=== PATIENT | male | born 1990 | race Caucasian/White ===

== ENCOUNTER 2023-08-30 07:25 | Emergency (ER) | payer OTHER, SELFPAY ==
[2023-08-30] VITALS (8 sets, daily range): BP systolic 112–122; BP diastolic 79–85; PULSE 54–68; RESP 13–18; TEMP 36.5; O2SAT 96–100; BMI 26.6
--- NOTE | 2023-08-30 07:55 | ECG_ITS ---
[facility] Test Date: 2023-08-30 Pat Name: YAO BLACN Department: Room: - Gender: Male [employer]er: : 1990 Requested By: Order Number: [id number] Reading MD: GELA MELENDREZ Measurements Intervals [place] Rate: 55 P: 57 MS: 182 QRS: 90 QRSD: 104 T: 75 QT: 414 QTc: 404 Interpretive Statements 1100 Sinus rhythm 1102 Sinus arrhythmia 2440 Incomplete right bundle branch block 9130 borderline ECG No previous ECG available for comparison Electronically Signed On 08-30-2023 22:27:28 EST by GELA MELENDREZ
--- NOTE | 2023-08-30 08:03 | XR_ITS ---
The [address] [address] Patient Name: YAO BLANC MRN: [id number] date: 1990 Sex: M Assigned Patient Location: ER Current Patient Location: ER Accession/Order Number: [id number] Exam Date: 08/30/2023 07:58 Report Date: 08/30/2023 08:19 At the request of: JOSELIN LIN Procedure: XR chest 1V EXAM: Chest x-ray HISTORY: . chest pain . COMPARISON: None. TECHNIQUE: Single view of the chest FINDINGS: Heart and vascularity are unremarkable. Lungs are free of focal infiltrates. EKG leads overlie the chest. XR/XR chest 1V IMPRESSION: No acute heart or lung disease identified. Electronically authenticated by: ROSALINDA TINOCO Date: 08/30/2023 08:19
--- NOTE | 2023-08-30 08:05 | ED_ITS ---
HPI - Chest Pain General Chief Complaint: Chest Pain Stated Complaint: CHEST PAIN Time Seen by Provider: 08/30/23 07:33 Source: patient Mode of arrival: walk-in Limitations: no limitations History of Present Illness HPI narrative: Woke up last night with substernal chest pain that was non-radiating and rated 10/10. Since then the pain has decreased and he rates it 4/10. . Related Data Previous Rx's Medication Instructions Recorded nabumetone 750 mg tablet 750 mg PO BID PRN pain #14 tabs 08/30/23 Allergies Allergy/AdvReac Type Severity Reaction Status Date / Time No Known Drug Allergies Allergy Verified 08/30/23 07:31 Exam Constitutional Vital Signs, click to edit/add: Last Vital Signs Temp 97.7 F 08/30/23 07:31 Pulse 56 L 08/30/23 08:30 Resp 13 08/30/23 08:30 BP 118/85 08/30/23 08:30 Pulse Ox 100 08/30/23 08:30 Course Vital Signs Vital signs: Vital Signs Blood Pressure 122/83 08/30/23 07:30 Pulse Oximetry 100 08/30/23 07:30 Temperature 97.7 F 08/30/23 07:31 Pulse Rate 56 L 08/30/23 08:30 Respiratory Rate 13 08/30/23 08:30 Blood Pressure 118/85 08/30/23 08:30 Pulse Oximetry 100 08/30/23 08:30 MDM - Chest Pain MDM Narrative Medical decision making narrative: Patient was placed on monitor technician and EKG obtained. Blood drawn and sent for evaluation. Chest x-ray obtained. Normal CBC. Negative troponin. Normal BMP. CXR negative. Patient's pain resolved after receiving IV Toradol. Patient informed of negative workup, given reassurance and discharged home with prescription for Relafen to take if pain returns. He can see his PCP for follow up.ED return if he worsens. Lab Data Attestation: I reviewed the patient's lab results. Labs: Lab Results 08/30/23 Range/Units 07:41 WBC 7.9 (4.0-11.0) 10^3/uL RBC 4.86 (4.70-6.10) 10^6/uL Hgb 15.2 (14.0-18.0) g/dL Hct 44.9 (42.0-54.0) % MCV 92.4 (80.0-94.0) fL MCH 31.3 (25.9-34.0) pg MCHC 33.9 (29.9-35.2) g/dL RDW 11.9 (11.0-15.0) % Plt Count 239 (150-450) 10^3/uL MPV 10.6 (9.5-13.5) fL Neut % (Auto) 63.7 (43.0-75.0) % Lymph % (Auto) 24.2 (20.5-60.0) % Isabella % (Auto) 8.9 (1.7-12.0) % Eos % (Auto) 2.1 (0.9-7.0) % Baso % (Auto) 0.8 (0.2-2.0) % Neut # (Auto) 5.1 (1.4-6.5) 10^3/uL Lymph # (Auto) 1.9 (1.2-3.8) 10^3/uL Isabella # (Auto) 0.7 (0.3-0.8) 10^3/uL Eos # (Auto) 0.2 (0.0-0.7) 10^3/uL Baso # (Auto) 0.1 (0.0-0.1) 10^3/uL Abs Immat Gran (auto) 0.02 (0.00-0.03) 10^3/uL Imm/Tot Granulo (auto) 0.3 (0.0-0.5) % Sodium 141 (136-145) mmol/L Potassium 4.2 (3.5-5.1) mmol/L Chloride 107 (98-107) mmol/L Carbon Dioxide 25.0 (21.0-32.0) mmol/L Anion Gap 13.2 BUN 17.0 (7.0-18.0) mg/dL Creatinine 1.15 (0.70-1.30) mg/dL Est GFR ( Amer) >60 (>=60) Est GFR (Non-Af Amer) >60 (>=60) BUN/Creatinine Ratio 14.8 Glucose 97 (74-106) mg/dL Calcium 8.8 (8.5-10.1) mg/dL Troponin I High Sens 4.3 (4.0-76.1) pg/mL NT-Pro-B Natriuret Pep 29.0 (<=450.0) pg/mL Imaging Data Chest x-ray: Radiologist's impression: ITS Impressions Chest X-Ray 08/30/23 08:03 IMPRESSION: No acute heart or lung disease identified. Electronically authenticated by: ROSALINDA TINOCO Date: 08/30/2023 08:19 ECG Data Attestation: I personally reviewed and interpreted this ECG as follows: Interpretation: EKG interpretation: Emergency Department physician interpretation. Normal sinus rhythm at 55bpm. Incomplete right bundle branch block. No ST segment elevation or depression. Heart Score History: Moderately Suspicious ECG: Normal Age: <45 years Risk Factors: No Risk Factors Troponin: <Normal Limit Total Heart Score Recommendations & Risks:: 1 Discharge Plan Discharge Chief Complaint: Chest Pain Clinical Impression: Chest pain Patient Disposition: Home, Self-Care Time of Disposition Decision: 08:48 Prescriptions / Home Meds: New nabumetone 750 mg tablet 750 mg PO BID PRN (Reason: pain) Qty: 14 0RF Instructions: Chest Pain (ED) Stand Alone Forms: Portal Instructions Referrals: Physician,Non-Staff, MD [Primary Care Provider] - 1 week
[2023-08-30 08:23] LABS: Basophils Absolute Auto 0.1 10^3/uL (0.0-0.1); Basophils Percent Auto 0.8 % (0.2-2.0); Eosinophils Absolute Auto 0.2 10^3/uL (0.0-0.7); Eosinophils Percent Auto 2.1 % (0.9-7.0); Hematocrit 44.9 % (42.0-54.0); Hemoglobin 15.2 g/dL (14.0-18.0); Immature Granulocytes Abs Auto 0.02 10^3/uL (0.00-0.03); Immature Granulocytes Pct Auto 0.3 % (0.0-0.5); Lymphocytes Absolute Auto 1.9 10^3/uL (1.2-3.8); Lymphocytes Percent Auto 24.2 % (20.5-60.0); Mean Corpuscular HGB Conc 33.9 g/dL (29.9-35.2); Mean Corpuscular Hemoglobin 31.3 pg (25.9-34.0); Mean Corpuscular Volume 92.4 fL (80.0-94.0); Mean Platelet Volume 10.6 fL (9.5-13.5); Monocytes Absolute Auto 0.7 10^3/uL (0.3-0.8); Monocytes Percent Auto 8.9 % (1.7-12.0); Neutrophils Absolute Auto 5.1 10^3/uL (1.4-6.5); Neutrophils Percent Auto 63.7 % (43.0-75.0); Platelet Count 239 10^3/uL (150-450); Red Blood Count 4.86 10^6/uL (4.70-6.10); Red Cell Distribution Width 11.9 % (11.0-15.0); White Blood Count 7.9 10^3/uL (4.0-11.0)
[2023-08-30] MEDS: KETOROLAC TROMETHAMINE 30 MG/ML VIAL IVP (08:32)
[2023-08-30 08:40] LABS: Anion Gap 13.2; BUN Creatinine Ratio 14.8; Calcium 8.8 mg/dL (8.5-10.1); Chloride 107 mmol/L (98-107); Estimated GFR (African America >60 (>=60); Estimated GFR (Non-African Ame >60 (>=60); Glucose 97 mg/dL (74-106); Potassium 4.2 mmol/L (3.5-5.1); Sodium 141 mmol/L (136-145); Troponin I High Sensitivity 4.3 pg/mL (4.0-76.1)
[2023-08-30 08:51] LABS: D Dimer <0.19 mg/L FEU (<=0.59)
== END 2023-08-30 09:01 | disposition home or self-care (01) ==
PROVIDERS: Emergency Provider Emergency Medicine
DX: R07.9 Chest pain, unspecified (principal)
CPT/HCPCS: 36415; 71045; 80048; 83880; 84484; 85025; 85378; 93005; 96374; 99285; J1885

== ENCOUNTER 2023-09-28 21:24 | Emergency (ER) | payer SELFPAY ==
[2023-09-28 21:28] VITALS: BP 128/67; PULSE 78; RESP 16; TEMP 37.1; O2SAT 98; BMI 26.6
--- OUTSIDE RECORDS SUMMARY | 2023-09-28 21:29 | XMS_ITS | CCD ---
Author Name Unknown Address [address] [place] [address] Organization [facility] Care Team Providers Care Supervisor Intermediates Name Role Phone Julee Vidal DO Primary Care Provider [phone] RAJESH FARRIS Attending Unavailable SELF, SELF Referring Unavailable MARCY, JULEE Primary Care Unavailable CHARLES ALICEA Attending Unavailable SELF, SELF Referring Unavailable FUNCK, JULEE Primary Care Unavailable SAAD STONE Attending Unavailable SELF, SELF Referring Unavailable LILLY, CHARLES Primary Care Unavailable ROSEANNE THRASHER Attending Unavailable SELF, SELF Referring Unavailable LILLY, CHARLES Primary Care Unavailable JULEE VIDAL Attending Unavailable SELF, SELF Referring Unavailable LILLY, CHARLES Primary Care Unavailable MARSHA PITTS Attending Unavailable SELF, SELF Referring Unavailable LILLY, CHARLES Primary Care Unavailable MARSHA PITTS Attending Unavailable MARSHA PITTS Referring Unavailable DANIELCKJULEE Primary Care Unavailable DANIELCKJULEE Primary Care Unavailable CONSULT, SURGERY - GENERAL (EMERGENT) Consulting Unavailable SANTOSH, SUPO A Attending Unavailable SANTOSH, SUPO A Admitting Unavailable DANIELCK, JULEE Primary Care Unavailable CORONA HERRERA Attending Unavailable MD David Martines Attending Unavailable MD David Martines Attending Unavailable MD David Martines Attending Unavailable Allergies Allergy Classification Reported Allergen(s) Allergy Type Date of Onset Reaction(s) Facility (6 sources) Honey bee venom Propensity to adverse reactions to drug 2 [facility] (1 source) Bee pollen; Translations: [bee pollen] Propensity to adverse reactions (disorder) [facility] Repository Medications Current Medications Medication Drug Class(es) Dates Sig (Normalized) Sig (Original) cefdinir 300 mg oral capsule (5 sources) Cephalosporin Antibacterial Start: 01-21-2023 End: 01-26-2023 take 1 capsule by mouth every twelve hours Cefdinir (OMNICEF) 300 MG capsule Take 1 capsule by mouth every 12 hours for 5 days. 10 capsule 0 01/21/2023 01/26/2023 Active metroNIDAZOLE 500 mg oral tablet (5 sources) Nitroimidazole Antimicrobial Start: 01-21-2023 End: 01-26-2023 take 1 tablet by mouth three times daily metroNIDAZOLE 500 MG tablet Take 1 tablet by mouth 3 times daily for 5 days. 15 tablet 0 01/21/2023 01/26/2023 Active Completed/Discontinued Medications Medication Drug Class(es) Dates Sig (Normalized) Sig (Original) acetaminophen 325 mg oral tablet (2 sources) Start: 3 End: take 1 tablet by mouth every six hours as needed 650 mg, Oral, EVERY 6 HOURS NEEDED, Starting on 01/19/23 at 1812, Until 01/21/23 at 1507, Mild Pain If Motrin is also ordered, alternate for mild pain. 24 hr amphetamine aspartate 7.5 mg / amphetamine sulfate 7.5 mg / dextroamphetamine saccharate 7.5 mg / dextroamphetamine sulfate 7.5 mg extended release oral capsule (20 sources) Central Nervous System Stimulant Start: 3 End: 3 take 1 capsule by mouth once daily in the morning amphetamine-dextr oamphetamine XR 30 MG Cap SR 24HR Indications: Attention deficit hyperactivity disorder (ADHD), unspecified ADHD type Take 1 capsule by mouth daily every morning. 30 capsule 0 03/14/2023 04/16/2023 Discontinued (Reorder) benzocaine 140 mg/ml / butamben 20 mg/ml / tetracaine 20 mg/ml mucosal spray (2 sources) Gertrudis Local Anesthetic, Standardized Chemical Allergen Start: 3 End: 3 tetracaine-benzoc mila (CETACAINE) topical spray 1 spray dicyclomine hydrochloride 20 mg oral tablet (2 sources) Anticholinergic Start: 3 End: 3 take 1 tablet by mouth every six hours as needed Dicyclomine 20 MG tablet Take 1 tablet by mouth every 6 hours as needed (Abdominal pain). 20 tablet 0 04/05/2023 04/16/2023 Discontinued (Therapy completed) 2 ml famotidine 10 mg/ml injection (2 sources) Histamine-2 Receptor Antagonist Start: 3 End: 3 famotidine (PF) (PEPCID) injection 20 mg 150 ml glucose 50 mg/ml injection (2 sources) Start: 3 End: 3 Dextrose 5% IV solution Iopamidol (2 sources) Radiographic Contrast Agent Start: 3 End: 3 Iopamidol (370 mg/mL) (ISOVUE) 76 % 75 mL 1 ml ketorolac tromethamine 15 mg/ml cartridge (2 sources) Nonsteroidal Anti-inflammatory Drug, Cyclooxygenase Inhibitor Start: 3 End: 3 take 15 mg intravenously every six hours as needed 15 mg, Intravenous, EVERY 6 HOURS NEEDED, Starting on Sun01/19/23 at 1812, Until 01/21/23 at 1507, Moderate Pain 1 ml morphine sulfate 2 mg/ml cartridge (4 sources) Opioid Agonist Start: 3 End: 3 take 2 mg intravenously every four hours as needed Morphine (PF) injection 2 mg Start: 01-19-2023 End: 01-19-2023 Morphine (PF) injection 4 mg 1 ml naloxone hydrochloride 0.4 mg/ml injection (2 sources) Opioid Antagonist Start: 01-19-2023 End: 01-21-2023 0.4 mg, Intravenous, EVERY 15 MINUTES NEEDED, 2 doses, Starting on Sun01/19/23 at 1811, Until Sun01/21/23 at 1507, Respiratory Depression, Opioid Reversal nirmatrelvir-ritonavi r (PAXLOVID) 300 MG & 100MG PO co-packaged tablets (1 source) Start: 04-05-2023 End: 04-10-2023 take 3 tablets by mouth twice daily nirmatrelvir-riton avir (PAXLOVID) 300 MG & 100MG PO co-packaged tablets Indications: COVID-19 virus infection Take three tablets (2 x nirmatrelvir 150 mg plus 1 x ritonavir 100 mg) twice daily for 5 days. 30 tablet 0 04/05/2023 04/10/2023 ondansetron 4 mg disintegrating oral tablet (4 sources) Serotonin-3 Receptor Antagonist Start: 04-05-2023 End: 04-16-2023 take 1 tablet by mouth every eight hours as needed Ondansetron 4 MG Tab Dispersible tablet Take 1 tablet by mouth every 8 hours as needed. 10 tablet 0 04/05/2023 04/16/2023 Discontinued (Therapy completed) Start: 01-19-2023 End: 01-19-2023 Ondansetron 4mg/2ml (ZOFRAN) injection 4 mg Ondansetron 4mg/2ml (ZOFRAN) injection 4 mg (2 sources) Start: 01-19-2023 End: 01-21-2023 take 4 mg intravenously every six hours as needed Ondansetron 4mg/2ml (ZOFRAN) injection 4 mg Start: 01-19-2023 take 4 mg intravenou sly every six hours as needed Ondansetron 4mg/2ml (ZOFRAN) injection 4 mg 1000 ml sodium chloride 9 mg/ml injection (6 sources) Start: 01-19-2023 End: 01-20-2023 Intravenous, at 100 mL/hr, CONTINUOUS, Starting on Sun01/19/23 at 1815, Until 01/20/23 at 1726 Start: 01-19-2023 End: 01-21-2023 take 5 mL intravenously once 5 mL, Intravenous, ADMINI STER DIRECTED, Starting on Sun01/19/23 at 1811, Until 01/21/23 at 1507, Flush, per IV Care Guidelines Start: 01-19-2023 End: 01-19-2023 Sodium chloride 0.9% IV solu tion 1,000 mL Problems Active Problems Problem Classification Problem Date Documented Date Episodic/Chronic Adjustment disorders (6 sources) Adjustment disorder; Translations: [Adjustment disorder, unspecified] Onset: 01-19-2023 01-19-2023 Chronic Asthma (6 sources) Asthma; Translations: [Unspecified asthma, uncomplicated] Onset: 01-19-2023 01-19-2023 Chronic Attention-deficit, conduct, and disruptive behavior disorders (7 sources) Attention deficit hyperactivity disorder; Translations: [Attention-deficit hyperactivity disorder, unspecified type] Onset: 02-09-2023 02-09-2023 Chronic Attention-deficit, conduct, and disruptive behavior disorders (2 sources) Attention-deficit hyperactivity disorder, unspecified type; Translations: [Attention-deficit hyperactivity disorder, unspecified type] Onset: 09-14-2022 Chronic Unclassified (2 sources) Other; Translations: [Other] Onset: 04-05-2023 Unclassified (2 sources) Medication Refill; Translations: [Medication Refill] Onset: 09-14-2022 Viral infection (3 sources) Disease caused by 2019-nCoV; Translations: [COVID-19] Onset: 04-05-2023 04-05-2023 Episodic Past or Other Problems Problem Classification Problem Date Documented Da te Episodic/Chronic Abdominal pain (7 sources) Left sided abdominal pain; Translations: [Unspecified abdominal pain] Onset: 01-19-2023 01-19-2023 Episodic Intestinal obstruction without hernia (12 sources) Small bowel obstruction; Translations: [Unspecified intestinal obstruction, unspecified as to partial versus complete obstruction] Onset: 01-19-2023 01-19-2023 Episodic Other circulatory disease (6 sources) Elevated blood pressure; Translations: [Elevated blood-pressure reading, without diagnosis of hypertension] Onset: 09-14-2022 Resolved: 04-16-2023 09-14-2022 Episodic Results Test Name Value Interpretation Reference Range Facility Ambulatory Visit Summaryon 1 09-19-2022 Ambulatory Visit Summary OSMAN BLANC :1990 Visit Date:07/19/2023 Ambulatory Visit Instructions Your Diagnosis Attention deficit hyperactivity disorder Tetrahydrocannabinol (THC) use disorder, moderate, dependence BMI 27.0-27.9,adult Smoker Your Care Team Attending Physician - David Martines MD Primary Care Physician - David Martines MD This Is Your Medications List amphetamine-dextroamp hetamine (amphetamine-dextroam phetamine 30 mg ER Cap) Contact prescribing physician if questions or concerns albuterol (Albuterol (Eqv-ProAir HFA) 90 mcg/inh inhalation aerosol) Discharge Vitals Temperature (Oral) 36.7 ?C Heart Rate (Peripheral) 76 Respiratory Rate 14 Blood Pressure 132/80 Height 173 cm Height 68 in Weight 81.6 kg Weight 179.52 lb BMI 27.26 What to do next Scheduled Follow-Up Appointments Sunday 3:00 PM EST With: Conrad INGRAM, David Palafox Where: [facility] Medicine [place] [facility] Family Medicine Office/Clini c Noteon 07-19-2023 Family Medicine Office/Clinic Note HPI Staff Osman is a 32 year old male presenting for one month follow up ADHD Has been on adderrall for ADHD just started 06/21/23 _ Sleeping well: yes Eating habits: Eating well, maintaining weight Side effects: no Focused at home: yes_ Concerns/complaints: None OARRS reviewed with no concerns Last med refill: 06/21/23 Urine drug screen complete: yes but + THC and needs repeated today Medication agreement utd: yes Date: 06/21/2023 _ UDS done and documented questions/concerns: needs the adderall refilled, his insurance only covers 30 at a time History of Present Illness - Here for recheck - Still positive - States he only stopped smoking two weeks ago. Review of Systems PHQ Score Initial Depression Screen Score: 0 SCORE Physical Exam Vitals & Measurements T: 36.7 ?C(Oral) HR: 76(Peripheral) RR: 14 BP: 132/80 SpO2: 99% HT: 68 in HT: 173 cm WT: 81.6 kg WT: 179.52 lb BMI: 27.26 General: alert, no acute distress ENMT: oral mucosa moist, Cardiovascular: normal peripheral perfusion Respiratory: respirations non labored Extremities: no deformity, no trauma Neurological: oriented x 4, LOC appropriate for age, CN II-XII intact, motor strength equal & normal bilaterally, speech normal Assessment/Plan 1. Attention deficit hyperactivity disorder (F90.9: Attention-deficit hyperactivity disorder, unspecified type) - Will refill one more time. If still positive, we will cut him off. - Pt knows and is in agreement Ordered: Drug Screen POC 28857 2. Tetrahydrocannabinol (THC) use disorder, moderate, dependence (F12.20: Cannabis dependence, uncomplicated) - As above - Encouraged cessation. Orders: amphetamine-dextroamp hetamine, 30 mg = 1 cap(s), Oral, qAM, # 30 cap(s), Refills(s) 0, Pharmacy: [facility]/pharmacy #[id number], 173, cm, 07/19/23 10:31:00 EST, Height/Length Dosing, 81.6, kg, 07/19/23 10:31:00 EST, Weight Dosing Follow-up No qualifying data available Patient Education Attention Deficit Hyperactivity Disorder, Adult Problem List/Past Medical History Ongoing Asthma Attention deficit hyperactivity disorder Encounter for surveillance of abnormal nevi Smoker Tetrahydrocannabinol (THC) use disorder, moderate, dependence Historical No qualifying data Medications Albuterol (Eqv-ProAir HFA) 90 mcg/inh inhalation aerosol, Self Directed amphetamine-dextroamp hetamine 30 mg ER Cap, 30 mg= 1 cap(s), Oral, qAM Allergies bee pollen Social History Tobacco 10 or more cigarettes (1/2 pack or more)/day in last 30 days Tobacco Use:. Never Smokeless Tobacco Use:. Cigarettes, 07/19/2023 Smoker, current status unknown Tobacco Use:. Cigarettes, 15 year(s)., 06/21/2023 Family History Diabetes mellitus type 2: Grandparent. Heart failure: Grandparent. Hyperlipidemia: Grandparent. Hypertension: Grandparent. Malignant lymphoma: Negative: Grandparent. Metastatic cancer: Grandparent. Stroke: Grandparent. Immunizations Vaccine Date Status SARS-CoV-2 (COVID-19) Ad26 vaccine 10/25/2021 Recorded influenza virus vaccine, inactivated 06/14/2021 Recorded diphtheria/pertussis, acel/tetanus adult 01/11/2019 Recorded hepatitis B pediatric vaccine 05/08/2005 Recorded measles/mumps/rubella virus vaccine 02/17/2002 Recorded measles/mumps/rubella virus vaccine 04/23/2001 Recorded hepatitis B pediatric vaccine 04/23/2001 Recorded DTaP, unspecified formulation 03/21/1993 Recorded DTaP, unspecified formulation 04/08/1991 Recorded measles/mumps/rubella virus vaccine 02/19/1990 Recorded DTaP, unspecified formulation 02/19/1990 Recorded DTaP, unspecified formulation 11/28/1989 Recorded DTaP, unspecified formulation 04/17/1989 Recorded Lab Results Ambulatory Point of Care Results Cocaine Result: Negative (07/19/23 10:35:00) Amphetamines Result: Positive (07/19/23 10:35:00) Barbiturates Result: Negative (07/19/23 10:35:00) Cannabinoids Result: Positive (07/19/23 10:35:00) MDMA Result: Negative (07/19/23 10:35:00) Methadone Result: Negative (07/19/23 10:35:00) Methamphetamines Result: Negative (07/19/23 10:35:00) Opiates Result: Negative (07/19/23 10:35:00) Oxycodone Result: Negative (07/19/23 10:35:00) Phencyclidine (PCP) Result: Negative (07/19/23 10:35:00) Tricyclic Antidepressants Result: Negative (07/19/23 10:35:00) Benzodiazepines Quant: Negative (07/19/23 10:35:00) Normal [facility] Comment on above: Result Comment: Elec tronically Signed By: Conrad INGRAM, David Palafox\.br\Date and Time Signed: 07/19/23 10:49 EST Patient Educationon 07-19-20 Patient Education Mental and Behavior[facility] Attention Deficit Hyperactivity Disorder, Adult Attention deficit hyperactivity disorder (ADHD) is a mental health disorder that starts during childhood. For many people with ADHD, the disorder continues into the adult years. Treatment can help you manage your symptoms. There are three main types of ADHD: ? Inattentive. With this type, adults have difficulty paying attention. This may affect cognitive abilities. ? Hyperactive-impulsive . With this type, adults have a lot of energy and have difficulty controlling their behavior. ? Combination type. Some people may have symptoms of both types. What are the causes? The exact cause of ADHD is not known. Most experts believe a person's genes and environment possibly contribute to ADHD. What increases the risk? The following factors may make you more likely to develop this condition: ? Having a first-degree relative such as a parent, brother, or sister, with the condition. ? Being born before 37 weeks of (prematurely) or at a low weight. ? Being born to a mother who smoked tobacco or drank alcohol during . ? Having experienced a brain injury. ? Being exposed to lead or other toxins in the womb or early in life. What are the signs or symptoms? Symptoms of this condition depend on the type of ADHD. Symptoms of the inattentive type include: ? Difficulty paying attention or following instructions. ? Often making simple mistakes. ? Being disorganized. ? Avoiding tasks that require time and attention. ? Losing and forgetting things. Symptoms of the hyperactive-impulsive type include: ? Restlessness. ? Talking out of turn, interrupting others, or talking too much. ? Difficulty with: ? Sitting still. ? Feeling motivated. ? Relaxing. ? Waiting in line or waiting for a turn. People with the combination type have symptoms of both of the other types. In adults, this condition may lead to certain problems, such as: ? Keeping jobs. ? Performing tasks at work. ? Having stable relationships. ? Being on time or keeping to a schedule. How is this diagnosed? This condition is diagnosed based on your current symptoms and your history of symptoms. The diagnosis can be made by a health care provider such as a primary care provider or a mental health healthcare recruiter. Your health care provider may use a symptom checklist or a behavior rating scale to evaluate your symptoms. Your health care provider may also want to talk with people who have observed your behaviors throughout your life. How is this treated? This condition can be treated with medicines and behavior therapy. Medicines may be the best option to reduce impulsive behaviors and improve attention. Your health care provider may recommend: ? Stimulant medicines. These are the most common medicines used for adult ADHD. They affect certain chemicals in the brain (neurotransmitters) and improve your ability to control your symptoms. ? A non-stimulant medicine. These medicines can also improve focus, attention, and impulsive behavior. It may take weeks to months to see the effects of this medicine. Counseling and behavioral management are also important for treating ADHD. Counseling is often used along with medicine. Your health care provider may suggest: ? Cognitive behavioral therapy (CBT). This type of therapy teaches you to replace negative thoughts and actions with positive thoughts and actions. When used as part of ADHD treatment, this therapy may also include: ? Coping strategies for organization, time management, impulse control, and stress reduction. ? Mindfulness and meditation training. ? Behavioral management. You may work with a head coach who is specially trained to help people with ADHD manage and organize activities and function more effectively. Follow these instructions at home: Medicines ? Take [id number] and prescription medicines only as told by your health care provider. ? Talk with your health care provider about the possible side effects of your medicines and how to manage them. Alcohol use ? Do not drink alcohol if: ? Your health care provider tells you not to drink. ? You are , may be , or are planning to become . ? If you drink alcohol: ? Limit how much you use to: ? 0?1 drink a day for women. ? 0?2 drinks a day for men. ? Know how much alcohol is in your drink. In the [place] one drink equals one 12 oz bottle of beer (355 mL), one 5 oz glass of wine (148 mL), or one 1? oz glass of hard liquor (44 mL). Lifestyle ? Do not use illegal drugs. ? Get enough sleep. ? Eat a healthy diet. ? Exercise regularly. Exercise can help to reduce stress and anxiety. General instructions ? Learn as much as you can about adult ADHD, and work closely with your health care providers to find the treatments that work best for you. ? Follow th (more content not included)... Normal [facility] Physician Referralon 023 Physician Referral [id number] [phone] [id number] [id number] Normal [facility] Ambulatory Visit Summaryon 08-21-2022 Ambulatory Visit Summary OSMAN BLANC :1990 Visit Date:06/21/2023 Ambulatory Visit Instructions Your Diagnosis Attention deficit hyperactivity disorder Asthma Smoker BMI 27.0-27.9,adult Encounter for surveillance of abnormal nevi Your Care Team Attending Physician - David Martines MD Primary Care Physician - David Martines MD This Is Your Medications List amphetamine-dextroamp hetamine (amphetamine-dextroam phetamine 30 mg ER Cap) Contact prescribing physician if questions or concerns albuterol (Albuterol (Eqv-ProAir HFA) 90 mcg/inh inhalation aerosol) Discharge Vitals Heart Rate (Peripheral) 89 Respiratory Rate 16 Blood Pressure 142/86 Height 68 in Height 173 cm Weight 179.74 lb Weight 81.7 kg BMI 27.3 What to do next Scheduled Follow-Up Appointments 2022 4:00 PM EST With: David Martines MD Where: [facility] Invalid Interpretation Code Asthma [facility] Ambulatory Visit Summary OSMAN BLANC :1990 Visit Date:06/21/2023 Ambulatory Visit Instructions Your Diagnosis Attention deficit hyperactivity disorder Asthma Smoker BMI 27.0-27.9,adult Encounter for surveillance of abnormal nevi Your Care Team Attending Physician - David Martines MD Primary Care Physician - David Martines MD This Is Your Medications List Contact prescribing physician if questions or concerns albuterol (Albuterol (Eqv-ProAir HFA) 90 mcg/inh inhalation aerosol) amphetamine-dextroamp hetamine (amphetamine-dextroam phetamine 30 mg ER Cap) Discharge Vitals Heart Rate (Peripheral) 89 Respiratory Rate 16 Blood Pressure 142/86 Height 68 in Height 173 cm Weight 179.74 lb Weight 81.7 kg BMI 27.3 What to do next Scheduled Follow-Up Appointments 2022 4:00 PM EST With: David Martines MD Where: [facility] Invalid Interpretation Code Asthma [facility] Ambulatory Visit Summary OSMAN BLANC :1990 Visit Date:06/21/2023 Ambulatory Visit Instructions Your Diagnosis Smoker BMI 27.0-27.9,adult Your Care Team Attending Physician - David Martines MD Primary Care Physician - David Martines MD This Is Your Medications List Contact prescribing physician if questions or concerns albuterol (Albuterol (Eqv-ProAir HFA) 90 mcg/inh inhalation aerosol) amphetamine-dextroamp hetamine (amphetamine-dextroam phetamine 30 mg ER Cap) Discharge Vitals Heart Rate (Peripheral) 89 Respiratory Rate 16 Blood Pressure 142/86 Height 68 in Height 173 cm Weight 179.74 lb Weight 81.7 kg BMI 27.3 Medications What When Instructions Unchanged albuterol (Albuterol (Eqv-ProAir HFA) 90 mcg/ inh inhalation aerosol) Contact prescribing physician if questions or concerns Unchanged amphetamine-dextroamp hetamine (amphetamine-dextroam phetamine 30 mg ER Cap) Oral, 0 Refill(s) Contact prescribing physician if questions or concerns Allergies bee pollen Problems Ongoing - Any problem that you are currently receiving treatment for. Asthma Attention deficit hyperactivity disorder Smoker Patient Survey You may receive a survey via text or e-mail asking about your office visit. Please share your experience with us by completing your survey. We appreciate your feedback and thank you for choosing us for your care. Normal [facility] Medicine Office/Clini c Noteon 06-21-2023 Family Medicine Office/Clinic Note HPI Staff Osman is a 32 year old male presenting to establish care Has ADHD Establish Care: History:ADHD Last provider: [facility] Any recent labs: Been a while Health Maintenance UTD: Colonoscopy: No PSA: No flu: Due Acute: Current issues/complaints: needs refills on meds, has 2 spots, one under chin, one on back of head. Said they both cause pain, burning at times. History of Present Illness - Here to establish care today. - No issues - Hx of ADHD - Hx of meth abuse - Has not used meth in 4 years - No issues with asthma. Review of Systems PHQ Score Initial Depression Screen Score: 0 SCORE Physical Exam Vitals & Measurements HR: 89(Peripheral) RR: 16 BP: 142/86 SpO2: 99% HT: 68 in HT: 173 cm WT: 81.7 kg WT: 179.74 lb BMI: 27.3 General: alert, no acute distress ENMT: oral mucosa moist, Cardiovascular: regular rate and rhythm, normal peripheral perfusion Respiratory: Lungs CTA, respirations non labored Extremities: no deformity, no trauma Neurological: oriented x 4, LOC appropriate for age, CN II-XII intact, motor strength equal & normal bilaterally, speech normal Abdomen: Soft, Nontender, Non-distended, + BS Abnormal nevi noted on the back of the patients scalp Assessment/Plan 1. Attention deficit hyperactivity disorder (F90.9: Attention-deficit hyperactivity disorder, unspecified type) - Will continue with Adderall - CSC agreement signed - Discussed not using THC - Pt is agreeable to this - Will Recheck THC at next month Ordered: Drug Screen POC 16188 [facility] External Ambulatory Referral 2. Asthma (J45.909: Unspecified asthma, uncomplicated) - NO issues at this time. - On Albuterol PRN Ordered: [facility] External Ambulatory Referral 3. Smoker (F17.200: Nicotine dependence, unspecified, uncomplicated) - Please stop smoking Ordered: Drug Screen POC 19048 [facility] External Ambulatory Referral 4. BMI 27.0-27.9,adult (Z68.27: Body mass index [BMI] 27.0-27.9, adult) - BMI education given Ordered: Drug Screen POC [address] [facility] External Ambulatory Referral 5. Encounter for surveillance of abnormal nevi (Z13.89: Encounter for screening for other disorder) - Will send to derm. Ordered: [facility] External Ambulatory Referral Orders: amphetamine-dextroamp hetamine, 30 mg = 1 cap(s), Oral, qAM, # 90 cap(s), Refills(s) 0, Pharmacy: [facility]/pharmacy #[id number], 173, cm, 06/21/23 14:42:00 EST, Height/Length Dosing, 81.7, kg, 06/21/23 14:42:00 EST, Weight Dosing Follow-up No qualifying data available Problem List/Past Medical History Ongoing Asthma Attention deficit hyperactivity disorder Encounter for surveillance of abnormal nevi Smoker Historical No qualifying data Medications Albuterol (Eqv-ProAir HFA) 90 mcg/inh inhalation aerosol amphetamine-dextroamp hetamine 30 mg ER Cap, 30 mg= 1 cap(s), Oral, qAM Allergies bee pollen Social History Tobacco Smoker, current status unknown Tobacco Use:. Cigarettes, 13 year(s)., 06/21/2023 Family History Diabetes mellitus type 2: Grandparent. Heart failure: Grandparent. Hyperlipidemia: Grandparent. Hypertension: Grandparent. Malignant lymphoma: Negative: Grandparent. Metastatic cancer: Grandparent. Stroke: Grandparent. Immunizations Vaccine Date Status SARS-CoV-2 (COVID-19) Ad26 vaccine 10/25/2021 Recorded influenza virus vaccine, inactivated 06/14/2021 Recorded diphtheria/pertussis, acel/tetanus adult 01/11/2019 Recorded hepatitis B pediatric vaccine 05/08/2005 Recorded measles/mumps/rubella virus vaccine 02/17/2002 Recorded measles/mumps/rubella virus vaccine 04/23/2001 Recorded hepatitis B pediatric vaccine 04/23/2001 Recorded DTaP, unspecified formulation 03/21/1993 Recorded DTaP, unspecified formulation 04/08/1991 Recorded measles/mumps/rubella virus vaccine 02/19/1990 Recorded DTaP, unspecified formulation 02/19/1990 Recorded DTaP, unspecified formulation 11/28/1989 Recorded DTaP, unspecified formulation 04/17/1989 Recorded Lab Results Ambulatory Point of Care Results Cocaine Result: Negative (06/21/23 14:53:00) Amphetamines Result: Positive (06/21/23 14:53:00) Barbiturates Result: Negative (06/21/23 14:53:00) Cannabinoids Result: Positive (06/21/23 14:53:00) MDMA Result: Negative (06/21/23 14:53:00) Methadone Result: Negative (06/21/23 14:53:00) Methamphetamines Result: Negative (06/21/23 14:53:00) Opiates Result: Negative (06/21/23 14:53:00) Oxycodone Result: Negative (06/21/23 14:53:00) Phencyclidine (PCP) Result: Negative (06/21/23 14:53:00) Tricyclic Antidepressants Result: Negative (06/21/23 14:53:00) Benzodiazepines Quant: Negative (06/21/23 14:53:00) [facility] Comment on above: Result Comment: Elec tronically Signed By: Conrad INGRAM, David Jungbr\Date and Time Signed: 06/21/23 15:07 EST [employer]son 06-21-2023 Forms [id number]. 00TIFF [facility] Forms [id number] .00TIFF [facility] Medication Consenton 023 Medication Consent [id number] .00TIFF [facility] PAIN MGT DRUG PANEL W/ INTER Ari 04-20-2023 6-Monoacetylmorphine (6-SARA) Ql (U) Not detected [facility] 7-Aminoclonazepam Ql (U) Not detected [facility] Alpha hydroxyalprazolam Ql (U) Not detected [facility] Sjbxa-UV-Pvrfxkwrd (cutoff 20 ng/mL) Not detected [facility] ALPRAZolam Ql (U) Not detected [facility] Amphetamines Ql (U) Present [facility] Annotation comment [Interpretation] Narrative See Interp [facility] Annotation comment [Interpretation] Narrative See Note [facility] Comment on above: ____ DRUGS EXPECTED: ADDERALL (AMPHETAMINE) ____ CONSISTENT with medications provided: ADDERALL (AMPHETAMINE): based on amphetamine ____ INCONSISTENT with medications provided: THC: based on immunoassay detection ____ INTERPRETIVE INFORMATION: Targeted drug profile Interp Interpretation depends on accuracy and completeness of patient medication information submitted by client. Barbiturates Ql (U) Not detected [facility] Benzoylecgonine Ql (U) Not detected [facility] Buprenorphine Ql (U) Not detected [facility] Carboxy tetrahydrocannabinol Ql (U) Present [facility] Comment on above: INTERPRETIVE INFORMA TION: Marijuana Metabolite The cutoff for Marijuana Metabolite (immunoassay) was changed from 20 ng/mL to 50 ng/mL, effective December 18, 2022. Carisoprodol Ql (U) Not detected [facility] Comment on above: The carisoprodol immunoassay has cross-reactivity to carisoprodol and meprobamate. clonazePAM Ql (U) Not detected [facility] Codeine Ql (U) Not detected [facility] Creatinine (U) [Mass/Vol] 348.2 mg/dL 20 .0 - 400.0 mg/dL [facility] diazePAM Ql (U) Not detected [facility] Ethyl glucuronide Ql (U) Not detected [facility] fentaNYL Ql (U) Not detected [facility] Gabapentin (cutoff 3,000 ng/mL) Not detected [facility] HYDROcodone Ql (U) Not detected [facility] HYDROmorphone Ql (U) Not detected [facility] LORazepam Ql (U) Not detected [facility] Methadone Ql (U) Not detected [facility] Methamphetamine Ql (U) Not detected [facility] Methylenedioxyamphetamine Ql (U) Not detected [facility] Methylenedioxyethylamphet amine Ql (U) Not detected [facility] Methylenedioxymethampheta mine Ql (U) Not detected [facility] Methylphenidate Ql (U) Not detected [facility] Midazolam Screen Ql (U) Not detected [facility] Morphine Ql (U) Not detected [facility] Naloxone (cutoff 100 ng/mL) Not detected [facility] Norbuprenorphine Confirm Ql (U) Not detected [facility] Nordiazepam Ql (U) Not detected [facility] Norfentanyl Ql (U) Not detected [facility] Norhydrocodone Confirm Ql (U) Not detected [facility] Normeperidine Confirm Ql (U) Not detected [facility] Noroxycodone Confirm Ql (U) Not detected [facility] Noroxymorphone (cutoff 100 ng/mL) Not detected [facility] Oxazepam Ql (U) Not detected [facility] oxyCODONE Ql (U) Not detected [facility] oxyMORphone Ql (U) Not detected [facility] Pathology study See Note [facility] Comment on above: Authorized individua ls can access the Moven Enhanced Report using the following link: [email or web address] Performed By: [facility] [address] [place] [address] Supply Chain Buyer: Vlad South MD, PhD CLIA Number: [id number] Phencyclidine Ql (U) Not detected [facility] Phentermine Ql (U) Not detected [facility] Pregabalin (cutoff 3,000 ng/mL) Not detected [facility] Service comment (Unsp spec) [Interp] See Below [facility] Comment on above: Methodology: Qualita tive Enzyme Immunoassay and Qualitative Liquid Chromatography-Tandem Mass Spectrometry, Quantitative Spectrophotometry The absence of expected drug(s) and/or drug metabolite(s) may indicate non-compliance, inappropriate timing of specimen collection relative to drug administration, poor drug absorption, diluted/adulterated urine, or limitations of testing. The concentration must be greater than or equal to the cutoff to be reported as present. If specific drug concentrations are required, contact the laboratory within two weeks of specimen collection to request quantification by a second analytical technique. Interpretive questions should be directed to the laboratory. Results based on immunoassay detection that do not match clinical expectations should be interpreted with caution. Confirmatory testing by mass spectrometry for immunoassay-based results is available, if ordered within two weeks of specimen collection. Additional charges apply. For medical purposes only; not valid for forensic use. This test was developed and its performance characteristics determined by [facility]. It has not been cleared or approved by the US Food and Drug Administration. This test was performed in a CLIA certified laboratory and is intended for clinical purposes. Tapentadol Screen Ql (U) Not detected [facility] Msamstsgbn-t-Htpr (cutoff 200 ng/mL) Not detected [facility] Temazepam Ql (U) Not detected [facility] traMADol Ql (U) Not detected [facility] Zolpidem Metabolite (cutoff 100 ng/mL) Not detected [facility] Zolpidem Ql (U) Not detected [facility] PAIN MGT DRUG PANEL W/ INTER Ari 04-16-2023 6-acetylmorphine (cutoff 20 ng/mL) Not detected [facility] 7-Aminoclonazepam (cutoff 40 ng/mL) Not detected [facility] Tccxh-TR-Rgkazhowbw (cutoff 20 ng/mL) Not detected [facility] Jdtsy-YN-Tkcmmmywd (cutoff 20 ng/mL) Not detected [facility] Alprazolam (cutoff 40 ng/mL) Not detected [facility] Amphetamine (cutoff 50 ng/mL) Present [facility] Barbiturates (cutoff 200 ng/mL) Not detected [facility] Benzoylecgonine Ql (U) Not detected [facility] Buprenorphine (cutoff 5 ng/mL) Not detected [facility] Carisoprodol (cut-off 100 ng/mL) Not detected [facility] Comment on above: Result Comment: The carisoprodol immunoassay has cross-reactivity to carisoprodol and meprobamate. Clonazepam (cutoff 20 ng/mL) Not detected [facility] Codeine (cutoff 40 ng/mL) Not detected [facility] Creatinine, Urine 348.2 mg/dL Normal 20.0-400.0 [facility] Diazepam (cutoff 50 ng/mL) Not detected [facility] DRUGS EXPECTED See Interp [facility] EER Tgt drug prof, MS/EMIT, UR See Note [facility] Comment on above: Result Comment: Auth orized individuals can access the Moven Enhanced Report using the following link: [email or web address] Performed By: [facility] [address] [place] [address] Supply Chain Buyer: Vlad South MD, PhD CLIA Number: [id number] Ethyl Glucuronide (cutoff 500 ng/mL) Not detected [facility] Fentanyl (cutoff 2 ng/mL) Not detected [facility] Gabapentin (cutoff 3,000 ng/mL) Not detected [facility] Hydrocodone (cutoff 40 ng/mL) Not detected [facility] Hydromorphone (cutoff 20 ng/mL) Not detected [facility] Lorazepam (cutoff 60 ng/mL) Not detected [facility] Marijuana Metabolite (cutoff 20 ng/mL) Present [facility] Comment on above: Result Comment: INTE RPRETIVE INFORMATION: Marijuana Metabolite The cutoff for Marijuana Metabolite (immunoassay) was changed from 20 ng/mL to 50 ng/mL, effective December 18, 2022. MDA (cutoff 200 ng/mL) Not detected [facility] MDEA- Jewels (cutoff 200 ng/mL) Not detected [facility] MDMA- Ecstasy (cutoff 200 ng/mL) Not detected [facility] Meperidine metabolite (cutoff 50 ng/mL) Not detected [facility] Methadone Ql (U) Not detected [facility] Methamphetamine (cutoff 200 ng/mL) Not detected [facility] Methylphenidate (cutoff 100 ng/mL) Not detected [facility] Midazolam (cutoff 20 ng/mL) Not detected [facility] Morphine (cutoff 20 ng/mL) Not detected [facility] Naloxone (cutoff 100 ng/mL) Not detected [facility] Norbuprenorphine (cutoff 20 ng/mL) Not detected [facility] Nordiazepam (cutoff 50 ng/mL) Not detected [facility] Norfentanyl (cutoff 2 ng/mL) Not detected [facility] Norhydrocodone (cutoff 100 ng/mL) Not detected [facility] Noroxycodone (cutoff 100 ng/mL) Not detected [facility] Noroxymorphone (cutoff 100 ng/mL) Not detected [facility] Oxazepam (cutoff 50 ng/mL) Not detected [facility] Oxycodone (cutoff 40 ng/mL) Not detected [facility] Oxymorphone (cutoff 40 ng/mL) Not detected [facility] PCP (cutoff 25 ng/mL) Not detected [facility] Phentermine (cutoff 100 ng/mL) Not detected [facility] Pregabalin (cutoff 3,000 ng/mL) Not detected [facility] Tapentadol (cutoff 100 ng/mL) Not detected [facility] Wwbwqgqmwo-p-Veso (cutoff 200 ng/mL) Not detected [facility] Targeted Drug Profile Interp See Note [facility] Comment on above: Result Comment: ____ DRUGS EXPECTED: ADDERALL (AMPHETAMINE) ____ CONSISTENT with medications provided: ADDERALL (AMPHETAMINE): based on amphetamine ____ INCONSISTENT with medications provided: THC: based on immunoassay detection ____ INTERPRETIVE INFORMATION: Targeted drug profile Interp Interpretation depends on accuracy and completeness of patient medication information submitted by client. Targeted drug profile panel See Below [facility] Comment on above: Result Comment: Meth odology: Qualitative Enzyme Immunoassay and Qualitative Liquid Chromatography-Tandem Mass Spectrometry, Quantitative Spectrophotometry The absence of expected drug(s) and/or drug metabolite(s) may indicate non-compliance, inappropriate timing of specimen collection relative to drug administration, poor drug absorption, diluted/adulterated urine, or limitations of testing. The concentration must be greater than or equal to the cutoff to be reported as present. If specific drug concentrations are required, contact the laboratory within two weeks of specimen collection to request quantification by a second analytical technique. Interpretive questions should be directed to the laboratory. Results based on immunoassay detection that do not match clinical expectations should be interpreted with caution. Confirmatory testing by mass spectrometry for immunoassay-based results is available, if ordered within two weeks of specimen collection. Additional charges apply. For medical purposes only; not valid for forensic use. This test was developed and its performance characteristics determined by [facility]. It has not been cleared or approved by the US Food and Drug Administration. This test was performed in a CLIA certified laboratory and is intended for clinical purposes. 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1990 Requested By: CORONA Guallpa Order Number: [id number] Reading MD: Jhony Roberts Measurements Intervals [place] Rate: 90 P: 61 IA: 175 QRS: 61 QRSD: 116 T: 58 QT: 350 QTc: 429 Interpretive Statements Sinus rhythm Incomplete right bundle branch block Electronically Signed On 04-10-2023 11:56:33 EDT by Jhony Roberts [facility] CBC AND ELECTRONIC DIFFon Basophils (Bld) [#/Vol] 0.1 10*3/uL Normal 0.0-0.2 [facility] Basophils/100 WBC (Bld) 0.7 % Normal [facility] Eosinophils (Bld) [#/Vol] 0.1 10*3/uL Normal 0.0-0.6 [facility] Eosinophils/100 WBC (Bld) 0.9 % Normal [facility] Hematocrit (Bld) [Volume fraction] 43.5 % Normal 37.5-50.1 [facility] Hemoglobin (Bld) [Mass/Vol] 14.7 g/dL Normal 12.9-16.9 [facility] Immature Grans % 0.5 % Normal [facility] Lymphocytes (Bld) [#/Vol] 0.4 10*3/uL Low 0.6-4.6 [facility] Lymphocytes/100 WBC (Bld) 4.2 % Normal [facility] MCV (RBC) [Entitic vol] 88.4 fL Normal 83.0-100.0 [facility] Mean Cell Hgb 29.9 pg Normal 28.0-33.0 [facility] Mean Cell Hgb Conc 33.8 g/dL Normal 31.6-35.5 [facility] Monocytes (Bld) [#/Vol] 1.0 10*3/uL Normal 0.0-1.3 [facility] Monocytes/100 WBC (Bld) 11.1 % Normal [facility] [place] Nucleated RBC 0 /100 WBC Normal [facility] Platelet mean volume (Bld) [Entitic vol] 10.6 fL Normal 9.4-12.4 [facility] Platelets (Bld) [#/Vol] 224 10*3/uL Normal 140-400 [facility] RBC (Bld) [#/Vol] 4.92 10*6/uL Normal 4.19-5.50 [facility] [place] RBC Distribution 11.9 % Normal 11.5-14.5 [facility] Segs + Bands Auto 82.6 % Normal [facility] Segs + Bands,Absolute Auto 7.6 K/uL Normal 1.6-8.9 [facility] WBC (Bld) [#/Vol] 9.1 10*3/uL Normal 4.3-11.1 [facility] COMPREHENSIVE METABOLIC PANE Philip 04-05-2023 Albumin [Mass/Vol] 4.7 g/dL Normal 3.5-5.7 [facility] Albumin/Globulin [Mass ratio] 1.7 {ratio} Normal 1.1-2.2 [facility] ALP [Catalytic activity/Vol] 81 U/L Normal 34-104 [facility] ALT [Catalytic activity/Vol] 26 U/L Normal 7-52 [facility] AST [Catalytic activity/Vol] 20 U/L Normal 13-39 [facility] Bilirubin [Mass/Vol] 0.6 mg/dL Normal 0.3-1.0 [facility] Calcium [Mass/Vol] 9.4 mg/dL Normal 8.6-10.3 [facility] Chloride [Moles/Vol] 105 mmol/L Normal 98-107 [facility] CO2 [Moles/Vol] 22 mmol/L Low 23-29 [facility] Creatinine [Mass/Vol] 1.10 mg/dL Normal 0.70-1.30 [facility] GFR/1.73 sq M.predicted among non-blacks MDRD (S/P/Bld) [Vol rate/Area] 90 mL/min/{1.73_m2} Normal >=60 [facility] Comment on above: Result Comment: Repo rted eGFR is based on the CKD-EPI 2020 equation using creatinine, age, and sex. Globulin (S) [Mass/Vol] 2.7 g/dL Normal 2.4-3.5 [facility] Glucose [Mass/Vol] 104 mg/dL Normal 70-105 [facility] Osmolality [Osmolality] 280 mosm/kg Normal 280-300 [facility] Potassium [Moles/Vol] 3.9 mmol/L Normal 3.5-5.1 [facility] Protein [Mass/Vol] 7.4 g/dL Normal 6.4-8.9 [facility] Sodium [Moles/Vol] 135 mmol/L Low 136-145 [facility] Urea nitrogen [Mass/Vol] 13 mg/dL Normal 6-20 [facility] Urea nitrogen/Creatinine [Mass ratio] 12 mg/mg Normal 6-26 [facility] LIPASEon 04-05-2023 Lipase [Catalytic activity/Vol] 3 U/L Low 11-82 [facility] TROPONINon 04-05-2023 Troponin I.cardiac [Mass/Vol] ng/mL Normal <0.04 [facility] XR CHEST PORTABLEon 04-05-20 XR CHEST PORTABLE EXAMINATION: ONE XRAY VIEW OF THE CHEST 04/05/2023 4:21 am COMPARISON: None. HISTORY: ORDERING SYSTEM PROVIDED HISTORY: TECHNOLOGIST PROVIDED HISTORY: Reason for Exam: Epigastric, lower chest pain; FINDINGS: No lines or tubes. Normal cardiomediastinal silhouette. The lungs are clear without focal consolidation or pleural effusion. No suspicious pulmonary nodules. No pulmonary edema. No pneumothorax. No acute osseous abnormality. IMPRESSION: 1. No acute cardiopulmonary disease. D/ / MD Deborah Reddy MD Interpreting Provider: Deborah Camargo MD Normal [facility] GLUCOSE POCon 01-21-2023 Glucose [Mass/Vol] 98 mg/dL Normal 70-99 [facility] Glucose [Mass/Vol] 98 mg/dL Normal 70-99 [facility] Laboratory - Chemistry and C hemistry - challengeon 01-21-2023 Glucose [Mass/Vol] 98 mg/dL 70 - 99 mg/dL [facility] Glucose [Mass/Vol] 98 mg/dL 70 - 99 mg/dL [facility] No Panel Informationon 01-21 Interpretation and review of laboratory results Normal [facility] Interpretation and review of laboratory results Normal [facility] RF Small bowel Views W contr ast Raisa 01-21-2023 IMPRESSION: Persistently mildly distended small bowel loops within the left mid abdomen in findings related to minimal partial small bowel obstruction. D/ / Rocael Mayorga Interpreting Provider: Rocael Mayorga OLOGY EXAMINATION: SMALL BOWEL FOLLOW THROUGH SERIES 01/20/2023 TECHNIQUE: Small bowel follow through series was performed with overhead images and spot images. FLUOROSCOPY DOSE AND TYPE: Radiation Exposure Index: None, COMPARISON: January 19, 2023 HISTORY: ORDERING SYSTEM PROVIDED HISTORY: TECHNOLOGIST PROVIDED HISTORY: Reason for Exam: 0; FINDINGS: Enteric tube extends into the stomach. [employer] Finishing Supervisor image of the abdomen demonstrates a nonspecific, nonobstructed bowel gas pattern. Distended small bowel loops are seen in the left mid abdomen. Contrast passes readily from the stomach to the colon. RADIOLOGY Osman Gonsalez MD - 01/21/2023 EXAMINATION: SMALL BOWEL FOLLOW THROUGH SERIES 01/20/2023 TECHNIQUE: Small bowel follow through series was performed with overhead images and spot images. FLUOROSCOPY DOSE AND TYPE: Radiation Exposure Index: None, COMPARISON: January 19, 2023 HISTORY: ORDERING SYSTEM PROVIDED HISTORY: TECHNOLOGIST PROVIDED HISTORY: Reason for Exam: 0; FINDINGS: Enteric tube extends into the stomach. [employer] Supervisor image of the abdomen demonstrates a nonspecific, nonobstructed bowel gas pattern. Distended small bowel loops are seen in the left mid abdomen. Contrast passes readily from the stomach to the colon. IMPRESSION IMPRESSION: Persistently mildly distended small bowel loops within the left mid abdomen in findings related to minimal partial small bowel obstruction. D/ / Rocael Mayorga Interpreting Provider: Rocael Mayorga [facility] XR FLUORO SMALL BOWEL FOLLOW THROUGHon 01-21-2023 XR FLUORO SMALL BOWEL FOLLOW THROUGH EXAMINATION: SMALL BOWEL FOLLOW THROUGH SERIES 01/20/2023 TECHNIQUE: Small bowel follow through series was performed with overhead images and spot images. FLUOROSCOPY DOSE AND TYPE: Radiation Exposure Index: None, COMPARISON: January 19, 2023 HISTORY: ORDERING SYSTEM PROVIDED HISTORY: TECHNOLOGIST PROVIDED HISTORY: Reason for Exam: 0; FINDINGS: Enteric tube extends into the stomach. [employer] Fin[employer] Supervisor image of the abdomen demonstrates a nonspecific, nonobstructed bowel gas pattern. Distended small bowel loops are seen in the left mid abdomen. Contrast passes readily from the stomach to the colon. IMPRESSION: Persistently mildly distended small bowel loops within the left mid abdomen in findings related to minimal partial small bowel obstruction. D/ / Rocael Mayorga Interpreting Provider: Rocael Mayorga Normal [facility] BASIC METABOLIC PANELon 01-04 Calcium [Mass/Vol] 8.6 mg/dL Normal 8.6-10.3 [facility] Chloride [Moles/Vol] 111 mmol/L High 98-107 [facility] CO2 [Moles/Vol] 24 mmol/L Normal 23-29 [facility] Creatinine [Mass/Vol] 0.91 mg/dL Normal 0.70-1.30 [facility] [place] eGFR, CKD-EPI, Male > Normal >=60 [facility] Comment on above: Result Comment: Repo rted eGFR is based on the CKD-EPI 2020 equation using creatinine, age, and sex. Glucose [Mass/Vol] 88 mg/dL Normal 70-105 [facility] [place] Osmolality [Osmolality] 291 mosm/kg Normal 280-300 [facility] Potassium [Moles/Vol] 4.0 mmol/L Normal 3.5-5.1 [facility] [facility] Sodium [Moles/Vol] 141 mmol/L Normal 136-145 [facility] Urea nitrogen [Mass/Vol] 11 mg/dL Normal 6-20 [facility] Urea nitrogen/Creatinine [Mass ratio] 12 mg/mg Normal 6-26 [facility] CBC,PLATELETSon 01-20-2023 Hematocrit (Bld) [Volume fraction] 43.0 % Normal 37.5-50.1 [facility] Hemoglobin (Bld) [Mass/Vol] 14.7 g/dL Normal 12.9-16.9 [facility] MCV (RBC) [Entitic vol] 90.9 fL Normal 83.0-100.0 [facility] Mean Cell Hgb 31.1 pg Normal 28.0-33.0 [facility] Mean Cell Hgb Conc 34.2 g/dL Normal 31.6-35.5 [facility] [place] Platelet mean volume (Bld) [Entitic vol] 10.5 fL Normal 9.4-12.4 [facility] Platelets (Bld) [#/Vol] 232 10*3/uL Normal 140-400 [facility] RBC (Bld) [#/Vol] 4.73 10*6/uL Normal 4.19-5.50 [facility] [place] RBC Distribution 12.0 % Normal 11.5-14.5 [facility] WBC (Bld) [#/Vol] 8.3 10*3/uL Normal 4.3-11.1 [facility] [place] GLUCOSE POCon 01-20-2023 Glucose [Mass/Vol] 68 mg/dL Low 70-99 [facility] Comment on above: Result Comment: SHANTA [place] otified Glucose [Mass/Vol] 74 mg/dL Normal 70-99 [facility] Glucose [Mass/Vol] 103 mg/dL High 70-99 [facility] [place] Comment on above: Result Comment: SHANTA [place] otified Glucose [Mass/Vol] 91 mg/dL Normal 70-99 [facility] [place] Comment on above: Result Comment: SHANTA [place] otified HEPATIC FUNCTION PANELon Albumin [Mass/Vol] 3.7 g/dL Normal 3.5-5.7 [facility] Albumin/Globulin [Mass ratio] 1.5 {ratio} Normal 1.1-2.2 [facility] ALP [Catalytic activity/Vol] 61 U/L Normal 34-104 [facility] ALT [Catalytic activity/Vol] 10 U/L Normal 7-52 [facility] AST [Catalytic activity/Vol] 11 U/L Low 13-39 [facility] [place] Bilirubin [Mass/Vol] 0.7 mg/dL Normal 0.3-1.0 [facility] Bilirubin, Indirect 0.6 mg/dL Normal 0.0-1.0 [facility] Bilirubin.indirect [Mass/Vol] 0.1 mg/dL Normal <=0.2 [facility] [place] Globulin (S) [Mass/Vol] 2.4 g/dL Normal 2.4-3.5 R [facility] [place] Protein [Mass/Vol] 6.1 g/dL Low 6.4-8.9 [facility] [place] Laboratory - Chemistry and C hemistry - challengeon 01-20-2023 Glucose [Mass/Vol] 68 mg/dL Low 70 - 99 mg/dL [facility] Comment on above: RN Notified Glucose [Mass/Vol] 74 mg/dL 70 - 99 mg/dL [facility] Glucose [Mass/Vol] 103 mg/dL High 70 - 99 mg/dL [facility] Comment on above: RN Notified Calcium [Mass/Vol] 8.6 mg/dL 8.6 - 10. 3 mg/dL [facility] Chloride [Moles/Vol] 111 mmol/L High 98 - 10 7 mmol/L [facility] CO2 [Moles/Vol] 24 mmol/L 23 - 29 mmol/L [facility] Creatinine [Mass/Vol] 0.91 mg/dL 0.70 - 1.30 mg/dL [facility] GFR/1.73 sq M.predicted CKD-EPI (S/P/Bld) [Vol rate/Area] - PINF [facility] Comment on above: Reported eGFR is bas ed on the CKD-EPI 2020 equation using creatinine, age, and sex. Glucose [Mass/Vol] 88 mg/dL 70 - 105 mg/dL [facility] Osmolality Calc [Osmolality] 291 280 - 300 [facility] Potassium [Moles/Vol] 4.0 mmol/L 3.5 - 5.1 mmol/L [facility] Sodium [Moles/Vol] 141 mmol/L 136 - 145 mmol/L [facility] Urea nitrogen [Mass/Vol] 11 mg/dL 6 - 20 mg/d L [facility] Urea nitrogen/Creatinine [Mass ratio] 12 mg/mg 6 - 26 [facility] Albumin [Mass/Vol] 3.7 g/dL 3.5 - 5.7 g/dL [facility] Albumin/Globulin [Mass ratio] 1.5 {ratio} 1.1 - 2.2 [facility] ALP [Catalytic activity/Vol] 61 U/L 34 - 104 U/L [facility] ALT [Catalytic activity/Vol] 10 U/L 7 - 52 U/L [facility] AST [Catalytic activity/Vol] 11 U/L Low 13 - 39 U/L [facility] Bilirubin [Mass/Vol] 0.7 mg/dL 0.3 - 1 .0 mg/dL [facility] Bilirubin.direct [Mass/Vol] 0.1 mg/dL NINF - 0.2 mg/dL [facility] Globulin (S) [Mass/Vol] 2.4 g/dL 2.4 - 3.5 g/dL [facility] Magnesium [Mass/Vol] 1.9 mg/dL 1.6 - 2 .6 mg/dL [facility] Protein [Mass/Vol] 6.1 g/dL Low 6.4 - 8.9 g/dL [facility] Glucose [Mass/Vol] 91 mg/dL 70 - 99 mg/dL [facility] Comment on above: RN Notified Laboratory - Hematology and Cell countson 01-20-2023 Erythrocyte distribution width (RBC) [Ratio] 12.0 % 11.5 - 14.5 % [facility] Hematocrit (Bld) [Volume fraction] 43.0 % 37.5 - 50.1 % [facility] Hemoglobin (Bld) [Mass/Vol] 14.7 g/dL 12.9 - 16.9 g/dL [facility] MCH (RBC) [Entitic mass] 31.1 pg 28. 0 - 33.0 pg [facility] MCHC (RBC) [Mass/Vol] 34.2 g/dL 31.6 - 35.5 g/dL [facility] MCV (RBC) [Entitic vol] 90.9 fL 83.0 - 100.0 fL [facility] Platelet mean volume (Bld) [Entitic vol] 10.5 fL 9.4 - 12.4 fL [facility] Platelets (Bld) [#/Vol] 232 10*3/uL 140 - 400 K/uL [facility] RBC (Bld) [#/Vol] 4.73 10*6/uL [facility] WBC (Bld) [#/Vol] 8.3 10*3/uL 4.3 - 11.1 K/uL [facility] MAGNESIUMon 01-20-2023 Magnesium [Mass/Vol] 1.9 mg/dL Normal 1.6-2.6 [facility] No Panel Informationon 01-20 Interpretation and review of laboratory results Abnormal [facility] Interpretation and review of laboratory results Normal [facility] Interpretation and review of laboratory results Abnormal [facility] Interpretation and review of laboratory results Abnormal [facility] Bilirubin, Indirect 0.6 mg/dL 0.0 - 1. 0 mg/dL [facility] Interpretation and review of laboratory results Normal [facility] Interpretation and review of laboratory results Abnormal [facility] Interpretation and review of laboratory results Normal [facility] Interpretation and review of laboratory results Normal [facility] RF Small bowel Views W contr ast Raisa 01-20-2023 Radiology Study observation (narrative) [facility] ALTH BASIC METABOLIC PANELon 01-04 Calcium [Mass/Vol] 9.0 mg/dL Normal 8.6-10.3 [facility] Chloride [Moles/Vol] 105 mmol/L Normal 98-107 [facility] CO2 [Moles/Vol] 27 mmol/L Normal 23-29 [facility] Creatinine [Mass/Vol] 1.06 mg/dL Normal 0.70-1.30 [facility] eGFR, CKD-EPI, Male > Normal >=60 [facility] Comment on above: Result Comment: Repo rted eGFR is based on the CKD-EPI 2020 equation using creatinine, age, and sex. Glucose [Mass/Vol] 94 mg/dL Normal 70-105 [facility] Osmolality [Osmolality] 284 mosm/kg Normal 280-300 [facility] Potassium [Moles/Vol] 3.9 mmol/L Normal 3.5-5.1 [facility] Sodium [Moles/Vol] 137 mmol/L Normal 136-145 [facility] Urea nitrogen [Mass/Vol] 12 mg/dL Normal 6-20 [facility] Urea nitrogen/Creatinine [Mass ratio] 11 mg/mg Normal 6- [facility] CBC AND ELECTRONIC DIFFon Basophils (Bld) [#/Vol] 0.0 10*3/uL Normal 0.0-0.2 [facility] Basophils/100 WBC (Bld) 0.6 % Normal [facility] Eosinophils (Bld) [#/Vol] 0.1 10*3/uL Normal 0.0-0.6 [facility] Eosinophils/100 WBC (Bld) 0.8 % Normal [facility] Hematocrit (Bld) [Volume fraction] 45.7 % Normal 37.5-50.1 [facility] Hemoglobin (Bld) [Mass/Vol] 15.6 g/dL Normal 12.9-16.9 [facility] Immature Grans % 0.3 % Normal [facility] Lymphocytes (Bld) [#/Vol] 1.8 10*3/uL Normal 0.6-4.6 [facility] Lymphocytes/100 WBC (Bld) 24.4 % Normal [facility] MCV (RBC) [Entitic vol] 91.4 fL Normal 83.0-100.0 [facility] Mean Cell Hgb 31.2 pg Normal 28.0-33.0 [facility] Mean Cell Hgb Conc 34.1 g/dL Normal 31.6-35.5 [facility] Monocytes (Bld) [#/Vol] 0.6 10*3/uL Normal 0.0-1.3 [facility] Monocytes/100 WBC (Bld) 8.0 % Normal [facility] Nucleated RBC 0 /100 WBC Normal [facility] Platelet mean volume (Bld) [Entitic vol] 10.4 fL Normal 9.4-12.4 [facility] Platelets (Bld) [#/Vol] 234 10*3/uL Normal 140-400 [facility] RBC (Bld) [#/Vol] 5.00 10*6/uL Normal 4.19-5.50 [facility] RBC Distribution 12.0 % Normal 11.5-14.5 [facility] Segs + Bands Auto 65.9 % Normal [facility] Segs + Bands,Absolute Auto 4.8 K/uL Normal 1.6-8.9 [facility] WBC (Bld) [#/Vol] 7.2 10*3/uL Normal 4.3-11.1 [facility] CT ABDOMEN/PELVIS WITH CONTR Estefany 01-19-2023 CT ABDOMEN/PELVIS WITH CONTRAST EXAMINATION: CT OF THE ABDOMEN AND PELVIS WITH CONTRAST 01/19/2023 2:52 pm TECHNIQUE: CT of the abdomen and pelvis was performed with the administration of intravenous contrast. Multiplanar reformatted images are provided for review. Dose modulation, iterative reconstruction, and/or weight based adjustment of the mA/kV was utilized to reduce the radiation dose to as low as reasonably achievable. COMPARISON: None. HISTORY: ORDERING SYSTEM PROVIDED HISTORY: TECHNOLOGIST PROVIDED HISTORY: Reason for Exam: ; DIAGNOSES: -Left-sided and generalized abdominal pain, change in bowels, concern for SBO on outpatient x-rays, no surgical history; ; FINDINGS: Lower Chest: Lower lobe atelectasis. Image cardiac chambers are unremarkable in appearance. No pericardial effusion or pericardial thickening. Organs: No calcified gallstones are seen. Common bile duct is within normal limits. Liver is normal in appearance. Calcified granulomas in the spleen. Adrenal glands and pancreas are normal in appearance. No left or right renal calculus, hydronephrosis, or renal lesion. GI/Bowel: Multiple distended ileal bowel loops with associated air-fluid levels. This extends to a transition point in the central superior pelvis (series 2 image 154) decompression of the ileum. There is decompression of the stomach and jejunum. Mural thickening of multiple of these ileal bowel loops. Pelvis: Free fluid in the pelvis. No free air identified. Bladder is unremarkable in appearance. Small fat containing left inguinal hernia. No inguinal adenopathy or mass. Peritoneum/Retroperit oneum: No retroperitoneal adenopathy or mass. Bones/Soft Tissues: No acute osseous abnormality identified. IMPRESSION: Obstructed ileal bowel loops. This may be related to an internal hernia or closed loop obstruction as there is decompression of the more proximal jejunum and distal ileum. Mural thickening involving multiple of the distended ileal bowel loops related to regional enteritis. Small volume free fluid in the abdomen. Additional findings noted above. D/ / Rocael Mayorga Interpreting Provider: Rocael Mayorga [facility] CT Abdomen and Pelvis W cont tami Guevara 01-19-2023 IMPRESSION: Obstructed ileal bowel loops. This may be related to an internal hernia or closed loop obstruction as there is decompression of the more proximal jejunum and distal ileum. Mural thickening involving multiple of the distended ileal bowel loops related to regional enteritis. Small volume free fluid in the abdomen. Additional findings noted above. D/ / Rocael Mayorga Interpreting Provider: Rocael Mayorga OLOGY EXAMINATION: CT OF THE ABDOMEN AND PELVIS WITH CONTRAST 01/19/2023 2:52 pm TECHNIQUE: CT of the abdomen and pelvis was performed with the administration of intravenous contrast. Multiplanar reformatted images are provided for review. Dose modulation, iterative reconstruction, and/or weight based adjustment of the mA/kV was utilized to reduce the radiation dose to as low as reasonably achievable. COMPARISON: None. HISTORY: ORDERING SYSTEM PROVIDED HISTORY: TECHNOLOGIST PROVIDED HISTORY: Reason for Exam: ; DIAGNOSES: -Left-sided and generalized abdominal pain, change in bowels, concern for SBO on outpatient x-rays, no surgical history; ; FINDINGS: Lower Chest: Lower lobe atelectasis. Image cardiac chambers are unremarkable in appearance. No pericardial effusion or pericardial thickening. Organs: No calcified gallstones are seen. Common bile duct is within normal limits. Liver is normal in appearance. Calcified granulomas in the spleen. Adrenal glands and pancreas are normal in appearance. No left or right renal calculus, hydronephrosis, or renal lesion. GI/Bowel: Multiple distended ileal bowel loops with associated air-fluid levels. This extends to a transition point in the central superior pelvis (series 2 image 154) decompression of the ileum. There is decompression of the stomach and jejunum. Mural thickening of multiple of these ileal bowel loops. Pelvis: Free fluid in the pelvis. No free air identified. Bladder is unremarkable in appearance. Small fat containing left inguinal hernia. No inguinal adenopathy or mass. Peritoneum/Retroperit oneum: No retroperitoneal adenopathy or mass. Bones/Soft Tissues: No acute osseous abnormality identified. RADIOLOGY Osman Gonsalez MD - 01/19/2023 EXAMINATION: CT OF THE ABDOMEN AND PELVIS WITH CONTRAST 01/19/2023 2:52 pm TECHNIQUE: CT of the abdomen and pelvis was performed with the administration of intravenous contrast. Multiplanar reformatted images are provided for review. Dose modulation, iterative reconstruction, and/or weight based adjustment of the mA/kV was utilized to reduce the radiation dose to as low as reasonably achievable. COMPARISON: None. HISTORY: ORDERING SYSTEM PROVIDED HISTORY: TECHNOLOGIST PROVIDED HISTORY: Reason for Exam: ; DIAGNOSES: -Left-sided and generalized abdominal pain, change in bowels, concern for SBO on outpatient x-rays, no surgical history; ; FINDINGS: Lower Chest: Lower lobe atelectasis. Image cardiac chambers are unremarkable in appearance. No pericardial effusion or pericardial thickening. Organs: No calcified gallstones are seen. Common bile duct is within normal limits. Liver is normal in appearance. Calcified granulomas in the spleen. Adrenal glands and pancreas are normal in appearance. No left or right renal calculus, hydronephrosis, or renal lesion. GI/Bowel: Multiple distended ileal bowel loops with associated air-fluid levels. This extends to a transition point in the central superior pelvis (series 2 image 154) decompression of the ileum. There is decompression of the stomach and jejunum. Mural thickening of multiple of these ileal bowel loops. Pelvis: Free fluid in the pelvis. No free air identified. Bladder is unremarkable in appearance. Small fat containing left inguinal hernia. No inguinal adenopathy or mass. Peritoneum/Retroperit oneum: No retroperitoneal adenopathy or mass. Bones/Soft Tissues: No acute osseous abnormality identified. IMPRESSION IMPRESSION: Obstructed ileal bowel loops. This may be related to an internal hernia or closed loop obstruction as there is decompression of the more proximal jejunum and distal ileum. Mural thickening involving multiple of the distended ileal bowel loops related to regional enteritis. Small volume free fluid in the abdomen. Additional findings noted above. D/ / Rocael Mayorga Interpreting Provider: Rocael Mayorga [facility] Radiology Study observation (narrative) [facility] HE ALTH CT Abdomen and Pelvis W cont rast IVOrdered By: Osman Gonsalez on 01-19-2023 [facility] Work Phone: HEPATIC FUNCTION PANELon Albumin [Mass/Vol] 4.3 g/dL Normal 3.5-5.7 [facility] [place] Albumin/Globulin [Mass ratio] 1.8 {ratio} Normal 1.1-2.2 [facility] ALP [Catalytic activity/Vol] 69 U/L Normal 34-104 [facility] [place] ALT [Catalytic activity/Vol] 12 U/L Normal 7-52 [facility] [place] AST [Catalytic activity/Vol] 13 U/L Normal 13-39 [facility] [place] Bilirubin [Mass/Vol] 0.5 mg/dL Normal 0.3-1.0 [facility] [place] Bilirubin, Indirect 0.4 mg/dL Normal 0.0-1.0 [facility] [place] Bilirubin.indirect [Mass/Vol] 0.1 mg/dL Normal <=0.2 [facility] Globulin (S) [Mass/Vol] 2.4 g/dL Normal 2.4-3.5 [facility] [place] Protein [Mass/Vol] 6.7 g/dL Normal 6.4-8.9 [facility] [place] LIPASEon 01-19-2023 Lipase [Catalytic activity/Vol] 5 U/L Low 11-82 [facility] Laboratory - Chemistry and C hemistry - challengeon 01-19-2023 Albumin [Mass/Vol] 4.3 g/dL 3.5 - 5.7 g/dL [facility] Albumin/Globulin [Mass ratio] 1.8 {ratio} 1.1 - 2.2 [facility] ALP [Catalytic activity/Vol] 69 U/L 34 - 104 U/L [facility] ALT [Catalytic activity/Vol] 12 U/L 7 - 52 U/L [facility] AST [Catalytic activity/Vol] 13 U/L 13 - 39 U/L [facility] Bilirubin [Mass/Vol] 0.5 mg/dL 0.3 - 1 .0 mg/dL [facility] Bilirubin.direct [Mass/Vol] 0.1 mg/dL NINF - 0.2 mg/dL [facility] Calcium [Mass/Vol] 9.0 mg/dL 8.6 - 10. 3 mg/dL [facility] Chloride [Moles/Vol] 105 mmol/L 98 - 10 7 mmol/L [facility] CO2 [Moles/Vol] 27 mmol/L 23 - 29 mmol/L [facility] Creatinine [Mass/Vol] 1.06 mg/dL 0.70 - 1.30 mg/dL [facility] GFR/1.73 sq M.predicted CKD-EPI (S/P/Bld) [Vol rate/Area] - PINF [facility] Comment on above: Reported eGFR is bas ed on the CKD-EPI 2020 equation using creatinine, age, and sex. Globulin (S) [Mass/Vol] 2.4 g/dL 2.4 - 3.5 g/dL [facility] Glucose [Mass/Vol] 94 mg/dL 70 - 105 mg/dL [facility] Lipase [Catalytic activity/Vol] 5 U/L Low 11 - 82 U/L [facility] Osmolality Calc [Osmolality] 284 280 - 300 [facility] Potassium [Moles/Vol] 3.9 mmol/L 3.5 - 5.1 mmol/L [facility] Protein [Mass/Vol] 6.7 g/dL 6.4 - 8.9 g/dL [facility] Sodium [Moles/Vol] 137 mmol/L 136 - 145 mmol/L [facility] Urea nitrogen [Mass/Vol] 12 mg/dL 6 - 20 mg/d L [facility] Urea nitrogen/Creatinine [Mass ratio] 11 mg/mg 6 - 26 [facility] Laboratory - Hematology and Cell countson 01-19-2023 Basophils (Bld) [#/Vol] 0.0 10*3/uL 0.0 - 0.2 K/uL [facility] Basophils/100 WBC (Bld) 0.6 % [facility] Eosinophils (Bld) [#/Vol] 0.1 10*3/uL 0. 0 - 0.6 K/uL [facility] Eosinophils/100 WBC (Bld) 0.8 % [facility] Erythrocyte distribution width (RBC) [Ratio] 12.0 % 11.5 - 14.5 % [facility] Hematocrit (Bld) [Volume fraction] 45.7 % 37.5 - 50.1 % [facility] Hemoglobin (Bld) [Mass/Vol] 15.6 g/dL 12.9 - 16.9 g/dL [facility] Immature granulocytes/100 WBC (Bld) 0.3 % [facility] Lymphocytes (Bld) [#/Vol] 1.8 10*3/uL 0. 6 - 4.6 K/uL [facility] Lymphocytes/100 WBC (Bld) 24.4 % [facility] MCH (RBC) [Entitic mass] 31.2 pg 28. 0 - 33.0 pg [facility] MCHC (RBC) [Mass/Vol] 34.1 g/dL 31.6 - 35.5 g/dL [facility] MCV (RBC) [Entitic vol] 91.4 fL 83.0 - 100.0 fL [facility] Monocytes (Bld) [#/Vol] 0.6 10*3/uL 0.0 - 1.3 K/uL [facility] Monocytes/100 WBC (Bld) 8.0 % [facility] Neutrophils (Bld) [#/Vol] 4.8 10*3/uL 1. 6 - 8.9 K/uL [facility] Nucleated RBC/100 WBC (Bld) [Ratio] 0 % /100 WBC [facility] Platelet mean volume (Bld) [Entitic vol] 10.4 fL 9.4 - 12.4 fL [facility] Platelets (Bld) [#/Vol] 234 10*3/uL 140 - 400 K/uL [facility] RBC (Bld) [#/Vol] 5.00 10*6/uL [facility] Segmented neutrophils/100 WBC (Bld) 65.9 % [facility] WBC (Bld) [#/Vol] 7.2 10*3/uL 4.3 - 11.1 K/uL [facility] No Panel Informationon 01-19 Bilirubin, Indirect 0.4 mg/dL 0.0 - 1. 0 mg/dL [facility] Interpretation and review of laboratory results Normal [facility] Interpretation and review of laboratory results Abnormal [facility] POCT URINE DIPSTICK AUTOMATE Don 01-19-2023 Amorphous sediment LM Ql (Urine sed) [facility] Appearance (U) clear [facility] Bacteria LM Ql (Urine sed) [facility] Bilirubin Ql (U) small [facility] ALTH Casts LM.LPF (Urine sed) [#/Area] [facility] Color (U) drk yellow [facility] Crystals LM Nom (Urine sed) [facility] Epithelial cells.squamous LM.HPF (Urine sed) [#/Area] [facility] Flow cytometry specialist review Saad (Unsp spec) [Interp] [facility] Glucose Auto test strip (U) [Mass/Vol] Negative mg/dL [facility] Ketones [Mass/Vol] trace mg/dL [facility] Leukocyte esterase Qn (U) [facility] Leukocyte esterase Test strip Ql (U) Negative [facility] Microscopic observation Gram stain Nom (Bronch spec) [facility] Nitrite Ql (U) Negative [facility] pH (U) 5.5 [pH] 5 - 7 [facility] Protein Ql (U) 30 mg/dL [facility] RBC LM.HPF (Urine sed) [#/Area] [facility] RBC Ql (U) Negative [facility] Specific gravity (U) [Rel density] 1.001 - 1.035 [facility] Transitional cells LM Ql (Urine sed) [facility] Urobilinogen Qn (U) 0.2 [facility] WBC LM.HPF (Urine sed) [#/Area] [facility] XR ABDOMEN 2 VIEWSon 023 XR ABDOMEN 2 VIEWS EXAMINATION: TWO XRAY VIEWS OF THE ABDOMEN 01/19/2023 11:08 am COMPARISON: None. HISTORY: ORDERING SYSTEM PROVIDED HISTORY: TECHNOLOGIST PROVIDED HISTORY: Reason for Exam: bloating, abd pain worse to left quadrants; FINDINGS: Diffuse gaseous distention of the small and large bowel. No free air or pneumatosis. No radiodense renal calculi. No gross bony abnormality. IMPRESSION: Ileus versus partial small bowel obstruction. D/ / Jaskaran Le Interpreting Provider: Jaskaran [facility] [place] XR Abdomen 2 Viewson 023 IMPRESSION: Ileus versus partial small bowel obstruction. D/ / Jaskaran Le Interpreting Provider: Jaskaran Le OLOGY EXAMINATION: TWO XRAY VIEWS OF THE ABDOMEN 01/19/2023 11:08 am COMPARISON: None. HISTORY: ORDERING SYSTEM PROVIDED HISTORY: TECHNOLOGIST PROVIDED HISTORY: Reason for Exam: bloating, abd pain worse to left quadrants; FINDINGS: Diffuse gaseous distention of the small and large bowel. No free air or pneumatosis. No radiodense renal calculi. No gross bony abnormality. RADIOLOGY Jaskaran Le MD - 01/19/2023 EXAMINATION: TWO XRAY VIEWS OF THE ABDOMEN 01/19/2023 11:08 am COMPARISON: None. HISTORY: ORDERING SYSTEM PROVIDED HISTORY: TECHNOLOGIST PROVIDED HISTORY: Reason for Exam: bloating, abd pain worse to left quadrants; FINDINGS: Diffuse gaseous distention of the small and large bowel. No free air or pneumatosis. No radiodense renal calculi. No gross bony abnormality. IMPRESSION IMPRESSION: Ileus versus partial small bowel obstruction. D/ / Jaskaran Le Interpreting Provider: Jaskaran Le [facility] Radiology Study observation (narrative) [facility] XR Abdomen 2 ViewsOrdered By : Jaskaran Le on 01-19-2023 [place] [employer] Work Phone: HIV-1 2 Antibody p24 Agon HIV-1 2 Antibody p24 Ag Non-Reactive Normal Nonreactiv e [facility] Comment on above: Result Comment: This assay detects human immunodeficiency virus (HIV) p24 antigen and antibodies to HIV type 1 (HIV-1 group O) and/or type 2 (HIV-2). Reactive results will have follow up confirmatory testing. Performed By: #### H IV, HPA, TPAL #### [facility] [address] [place] [address] Hepatitis Prof.(Routine A,B, C)on 01-04-2022 Hepatitis A Antibody IgM Non-Reactive Normal Nonreacti ve [facility] Comment on above: Result Comment: Biot in greater than 500 ng/mL may lead to falsely depressed results. Hepatitis A Virus (HAV) IgM antibodies not detected. Does not exclude the possibility of exposure to or infection of HAV. Levels of HAV IgM antibodies may be below measurement range due to early infection. Performed By: #### H IV, HPA, TPAL #### [facility] [address] [place] [address] 89235 Hepatitis B Core IgM Non-Reactive Normal Nonreactive A [facility] Comment on above: Result Comment: Assa y performance characteristics have not been established for immunocompromised or immunosuppressed patients, cord blood, or patients less than 2 years of age. IgM antibodies to Hepatitis B Core Antigen not detected. Does not exclude the possibility of exposure or infection with Hepatitis B Core Virus. Performed By: #### H IV, HPA, TPAL #### [facility] [address] [place] [address] 83995 Hepatitis C Virus Antibody Non-Reactive Normal Nonreactive [facility] Comment on above: Result Comment: Hepa titis C Virus (HCV) IgG antibodies not detected; does not exclude the possibility of exposure of HCV. Performed By: #### H IV, HPA, TPAL #### [facility] [address] [place] [address] 27575 Hepatitis B Surface Antigen Non-Reactive Normal Nonreactive [facility] Comment on above: Result Comment: Spec imen considered negative for HBsAg. Performed By: #### H IV, HPA, TPAL #### [facility] [address] [place] [address] 10422 Treponema Pallidum Abon 06-0 Treponema Pallidum Ab Negative Normal NEGATIVE [facility] Comment on above: Performed By: #### H IV, HPA, TPAL #### [facility] [address] [place] [address] 01607 Drug Screen, Urineon 022 Amphetamine Screen,Urine Positive Abnormal Ozihpo=7761 [facility] Comment on above: Result Comment: Unco nfirmed presumptive positive. Refer to Urine Drug Screen Interpretation result for interpretative guidelines. Performed By: #### U DS #### [facility] [address] [place] [address] 81411 Barbiturate Screen,Urine Negative Normal Djdwkl=138 [facility] Comment on above: Performed By: #### U DS #### [facility] [address] [place] [address] 48723 Benzodiazepines Screen,Urine Negative Normal Cuijbo=180 [facility] Comment on above: Performed By: #### U DS #### [facility] [address] [place] [address] 89502 Buprenorphine Screen,Urine Negative Normal Cutoff=5 [facility] Comment on above: Performed By: #### U DS #### [facility] [address] [place] [address] 87558 Cannabinoid Screen,Urine Negative Normal Cutoff = 50 [facility] Comment on above: Performed By: #### U DS #### [facility] [address] [place] [address] 98760 Cocaine Screen,Urine Negative Normal Cutoff= [address] [facility] Comment on above: Performed By: #### U DS #### [facility] [address] [place] [address] 01862 Opiate Screen,Urine Negative Normal Edainv=035 [facility] Comment on above: Performed By: #### U DS #### [facility] [address] [place] [address] 24280 Phencyclidine Screen,Urine Negative Normal Cutoff=25 [facility] Comment on above: Performed By: #### U DS #### [facility] [address] [place] [address] Ur. Drug Screen Interpretation See Below Normal [facility] Comment on above: Result Comment: This is a screening test only. Unconfirmed positives may be useful for medical purposes, but do not meet forensic standards (legal). Interfering substances may produce false positive or false negative results. Clinical consideration and correlation should be applied to any drug screen test result. Confirmatory testing is not automatically performed, but is available by the laboratory upon request. Performed By: #### U DS #### [facility] [address] [place] [address] ABDLMon 11-24-[address] [address] Ultrasound Report Signed PRELIMINARY DRAFT REPORT UNTIL ELECTRONICALLY SIGNED PATIENT: Osman Blanc MR#: [id number] : 1990 AGE/SEX: 31 / M ADMITTED: 11/24/21 OUTSIDE LOCN: LOCATION: [facility] ATTENDING: Ismael Winston DO ORDER PHYSICIAN: Ismael Winston BIRAD: NA Not Applicable DATE OF SERVICE: 11/24/21 ACCESSION NUMBERS(S): [id number] PROCEDURE(S): US abdomen limited REASON FOR EXAM: MASS OF TORSO cc: Ismael Winston; EXAMINATION: LIMITED ABDOMINAL ULTRASOUND 11/24/2021 8:52 am COMPARISON: None. HISTORY: ORDERING SYSTEM PROVIDED HISTORY: MASS OF TORSO FINDINGS: Targeted ultrasound of the right abdominal wall was performed in the area of patient's palpable concern. There is a 1.2 x 0.8 x 0.5 cm well-circumscribed, oval, echogenic lesion in the area of patient's palpable concern. There is no internal vascularity. US/US abdomen limited IMPRESSION: 1.2 cm probable right abdominal wall lipoma in the area of patient's palpable concern. D/ / Jaqui Dickens MD / Jaqui Dickens MD Interpreting Provider: Jaqui Dickens MD Normal [facility] Emergency Documentationon Emergency Documentation [address] [id number] Emergency Department Note Signed PRELIMINARY DRAFT REPORT UNTIL ELECTRONICALLY SIGNED PATIENT: Osman Blanc MR#: [id number] : 1990 AGE/SEX: 31 / M ADMITTED: 09/04/21 OUTSIDE LOCN: LOCATION: [facility] ATTENDING: cc: Ismael Winston; Disposition Clinical Impression: Suspected COVID-19 virus infection, Cough Disposition: Home, Self-Care Condition: Good Instructions: Acute Cough (ED) Reasons to Return/Additional Instructions: The emergency department evaluation is not a complete evaluation, you're always required to followup with another doctor within the next few days to assess how your symptoms are progressing and to ensure that there is no indication for further testing or returning to the hospital. Even with treatment sometimes your condition worsens and you will need to return to the hospital. If you are having pain and it is getting worse you should return to the hospital. If you have any new symptoms that were not addressed at your original visit you should return to the hospital. If you're having difficulty breathing but it is getting worse you should return to the hospital. If you're vomiting and cannot take the medicines that were prescribed you should return to the hospital. If you're having persistent fevers you should return to the hospital. If you have any question of whether or not your symptoms are serious enough or for any other urgent concerns- always return to the hospital for repeat evaluation. Referrals: [facility] [Outside] Forms: ED Satisfaction Letter, Work/School Release Time of Disposition: 18:40 General Adult HPI - General Chief complaint: ED Upper Respiratory Infection Stated complaint: Sore throat/cough/fever/he adache Time Seen by Provider: 09/04/21 18:05 Source: patient Limitations: no limitations - History of Present Illness HPI Narrative: 31-year-old male who presents secondary to cough congestion sore throat and headache and body aches. Potentially exposure to Covid 19. He denies any chest pain or shortness of breath. Denies any ER weakness or paresthesias. Reports he felt just a little off but denies any dizziness at this time. He is not taking anything for symptoms denies abdominal pain nausea or vomiting. He reports he is otherwise healthy and denies any chronic medication use or chronic medical problems. He reports that these symptoms of the going on for the last couple of days. He has no other complaints Pain Scale: 0 - Related Data Previous Rx's Medication Instructions Recorded Albuterol Sulfate [Albuterol 2 puff IH Q4HR #1 hfa.aer.ad 04/29/17 Inhaler] Azithromycin [Azithromycin 6-Tab 250 mg PO PER PKG DI #6 tab 04/29/17 Pack] Guaifenesin/Dm/Pseudo ephedrine 1 each PO BID #20 tablet 04/29/17 [Capmist Dm Tablet] Mupirocin [Bactroban Oint] 1 appl TP TID #1 tube 01/11/19 methocarbamoL [Robaxin] 500 mg PO Q8HR PRN 5 Days #15 06/26/21 tablet Allergies Allergy/AdvReac Type Severity Reaction Status Date / Time bee venom protein (honey bee) Allergy Hives Verified 06/26/21 06:10 Review of Systems Constitutional: Denies: fever, chills, weakness, weight change Eyes: Denies: eye pain, eye discharge, vision change ENT ED: Reports: congestion. Denies: ear pain, throat pain, dental pain, hearing loss, epistaxis, dysphagia Cardiovascular: Denies: chest pain, palpitations, dyspnea on exertion, edema, syncope Respiratory: Reports: cough. Denies: dyspnea, wheezes, hemoptysis, stridor Gastrointestinal: Denies: abdominal pain, nausea, vomiting, diarrhea, constipation, hematemesis, melena, hematochezia Genitourinary: Denies: urgency, dysuria, frequency, hematuria Musculoskeletal: Denies: back pain, neck pain, arthralgia, myalgia Integumentary: Denies: rash, abrasion, lesions Neurological: Denies: headache, weakness, numbness, paresthesias, confusion, abnormal gait, vertigo Psychiatric: Denies: anxiety, depression, suicidal thoughts, homicidal thoughts, auditory hallucinations, visual hallucinations Endocrine: Denies: fatigue Hematological/Lymphat ic: Denies: easy bleeding, easy bruising Allergic/Immunologic: Denies: facial swelling, urticaria Past Medical History - Past Medical History Medical history: Reports: asthma Surgical history: Reports: no surgical history Psychiatric history: Reports: no psych history - Social History Smoking Status: Current every day smoker Smokeless Tobacco Status: No Alcohol use: Reports: occasionally Drug use: Reports: marijuana Physical Exam Gen.: Well-developed well-nourished no obvious distress Head/neck: Normocephalic/atrauma tic, normal range of motion, neck is supple ENT: No nasal congestion, uvula is midline no oropharyngeal swelling or edema no (more content not included)... Normal [facility] [id number] 07-27-[id number] [address] XRay Report Signed PRELIMINARY DRAFT REPORT UNTIL ELECTRONICALLY SIGNED PATIENT: Osman Blanc MR#: [id number] : 1990 AGE/SEX: 30 / M ADMITTED: 07/27/21 OUTSIDE LOCN: LOCATION: [facility] ATTENDING: Ismael Winston DO ORDER PHYSICIAN: Ismael Winston BIRAD: DATE OF SERVICE: 07/27/21 FOLLOW UP: ACCESSION NUMBERS(S): [id number] PROCEDURE(S): XR hand 3V LT REASON FOR EXAM: Injury of left middle finger cc: Ismael Winston; EXAMINATION: THREE XRAY VIEWS OF THE LEFT HAND 07/27/2021 10:51 am COMPARISON: None. HISTORY: ORDERING SYSTEM PROVIDED HISTORY: Injury of left middle finger FINDINGS: There is moderate soft tissue swelling of the proximal aspect of left middle finger without radiographic evidence of acute fracture or dislocation seen. No radiopaque foreign body seen. XR/XR hand 3V LT IMPRESSION: Moderate soft tissue swelling of the proximal aspect of the left middle finger without radiographic evidence of acute fracture or dislocation seen. D/ / Charles Bryan / Charles Bryan Interpreting Provider: Charles Bryan Normal [facility] Basic Metabolic Panelon 11-2 Calcium [Mass/Vol] 8.5 mg/dL Low 8.6-10.3 [facility] Comment on above: Performed By: #### B MP, TROP ####[facility] [address] [place] [address] Chloride [Moles/Vol] 106 mmol/L Normal 98-107 [facility] Comment on above: Performed By: #### B MP, TROP ####[facility] [address] [place] [address] CO2 [Moles/Vol] 24 mmol/L Normal 23-29 [facility] Comment on above: Performed By: #### B MP, TROP ####[facility] [address] [place] [address]35[address] Creatinine [Mass/Vol] 0.89 mg/dL Normal 0.70-1.[address] [facility] Comment on above: Performed By: #### B MP, TROP ####[facility] [address] [place] [address]151 eGFR For Americans > 60 Normal > 60 [facility] Comment on above: Result Comment: eGFR = Estimated Glomerular Filtration Rate reported as mL/min/1.73 square meters Chronic Kidney Disease: < 60; Kidney failure: < 15 Performed By: #### B MP, TROP ####[facility] [address] [place] [address]9214 eGFR For Non- Americans > 60 Normal > 60 [facility] Comment on above: Performed By: #### Clarisa HOFFMANN, TROP ####[facility] [address] [place] [address] 05937 Glucose [Mass/Vol] 101 mg/dL Normal 70-105 [facility] Comment on above: Performed By: #### B MP, TROP ####[facility] [address] [place] [address] Osmolality,Calculated 283 Normal 280-[address] [facility] Comment on above: Performed By: #### B MP, TROP ####[facility] [address] [place] [address]133 Potassium [Moles/Vol] 4.3 mmol/L Normal 3.5-5.[address] [facility] Comment on above: Performed By: #### B MP, TROP ####[facility] [address] [place] [address] Sodium [Moles/Vol] 136 mmol/L Normal 136-145 [facility] Comment on above: Performed By: #### B MP, TROP ####[facility] [address] [place] [address] Urea nitrogen [Mass/Vol] 14 mg/dL Normal 6-20 [facility] Comment on above: Performed By: #### B MP, TROP ####[facility] [address] [place] [address] 15738 Urea nitrogen/Creatinine [Mass ratio] 16 mg/mg Normal 6- [facility] Comment on above: Performed By: #### B MP, TROP ####[address] [address] [id number] 06-26-[address] [address] XRay Report Signed PRELIMINARY DRAFT REPORT UNTIL ELECTRONICALLY SIGNED PATIENT: Osman Blanc MR#: [id number] : 1990 AGE/SEX: 30 / M ADMITTED: 06/26/21 OUTSIDE LOCN: LOCATION: [facility] ATTENDING: ORDER PHYSICIAN: Tucker Bell BIRAD: DATE OF SERVICE: 06/26/21 FOLLOW UP: ACCESSION NUMBERS(S): [id number] PROCEDURE(S): XR chest 1V portable REASON FOR EXAM: chest pain cc: Tucker Bell; Joel Plasencia; EXAMINATION: ONE XRAY VIEW OF THE CHEST 06/26/2021 6:29 am COMPARISON: 10/11/2013 HISTORY: ORDERING SYSTEM PROVIDED HISTORY: chest pain FINDINGS: The lungs are clear. Pulmonary vascularity is normal. The cardiomediastinal silhouette is normal. XR/XR chest 1V portable IMPRESSION: No acute abnormality. D/ / Markus Cornejo MD / Markus Cornejo MD Interpreting Provider: Markus Cornejo MD Normal [facility] Complete Blood Count with Di ffon 06-26-2021 Basophils (Bld) [#/Vol] 0.1 10*3/uL Normal 0.0-0.2 [facility] Comment on above: Performed By: #### C BC #### [facility] [address] [place] [address] Basophils/100 WBC (Bld) 1.1 % Normal [facility] Comment on above: Performed By: #### C BC #### [facility] [address] [place] [address] 31857 Eosinophils (Bld) [#/Vol] 0.2 10*3/uL Normal 0.0-0.6 [facility] Comment on above: Performed By: #### C BC #### [facility] [address] [place] [address]605 Eosinophils/100 WBC (Bld) 3.6 % Normal [facility] Comment on above: Performed By: #### C BC #### [facility] [address] [place] [address] Erythrocyte distribution width (RBC) [Ratio] 12.1 % Normal 11.5-14.5 [facility] Comment on above: Performed By: #### C BC #### [facility] [address] [place] [address]80 Hematocrit (Bld) [Volume fraction] 44.0 % Normal 37.5-50.1 [facility] Comment on above: Performed By: #### C BC #### [facility] [address] [place] [address]09 Hemoglobin (Bld) [Mass/Vol] 14.8 g/dL Normal 12.9-16.9 [facility] Comment on above: Performed By: #### C BC #### [facility] [address] [place] [address] 07639 Immature granulocytes/100 WBC (Bld) 0.3 % Normal 0-4 [facility] Comment on above: Performed By: #### C BC #### [facility] [address] [place] [address] 62970 Lymphocytes (Bld) [#/Vol] 2.4 10*3/uL Normal 0.6-4.6 [facility] Comment on above: Performed By: #### C BC #### [facility] [address] [place] [address] 94204 Lymphocytes/100 WBC (Bld) 37.0 % Normal [facility] Comment on above: Performed By: #### C BC #### [facility] [address] [place] [address] 43763 MCH (RBC) [Entitic mass] 30.4 pg Normal 28.0-33.3 [facility] Comment on above: Performed By: #### C BC #### [facility] [address] [place] [address] 63540 MCV (RBC) [Entitic vol] 90.3 fL Normal 83.0-100.0 [facility] Comment on above: Performed By: #### C BC #### [facility] [address] [place] [address]006 Mean Corpuscular HGB Conc 33.6 g/dL Normal 31.6-35.5 [facility] Comment on above: Performed By: #### C BC #### [facility] [address] [place] [address]402 Monocytes (Bld) [#/Vol] 0.6 10*3/uL Normal 0.0-1.3 [facility] Comment on above: Performed By: #### C BC #### [facility] [address] [place] [address] 26295 Monocytes/100 WBC (Bld) 8.9 % Normal [facility] Comment on above: Performed By: #### C BC #### [facility] [address] [place] [address] 74965 Neutrophils (Bld) [#/Vol] 3.2 10*3/uL Normal 1.6-8.9 [facility] Comment on above: Performed By: #### C BC #### [facility] [address] [place] [address] 15870 Platelet mean volume (Bld) [Entitic vol] 10.5 fL Normal 9.4-12.4 [facility] Comment on above: Performed By: #### C BC #### [facility] [address] [place] [address] 31016 Platelets (Bld) [#/Vol] 261 10*3/uL Normal 140-400 [facility] Comment on above: Performed By: #### C BC #### [facility] [address] [place] [address] 66500 RBC (Bld) [#/Vol] 4.87 10*6/uL Normal 4.19-5.50 [facility] Comment on above: Performed By: #### C BC #### [facility] [address] [place] [address] 57905 Segmented neutrophils/100 WBC (Bld) 49.1 % Normal [facility] Comment on above: Performed By: #### C BC #### [facility] [address] [place] [address]885 WBC (Bld) [#/Vol] 6.4 10*3/uL Normal 4.3-11.1 [facility] Comment on above: Performed By: #### C BC #### [facility] [address] [place] [address] 26086 Electrocardiograph Reporton 06-26-2021 Electrocardiograph Report [place] [address] Electrocardiograph Report Signed PRELIMINARY DRAFT REPORT UNTIL ELECTRONICALLY SIGNED PATIENT: Osman Blanc MR#: [id number] : 1990 AGE/SEX: 30 / M ADMITTED: 06/26/21 OUTSIDE LOCN: LOCATION: [facility] ATTENDING: ZORA PHYSICIAN: Erick Martinez TECHNOLOGIST: ORDER PHYSICIAN: Tucker Bell PRIMARY PHYSICIAN: Ismael Winston DATE OF SERVICE: 06/26/21 ACCESSION NUMBERS(S): [id number] HT: 172.72 WT: 180 PROCEDURE(S): ECG 12 lead ECG cc: ; [place] [employer] Test Date: 2021-06-26 Pat Name: Osman Blanc Department: EXAM21 Room: Gender: M [employer] 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 Emergency Documentationon Emergency Documentation [place] [address] Emergency Department Note Signed PRELIMINARY DRAFT REPORT UNTIL ELECTRONICALLY SIGNED PATIENT: Osman Blanc MR#: [id number] : 1990 AGE/SEX: 30 / M ADMITTED: 06/26/21 OUTSIDE LOCN: LOCATION: [facility] ATTENDING: cc: Ismael Winston; Disposition Clinical Impression: Musculoskeletal chest pain Disposition: Home, Self-Care Condition: Good Instructions: Chest Pain (ED) Reasons to Return/Additional Instructions: Return for any new or worsening symptoms as discussed. Follow up with your primary care provider as soon as possible for reevaluation. Use Tylenol, Motrin, Robaxin for pain control. Prescriptions: methocarbamoL [Robaxin] 500 mg PO Q8HR PRN 5 Days #15 tablet PRN Reason: Pain Transmission Status: Received by [facility] Referrals: Ismael Winston DO [Primary Care Provider] - Forms: ED Satisfaction Letter Time of Disposition: 07:56 Chest Pain HPI - General Chief Complaint: ED Chest Pain Stated Complaint: chest pain Time Seen by Provider: 06/26/21 07:06 Source: EMS Vital Signs Reviewed: Yes Nursing Notes Reviewed: Yes - History of Present Illness HPI Narrative: Patient is a 30-year-old male presenting to the emergency department with reports of left-sided chest pain. Patient states that this began shortly after eating dinner at home around 8:00 PM last evening. Patient located to the left inferior chest with some radiation to the left side/back. States it does worsen with movement and with taking a deep breath. Denies any associated nausea, vomiting, chills, recent cough or congestion. Does note that he did a lot of heavy lifting yesterday, mentioning that he moved a washer out of his trailer and helped his sister with her hot water tank. The patient was administered aspirin and nitroglycerin prior to arrival. Pain is currently resolved. He described as a sharp, stabbing type pain. Denied any associated difficulty breathing. Denies any history of heart disease in first-degree relatives. Denies illicit drug use. Severity scale (1-10): 5 - Related Data Previous Rx's Medication Instructions Recorded Albuterol Sulfate [Albuterol 2 puff IH Q4HR #1 hfa.aer.ad 04/29/17 Inhaler] Azithromycin [Azithromycin 6-Tab 250 mg PO PER PKG DI #6 tab 04/29/17 Pack] Guaifenesin/Dm/Pseudo ephedrine 1 each PO BID #20 tablet 04/29/17 [Capmist Dm Tablet] Mupirocin [Bactroban Oint] 1 appl TP TID #1 tube 01/11/19 methocarbamoL [Robaxin] 500 mg PO Q8HR PRN 5 Days #15 06/26/21 tablet Allergies Allergy/AdvReac Type Severity Reaction Status Date / Time bee venom protein (honey bee) Allergy Hives Verified 06/26/21 06:10 Review of Systems Review of Systems: 10-point review of systems performed and negative unless otherwise stated in history of present illness Chest Pain PMH - Past Medical History Medical history: Reports: asthma Surgical history: Reports: no surgical history Psychiatric history: Reports: no psych history - Social History Smoking Status: Current every day smoker Alcohol use: Reports: occasionally Drug use: Reports: marijuana Physical Exam General: Alert. No acute distress. Afebrile. Nondiaphoretic. Head: Normocephalic, atraumatic. Neck: No adenopathy. No nuchal rigidity or evidence of meningismus. Eyes: Normal conjunctiva. ENT: Moist mucous membranes. Cardiovascular: Regular rate and rhythm. No murmur. Respiratory: Lungs are clear to auscultation. Respirations are non-labored. No accessory muscle use. No wheezes. No rhonchi. No crackles. Musculoskeletal: Mild tenderness to palpation to the left anterolateral chest wall. No deformities. Gastrointestinal: Soft. Nontender. Non-distended. Bowel sounds noted. Skin: Warm and dry. No rash. Neuological: Alert. Normal speech observed. Gait steady. Psychiatric: Cooperative. Appropriate mood and affect. - General General appearance: alert, in no apparent distress Course Vital Signs Temperature 97.8 F 06/26/21 06:05 Pulse Rate 75 06/26/21 06:05 Respiratory Rate 16 06/26/21 06:05 Blood Pressure 131/103 06/26/21 06:05 O2 Sat by Pulse Oximetry 99 06/26/21 06:05 Temperature 97.8 F 06/26/21 06:05 Pulse Rate 67 06/26/21 07:42 Respiratory Rate 16 06/26/21 08:15 Blood Pressure 130/72 06/26/21 08:15 O2 Sat by Pulse Oximetry 98 06/26/21 07:42 Oxygen Delivery Oxygen Delivery Room Air Chest Pain - MDM Narrative Medical decision making narrative: Upon arrival, vital signs are obtained and is relatively unremarkable. Patient is connected to card iac monitor, labs are drawn, EKG and chest x-ray are obtained. At this time, patient's symptoms zoya ear to be more consistent with musculoskeletal type discomfort. (more content not included)... Normal [facility] Troponin Ion 06-26-2021 Troponin I.cardiac [Mass/Vol] ng/mL Normal < 0.04 [facility] Comment on above: Performed By: #### B MP, TROP ####[facility] [address] [place] [address] C.trach N.gonorrhoea DNA Fajardo Uon 06-15-2021 Chlamydia Trachomatis DNA Ur Not detected Normal Not Detect [facility] Comment on above: Result Comment: Chla mydia trachomatis DNA not detected by real-time PCR. Specimen source- [place] Urine Performed By: #### C TNGPANU #### [facility] [address] [place], [place] [id number] Neisseria Gonorrhoeae DNA, Ur Not detected Normal Not Detect [facility] Comment on above: Result Comment: Neis seria gonorrhoeae DNA not detected by real-time PCR. Specimen source- [place] Urine Performed By: #### C TNGPANU #### [facility] [address] [place] [address] Pain Mgt Ur Drug Scrn w Inte rpon 06-08-2021 Pain Mgt Ur Drg Scr Rslt w Int SEE BELOW Normal [facility] Comment on above: Result Comment: Test name Result Flag Units RefIntvl DRUGS EXPECTED See Interp Targeted drug profile Interp See Note ____ DRUGS EXPECTED: ADDERALL (AMPHETAMINE) ____ CONSISTENT with medications provided: ADDERALL (AMPHETAMINE): based on amphetamine ____ INCONSISTENT with medications provided: THC: based on immunoassay detection ____ INTERPRETIVE INFORMATION: Targeted drug profile Interp Interpretation depends on accuracy and completeness of patient medication information submitted by client. Codeine (cutoff 40 ng/mL) Not Detected Morphine (cutoff 20 ng/mL) Not Detected 6-acetylmorphine (cutoff 20 ng/mL) Not Detected Oxycodone (cutoff 40 ng/mL) Not Detected Noroxycodone (cutoff 100 ng/mL) Not Detected Oxymorphone (cutoff 40 ng/mL) Not Detected Noroxymorphone (cutoff 100 ng/mL) Not Detected Hydrocodone (cutoff 40 ng/mL) Not Detected Norhydrocodone (cutoff 100 ng/mL) Not Detected Hydromorphone (cutoff 20 ng/mL) Not Detected Buprenorphine (cutoff 5 ng/mL) Not Detected Naloxone (cutoff 100 ng/mL) Not Detected Norbuprenorphine (cutoff 20 ng/mL) Not Detected Fentanyl (cutoff 2 ng/mL) Not Detected Norfentanyl (cutoff 2 ng/mL) Not Detected Meperidine metabolite (cutoff 50 ng/mL) Not Detected Tapentadol (cutoff 100 ng/mL) Not Detected Stmcckvtmo-j-Keuk (cutoff 200 ng/mL) Not Detected Methadone (cutoff 150 ng/mL) Not Detected Tramadol (cutoff 100 ng/mL) Not Detected Amphetamine (cutoff 50 ng/mL) Present Methamphetamine (cutoff 200 ng/mL) Not Detected MDMA- Ecstasy (cutoff 200 ng/mL) Not Detected MDA (cutoff 200 ng/mL) Not Detected MDEA- Jewels (cutoff 200 ng/mL) Not Detected Methylphenidate (cutoff 100 ng/mL) Not Detected Phentermine (cutoff 100 ng/mL) Not Detected Benzoylecgonine (cutoff 150 ng/mL) Not Detected Alprazolam (cutoff 40 ng/mL) Not Detected Lcpyx-WG-Rvitasrjhj (cutoff 20 ng/mL) Not Detected Clonazepam (cutoff 20 ng/mL) Not Detected 7-Aminoclonazepam (cutoff 40 ng/mL) Not Detected Diazepam (cutoff 50 ng/mL) Not Detected Gabapentin (cutoff 100 ng/mL) Not Detected Pregabalin (cutoff 100 ng/mL) Not Detected Nordiazepam (cutoff 50 ng/mL) Not Detected Oxazepam (cutoff 50 ng/mL) Not Detected Temazepam (cutoff 50 ng/mL) Not Detected Lorazepam (cutoff 60 ng/mL) Not Detected Midazolam (cutoff 20 ng/mL) Not Detected Bnslz-SE-Pursljeyo (cutoff 20 ng/mL) Not Detected Zolpidem (cutoff 20 ng/mL) Not Detected Zolpidem Metabolite (cutoff 100 ng/mL) Not Detected Barbiturates (cutoff 200 ng/mL) Not Detected Creatinine, Urine 174.7 mg/dL 20.0-400.0 Ethyl Glucuronide (cutoff 500 ng/mL) Not Detected Marijuana Metabolite (cutoff 20 ng/mL) Present PCP (cutoff 25 ng/mL) Not Detected Carisoprodol (cut-off 100 ng/mL) Not Detected The carisoprodol immunoassay has cross-reactivity to carisoprodol and meprobamate. Targeted drug profile panel See Below Methodology: Qualitative Enzyme Immunoassay and Qualitative Liquid Chromatography-Tandem Mass Spectrometry, Quantitative Spectrophotometry The absence of expected drug(s) and/or drug metabolite(s) may indicate non-compliance, inappropriate timing of specimen collection relative to drug administration, poor drug absorption, diluted/adulterated urine, or limitations of testing. The concentration must be greater than or equal to the cutoff to be reported as present. If specific drug concentrations are required, contact the laboratory within two weeks of specimen collection to request quantification by a second analytical technique. Interpretive questions should be directed to the laboratory. Results based on immunoassay detection that do not match clinical expectations should be interpreted with caution. Confirmatory testing by mass spectrometry for immunoassay-based results is available, if ordered within two weeks of specimen collection. Additional charges apply. For medical purposes only; not valid for forensic use. This test was developed and its performance characteristics determined by [facility]. It has not been cleared or approved by the [place] Food and Drug Administration. This test was performed in a CLIA certified laboratory and is intended for clinical purposes. EER Tgt drug prof, MS/EMIT, UR, Interp See Note Access [facility] Enhanced Report using the link below: -Direct access: [email or web address] Performed by [facility], [address] [place] [id number] Supply Chain Buyer: Jocelyn Bruner MD Performed By: #### P MUDSI ####[facility] [address] [place], [place] [id number] Specimen Rejecton 05-16-2021 Specimen Reject Miscellaneous Normal [facility] Comment on above: Result Comment: CALL ED [facility]...SPOKE WITH JULI...NOTIFIED OF REJECTION Specimen: [id number] DRG SCR W I Problem:WRONG DATE OF 88. CORRECT IS 88 Called to on 05/13/21 at 2026. Performed By: #### Q A #### [facility] [address] [place] [address] Vital Signs Date Time Vital Sign Value Performing Clinician Faci lity 04-16-2023 12:54-0400 Body height 172.7 cm Mitesh Agee MD Work Phone: [facility] 04-16-2023 12:54-0400 Body mass index (BMI) [Ratio] 27.31 kg/m2 Mitesh Agee MD Work Phone: [facility] 04-16-2023 12:54-0400 Body temperature 97.81 [degF] Mitesh Agee MD Work Phone: [facility] 04-16-2023 12:54-0400 Body weight 81.47 kg Mitesh Agee MD Work Phone: [facility] 04-16-2023 12:54-0400 Diastolic blood pressure 74 mm[Hg] Mitesh Agee MD Work Phone: [facility] 04-16-2023 12:54-0400 Heart rate 88 /min Mitesh Agee MD Work Phone: [facility] 04-16-2023 12:54-0400 SaO2% (BldA) [Mass fraction] 97 % Mitesh Agee MD Work Phone: [facility] 04-16-2023 12:54-0400 Systolic blood pressure 106 mm[Hg] Mitesh Agee MD Work Phone: [facility] 04-05-2023 15:03-0400 Body temperature 100 [degF] Rajesh Farris MD Work Phone: [facility] 04-05-2023 15:03-0400 Diastolic blood pressure 68 mm[Hg] Rajesh Farris MD Work Phone: [facility] 04-05-2023 15:03-0400 Heart rate 85 /min Rajesh Farris MD Work Phone: [facility] 04-05-2023 15:03-0400 SaO2% (BldA) [Mass fraction] 97 % Rajesh Farris MD Work Phone: [facility] 04-05-2023 15:03-0400 Systolic blood pressure 122 mm[Hg] Rajesh Farris MD Work Phone: [facility] 01-21-2023 11:34-0400 Body temperature 98.2 [degF] Yuni Brennan MD Work Phone: [facility] 01-21-2023 11:34-0400 Diastolic blood pressure 80 mm[Hg] Yuni Brennan MD Work Phone: [facility] 01-21-2023 11:34-0400 Heart rate 80 /min Yuni Brennan MD Work Phone: [facility] 01-21-2023 11:34-0400 Respiratory rate 18 /min Yuni Brennan MD Work Phone: [facility] 01-21-2023 11:34-0400 SaO2% (BldA) [Mass fraction] 99 % Yuni Brennan MD Work Phone: [facility] 01-21-2023 11:34-0400 Systolic blood pressure 118 mm[Hg] Yuni Brennan MD Work Phone: [facility] 01-19-2023 19:36-0400 Body height 172.7 cm Yuni Brennan MD Work Phone: [facility] 01-19-2023 19:36-0400 Body mass index (BMI) [Ratio] 28.43 kg/m2 Yuni Brennan MD Work Phone: [facility] 01-19-2023 19:36-0400 Body weight 84.82 kg Yuni Brennan MD Work Phone: [facility] 01-19-2023 10:08-0400 Body height 172.7 cm Marsha Pitts TERMINAL PRESS OPERATOR-FLAKER TENDER Work Phone: [facility] 01-19-2023 10:08-0400 Body mass index (BMI) [Ratio] 28.52 kg/m2 Marsha Hong TERMINAL PRESS OPERATOR-FLAKER TENDER Work Phone: [facility] 01-19-2023 10:08-0400 Body temperature 98.01 [degF] Marsha Pitts TERMINAL PRESS OPERATOR-FLAKER TENDER Work Phone: [facility] 01-19-2023 10:08-0400 Body weight 85.09 kg Marsha Pitts TERMINAL PRESS OPERATOR-FLAKER TENDER Work Phone: [facility] 01-19-2023 10:08-0400 Diastolic blood pressure 80 mm[Hg] Marsha Pitts TERMINAL PRESS OPERATOR-FLAKER TENDER Work Phone: [facility] 01-19-2023 10:08-0400 Heart rate 73 /min Marsha Pitts TERMINAL PRESS OPERATOR-FLAKER TENDER Work Phone: [facility] 01-19-2023 10:08-0400 Respiratory rate 18 /min Marsha Pitts TERMINAL PRESS OPERATOR-FLAKER TENDER Work Phone: [facility] 01-19-2023 10:08-0400 SaO2% (BldA) [Mass fraction] 98 % Marsha Pitts TERMINAL PRESS OPERATOR-FLAKER TENDER Work Phone: [facility] 01-19-2023 10:08-0400 Systolic blood pressure 118 mm[Hg] Marsha Pitts TERMINAL PRESS OPERATOR-FLAKER TENDER Work Phone: [facility] Encounters Encounter Date Encounter Type Care Provider Facility Start: 08-20-2023 ambulatory MD David Martines Facil ity:[facility] [place] Start: 07-19-2023 End: 07-20-2023 ambulatory MD David Martines Facility:[facility] [place] Start: 06-21-2023 End: 06-22-2023 ambulatory MD David Martines Facility:[facility] [place] Start: 05-28-2023 ambulatory MD David Martines Facility :[facility] [place] Start: 04-16-2023 ambulatory CHARLES ALICEA Facility: [facility] Start: 04-16-2023 End: 04-16-2023 Office outpatient visit 15 minutes Charlessandy Alicea Work Phone: [facility] Comment on above: Attention deficit hy peractivity disorder (ADHD), unspecified ADHD type Start: 04-05-2023 ambulatory RAJESH FARRIS Facility :[facility] Start: 04-05-2023 End: 04-05-2023 Office outpatient visit 15 minutes Rajesh Farris MD Work Phone: [facility] Comment on above: COVID-19 virus infec tion (Primary Dx) Start: 04-05-2023 End: 04-05-2023 Emergency department patient visit JULEE VIDAL Facility:[facility] Start: 01-19-2023 End: 01-21-2023 ambulatory JULEE VIDAL Facility:[facility] Start: 01-19-2023 End: 01-21-2023 Emergency department patient visit Jaskaran Sotelo MD Work Phone: [facility] Comment on above: Small bowel obstruct ion Start: 01-19-2023 ambulatory MARSHA PITTS Facilit y:[facility] Start: 01-19-2023 End: 01-19-2023 Subsequent hospital visit by physician Marsha Pitts TERMINAL PRESS OPERATOR-FLAKER TENDER Work Phone: [facility] Comment on above: Arrived Start: 01-19-2023 End: 01-19-2023 Office outpatient visit 40 minutes Marsha Pitts TERMINAL PRESS OPERATOR-FLAKER TENDER Work Phone: [facility] Arden Sandhu Comment on above: Lower abdominal pain (Primary Dx) Start: 01-11-2023 ambulatory JULEE VIDAL Facility:[facility] Start: 01-11-2023 Encounter for genera l adult medical examination without abnormal findings JULEE SANCHEZ Facility:[facility] Start: 09-14-2022 ambulatory SAAD STONE Facility :[facility] Start: 06-16-2022 ambulatory ROSEANNE THRASHER Facility: [facility] Procedures Date Procedure Procedure Detail Performing Clinician Start: 04-16-2023 Drug test def 8-14 classes Mitesh Agee MD Work Phone: Start: 01-21-2023 Glucose quantitative blood xcpt reagent strip Yuni Brennan MD Work Phone: Start: 01-21-2023 Glucose quantitative blood xcpt reagent strip Yuni Brennan MD Work Phone: Start: 01-20-2023 Glucose quantitative blood xcpt reagent strip Yuni Brennan MD Work Phone: Start: 01-20-2023 Glucose quantitative blood xcpt reagent strip Yuni Brennan MD Work Phone: Start: 01-20-2023 Radiologic exam smal l int single contrast study Phil Swanson DO Work Phone: Start: 01-20-2023 Glucose quantitative blood xcpt reagent strip Yuni Brennan MD Work Phone: Start: 01-20-2023 End: 01-20-2023 Basic metabolic panel calcium total Yuni Brennan MD Work Phone: Start: 01-19-2023 Ct abdomen & pelvis w/contrast material Jaskaran Sotelo MD Work Phone: Start: 01-19-2023 CBC AND ELECTRONIC DIFF Jaskaran Sotelo MD Work Phone: Start: 01-19-2023 Comprehensive metabo lic panel Jaskaran Sotelo MD Work Phone: Start: 01-19-2023 Radiologic exam abdo men 2 views Marsha M Hong TERMINAL PRESS OPERATOR-FLAKER TENDER Work Phone: Start: 01-19-2023 Urnls dip stick/tabl et rgnt auto w/o microscopy Marsha Tracy Hong TERMINAL PRESS OPERATOR-FLAKER TENDER Work Phone: Start: 09-14-2022 Follow-up visit Follow-up SAAD STONE Plan of Treatment Date Care Activity Detail Author Start: 01-11-2029 Tetanus vaccination [facility] Start: 07-16-2023 End: 07-16-2023 Patient encounter procedure 07/16/2023 1:00 PM EST Office Visit [facility] [address] [place] [address] Julee Vidal DO [address] [place] [address] [place] [address] [facility] Start: 04-16-2023 End: 04-16-2023 Patient encounter procedure 04/16/2023 11:00 AM EDT Office Visit [facility] [address] [place] [address] Charles Alicea DO [address] [place] [address] [facility] Start: 04-06-2023 Influenza vaccination INFLUENZA VACC INE (#1) [facility] Start: 12-20-2021 COVID-19 VACCINE (2 - Booster for Jolene series) COVID-19 VACCINE (2 - Booster for Jolene series) [facility] Start: 2003 HIV screening HIV SCREENING DISCUSSI ON [facility] Start: 1994 PNEUMOCOCCAL VACCINE SERIES (1 - PCV) PNEUMOCOCCAL VACCINE SERIES (1 - PCV) [facility] Start: 1988 Hepatitis C screening HEPATITI S C VIRUS SCREENING [facility] Standard ECG ECG ECG STAT Needed until discontinued starting 01/19/2023 [facility] Comment on above: Needed until disc ontinued starting 01/19/2023 Immunizations Immunization Date Immunization Notes Care Provider eKlly gaines 06-16-2022 influenza, injectabl e, quadrivalent, preservative free Marsha Hong TERMINAL PRESS OPERATOR-FLAKER TENDER Work Phone: [facility] 06-16-2022 influenza virus vacc ine, unspecified formulation Rajesh Farris MD Work Phone: [facility] 06-14-2021 influenza, injectabl e, quadrivalent, preservative free Marsha Hong TERMINAL PRESS OPERATOR-FLAKER TENDER Work Phone: [facility] 01-11-2019 tetanus toxoid, redu etienne diphtheria toxoid, and acellular pertussis vaccine, adsorbed Marsha Hong TERMINAL PRESS OPERATOR-FLAKER TENDER Work Phone: [facility] 05-08-2005 hepatitis B vaccine, pediatric or pediatric/adolescent dosage Marsha Hong TERMINAL PRESS OPERATOR-FLAKER TENDER Work Phone: [facility] 05-08-2005 tetanus toxoid, adsorbed Bra ndy Hong TERMINAL PRESS OPERATOR-FLAKER TENDER Work Phone: [facility] 02-17-2002 measles, mumps and r ubella virus vaccine Marsha Ohng TERMINAL PRESS OPERATOR-FLAKER TENDER Work Phone: [facility] 04-23-2001 hepatitis B vaccine, pediatric or pediatric/adolescent dosage Marsha Hong TERMINAL PRESS OPERATOR-FLAKER TENDER Work Phone: [facility] 04-23-2001 measles, mumps and r ubella virus vaccine Marsha Hong TERMINAL PRESS OPERATOR-FLAKER TENDER Work Phone: [facility] 03-21-1993 diphtheria, tetanus toxoids and acellular pertussis vaccine, unspecified formulation Marsha Hong TERMINAL PRESS OPERATOR-FLAKER TENDER Work Phone: [facility] 03-21-1993 poliovirus vaccine, unspecified formulation Marsha Hong TERMINAL PRESS OPERATOR-FLAKER TENDER Work Phone: [facility] 04-08-1991 diphtheria, tetanus toxoids and acellular pertussis vaccine, unspecified formulation Marsha Hong TERMINAL PRESS OPERATOR-FLAKER TENDER Work Phone: [facility] 04-08-1991 poliovirus vaccine, unspecified formulation Marsha Hong TERMINAL PRESS OPERATOR-FLAKER TENDER Work Phone: [facility] 02-19-1990 diphtheria, tetanus toxoids and acellular pertussis vaccine, unspecified formulation Marsha Hong TERMINAL PRESS OPERATOR-FLAKER TENDER Work Phone: [facility] 02-19-1990 measles, mumps and r ubella virus vaccine Marsha Hong TERMINAL PRESS OPERATOR-FLAKER TENDER Work Phone: [facility] 11-28-1989 diphtheria, tetanus toxoids and acellular pertussis vaccine, unspecified formulation Marsha Hong TERMINAL PRESS OPERATOR-FLAKER TENDER Work Phone: [facility] 11-28-1989 poliovirus vaccine, unspecified formulation Marsha Hong TERMINAL PRESS OPERATOR-FLAKER TENDER Work Phone: [facility] 04-17-1989 diphtheria, tetanus toxoids and acellular pertussis vaccine, unspecified formulation Marsha Hong TERMINAL PRESS OPERATOR-FLAKER TENDER Work Phone: [facility] 04-17-1989 poliovirus vaccine, unspecified formulation Marsha Hong TERMINAL PRESS OPERATOR-FLAKER TENDER Work Phone: [facility] Payers Date Payer Category Payer Unknown [facility] [id number] 2022-Present [address] [place] [address] [id number] 2022 Unknown [id number] 2022 Unknown [id number] 2022 Unknown [id number] 1988 Unknown [id number] 1988 Unknown [id number] 1988 Unknown [id number] 1988 Unknown [id number] 1988 Unknown [id number] 1988 Unknown [id number] 1988 Unknown [id number] 1988 Unknown [id number] 1988 Unknown [id number] 1988 Unknown [id number] 1988 Unknown [id number] 1988 Unknown [id number] Social History Date Type Detail Facility Start: 08-06-2001 Tobacco smoking status GAIS Smokes t obacco daily [facility] Start: 08-06-2001 History of tobacco use Cigarette Smo ker [facility] Start: 06-15-2022 End: 04-16-2023 Cigarettes smoked current (pack per day) - Reported 0.5 [facility] Start: 06-15-2022 Tobacco use and exposure Smokeless t obacco non-user [facility] Start: 01-19-2023 End: 04-16-2023 Alcohol intake Ex-drinker (finding) [facility] Start: 01-19-2023 End: 04-16-2023 Tobacco use panel [facility] Start: 1990 Sex Assigned At Not on file [facility] Start: 01-09-2023 End: 04-05-2023 Exposure to SARS-CoV-2 (event) Not sure [facility] Clinical Notes 01-19-2023 to 04-16-2023 Assessment & Plan Note - Mitesh Agee MD - 04/16/2023 1:17 PM EDTAssessment & Plan Note - Mitesh Agee MD - 04/16/2023 1:17 PM EDTThaylee Agee MD - 04/16/2023 1:00 PM EDT Note Date & Type Note Facility 04-16-2023 Evaluation + Plan note Associ ated Problem(s): Attention deficit hyperactivity disorder (ADHD) Chronic, stable, well controlled on current regimen. Oarrs reviewed and appropriate. Medication refilled for 3 mo. CSA completed at this time and urine drug screen obtained. [facility] 04-16-2023 Miscellaneous Notes Associate d Problem(s): Attention deficit hyperactivity disorder (ADHD) Chronic, stable, well controlled on current regimen. Oarrs reviewed and appropriate. Medication refilled for 3 mo. CSA completed at this time and urine drug screen obtained. documented in this encounter [facility] 04-16-2023 History and physi francisco javier note This is a resident progress note generated at [facility]. I, Dr. Agee, am being precepted by the physician annotated below. I have free and unrestricted access to attending and they are present for all aspects of any procedure performed. SUBJECTIVE/OBJECTIVE Chief Complaint Patient presents with Follow-up ADHD Osman is a 32 y.o. M presenting for a ADHD med review. Currently prescribed: adderall 30mg Appetite: is fine Sleep: sleeping well, no troubles falling or staying asleep Focus/concentration: Takes it every day with an occasional weekend day break. Focus is significanlty improved on it. work performance: doing well Wears off: around 7-8pm Comorbid conditions: adjustment disorder Chronic diagnoses addressed (see problem list for more extensive comments): Problem Attention Deficit Hyperactivity Disorder (Adhd) Elevated Blood Pressure Reading (Resolved) BP 106/74 (BP Location: Left arm, BP Position: Sitting) Pulse 88 Temp 97.8 F (36.6 C) Ht 1.727 m (5' 8 ) Wt 81.5 kg (179 lb 9.6 oz) SpO2 97% BMI 27.31 kg/m Smoking Status Every Day Current Medications Current Outpatient Medications Medication Sig Dispense Refill amphetamine-dextroamphetamine XR 30 MG Cap SR 24HR Take 1 capsule by mouth daily every morning. 30 capsule 0 [START ON 05/15/2023] amphetamine-dextroamphetamine XR 30 MG Cap SR 24HR Take 1 capsule by mouth daily every morning. 30 capsule 0 [START ON 06/13/2023] amphetamine-dextroamphetamine XR 30 MG Cap SR 24HR Take 1 capsule by mouth daily every morning. 30 capsule 0 No current facility-administered medications for this visit. OBJECTIVE Physical Exam Vitals reviewed. Constitutional: General: He is not in acute distress. Appearance: Normal appearance. HENT: Head: Normocephalic and atraumatic. Mouth/Throat: Mouth: Mucous membranes are moist. Eyes: Extraocular Movements: Extraocular movements intact. Conjunctiva/sclera: Conjunctivae normal. Cardiovascular: Rate and Rhythm: Normal rate. Pulmonary: Effort: Pulmonary effort is normal. Musculoskeletal: General: Normal range of motion. Cervical back: Normal range of motion and neck supple. Skin: General: Skin is warm and dry. Neurological: General: No focal deficit present. Mental Status: He is alert. Psychiatric: Mood and Affect: Mood normal. Behavior: Behavior normal. Thought Content: Thought content normal. Judgment: Judgment normal. Problem List Items Addressed This Visit Behavioral Health Attention deficit hyperactivity disorder (ADHD) Chronic, stable, well controlled on current regimen. Oarrs reviewed and appropriate. Medication refilled for 3 mo. CSA completed at this time and urine drug screen obtained. Relevant Medications amphetamine-dextroamphetamine XR 30 MG Cap SR 24HR amphetamine-dextroamphetamine XR 30 MG Cap SR 24HR (Start on 05/15/2023) amphetamine-dextroamphetamine XR 30 MG Cap SR 24HR (Start on 06/13/2023) Other Relevant Orders PAIN MGT DRUG PANEL W/ INTERP Follow up: Return in about 3 months (around 07/16/2023) for med review. Mitesh Agee MD Associated attestation - Saad Do MD - 04/20/2023 10:43 AM EDT Patient here follow-up ADD doing extremely well on Focalin 30 mg XR, we refill no heart skipping palpitations blood pressure is normal no anorexia weight stable. I was immediately available to the resident throughout patient's visit here in the [facility], and participated in the construction of the SOAP as recorded and agree with it as written by the resident Dr Agee roxanna [facility] 04-16-2023 History and physi francisco javier note This is a resident progress note generated at [facility]. I, Dr. Agee, am being precepted by the physician annotated below. I have free and unrestricted access to attending and they are present for all aspects of any procedure performed. SUBJECTIVE/OBJECTIVE Chief Complaint Patient presents with Follow-up ADHD Osman is a 32 y.o. M presenting for a ADHD med review. Currently prescribed: adderall 30mg Appetite: is fine Sleep: sleeping well, no troubles falling or staying asleep Focus/concentration: Takes it every day with an occasional weekend day break. Focus is significanlty improved on it. work performance: doing well Wears off: around 7-8pm Comorbid conditions: adjustment disorder Chronic diagnoses addressed (see problem list for more extensive comments): Problem Attention Deficit Hyperactivity Disorder (Adhd) Elevated Blood Pressure Reading (Resolved) BP 106/74 (BP Location: Left arm, BP Position: Sitting) Pulse 88 Temp 97.8 F (36.6 C) Ht 1.727 m (5' 8 ) Wt 81.5 kg (179 lb 9.6 oz) SpO2 97% BMI 27.31 kg/m Smoking Status Every Day Current Medications Current Outpatient Medications Medication Sig Dispense Refill amphetamine-dextroamphetamine XR 30 MG Cap SR 24HR Take 1 capsule by mouth daily every morning. 30 capsule 0 [START ON 05/15/2023] amphetamine-dextroamphetamine XR 30 MG Cap SR 24HR Take 1 capsule by mouth daily every morning. 30 capsule 0 [START ON 06/13/2023] amphetamine-dextroamphetamine XR 30 MG Cap SR 24HR Take 1 capsule by mouth daily every morning. 30 capsule 0 No current facility-administered medications for this visit. OBJECTIVE Physical Exam Vitals reviewed. Constitutional: General: He is not in acute distress. Appearance: Normal appearance. HENT: Head: Normocephalic and atraumatic. Mouth/Throat: Mouth: Mucous membranes are moist. Eyes: Extraocular Movements: Extraocular movements intact. Conjunctiva/sclera: Conjunctivae normal. Cardiovascular: Rate and Rhythm: Normal rate. Pulmonary: Effort: Pulmonary effort is normal. Musculoskeletal: General: Normal range of motion. Cervical back: Normal range of motion and neck supple. Skin: General: Skin is warm and dry. Neurological: General: No focal deficit present. Mental Status: He is alert. Psychiatric: Mood and Affect: Mood normal. Behavior: Behavior normal. Thought Content: Thought content normal. Judgment: Judgment normal. Problem List Items Addressed This Visit Behavioral Health Attention deficit hyperactivity disorder (ADHD) Chronic, stable, well controlled on current regimen. Oarrs reviewed and appropriate. Medication refilled for 3 mo. CSA completed at this time and urine drug screen obtained. Relevant Medications amphetamine-dextroamphetamine XR 30 MG Cap SR 24HR amphetamine-dextroamphetamine XR 30 MG Cap SR 24HR (Start on 05/15/2023) amphetamine-dextroamphetamine XR 30 MG Cap SR 24HR (Start on 06/13/2023) Other Relevant Orders PAIN MGT DRUG PANEL W/ INTERP Follow up: Return in about 3 months (around 07/16/2023) for med review. Mitesh Agee MD Associated attestation - Saad Do MD - 04/20/2023 10:43 AM EDT Patient here follow-up ADD doing extremely well on Focalin 30 mg XR, we refill no heart skipping palpitations blood pressure is normal no anorexia weight stable. I was immediately available to the resident throughout patient's visit here in the [facility], and participated in the construction of the SOAP as recorded and agree with it as written by the resident Dr Anuel mcknight documented in this encounter [facility] 04-05-2023 History and physi francisco javier note This is a resident progress note generated at [facility]. I, Dr. Farris, am being precepted by the physician annotated below. I have free and unrestricted access to the attending and they are present for all aspects of any procedure performed. Chief Complaint: HPI: Osman Blanc is a 32 y.o. male here today for COVID infection. Cold chills, headache starting last night. Tested positive for COVID with home test today. No sick contacts but works at local [employer]. Headache and subjective fever seeming to not go away. No SOB, some intermittent chest pain at rest since this AM, sharp throbbing lasts 2-3 min. Visited ED earlier today and temp was 99 after taking tylenol. Taking 500 mg extra strength acetaminophen every 6 hours. Also needing work excuse note. Past Medical History: Diagnosis Date ADHD Adjustment disorder Asthma Pulled muscle In back-job related PHYSICAL EXAM Blood pressure 122/68, pulse 85, temperature 100 F (37.8 C), SpO2 97 %. Constitutional: mildly ill appearing HEENT: nares w/ clear rhinorrhea, orpharynx erythematous no exudate, TMs mar normal appearing. CV: normal, regular rate and rhythm, no murmurs Lungs: clear to auscultation, no wheezes, rales, rhonchi Abdomen: soft, nontender Skin: dry, no rash, no jaundice ASSESEMENT AND PLAN: Recent Results (from the past 168 hour(s)) CBC AND ELECTRONIC DIFF Collection Time: 04/05/23 4:25 AM Result Value Ref Range WBC Count 9.1 4.3 - 11.1 K/uL RBC Count 4.92 4.19 - 5.50 M/uL Hemoglobin 14.7 12.9 - 16.9 g/dL Hematocrit 43.5 37.5 - 50.1 % Mean Cell Volume 88.4 83.0 - 100.0 fL Mean Cell Hgb 29.9 28.0 - 33.0 pg Mean Cell Hgb Conc 33.8 31.6 - 35.5 g/dL RBC Distribution 11.9 11.5 - 14.5 % Platelet Count 224 140 - 400 K/uL Mean Platelet Volume 10.6 9.4 - 12.4 fL Segs + Bands Auto 82.6 % Immature Grans % 0.5 % Lymphocyte % Auto 4.2 % Monocyte % Auto 11.1 % Eosinophil % Auto 0.9 % Basophil % Auto 0.7 % Segs + Bands,Absolute Auto 7.6 1.6 - 8.9 K/uL Abs Lymph Auto 0.4 (L) 0.6 - 4.6 K/uL Abs Douglas Auto 1.0 0.0 - 1.3 K/uL Abs Eos Auto 0.1 0.0 - 0.6 K/uL Abs Baso Auto 0.1 0.0 - 0.2 K/uL Nucleated RBC 0 /100 WBC COMPREHENSIVE METABOLIC PANEL Collection Time: 04/05/23 4:25 AM Result Value Ref Range Glucose 104 70 - 105 mg/dL Sodium 135 (L) 136 - 145 mmol/L Potassium 3.9 3.5 - 5.1 mmol/L Chloride 105 98 - 107 mmol/L Carbon Dioxide 22 (L) 23 - 29 mmol/L BUN 13 6 - 20 mg/dL Creatinine 1.10 0.70 - 1.30 mg/dL eGFR, CKD-EPI, Male 90 >=60 mL/min/1.73m2 Calcium 9.4 8.6 - 10.3 mg/dL BUN/CREA Ratio 12 6 - 26 Osmolality (Calc) 280 280 - 300 Bilirubin, Total 0.6 0.3 - 1.0 mg/dL Total Protein 7.4 6.4 - 8.9 g/dL Albumin 4.7 3.5 - 5.7 g/dL Globulin 2.7 2.4 - 3.5 g/dL Albumin/Globulin Ratio 1.7 1.1 - 2.2 ALT (SGPT) 26 7 - 52 U/L AST 20 13 - 39 U/L Alkaline Phosphatase 81 34 - 104 U/L LIPASE Collection Time: 04/05/23 4:25 AM Result Value Ref Range Lipase 3 (L) 11 - 82 U/L TROPONIN Collection Time: 04/05/23 4:25 AM Result Value Ref Range Troponin I <0.03 <0.04 ng/mL Problem List Items Addressed This Visit None Visit Diagnoses COVID-19 virus infection - Primary COVID-19 + x2 since sympomatic this AM. High risk for complication due to asthma and BMI. No hx of CKD. - Start Paxlovid F/up prn Staff: Dr. Dale Farris MD Qc Analyst, PGY-2 [facility] [phone] Associated attestation - Vic Hunter DO - 04/16/2023 6:24 AM EDT 04/05/2023 I, Vic Hunter, was immediately available in the clinic throughout the course of this patient's treatment encounter. I discussed the patient's case with the resident, and I agree with the SOAP note including history, exam, decision making, diagnosis, and care plan. See resident documentation for details. [facility] 04-05-2023 History and physi francisco javier note This is a resident progress note generated at [facility]. I, Dr. Farris, am being precepted by the physician annotated below. I have free and unrestricted access to the attending and they are present for all aspects of any procedure performed. Chief Complaint: HPI: Osman Blanc is a 32 y.o. male here today for COVID infection. Cold chills, headache starting last night. Tested positive for COVID with home test today. No sick contacts but works at local [employer]. Headache and subjective fever seeming to not go away. No SOB, some intermittent chest pain at rest since this AM, sharp throbbing lasts 2-3 min. Visited ED earlier today and temp was 99 after taking tylenol. Taking 500 mg extra strength acetaminophen every 6 hours. Also needing work excuse note. Past Medical History: Diagnosis Date ADHD Adjustment disorder Asthma Pulled muscle In back-job related PHYSICAL EXAM Blood pressure 122/68, pulse 85, temperature 100 F (37.8 C), SpO2 97 %. Constitutional: mildly ill appearing HEENT: nares w/ clear rhinorrhea, orpharynx erythematous no exudate, TMs mar normal appearing. CV: normal, regular rate and rhythm, no murmurs Lungs: clear to auscultation, no wheezes, rales, rhonchi Abdomen: soft, nontender Skin: dry, no rash, no jaundice ASSESEMENT AND PLAN: Recent Results (from the past 168 hour(s)) CBC AND ELECTRONIC DIFF Collection Time: 04/05/23 4:25 AM Result Value Ref Range WBC Count 9.1 4.3 - 11.1 K/uL RBC Count 4.92 4.19 - 5.50 M/uL Hemoglobin 14.7 12.9 - 16.9 g/dL Hematocrit 43.5 37.5 - 50.1 % Mean Cell Volume 88.4 83.0 - 100.0 fL Mean Cell Hgb 29.9 28.0 - 33.0 pg Mean Cell Hgb Conc 33.8 31.6 - 35.5 g/dL RBC Distribution 11.9 11.5 - 14.5 % Platelet Count 224 140 - 400 K/uL Mean Platelet Volume 10.6 9.4 - 12.4 fL Segs + Bands Auto 82.6 % Immature Grans % 0.5 % Lymphocyte % Auto 4.2 % Monocyte % Auto 11.1 % Eosinophil % Auto 0.9 % Basophil % Auto 0.7 % Segs + Bands,Absolute Auto 7.6 1.6 - 8.9 K/uL Abs Lymph Auto 0.4 (L) 0.6 - 4.6 K/uL Abs Douglas Auto 1.0 0.0 - 1.3 K/uL Abs Eos Auto 0.1 0.0 - 0.6 K/uL Abs Baso Auto 0.1 0.0 - 0.2 K/uL Nucleated RBC 0 /100 WBC COMPREHENSIVE METABOLIC PANEL Collection Time: 04/05/23 4:25 AM Result Value Ref Range Glucose 104 70 - 105 mg/dL Sodium 135 (L) 136 - 145 mmol/L Potassium 3.9 3.5 - 5.1 mmol/L Chloride 105 98 - 107 mmol/L Carbon Dioxide 22 (L) 23 - 29 mmol/L BUN 13 6 - 20 mg/dL Creatinine 1.10 0.70 - 1.30 mg/dL eGFR, CKD-EPI, Male 90 >=60 mL/min/1.73m2 Calcium 9.4 8.6 - 10.3 mg/dL BUN/CREA Ratio 12 6 - 26 Osmolality (Calc) 280 280 - 300 Bilirubin, Total 0.6 0.3 - 1.0 mg/dL Total Protein 7.4 6.4 - 8.9 g/dL Albumin 4.7 3.5 - 5.7 g/dL Globulin 2.7 2.4 - 3.5 g/dL Albumin/Globulin Ratio 1.7 1.1 - 2.2 ALT (SGPT) 26 7 - 52 U/L AST 20 13 - 39 U/L Alkaline Phosphatase 81 34 - 104 U/L LIPASE Collection Time: 04/05/23 4:25 AM Result Value Ref Range Lipase 3 (L) 11 - 82 U/L TROPONIN Collection Time: 04/05/23 4:25 AM Result Value Ref Range Troponin I <0.03 <0.04 ng/mL Problem List Items Addressed This Visit None Visit Diagnoses COVID-19 virus infection - Primary COVID-19 + x2 since sympomatic this AM. High risk for complication due to asthma and BMI. No hx of CKD. - Start Paxlovid F/up prn Staff: Dr. Dale Farris MD Qc Analyst, PGY-2 [facility] [phone] Associated attestation - Vic Hunter DO - 04/16/2023 6:24 AM EDT 04/05/2023 I, Vic Hunter, was immediately available in the clinic throughout the course of this patient's treatment encounter. I discussed the patient's case with the resident, and I agree with the SOAP note including history, exam, decision making, diagnosis, and care plan. See resident documentation for details. documented in this encounter [facility] 01-21-2023 Hospital course Narrative Images from the original note were not included. Discharge Summary Name: Osman Blanc Age: 32 y.o. Birthday: 1990 Admit Date: 01/19/2023 12:58 PM Discharge Date: 01/21/2023 Admission Information Admitting Physician: Yuni Brennan MD Discharge Information Discharge Physician: Yuni Brennan MD Problem List Active Hospital Problems Diagnosis Small bowel obstruction Resolved Hospital Problems No resolved problems to display. Brief Summary of Hospital Course for Discharge Summary: Osman Blanc is a 32 y.o. male patient with a past medical history of AdHD. He presents with complaints of nausea, vomiting and abdominal pain since Sunday. Patient has never had any surgeries in the past nor does he have any history of bowel disease. He was managed for: Small Bowel Obstruction/ Colitis. Pt comes in with abdominal pain, nausea and vomiting. CT showed obstructed ileal bowel loops. NG tube placed. He underwent small bowel follow through which per surgery showed no obstruction. Tolerating clears and requested to be discharged. Will discharge on a course of antibiotics and advised to return to the ED if symptoms worsen Physical Exam General: NAD, good eye contact, relatively well appearing ENT: mucus membranes moist, hearing is intact, uvula at midline Thoracic: Chest rise symmetric, normal work of breathing, no wheezing or crackles Cardio: Regular rate and rhythm, no murmurs Abdomen: Soft, nontender, nondistended Extremities: Warm, well perfused. DP pulses 2+ b/l. No edema Skin: warm, dry, no rashes or bruises Neuro: Awake, fully oriented. Good memory and concentration. Speech fluent. No focal deficits. Psych: alert and oriented x3, normal affect, normal mood Lab Results Component Value Date WBC 8.3 01/20/2023 HGB 14.7 01/20/2023 HCT 43.0 01/20/2023 PLATELET 232 01/20/2023 MCV 90.9 01/20/2023 Lab Results Component Value Date SODIUM 141 01/20/2023 POTASSIUM 4.0 01/20/2023 CHLORIDE 111 (H) 01/20/2023 CO2 24 01/20/2023 BUN 11 01/20/2023 CREATSERUM 0.91 01/20/2023 GLUCOSE 98 01/21/2023 Lab Results Component Value Date ALT 10 01/20/2023 AST 11 (L) 01/20/2023 ALKPHOS 61 01/20/2023 BILITOTAL 0.7 01/20/2023 BILIDIRECT 0.1 01/20/2023 Brief Summary of Labs for Discharge Summary: Discharge Orders Activity as tolerated Diet - Regular Call MD for: temperature > 100.4 Call MD for: persistent nausea or vomiting Call MD for: severe uncontrolled pain Current Outpatient Meds: Medication List for when you go home START taking these medications Cefdinir 300 MG capsule Take 1 capsule by mouth every 12 hours for 5 days. Commonly known as: OMNICEF metroNIDAZOLE 500 MG TABS Take 1 tablet by mouth 3 times daily for 5 days. Commonly known as: FLAGYL CONTINUE taking these medications * amphetamine-dextroamphetamine XR 30 MG cap XR Take 1 capsule by mouth daily every morning. Commonly known as: ADDERALL XR For diagnoses: Attention deficit hyperactivity disorder (ADHD), unspecified ADHD type * amphetamine-dextroamphetamine XR 30 MG cap XR Take 1 capsule by mouth daily every morning. Commonly known as: ADDERALL XR For diagnoses: Attention deficit hyperactivity disorder (ADHD), unspecified ADHD type Start taking on: February 11, 2023 * amphetamine-dextroamphetamine XR 30 MG cap XR Take 1 capsule by mouth daily every morning. Commonly known as: ADDERALL XR For diagnoses: Attention deficit hyperactivity disorder (ADHD), unspecified ADHD type Start taking on: March 14, 2023 * The same medication is listed twice. Please discuss with your provider. Follow-up: No follow-up provider specified. Upcoming Appointments (up to five)-Some appointments for Medical Center outpatient clinics or diagnostic testing locations are not displayed below Provider Department Dept Phone 04/16/2023 11:00 AM Charles Lilly [place] [phone] documented in this encounter [facility] 01-21-2023 Nurse Note Nursing Discharge Time Out Name: Osman Blanc : 1990 Date: 01/21/2023 Nurse: Cait Matthew RN Patient is being discharged to ordered/correct location of: Home, Self Care Who will assist patient after discharge: Self Care Discharge medication reconciliation has been completed: Yes Patient given new prescriptions and verified accessibility to medications (mohan, meds to beds, etc.): Yes Home oxygen has been arranged for transport/arrival to home that provides continuous availability of oxygen therapy from the time of discharge: N/A BiPap has been arranged to be delivered the day of discharge: N/A Wound care education complete and supplies provided: N/A Patient's DMEs (walker, wheelchair etc.) arranged: N/A Patient's follow up appointments have been coordinated or referred to primary care, specialty care, etc: Yes The patient has been provided specific discharge instructions and education related to [place] conditions and new prescriptions: Yes Discharge Time Out completed with: Name of RN/Side Gluer/Countersinker who verifies discharge items complete:Alysia London RN [facility] 01-21-2023 Plan of care note Problem: Patient Care Overview Goal: Plan of Care Review Outcome: Completed Goal: Individualization & Mutuality Outcome: Completed Goal: Discharge Needs Assessment Outcome: Completed Goal: Interdisciplinary Rounds/Family Conf Outcome: Completed [facility] 01-21-2023 Miscellaneous Notes Formattin g of this note might be different from the original. Nursing Discharge Time Out Name: Osman Blanc : 1990 Date: 01/21/2023 Nurse: Cait Matthew RN Patient is being discharged to ordered/correct location of: Home, Self Care Who will assist patient after discharge: Self Care Discharge medication reconciliation has been completed: Yes Patient given new prescriptions and verified accessibility to medications (mohan, meds to beds, etc.): Yes Home oxygen has been arranged for transport/arrival to home that provides continuous availability of oxygen therapy from the time of discharge: N/A BiPap has been arranged to be delivered the day of discharge: N/A Wound care education complete and supplies provided: N/A Patient's DMEs (walker, wheelchair etc.) arranged: N/A Patient's follow up appointments have been coordinated or referred to primary care, specialty care, etc: Yes The patient has been provided specific discharge instructions and education related to [place] conditions and new prescriptions: Yes Discharge Time Out completed with: Name of RN/Side Gluer/Countersinker who verifies discharge items complete:Alysia London RN Problem: Patient Care Overview Goal: Plan of Care Review Outcome: Completed Goal: Individualization & Mutuality Outcome: Completed Goal: Discharge Needs Assessment Outcome: Completed Goal: Interdisciplinary Rounds/Family Conf Outcome: Completed Pt's NG taken out and clear liquid diet ordered.Pt refusingIV fluids at this time. No changes from morning assessment. Problem: Patient Care Overview Goal: Plan of Care Review Outcome: Ongoing Goal: Individualization & Mutuality Outcome: Ongoing Goal: Discharge Needs Assessment Outcome: Ongoing Goal: Interdisciplinary Rounds/Family Conf Outcome: Ongoing Pt returned from x-ray. documented in this encounter [facility] 01-21-2023 Miscellaneous Notes Formattin g of this note might be different from the original. Nursing Discharge Time Out Name: Osman Blanc : 1990 Date: 01/21/2023 Nurse: Cait Matthew RN Patient is being discharged to ordered/correct location of: Home, Self Care Who will assist patient after discharge: Self Care Discharge medication reconciliation has been completed: Yes Patient given new prescriptions and verified accessibility to medications (mohan, meds to beds, etc.): Yes Home oxygen has been arranged for transport/arrival to home that provides continuous availability of oxygen therapy from the time of discharge: N/A BiPap has been arranged to be delivered the day of discharge: N/A Wound care education complete and supplies provided: N/A Patient's DMEs (walker, wheelchair etc.) arranged: N/A Patient's follow up appointments have been coordinated or referred to primary care, specialty care, etc: Yes The patient has been provided specific discharge instructions and education related to [place] conditions and new prescriptions: Yes Discharge Time Out completed with: Name of RN/Side Gluer/Countersinker who verifies discharge items complete:Alysia London RN Problem: Patient Care Overview Goal: Plan of Care Review Outcome: Completed Goal: Individualization & Mutuality Outcome: Completed Goal: Discharge Needs Assessment Outcome: Completed Goal: Interdisciplinary Rounds/Family Conf Outcome: Completed Pt's NG taken out and clear liquid diet ordered.Pt refusingIV fluids at this time. No changes from morning assessment. Problem: Patient Care Overview Goal: Plan of Care Review Outcome: Ongoing Goal: Individualization & Mutuality Outcome: Ongoing Goal: Discharge Needs Assessment Outcome: Ongoing Goal: Interdisciplinary Rounds/Family Conf Outcome: Ongoing Pt returned from x-ray. documented in this encounter [facility] 01-20-2023 Nurse Note Pt's NG taken out and clear liquid diet ordered.Pt refusingIV fluids at this time. [facility] 01-20-2023 History of Presen t illness Narrative [facility] Medicine Daily Progress Note Patient: Osman Blanc, 1990, [id number] Physician: Yuni Brennan MD Length of Stay: 0 Subjective/Interval History: Admitted in last 24hrs Objective: Temp: [98.5 F (36.9 C)-98.6 F (37 C)] 98.6 F (37 C) Pulse (Heart Rate): [44-68] 68 Resp Rate: [16-19] 18 BP: (105-128)/(69-84) 125/84 O2 Sat (%): [96 %-99 %] 99 % Weight: [84.8 kg (187 lb)] 84.8 kg (187 lb) Oxygen Therapy O2 Sat (%): 99 % O2 Device: room air No intake/output data recorded. General: NAD, good eye contact, relatively well appearing ENT: mucus membranes moist, hearing is intact, uvula at midline Thoracic: Chest rise symmetric, normal work of breathing, no wheezing or crackles Cardio: Regular rate and rhythm, no murmurs Abdomen: Soft, nontender, nondistended Extremities: Warm, well perfused. DP pulses 2+ b/l. No edema Skin: warm, dry, no rashes or bruises Neuro: Awake, fully oriented. Good memory and concentration. Speech fluent. No focal deficits. Psych: alert and oriented x3, normal affect, normal mood Data Review: WBC/Hgb/Hct/Plts: 8.3/14.7/43.0/232 (01/20 122) Bun/Creat/Cl/CO2/Glucose: 11/0.91/111/24/74 (01/20 122-01/20 1339) Na/K+/Phos/Mg/Ca: 141/4.0/--/1.9/8.6 (01/20 122) Additional Labs/Cultures/Micro: New Imaging/Radiological Studies: Assessment/Plan: Osman Blanc is a 32 y.o. male patient with a past medical history of AdHD. He presents with complaints of nausea, vomiting and abdominal pain since Sunday. Patient has never had any surgeries in the past nor does he have any history of bowel disease. Plan Small Bowel Obstruction. Pt comes in with abdominal pain, nausea and vomiting. CT showed obstructed ileal bowel loops. NG tube placed. Pain control. IV fluids. Antiemetics PRN. Surgery consulted and recs appreciated. Small bowel follow through ordered today DVT prophylaxis. SCDs Yuni Brennan MD Summary: ACS progress note [address] [id number] ACUTE CARE SURGERY PROGRESS NOTE DATE & TIME OF ENCOUNTER: 01/20/2023 8:57 AM ASSESSMENT AND PLAN Assessment: 1) SBO Plan: -SBFT today -If SBFT is neg for obstruction then will DC NGT and start clears -Continue supportive care and discomfort management -Continue G.I. and DVT prophylaxis -Replete lytes as indicated -Repeat am labs -Cares per primary team, will continue to follow SUBJECTIVE Patient Reports: Pt reports continued abdominal pain. No N/V. Reports some flatus. REVIEW OF SYSTEMS: Constitutional: Feels fatigued, but improved HEENT: Denies throat pain, reflux, or cough Cardiac: Denies chest pain or palpitations Respiratory: Denies shortness of breath, cough or wheezing; GI: +abdominal pain Skin: Denies rash or changing lesions OBJECTIVE PHYSICAL EXAM VITAL SIGNS: Reviewed. GENERAL: In no apparent distress. HEENT: Oral mucosa is moist and pink CARDIAC: Regular rate and rhythm. S1 and S2, without murmurs, gallops, or rubs. PULMONARY: No wheezes, rales, or rhonchi. ABDOMEN/GASTROINTESTINAL: Soft, non-distended, non-tympanic, hypoactive bowel sounds. +TTP MUSCULOSKELETAL: Generally unremarkable. Normal ROM in all extremities. NEUROLOGIC/PSYCH EXAM: Alert and oriented x 3. Speech normal. Follows commands. Mood normal. SKIN: No jaundice, rashes, or lesions. CURRENT HOSPITAL MEDICATIONS Current Facility-Administered Medications Medication Dose Route Frequency Provider Last Rate Last Admin Acetaminophen (TYLENOL) tablet 650 mg 650 mg Oral Q6H PRN Yuni Brennan MD Ketorolac (TORADOL) injection 15 mg 15 mg Intravenous Q6H PRN Yuni Brennan MD 15 mg at 01/20/23 0117 Morphine (PF) injection 2 mg 2 mg Intravenous Q4H PRN Yuni Brennan MD 2 mg at 01/20/23 0517 Naloxone (NARCAN) injection 0.4 mg 0.4 mg Intravenous Q15 MIN PRN Yuni Brennan MD Ondansetron 4mg/2ml (ZOFRAN) injection 4 mg 4 mg Intravenous Q6H PRN Yuni Brennan MD Or Ondansetron (ZOFRAN-ODT) disintegrating tablet 4 mg 4 mg Oral Q6H PRN Yuni Brennan MD Sodium chloride (PF) 0.9 % injection 5 mL 5 mL Intravenous As directed PRN Yuni Brennan MD Sodium chloride 0.9% IV solution Intravenous Continuous Yuni Brennan MD 100 mL/hr at 01/19/231929 New Bag at 01/19/231929 RESULTS: Reviewed Electronically signed by: Phil Swanson DO 01/20/23 8:57 AM documented in this encounter [facility] 01-20-2023 History of Presen t illness Narrative [facility] Medicine Daily Progress Note Patient: Osman Blanc, 1990, [id number] Physician: Yuni Brennan MD Length of Stay: 0 Subjective/Interval History: Admitted in last 24hrs Objective: Temp: [98.5 F (36.9 C)-98.6 F (37 C)] 98.6 F (37 C) Pulse (Heart Rate): [44-68] 68 Resp Rate: [16-19] 18 BP: (105-128)/(69-84) 125/84 O2 Sat (%): [96 %-99 %] 99 % Weight: [84.8 kg (187 lb)] 84.8 kg (187 lb) Oxygen Therapy O2 Sat (%): 99 % O2 Device: room air No intake/output data recorded. General: NAD, good eye contact, relatively well appearing ENT: mucus membranes moist, hearing is intact, uvula at midline Thoracic: Chest rise symmetric, normal work of breathing, no wheezing or crackles Cardio: Regular rate and rhythm, no murmurs Abdomen: Soft, nontender, nondistended Extremities: Warm, well perfused. DP pulses 2+ b/l. No edema Skin: warm, dry, no rashes or bruises Neuro: Awake, fully oriented. Good memory and concentration. Speech fluent. No focal deficits. Psych: alert and oriented x3, normal affect, normal mood Data Review: WBC/Hgb/Hct/Plts: 8.3/14.7/43.0/232 (01/20 122) Bun/Creat/Cl/CO2/Glucose: 11/0.91/111/24/74 (01/20 122-01/20 133) Na/K+/Phos/Mg/Ca: 141/4.0/--/1.9/8.6 (01/20 122) Additional Labs/Cultures/Micro: New Imaging/Radiological Studies: Assessment/Plan: Osman Blanc is a 32 y.o. male patient with a past medical history of AdHD. He presents with complaints of nausea, vomiting and abdominal pain since Sunday. Patient has never had any surgeries in the past nor does he have any history of bowel disease. Plan Small Bowel Obstruction. Pt comes in with abdominal pain, nausea and vomiting. CT showed obstructed ileal bowel loops. NG tube placed. Pain control. IV fluids. Antiemetics PRN. Surgery consulted and recs appreciated. Small bowel follow through ordered today DVT prophylaxis. SCDs Yuni Brennan MD Summary: ACS progress note [address] [id number] ACUTE CARE SURGERY PROGRESS NOTE DATE & TIME OF ENCOUNTER: 01/20/2023 8:57 AM ASSESSMENT AND PLAN Assessment: 1) SBO Plan: -SBFT today -If SBFT is neg for obstruction then will DC NGT and start clears -Continue supportive care and discomfort management -Continue G.I. and DVT prophylaxis -Replete lytes as indicated -Repeat am labs -Cares per primary team, will continue to follow SUBJECTIVE Patient Reports: Pt reports continued abdominal pain. No N/V. Reports some flatus. REVIEW OF SYSTEMS: Constitutional: Feels fatigued, but improved HEENT: Denies throat pain, reflux, or cough Cardiac: Denies chest pain or palpitations Respiratory: Denies shortness of breath, cough or wheezing; GI: +abdominal pain Skin: Denies rash or changing lesions OBJECTIVE PHYSICAL EXAM VITAL SIGNS: Reviewed. GENERAL: In no apparent distress. HEENT: Oral mucosa is moist and pink CARDIAC: Regular rate and rhythm. S1 and S2, without murmurs, gallops, or rubs. PULMONARY: No wheezes, rales, or rhonchi. ABDOMEN/GASTROINTESTINAL: Soft, non-distended, non-tympanic, hypoactive bowel sounds. +TTP MUSCULOSKELETAL: Generally unremarkable. Normal ROM in all extremities. NEUROLOGIC/PSYCH EXAM: Alert and oriented x 3. Speech normal. Follows commands. Mood normal. SKIN: No jaundice, rashes, or lesions. CURRENT HOSPITAL MEDICATIONS Current Facility-Administered Medications Medication Dose Route Frequency Provider Last Rate Last Admin Acetaminophen (TYLENOL) tablet 650 mg 650 mg Oral Q6H PRN Yuni Brennan MD Ketorolac (TORADOL) injection 15 mg 15 mg Intravenous Q6H PRN Supang Brennan MD 15 mg at 01/20/23 0117 Morphine (PF) injection 2 mg 2 mg Intravenous Q4H PRN Supang Brennan MD 2 mg at 01/20/23 0517 Naloxone (NARCAN) injection 0.4 mg 0.4 mg Intravenous Q15 MIN PRN Yuni Brennan MD Ondansetron 4mg/2ml (ZOFRAN) injection 4 mg 4 mg Intravenous Q6H PRN Yuni Brennan MD Or Ondansetron (ZOFRAN-ODT) disintegrating tablet 4 mg 4 mg Oral Q6H PRN Yuni Brennan MD Sodium chloride (PF) 0.9 % injection 5 mL 5 mL Intravenous As directed PRN Yuni Brennan MD Sodium chloride 0.9% IV solution Intravenous Continuous Supo Heladio Brennan MD 100 mL/hr at 01/19/23 1930 New Bag at 01/19/23 1930 RESULTS: Reviewed Electronically signed by: Phil Swanson DO 01/20/23 8:57 AM documented in this encounter [facility] 01-20-2023 Nurse Note No changes from morning assessment. [facility] 01-20-2023 Plan of care note Problem: Patient Care Overview Goal: Plan of Care Review Outcome: Ongoing Goal: Individualization & Mutuality Outcome: Ongoing Goal: Discharge Needs Assessment Outcome: Ongoing Goal: Interdisciplinary Rounds/Family Conf Outcome: Ongoing [facility] 01-20-2023 Nurse Note Pt returned from x-ray. [facility] 01-19-2023 Consult note Associated Order (s): IP CONSULT TO SURGERY - GENERAL (EMERGENT) Summary: ACS Consult Note [address], [place], [place] [address] ACUTE CARE SURGERY CONSULT NOTE DATE & TIME OF ENCOUNTER: 01/19/2023 7:30 PM ASSESSMENT AND PLAN ICD-10-CM 1. Small bowel obstruction K56.609 2. Left sided abdominal pain R10.9 1. NGT/NPO/IVF 2. Reviewed pertinent past medical, surgical, social history, allergies, and medications; updated in EMR where indicated. 3. Patient expressed understanding and agreement with plan. SUBJECTIVE CONSULTING SERVICE: Acute Care Surgery (ACS) REASON FOR CONSULT: SBO CHIEF COMPLAINT Chief Complaint Patient presents with Abdominal Pain Patient ambulatory to ER for epigastric pain x2 days. States [facility] sent him to ER for potential blockage. Alert, orientedx4 HISTORY OF PRESENT ILLNESS This 32 y/o male pt presents to [facility] ED c/o severe abdominal pain. Pt reports pain is predominantly in midabdomen. Pain doesn't radiate. Pt reports pain has been present for >24 hours. Pt states that the pain worsened to the point of intolerance today. Now, the pain is constant and severe. Pt reports nausea and vomiting. Pt denies hematemesis or coffee ground emesis. Pt reports flatus and BM have decreased significantly. Denies recent hematochezia or melena. Reports decreased appetite. Denies fever. HOME MEDICATIONS Current Facility-Administered Medications Medication Dose Route Frequency Provider Last Rate Last Admin Acetaminophen (TYLENOL) tablet 650 mg 650 mg Oral Q6H PRN Yuni Brennan MD Ketorolac (TORADOL) injection 15 mg 15 mg Intravenous Q6H PRN Yuni Brennan MD Morphine (PF) injection 2 mg 2 mg Intravenous Q4H PRN Yuni Brennan MD Naloxone (NARCAN) injection 0.4 mg 0.4 mg Intravenous Q15 MIN PRN Yuni Brennan MD Ondansetron 4mg/2ml (ZOFRAN) injection 4 mg 4 mg Intravenous Q6H PRN Yuni Brennan MD Or Ondansetron (ZOFRAN-ODT) disintegrating tablet 4 mg 4 mg Oral Q6H PRN Yuni Brennan MD Sodium chloride (PF) 0.9 % injection 5 mL 5 mL Intravenous As directed PRN Yuni Brennan MD Sodium chloride 0.9% IV solution Intravenous Continuous Yuni Brennan MD Medications Prior to Admission Medication Sig Dispense Refill Last Dose [START ON 03/14/2023] amphetamine-dextroamphetamine XR 30 MG Cap SR 24HR Take 1 capsule by mouth daily every morning. 30 capsule 0 [START ON 02/11/2023] amphetamine-dextroamphetamine XR 30 MG Cap SR 24HR Take 1 capsule by mouth daily every morning. 30 capsule 0 amphetamine-dextroamphetamine XR 30 MG Cap SR 24HR Take 1 capsule by mouth daily every morning. 30 capsule 0 ALLERGIES Allergies Allergen Reactions Honey Bee Venom Hives PAST MEDICAL HISTORY: Past Medical History: Diagnosis Date ADHD Adjustment disorder Asthma Pulled muscle In back-job related PAST SURGICAL HISTORY No past surgical history on file. FAMILY HISTORY his family history includes Asthma in his sister; Cancer in his paternal grandfather; Heart Disease - Other in his paternal grandfather; No known problems in his brother; Other - Specify in his mother. SOCIAL HISTORY he reports that he has been smoking cigarettes. He started smoking about 21 years ago. He has a 10.00 pack-year smoking history. He has never used smokeless tobacco. He reports that he does not currently use alcohol. He reports that he does not use drugs. REVIEW OF SYSTEMS: Constitutional: Denies fatigue, weakness or wt loss. Denies lightheadedness, LOC or dizziness. Denies headache or fever. Skin: Denies yellow color changes of skin. Denies rashes. Denies new or concerning lesions. Lymphatic/Heme: Denies any lumps in armpits, groins or neck. Denies easy bruising or bleeding. HEENT: Denies yellowing of eyes, sore throat, sinus pain or pressure, runny nose Cardiac: Denies chest pain or palpitations. Denies SOB. Respiratory: Denies shortness of breath, cough or wheezing GI: Reports abdominal pain. Reports abdominal distension. Reports nausea and vomiting. Denies hematemesis or coffee ground emesis. Reports cessation of flatus and BM. Denies hematochezia or melena. : Denies suprapubic or pelvic pain. Denies urinary burning or urgency. Reports normal voiding. Musculoskeletal: Denies weakness or numbness in extremities. Denies new neck or back pain. Endocrine: Denies frequent urination or excessive thirst OBJECTIVE PHYSICAL EXAM VITAL SIGNS: Reviewed. VSS GENERAL: In no apparent distress. A+O x3. HEENT: Atraumatic, normocephalic, sclera nonicteric, oral mucosal membranes are moist and pink, no obvious adenopathy, no JVD. CHEST: Clear breath sounds bilaterally. No wheezes, rales, or rhonchi. CARDIAC: Regular rate and rhythm. S1 and S2, without murmurs, gallops, or rubs. VASCULAR: No peripheral edema. Peripheral pulses normal and equal in all extremities. ABDOMEN: Abdomen is soft, mildly distended. Generalized TTP. No guarding or rebound. Normal bowel sounds. MUSCULOSKELETAL: Generally unremarkable; normal ROM in all extremities NEUROLOGIC EXAM: Alert and oriented x 3. Speech normal. Follows commands. PSYCHIATRIC: Mood normal. Appropriately answers questions. SKIN: No jaundice, rashes or lesions. RESULTS: CTAP images and reports reviewed and discussed with the patient and/or appropriate ocean import representative. Electronically signed by: Phil Swanson DO 01/19/23 7:30 PM [facility] 01-19-2023 Consult note Associated Order (s): IP CONSULT TO SURGERY - GENERAL (EMERGENT) Summary: ACS Consult Note [address] [id number] ACUTE CARE SURGERY CONSULT NOTE DATE & TIME OF ENCOUNTER: 01/19/2023 7:30 PM ASSESSMENT AND PLAN ICD-10-CM 1. Small bowel obstruction K56.609 2. Left sided abdominal pain R10.9 1. NGT/NPO/IVF 2. Reviewed pertinent past medical, surgical, social history, allergies, and medications; updated in EMR where indicated. 3. Patient expressed understanding and agreement with plan. SUBJECTIVE CONSULTING SERVICE: Acute Care Surgery (ACS) REASON FOR CONSULT: SBO CHIEF COMPLAINT Chief Complaint Patient presents with Abdominal Pain Patient ambulatory to ER for epigastric pain x2 days. [facility] sent him to ER for potential blockage. Alert, orientedx4 HISTORY OF PRESENT ILLNESS This 32 y/o male pt presents to [facility] ED c/o severe abdominal pain. Pt reports pain is predominantly in midabdomen. Pain doesn't radiate. Pt reports pain has been present for >24 hours. Pt states that the pain worsened to the point of intolerance today. Now, the pain is constant and severe. Pt reports nausea and vomiting. Pt denies hematemesis or coffee ground emesis. Pt reports flatus and BM have decreased significantly. Denies recent hematochezia or melena. Reports decreased appetite. Denies fever. HOME MEDICATIONS Current Facility-Administered Medications Medication Dose Route Frequency Provider Last Rate Last Admin Acetaminophen (TYLENOL) tablet 650 mg 650 mg Oral Q6H PRN Yuni Brennan MD Ketorolac (TORADOL) injection 15 mg 15 mg Intravenous Q6H PRN Yuni Brennan MD Morphine (PF) injection 2 mg 2 mg Intravenous Q4H PRN Yuni Brennan MD Naloxone (NARCAN) injection 0.4 mg 0.4 mg Intravenous Q15 MIN PRN Yuni Brennan MD Ondansetron 4mg/2ml (ZOFRAN) injection 4 mg 4 mg Intravenous Q6H PRN Yuni Brennan MD Or Ondansetron (ZOFRAN-ODT) disintegrating tablet 4 mg 4 mg Oral Q6H PRN Yuni Brennan MD Sodium chloride (PF) 0.9 % injection 5 mL 5 mL Intravenous As directed PRN Yuni Brennan MD Sodium chloride 0.9% IV solution Intravenous Continuous Yuni Brennan MD Medications Prior to Admission Medication Sig Dispense Refill Last Dose [START ON 03/14/2023] amphetamine-dextroamphetamine XR 30 MG Cap SR 24HR Take 1 capsule by mouth daily every morning. 30 capsule 0 [START ON 02/11/2023] amphetamine-dextroamphetamine XR 30 MG Cap SR 24HR Take 1 capsule by mouth daily every morning. 30 capsule 0 amphetamine-dextroamphetamine XR 30 MG Cap SR 24HR Take 1 capsule by mouth daily every morning. 30 capsule 0 ALLERGIES Allergies Allergen Reactions Honey Bee Venom Hives PAST MEDICAL HISTORY: Past Medical History: Diagnosis Date ADHD Adjustment disorder Asthma Pulled muscle In back-job related PAST SURGICAL HISTORY No past surgical history on file. FAMILY HISTORY his family history includes Asthma in his sister; Cancer in his paternal grandfather; Heart Disease - Other in his paternal grandfather; No known problems in his brother; Other - Specify in his mother. SOCIAL HISTORY he reports that he has been smoking cigarettes. He started smoking about 21 years ago. He has a 10.00 pack-year smoking history. He has never used smokeless tobacco. He reports that he does not currently use alcohol. He reports that he does not use drugs. REVIEW OF SYSTEMS: Constitutional: Denies fatigue, weakness or wt loss. Denies lightheadedness, LOC or dizziness. Denies headache or fever. Skin: Denies yellow color changes of skin. Denies rashes. Denies new or concerning lesions. Lymphatic/Heme: Denies any lumps in armpits, groins or neck. Denies easy bruising or bleeding. HEENT: Denies yellowing of eyes, sore throat, sinus pain or pressure, runny nose Cardiac: Denies chest pain or palpitations. Denies SOB. Respiratory: Denies shortness of breath, cough or wheezing GI: Reports abdominal pain. Reports abdominal distension. Reports nausea and vomiting. Denies hematemesis or coffee ground emesis. Reports cessation of flatus and BM. Denies hematochezia or melena. : Denies suprapubic or pelvic pain. Denies urinary burning or urgency. Reports normal voiding. Musculoskeletal: Denies weakness or numbness in extremities. Denies new neck or back pain. Endocrine: Denies frequent urination or excessive thirst OBJECTIVE PHYSICAL EXAM VITAL SIGNS: Reviewed. VSS GENERAL: In no apparent distress. A+O x3. HEENT: Atraumatic, normocephalic, sclera nonicteric, oral mucosal membranes are moist and pink, no obvious adenopathy, no JVD. CHEST: Clear breath sounds bilaterally. No wheezes, rales, or rhonchi. CARDIAC: Regular rate and rhythm. S1 and S2, without murmurs, gallops, or rubs. VASCULAR: No peripheral edema. Peripheral pulses normal and equal in all extremities. ABDOMEN: Abdomen is soft, mildly distended. Generalized TTP. No guarding or rebound. Normal bowel sounds. MUSCULOSKELETAL: Generally unremarkable; normal ROM in all extremities NEUROLOGIC EXAM: Alert and oriented x 3. Speech normal. Follows commands. PSYCHIATRIC: Mood normal. Appropriately answers questions. SKIN: No jaundice, rashes or lesions. RESULTS: CTAP images and reports reviewed and discussed with the patient and/or appropriate ocean import representative. Electronically signed by: Phil Swanson DO 01/19/23 7:30 PM documented in this encounter [facility] 01-19-2023 Consult note Associated Order (s): IP CONSULT TO SURGERY - GENERAL (EMERGENT) Summary: ACS Consult Note [address] [id number] ACUTE CARE SURGERY CONSULT NOTE DATE & TIME OF ENCOUNTER: 01/19/2023 7:30 PM ASSESSMENT AND PLAN ICD-10-CM 1. Small bowel obstruction K56.609 2. Left sided abdominal pain R10.9 1. NGT/NPO/IVF 2. Reviewed pertinent past medical, surgical, social history, allergies, and medications; updated in EMR where indicated. 3. Patient expressed understanding and agreement with plan. SUBJECTIVE CONSULTING SERVICE: Acute Care Surgery (ACS) REASON FOR CONSULT: SBO CHIEF COMPLAINT Chief Complaint Patient presents with Abdominal Pain Patient ambulatory to ER for epigastric pain x2 days. States sent him to ER for potential blockage. Alert, orientedx4 HISTORY OF PRESENT ILLNESS This 32 y/o male pt presents to [facility] ED c/o severe abdominal pain. Pt reports pain is predominantly in midabdomen. Pain doesn't radiate. Pt reports pain has been present for >24 hours. Pt states that the pain worsened to the point of intolerance today. Now, the pain is constant and severe. Pt reports nausea and vomiting. Pt denies hematemesis or coffee ground emesis. Pt reports flatus and BM have decreased significantly. Denies recent hematochezia or melena. Reports decreased appetite. Denies fever. HOME MEDICATIONS Current Facility-Administered Medications Medication Dose Route Frequency Provider Last Rate Last Admin Acetaminophen (TYLENOL) tablet 650 mg 650 mg Oral Q6H PRN Yuni Brennan MD Ketorolac (TORADOL) injection 15 mg 15 mg Intravenous Q6H PRN Yuni Brennan MD Morphine (PF) injection 2 mg 2 mg Intravenous Q4H PRN Yuni Brennan MD Naloxone (NARCAN) injection 0.4 mg 0.4 mg Intravenous Q15 MIN PRN Yuni Brennan MD Ondansetron 4mg/2ml (ZOFRAN) injection 4 mg 4 mg Intravenous Q6H PRN Yuni Brennan MD Or Ondansetron (ZOFRAN-ODT) disintegrating tablet 4 mg 4 mg Oral Q6H PRN Yuni Brennan MD Sodium chloride (PF) 0.9 % injection 5 mL 5 mL Intravenous As directed PRN Yuni Brennan MD Sodium chloride 0.9% IV solution Intravenous Continuous Yuni Brennan MD Medications Prior to Admission Medication Sig Dispense Refill Last Dose [START ON 03/14/2023] amphetamine-dextroamphetamine XR 30 MG Cap SR 24HR Take 1 capsule by mouth daily every morning. 30 capsule 0 [START ON 02/11/2023] amphetamine-dextroamphetamine XR 30 MG Cap SR 24HR Take 1 capsule by mouth daily every morning. 30 capsule 0 amphetamine-dextroamphetamine XR 30 MG Cap SR 24HR Take 1 capsule by mouth daily every morning. 30 capsule 0 ALLERGIES Allergies Allergen Reactions Honey Bee Venom Hives PAST MEDICAL HISTORY: Past Medical History: Diagnosis Date ADHD Adjustment disorder Asthma Pulled muscle In back-job related PAST SURGICAL HISTORY No past surgical history on file. FAMILY HISTORY his family history includes Asthma in his sister; Cancer in his paternal grandfather; Heart Disease - Other in his paternal grandfather; No known problems in his brother; Other - Specify in his mother. SOCIAL HISTORY he reports that he has been smoking cigarettes. He started smoking about 21 years ago. He has a 10.00 pack-year smoking history. He has never used smokeless tobacco. He reports that he does not currently use alcohol. He reports that he does not use drugs. REVIEW OF SYSTEMS: Constitutional: Denies fatigue, weakness or wt loss. Denies lightheadedness, LOC or dizziness. Denies headache or fever. Skin: Denies yellow color changes of skin. Denies rashes. Denies new or concerning lesions. Lymphatic/Heme: Denies any lumps in armpits, groins or neck. Denies easy bruising or bleeding. HEENT: Denies yellowing of eyes, sore throat, sinus pain or pressure, runny nose Cardiac: Denies chest pain or palpitations. Denies SOB. Respiratory: Denies shortness of breath, cough or wheezing GI: Reports abdominal pain. Reports abdominal distension. Reports nausea and vomiting. Denies hematemesis or coffee ground emesis. Reports cessation of flatus and BM. Denies hematochezia or melena. : Denies suprapubic or pelvic pain. Denies urinary burning or urgency. Reports normal voiding. Musculoskeletal: Denies weakness or numbness in extremities. Denies new neck or back pain. Endocrine: Denies frequent urination or excessive thirst OBJECTIVE PHYSICAL EXAM VITAL SIGNS: Reviewed. VSS GENERAL: In no apparent distress. A+O x3. HEENT: Atraumatic, normocephalic, sclera nonicteric, oral mucosal membranes are moist and pink, no obvious adenopathy, no JVD. CHEST: Clear breath sounds bilaterally. No wheezes, rales, or rhonchi. CARDIAC: Regular rate and rhythm. S1 and S2, without murmurs, gallops, or rubs. VASCULAR: No peripheral edema. Peripheral pulses normal and equal in all extremities. ABDOMEN: Abdomen is soft, mildly distended. Generalized TTP. No guarding or rebound. Normal bowel sounds. MUSCULOSKELETAL: Generally unremarkable; normal ROM in all extremities NEUROLOGIC EXAM: Alert and oriented x 3. Speech normal. Follows commands. PSYCHIATRIC: Mood normal. Appropriately answers questions. SKIN: No jaundice, rashes or lesions. RESULTS: CTAP images and reports reviewed and discussed with the patient and/or appropriate ocean import representative. Electronically signed by: Phil Swanson DO 01/19/23 7:30 PM documented in this encounter [facility] 01-19-2023 History and physi [facility] Medicine History & Physical Patient: Osman Blanc, 1990, [id number] Physician: Yuni Brennan MD Admit Date: 01/19/2023 Assessment and Plan Osman Blanc is a 32 y.o. male with a past medical history of AdHD. He presents with complaints of nausea, vomiting and abdominal pain since Sunday. Patient has never had any surgeries in the past nor does he have any history of bowel disease. Plan Small Bowel Obstruction. Pt comes in with abdominal pain, nausea and vomiting. CT showed obstructed ileal bowel loops. NG tube placed. Pain control. IV fluids. Antiemetics PRN. Surgery consulted and recs appreciated DVT prophylaxis. SCDs Yuni Brennan MD Chief Complaint Abdominal pain, nausea , vomiting and diarrhea since Sunday History of Present Illness Osman Blanc is a 32 y.o. male with a past medical history of AdHD. He presents with complaints of nausea, vomiting and abdominal pain since Sunday. Patient has never had any surgeries in the past nor does he have any history of bowel disease. Patient reports symptoms began with bad gas and loose stools. He began to have left sided abdominal Pain with worsening nausea and vomiting on Sunday. He was still able to tolerate some food but went to Urgent care today and had an xray done showing a bowel obstruction. In the ED, CT abdomen was done showing obstructed ileal bowel loops which may be related to an internal hernia or closed loop obstruction. Surgery was consulted and NG tube was placed and he is being admitted for further management. Past Medical, Surgical, Family, and Social History Past Medical History: Diagnosis Date ADHD Adjustment disorder Asthma Pulled muscle In back-job related No past surgical history on file. Family History Problem Relation Age of Onset Other - Specify Mother COPD Asthma Sister No known problems Brother Heart Disease - Other Paternal Grandfather Cancer Paternal Grandfather Social History Socioeconomic History Marital status: Single Tobacco Use Smoking status: Every Day Packs/day: 0.50 Years: 20.00 Total pack years: 10.00 Types: Cigarettes Start date: 2001 Smokeless tobacco: Never Vaping Use Vaping Use: Never used Substance and Sexual Activity Alcohol use: Not Currently Drug use: Never Medications Prior to Admission Medications Prescriptions Last Dose Informant Patient Reported? Taking? amphetamine-dextroamphetamine XR 30 MG Cap SR 24HR No No Sig: Take 1 capsule by mouth daily every morning. amphetamine-dextroamphetamine XR 30 MG Cap SR 24HR No No Sig: Take 1 capsule by mouth daily every morning. amphetamine-dextroamphetamine XR 30 MG Cap SR 24HR No No Sig: Take 1 capsule by mouth daily every morning. Facility-Administered Medications: None ALLERGIES: He is allergic to honey bee venom. Review of Systems (positives in bold) Constitutional - fever, chills, sweats, fatigue, weight loss, weight gain Ophtho - blurry vision, decreased vision, eye pain, loss of vision, eye redness HEENT - headache, epistaxis, sinus problems, oral lesions, dysphagia, sore throat Cardio - chest pain, palpitations, SAVAGE, edema, rapid heart beat, claudication Respiratory - cough, SOB, wheezing, pleuritic pain, sputum changes, hemoptysis GI - nausea, vomiting, diarrhea, abd pain, blood in stool - dysuria, discharge, frequency, hesitancy, hematuria, incontinence, abnl menses Heme/lymph - bleeding, blood clots, bruising, sweats, LAD, weight loss Endo - hot flashes, palpitations, hair loss, polyuria/polydipsia Neuro - weakness, confusion, dizziness, vertigo, seizures, numbness, tingling Skin - rash, redness, lesion, itching MSk - joint pain, back pain, swelling Psych - depression, anxiety, hallucinations, SI ROS negative if not highlighted or mentioned in HPI Physical Exam Temp: [98 F (36.7 C)-98.2 F (36.8 C)] 98.2 F (36.8 C) Pulse (Heart Rate): [63-105] 63 Resp Rate: [16-18] 16 BP: (111-120)/(77-86) 111/77 O2 Sat (%): [96 %-100 %] 96 % Weight: [85.1 kg (187 lb 9.6 oz)] 85.1 kg (187 lb 9.6 oz) Body mass index is 28.52 kg/m . No intake/output data recorded. Oxygen Therapy O2 Sat (%): 96 % O2 Device: room air Physical Exam: General: NAD, good eye contact, relatively well appearing Head: Atraumatic, normocephalic. Face symmetric Eyes: EOMI, sclerae anicteric ENT: Mucous membranes moist. Normal oral mucosa and dentition. Trachea midline. No cervical lymphadenopathy Thoracic: No visible chest wall deformities. Chest rise symmetric, normal work of breathing. Normal breath sounds b/l, no wheezing or crackles Cardio: regular rate and rhythm, no murmurs. No JVD Abdomen: Soft, nontender, nondistended. No rebound Extremities: Warm, well perfused. DP pulses 2+ b/l. No clubbing, cyanosis. No edema Skin: warm, dry, no rashes or bruises Neuro: Awake, fully oriented. Good memory, concentration, attention. Speech fluent. CN II-XII grossly intact. Moving all extremities. No focal deficits. Labs and Imaging WBC/Hgb/Hct/Plts: 7.2/15.6/45.7/234 (01/19 1354) Bun/Creat/Cl/CO2/Glucose: 12/1.06/105/27/94 (01/19 1354) Na/K+/Phos/Mg/Ca: 137/3.9/--/--/9.0 (01/19 1354)pH/PCO2/PO2/HCO3: 5.5/--/--/-- (01/19 1017) Lab Results Component Value Date ALT 12 01/19/2023 AST 13 01/19/2023 ALKPHOS 69 01/19/2023 BILITOTAL 0.5 01/19/2023 BILIDIRECT 0.1 01/19/2023 Additional Labs/Cultures/Micro: Imaging/Radiological Studies: CT ABDOMEN/PELVIS WITH CONTRAST Final Result IMPRESSION: Obstructed ileal bowel loops. This may be related to an internal hernia or closed loop obstruction as there is decompression of the more proximal jejunum and distal ileum. Mural thickening involving multiple of the distended ileal bowel loops related to regional enteritis. Small volume free fluid in the abdomen. Additional findings noted above. D/ / Roacel Mayorga Interpreting Provider: Rocael Mayorga [facility] 01-19-2023 History and physi francisco javier note Hospital Medicine History & Physical Patient: Osman Blanc, 1990, [id number] Physician: Yuni Brennan MD Admit Date: 01/19/2023 Assessment and Plan Osman Blanc is a 32 y.o. male with a past medical history of AdHD. He presents with complaints of nausea, vomiting and abdominal pain since Sunday. Patient has never had any surgeries in the past nor does he have any history of bowel disease. Plan Small Bowel Obstruction. Pt comes in with abdominal pain, nausea and vomiting. CT showed obstructed ileal bowel loops. NG tube placed. Pain control. IV fluids. Antiemetics PRN. Surgery consulted and recs appreciated DVT prophylaxis. SCDs Yuni Brennan MD Chief Complaint Abdominal pain, nausea , vomiting and diarrhea since Sunday History of Present Illness Osman Blanc is a 32 y.o. male with a past medical history of AdHD. He presents with complaints of nausea, vomiting and abdominal pain since Sunday. Patient has never had any surgeries in the past nor does he have any history of bowel disease. Patient reports symptoms began with bad gas and loose stools. He began to have left sided abdominal Pain with worsening nausea and vomiting on Sunday. He was still able to tolerate some food but went to Urgent care today and had an xray done showing a bowel obstruction. In the ED, CT abdomen was done showing obstructed ileal bowel loops which may be related to an internal hernia or closed loop obstruction. Surgery was consulted and NG tube was placed and he is being admitted for further management. Past Medical, Surgical, Family, and Social History Past Medical History: Diagnosis Date ADHD Adjustment disorder Asthma Pulled muscle In back-job related No past surgical history on file. Family History Problem Relation Age of Onset Other - Specify Mother COPD Asthma Sister No known problems Brother Heart Disease - Other Paternal Grandfather Cancer Paternal Grandfather Social History Socioeconomic History Marital status: Single Tobacco Use Smoking status: Every Day Packs/day: 0.50 Years: 20.00 Total pack years: 10.00 Types: Cigarettes Start date: 2001 Smokeless tobacco: Never Vaping Use Vaping Use: Never used Substance and Sexual Activity Alcohol use: Not Currently Drug use: Never Medications Prior to Admission Medications Prescriptions Last Dose Informant Patient Reported? Taking? amphetamine-dextroamphetamine XR 30 MG Cap SR 24HR No No Sig: Take 1 capsule by mouth daily every morning. amphetamine-dextroamphetamine XR 30 MG Cap SR 24HR No No Sig: Take 1 capsule by mouth daily every morning. amphetamine-dextroamphetamine XR 30 MG Cap SR 24HR No No Sig: Take 1 capsule by mouth daily every morning. Facility-Administered Medications: None ALLERGIES: He is allergic to honey bee venom. Review of Systems (positives in bold) Constitutional - fever, chills, sweats, fatigue, weight loss, weight gain Ophtho - blurry vision, decreased vision, eye pain, loss of vision, eye redness HEENT - headache, epistaxis, sinus problems, oral lesions, dysphagia, sore throat Cardio - chest pain, palpitations, SAVAGE, edema, rapid heart beat, claudication Respiratory - cough, SOB, wheezing, pleuritic pain, sputum changes, hemoptysis GI - nausea, vomiting, diarrhea, abd pain, blood in stool - dysuria, discharge, frequency, hesitancy, hematuria, incontinence, abnl menses Heme/lymph - bleeding, blood clots, bruising, sweats, LAD, weight loss Endo - hot flashes, palpitations, hair loss, polyuria/polydipsia Neuro - weakness, confusion, dizziness, vertigo, seizures, numbness, tingling Skin - rash, redness, lesion, itching MSk - joint pain, back pain, swelling Psych - depression, anxiety, hallucinations, SI ROS negative if not highlighted or mentioned in HPI Physical Exam Temp: [98 F (36.7 C)-98.2 F (36.8 C)] 98.2 F (36.8 C) Pulse (Heart Rate): [63-105] 63 Resp Rate: [16-18] 16 BP: (111-120)/(77-86) 111/77 O2 Sat (%): [96 %-100 %] 96 % Weight: [85.1 kg (187 lb 9.6 oz)] 85.1 kg (187 lb 9.6 oz) Body mass index is 28.52 kg/m . No intake/output data recorded. Oxygen Therapy O2 Sat (%): 96 % O2 Device: room air Physical Exam: General: NAD, good eye contact, relatively well appearing Head: Atraumatic, normocephalic. Face symmetric Eyes: EOMI, sclerae anicteric ENT: Mucous membranes moist. Normal oral mucosa and dentition. Trachea midline. No cervical lymphadenopathy Thoracic: No visible chest wall deformities. Chest rise symmetric, normal work of breathing. Normal breath sounds b/l, no wheezing or crackles Cardio: regular rate and rhythm, no murmurs. No JVD Abdomen: Soft, nontender, nondistended. No rebound Extremities: Warm, well perfused. DP pulses 2+ b/l. No clubbing, cyanosis. No edema Skin: warm, dry, no rashes or bruises Neuro: Awake, fully oriented. Good memory, concentration, attention. Speech fluent. CN II-XII grossly intact. Moving all extremities. No focal deficits. Labs and Imaging WBC/Hgb/Hct/Plts: 7.2/15.6/45.7/234 (01/19 1354) Bun/Creat/Cl/CO2/Glucose: 12/1.06/105/27/94 (01/19 1354) Na/K+/Phos/Mg/Ca: 137/3.9/--/--/9.0 (01/19 1354)pH/PCO2/PO2/HCO3: 5.5/--/--/-- (01/19 1017) Lab Results Component Value Date ALT 12 01/19/2023 AST 13 01/19/2023 ALKPHOS 69 01/19/2023 BILITOTAL 0.5 01/19/2023 BILIDIRECT 0.1 01/19/2023 Additional Labs/Cultures/Micro: Imaging/Radiological Studies: CT ABDOMEN/PELVIS WITH CONTRAST Final Result IMPRESSION: Obstructed ileal bowel loops. This may be related to an internal hernia or closed loop obstruction as there is decompression of the more proximal jejunum and distal ileum. Mural thickening involving multiple of the distended ileal bowel loops related to regional enteritis. Small volume free fluid in the abdomen. Additional findings noted above. D/ / Rocael Mayorga Interpreting Provider: Rocael Mayorga documented in this encounter [facility] 01-19-2023 History and physi francisco javier note Hospital Medicine History & Physical Patient: Osman Blanc, 1990, [id number] Physician: Yuni Brennan MD Admit Date: 01/19/2023 Assessment and Plan Osman Blanc is a 32 y.o. male with a past medical history of AdHD. He presents with complaints of nausea, vomiting and abdominal pain since Sunday. Patient has never had any surgeries in the past nor does he have any history of bowel disease. Plan Small Bowel Obstruction. Pt comes in with abdominal pain, nausea and vomiting. CT showed obstructed ileal bowel loops. NG tube placed. Pain control. IV fluids. Antiemetics PRN. Surgery consulted and recs appreciated DVT prophylaxis. SCDs Yuni Brennan MD Chief Complaint Abdominal pain, nausea , vomiting and diarrhea since Sunday History of Present Illness Osman Blanc is a 32 y.o. male with a past medical history of AdHD. He presents with complaints of nausea, vomiting and abdominal pain since Sunday. Patient has never had any surgeries in the past nor does he have any history of bowel disease. Patient reports symptoms began with bad gas and loose stools. He began to have left sided abdominal Pain with worsening nausea and vomiting on Sunday. He was still able to tolerate some food but went to Urgent care today and had an xray done showing a bowel obstruction. In the ED, CT abdomen was done showing obstructed ileal bowel loops which may be related to an internal hernia or closed loop obstruction. Surgery was consulted and NG tube was placed and he is being admitted for further management. Past Medical, Surgical, Family, and Social History Past Medical History: Diagnosis Date ADHD Adjustment disorder Asthma Pulled muscle In back-job related No past surgical history on file. Family History Problem Relation Age of Onset Other - Specify Mother COPD Asthma Sister No known problems Brother Heart Disease - Other Paternal Grandfather Cancer Paternal Grandfather Social History Socioeconomic History Marital status: Single Tobacco Use Smoking status: Every Day Packs/day: 0.50 Years: 20.00 Total pack years: 10.00 Types: Cigarettes Start date: 2001 Smokeless tobacco: Never Vaping Use Vaping Use: Never used Substance and Sexual Activity Alcohol use: Not Currently Drug use: Never Medications Prior to Admission Medications Prescriptions Last Dose Informant Patient Reported? Taking? amphetamine-dextroamphetamine XR 30 MG Cap SR 24HR No No Sig: Take 1 capsule by mouth daily every morning. amphetamine-dextroamphetamine XR 30 MG Cap SR 24HR No No Sig: Take 1 capsule by mouth daily every morning. amphetamine-dextroamphetamine XR 30 MG Cap SR 24HR No No Sig: Take 1 capsule by mouth daily every morning. Facility-Administered Medications: None ALLERGIES: He is allergic to honey bee venom. Review of Systems (positives in bold) Constitutional - fever, chills, sweats, fatigue, weight loss, weight gain Ophtho - blurry vision, decreased vision, eye pain, loss of vision, eye redness HEENT - headache, epistaxis, sinus problems, oral lesions, dysphagia, sore throat Cardio - chest pain, palpitations, SAVAGE, edema, rapid heart beat, claudication Respiratory - cough, SOB, wheezing, pleuritic pain, sputum changes, hemoptysis GI - nausea, vomiting, diarrhea, abd pain, blood in stool - dysuria, discharge, frequency, hesitancy, hematuria, incontinence, abnl menses Heme/lymph - bleeding, blood clots, bruising, sweats, LAD, weight loss Endo - hot flashes, palpitations, hair loss, polyuria/polydipsia Neuro - weakness, confusion, dizziness, vertigo, seizures, numbness, tingling Skin - rash, redness, lesion, itching MSk - joint pain, back pain, swelling Psych - depression, anxiety, hallucinations, SI ROS negative if not highlighted or mentioned in HPI Physical Exam Temp: [98 F (36.7 C)-98.2 F (36.8 C)] 98.2 F (36.8 C) Pulse (Heart Rate): [63-105] 63 Resp Rate: [16-18] 16 BP: (111-120)/(77-86) 111/77 O2 Sat (%): [96 %-100 %] 96 % Weight: [85.1 kg (187 lb 9.6 oz)] 85.1 kg (187 lb 9.6 oz) Body mass index is 28.52 kg/m . No intake/output data recorded. Oxygen Therapy O2 Sat (%): 96 % O2 Device: room air Physical Exam: General: NAD, good eye contact, relatively well appearing Head: Atraumatic, normocephalic. Face symmetric Eyes: EOMI, sclerae anicteric ENT: Mucous membranes moist. Normal oral mucosa and dentition. Trachea midline. No cervical lymphadenopathy Thoracic: No visible chest wall deformities. Chest rise symmetric, normal work of breathing. Normal breath sounds b/l, no wheezing or crackles Cardio: regular rate and rhythm, no murmurs. No JVD Abdomen: Soft, nontender, nondistended. No rebound Extremities: Warm, well perfused. DP pulses 2+ b/l. No clubbing, cyanosis. No edema Skin: warm, dry, no rashes or bruises Neuro: Awake, fully oriented. Good memory, concentration, attention. Speech fluent. CN II-XII grossly intact. Moving all extremities. No focal deficits. Labs and Imaging WBC/Hgb/Hct/Plts: 7.2/15.6/45.7/234 (01/19 1354) Bun/Creat/Cl/CO2/Glucose: 12/1.06/105/27/94 (01/19 135) Na/K+/Phos/Mg/Ca: 137/3.9/--/--/9.0 (01/19 135)pH/PCO2/PO2/HCO3: 5.5/--/--/-- (01/19 1017) Lab Results Component Value Date ALT 12 01/19/2023 AST 13 01/19/2023 ALKPHOS 69 01/19/2023 BILITOTAL 0.5 01/19/2023 BILIDIRECT 0.1 01/19/2023 Additional Labs/Cultures/Micro: Imaging/Radiological Studies: CT ABDOMEN/PELVIS WITH CONTRAST Final Result IMPRESSION: Obstructed ileal bowel loops. This may be related to an internal hernia or closed loop obstruction as there is decompression of the more proximal jejunum and distal ileum. Mural thickening involving multiple of the distended ileal bowel loops related to regional enteritis. Small volume free fluid in the abdomen. Additional findings noted above. D/ / Rocael Mayorga Interpreting Provider: Rocael Mayorga documented in this encounter [facility] 01-19-2023 Emergency departm ent Note Report given to 3A. [facility] 01-19-2023 Emergency departm ent Note Report given to 3A. Attempted to call report to 3A Patient presents to the ED from for a possible bowel blockage. The patient reports diarrhea and vomiting for the past 2 days. Patient reports that he has been unable to eat or he vomits. TRIAGE CHIEF COMPLAINT: Chief Complaint Patient presents with Abdominal Pain Patient ambulatory to ER for epigastric pain x2 days. [facility] sent him to ER for potential blockage. Alert, orientedx4 History of Present Illness: Osman Blanc is a 32 y.o. male who presents to emergency department at [facility] with nausea, vomiting, diarrhea, and concerns for small-bowel obstruction. Patient reports that his symptoms began about 3 days ago with pain in the left upper quadrant. This was closely followed by the vomiting and diarrhea. He continues to have frequent, watery stools including just prior to arrival. At symptom onset, he also noticed increasing gas including belches that were very foul smelling and smells like sulfur. There has been no hematemesis. There has been no blood or mucus in the stools. He denies any fevers. He describes the pain as pressure in quality. Pain tends to worsen when he stands up. Pain has been radiating into the lower quadrant on the left. He denies any abdominal surgical history. He denies any urinary symptoms. There is no groin pain. He went to an area urgent care, and x-rays were concerning for small-bowel obstruction, so he was referred here for further evaluation. Patient or family do not report other particular provocative or alleviating factors. Review of Systems: Ten-point review of systems completed with pertinent positives and negatives placed in the HPI. Past Medical History, Past Surgical History, Family History: Reviewed with pertinent information included in the history of present illness. Social History: Social History Socioeconomic History Marital status: Single Tobacco Use Smoking status: Every Day Packs/day: 0.50 Years: 20.00 Total pack years: 10.00 Types: Cigarettes Start date: 2001 Smokeless tobacco: Never Vaping Use Vaping Use: Never used Substance and Sexual Activity Alcohol use: Not Currently Drug use: Never ALLERGIES: Honey bee venom Physical Exam: VITAL SIGNS: BP 116/83 Pulse 90 Temp 98.2 F (36.8 C) (Oral) Resp 16 Ht 1.727 m (5' 8 ) SpO2 100% BMI 28.52 kg/m Smoking Status Every Day Reviewed, as documented. GENERAL: Patient is awake, alert, and oriented appropriately. No acute respiratory distress and speaking in full and complete sentences. HEAD: Normocephalic and atraumatic. EENT: Conjunctiva clear. No redness or matting. External ears unremarkable. Nasal mucosa is pink without purulence. Oral mucosa is moist and pink. NECK: Supple without Kernig or Brudzinski sign. No significant lymphadenopathy. Normal range of motion. RESPIRATORY: Symmetric aeration bilaterally. No wheezes, rales, rhonchi, or stridor. CARDIOVASCULAR: Regular rate and rhythm. No audible murmurs, rubs, or gallops. No central or peripheral cyanosis. GASTROINTESTINAL: Diffuse tenderness, more so in the left quadrants. Facial grimace with no involuntary rebound. No McBurney's or Renee's point tenderness, guarding, rebound, or rigidity. No mass or pulsatile mass. Bowel sounds absent currently in all quadrants. No CVA tenderness. GENITOURINARY: No inguinal tenderness. NEUROLOGICAL: GCS 15. Cranial nerves II-XII are grossly intact as tested without facial droop or dermatomal paresthesias. Forehead wrinkles are symmetric. Conjugate gaze. No gross motor or cerebellar deficits. MUSCULOSKELETAL: No asymmetric edema, Homans sign, or cords. SKIN: Normal turgor. Normal capillary refill. No petechiae, purpura, vesicles, or other lesions. No icterus. PSYCHIATRIC: Normal mood. Normal affect. EMERGENCY DEPARTMENT COURSE: Prior to initial evaluation, medical screening studies are ordered as documented. Patient is brought to bed 24 and orders are placed for CT scan of the abdomen pelvis to assess for potential obstructive changes and potential sources. The bowel sounds are absent, and there is some diffuse tenderness, but there is no involuntary rebound or rigidity. IV fluids, famotidine, ondansetron, and morphine ordered. Patient is agreeable to continuing plan. Patient has been assessed and reassessed by this physician over the course of the emergency department stay. Upon most recent re-evaluation, patient remains clinically stable. He has been NPO, but there has not been any additional nausea vomiting. CT scan is consistent with small-bowel obstruction, possibly high grade or closed loop. Radiologist cannot pinpoint a source but questions perhaps an internal hernia. We have discussed initial management including NG tube placement. Patient is agreeable. We discussed surgical consultation admission to the hospital. Acute Care Surgery is paged for consultation at [phone]. We have discussed all available results. Patient is satisfied with evaluation and agreeable to recommendations. The hospitalist is requested at [phone]. Any addenda will be made as appropriate. MEDICAL DECISION MAKING: ADDITIONAL DATA: None applicable. PROCEDURES: None. CONSULTATIONS: Acute Care Surgery. Hospitalist service. DATA: Radiology: Results and imaging are reviewed through the electronic record. CT ABDOMEN/PELVIS WITH CONTRAST Final Result IMPRESSION: Obstructed ileal bowel loops. This may be related to an internal hernia or closed loop obstruction as there is decompression of the more proximal jejunum and distal ileum. Mural thickening involving multiple of the distended ileal bowel loops related to regional enteritis. Small volume free fluid in the abdomen. Additional findings noted above. D/ / Rocael Mayorga Interpreting Provider: Rocael Myaorga Lab Results: Results for orders placed or performed during the hospital encounter of 01/19/23 HEPATIC FUNCTION PANEL Result Value Ref Range Total Protein 6.7 6.4 - 8.9 g/dL Albumin 4.3 3.5 - 5.7 g/dL Bilirubin, Total 0.5 0.3 - 1.0 mg/dL Bilirubin Direct 0.1 <=0.2 mg/dL Bilirubin, Indirect 0.4 0.0 - 1.0 mg/dL Alkaline Phosphatase 69 34 - 104 U/L ALT (SGPT) 12 7 - 52 U/L AST 13 13 - 39 U/L Globulin 2.4 2.4 - 3.5 g/dL Albumin/Globulin Ratio 1.8 1.1 - 2.2 BASIC METABOLIC PANEL Result Value Ref Range Sodium 137 136 - 145 mmol/L Potassium 3.9 3.5 - 5.1 mmol/L Chloride 105 98 - 107 mmol/L Carbon Dioxide 27 23 - 29 mmol/L BUN 12 6 - 20 mg/dL Creatinine 1.06 0.70 - 1.30 mg/dL Glucose 94 70 - 105 mg/dL Calcium 9.0 8.6 - 10.3 mg/dL BUN/CREA Ratio 11 6 - 26 Osmolality (Calc) 284 280 - 300 eGFR, CKD-EPI, Male >90 >=60 mL/min/1.73m2 CBC AND ELECTRONIC DIFF Result Value Ref Range WBC Count 7.2 4.3 - 11.1 K/uL RBC Count 5.00 4.19 - 5.50 M/uL Hemoglobin 15.6 12.9 - 16.9 g/dL Hematocrit 45.7 37.5 - 50.1 % Mean Cell Volume 91.4 83.0 - 100.0 fL Mean Cell Hgb 31.2 28.0 - 33.0 pg Mean Cell Hgb Conc 34.1 31.6 - 35.5 g/dL RBC Distribution 12.0 11.5 - 14.5 % Platelet Count 234 140 - 400 K/uL Mean Platelet Volume 10.4 9.4 - 12.4 fL Segs + Bands Auto 65.9 % Immature Grans % 0.3 % Lymphocyte % Auto 24.4 % Monocyte % Auto 8.0 % Eosinophil % Auto 0.8 % Basophil % Auto 0.6 % Segs + Bands,Absolute Auto 4.8 1.6 - 8.9 K/uL Abs Lymph Auto 1.8 0.6 - 4.6 K/uL Abs Douglas Auto 0.6 0.0 - 1.3 K/uL Abs Eos Auto 0.1 0.0 - 0.6 K/uL Abs Baso Auto 0.0 0.0 - 0.2 K/uL Nucleated RBC 0 /100 WBC LIPASE Result Value Ref Range Lipase 5 (L) 11 - 82 U/L Based upon the initial history, clinical exam, and testing the patient has findings consistent with small-bowel obstruction. CT imaging is suspicious for either closed loop or high-grade obstruction. There is no clear indication of ischemia, perforation, pneumatosis, acute or gangrenous cholecystitis, or detectable hernia. Radiologist questions possible internal hernia. Laboratory testing is more reassuring. Patient does not appear septic or inappropriately acidotic. DISPOSITION: Hospitalization. This documentation was completed with voice recognition and trouble locater software. Attempts are made to proof read contemporaneously and at disposition, but some trouble locater errors may persist. Jaskaran Sotelo MD 01/19/23 [id number] Addendum: Care is discussed with Acute Care Surgery Dr. Swanson at approximately 5:15 p.m. after she was able to get out of surgery. She would like to proceed with NG tube placement to low intermittent wall suction. She would like the patient kept NPO. As his white blood cell count is normal, she does not recommend antibiotics at this time. She will be able to see the patient in consultation. Jaskaran Sotelo MD 01/19/23 1799 documented in this encounter [facility] 01-19-2023 Emergency departm ent Note Report given to 3A. Attempted to call report to 3A Patient presents to the ED from for a possible bowel blockage. The patient reports diarrhea and vomiting for the past 2 days. Patient reports that he has been unable to eat or he vomits. TRIAGE CHIEF COMPLAINT: Chief Complaint Patient presents with Abdominal Pain Patient ambulatory to ER for epigastric pain x2 days. [facility] sent him to ER for potential blockage. Alert, orientedx4 History of Present Illness: Osman Blanc is a 32 y.o. male who presents to emergency department at [facility] with nausea, vomiting, diarrhea, and concerns for small-bowel obstruction. Patient reports that his symptoms began about 3 days ago with pain in the left upper quadrant. This was closely followed by the vomiting and diarrhea. He continues to have frequent, watery stools including just prior to arrival. At symptom onset, he also noticed increasing gas including belches that were very foul smelling and smells like sulfur. There has been no hematemesis. There has been no blood or mucus in the stools. He denies any fevers. He describes the pain as pressure in quality. Pain tends to worsen when he stands up. Pain has been radiating into the lower quadrant on the left. He denies any abdominal surgical history. He denies any urinary symptoms. There is no groin pain. He went to an area urgent care, and x-rays were concerning for small-bowel obstruction, so he was referred here for further evaluation. Patient or family do not report other particular provocative or alleviating factors. Review of Systems: Ten-point review of systems completed with pertinent positives and negatives placed in the HPI. Past Medical History, Past Surgical History, Family History: Reviewed with pertinent information included in the history of present illness. Social History: Social History Socioeconomic History Marital status: Single Tobacco Use Smoking status: Every Day Packs/day: 0.50 Years: 20.00 Total pack years: 10.00 Types: Cigarettes Start date: 2001 Smokeless tobacco: Never Vaping Use Vaping Use: Never used Substance and Sexual Activity Alcohol use: Not Currently Drug use: Never ALLERGIES: Honey bee venom Physical Exam: VITAL SIGNS: BP 116/83 Pulse 90 Temp 98.2 F (36.8 C) (Oral) Resp 16 Ht 1.727 m (5' 8 ) SpO2 100% BMI 28.52 kg/m Smoking Status Every Day Reviewed, as documented. GENERAL: Patient is awake, alert, and oriented appropriately. No acute respiratory distress and speaking in full and complete sentences. HEAD: Normocephalic and atraumatic. EENT: Conjunctiva clear. No redness or matting. External ears unremarkable. Nasal mucosa is pink without purulence. Oral mucosa is moist and pink. NECK: Supple without Kernig or Brudzinski sign. No significant lymphadenopathy. Normal range of motion. RESPIRATORY: Symmetric aeration bilaterally. No wheezes, rales, rhonchi, or stridor. CARDIOVASCULAR: Regular rate and rhythm. No audible murmurs, rubs, or gallops. No central or peripheral cyanosis. GASTROINTESTINAL: Diffuse tenderness, more so in the left quadrants. Facial grimace with no involuntary rebound. No McBurney's or Renee's point tenderness, guarding, rebound, or rigidity. No mass or pulsatile mass. Bowel sounds absent currently in all quadrants. No CVA tenderness. GENITOURINARY: No inguinal tenderness. NEUROLOGICAL: GCS 15. Cranial nerves II-XII are grossly intact as tested without facial droop or dermatomal paresthesias. Forehead wrinkles are symmetric. Conjugate gaze. No gross motor or cerebellar deficits. MUSCULOSKELETAL: No asymmetric edema, Homans sign, or cords. SKIN: Normal turgor. Normal capillary refill. No petechiae, purpura, vesicles, or other lesions. No icterus. PSYCHIATRIC: Normal mood. Normal affect. EMERGENCY DEPARTMENT COURSE: Prior to initial evaluation, medical screening studies are ordered as documented. Patient is brought to bed 24 and orders are placed for CT scan of the abdomen pelvis to assess for potential obstructive changes and potential sources. The bowel sounds are absent, and there is some diffuse tenderness, but there is no involuntary rebound or rigidity. IV fluids, famotidine, ondansetron, and morphine ordered. Patient is agreeable to continuing plan. Patient has been assessed and reassessed by this physician over the course of the emergency department stay. Upon most recent re-evaluation, patient remains clinically stable. He has been NPO, but there has not been any additional nausea vomiting. CT scan is consistent with small-bowel obstruction, possibly high grade or closed loop. Radiologist cannot pinpoint a source but questions perhaps an internal hernia. We have discussed initial management including NG tube placement. Patient is agreeable. We discussed surgical consultation admission to the hospital. Acute Care Surgery is paged for consultation at [phone]. We have discussed all available results. Patient is satisfied with evaluation and agreeable to recommendations. The hospitalist is requested at [phone]. Any addenda will be made as appropriate. MEDICAL DECISION MAKING: ADDITIONAL DATA: None applicable. PROCEDURES: None. CONSULTATIONS: Acute Care Surgery. Hospitalist service. DATA: Radiology: Results and imaging are reviewed through the electronic record. CT ABDOMEN/PELVIS WITH CONTRAST Final Result IMPRESSION: Obstructed ileal bowel loops. This may be related to an internal hernia or closed loop obstruction as there is decompression of the more proximal jejunum and distal ileum. Mural thickening involving multiple of the distended ileal bowel loops related to regional enteritis. Small volume free fluid in the abdomen. Additional findings noted above. D/ / Rocael Mayorga Interpreting Provider: Rocael Mayorga Lab Results: Results for orders placed or performed during the hospital encounter of 01/19/23 HEPATIC FUNCTION PANEL Result Value Ref Range Total Protein 6.7 6.4 - 8.9 g/dL Albumin 4.3 3.5 - 5.7 g/dL Bilirubin, Total 0.5 0.3 - 1.0 mg/dL Bilirubin Direct 0.1 <=0.2 mg/dL Bilirubin, Indirect 0.4 0.0 - 1.0 mg/dL Alkaline Phosphatase 69 34 - 104 U/L ALT (SGPT) 12 7 - 52 U/L AST 13 13 - 39 U/L Globulin 2.4 2.4 - 3.5 g/dL Albumin/Globulin Ratio 1.8 1.1 - 2.2 BASIC METABOLIC PANEL Result Value Ref Range Sodium 137 136 - 145 mmol/L Potassium 3.9 3.5 - 5.1 mmol/L Chloride 105 98 - 107 mmol/L Carbon Dioxide 27 23 - 29 mmol/L BUN 12 6 - 20 mg/dL Creatinine 1.06 0.70 - 1.30 mg/dL Glucose 94 70 - 105 mg/dL Calcium 9.0 8.6 - 10.3 mg/dL BUN/CREA Ratio 11 6 - 26 Osmolality (Calc) 284 280 - 300 eGFR, CKD-EPI, Male >90 >=60 mL/min/1.73m2 CBC AND ELECTRONIC DIFF Result Value Ref Range WBC Count 7.2 4.3 - 11.1 K/uL RBC Count 5.00 4.19 - 5.50 M/uL Hemoglobin 15.6 12.9 - 16.9 g/dL Hematocrit 45.7 37.5 - 50.1 % Mean Cell Volume 91.4 83.0 - 100.0 fL Mean Cell Hgb 31.2 28.0 - 33.0 pg Mean Cell Hgb Conc 34.1 31.6 - 35.5 g/dL RBC Distribution 12.0 11.5 - 14.5 % Platelet Count 234 140 - 400 K/uL Mean Platelet Volume 10.4 9.4 - 12.4 fL Segs + Bands Auto 65.9 % Immature Grans % 0.3 % Lymphocyte % Auto 24.4 % Monocyte % Auto 8.0 % Eosinophil % Auto 0.8 % Basophil % Auto 0.6 % Segs + Bands,Absolute Auto 4.8 1.6 - 8.9 K/uL Abs Lymph Auto 1.8 0.6 - 4.6 K/uL Abs Douglas Auto 0.6 0.0 - 1.3 K/uL Abs Eos Auto 0.1 0.0 - 0.6 K/uL Abs Baso Auto 0.0 0.0 - 0.2 K/uL Nucleated RBC 0 /100 WBC LIPASE Result Value Ref Range Lipase 5 (L) 11 - 82 U/L Based upon the initial history, clinical exam, and testing the patient has findings consistent with small-bowel obstruction. CT imaging is suspicious for either closed loop or high-grade obstruction. There is no clear indication of ischemia, perforation, pneumatosis, acute or gangrenous cholecystitis, or detectable hernia. Radiologist questions possible internal hernia. Laboratory testing is more reassuring. Patient does not appear septic or inappropriately acidotic. DISPOSITION: Hospitalization. This documentation was completed with voice recognition and trouble locater software. Attempts are made to proof read contemporaneously and at disposition, but some trouble locater errors may persist. Jaskaran Sotelo MD 01/19/23 7804 Addendum: Care is discussed with Acute Care Surgery Dr. Swanson at approximately 5:15 p.m. after she was able to get out of surgery. She would like to proceed with NG tube placement to low intermittent wall suction. She would like the patient kept NPO. As his white blood cell count is normal, she does not recommend antibiotics at this time. She will be able to see the patient in consultation. Jaskaran Sotelo MD 01/19/23 2007 documented in this encounter [facility] 01-19-2023 Emergency departm ent Note Attempted to call report to 3A [facility] 01-19-2023 Emergency departm ent Note Patient presents to the ED from for a possible bowel blockage. The patient reports diarrhea and vomiting for the past 2 days. Patient reports that he has been unable to eat or he vomits. [facility] 01-19-2023 Physician Emergen cy department Note TRIAGE CHIEF COMPLAINT: Chief Complaint Patient presents with Abdominal Pain Patient ambulatory to ER for epigastric pain x2 days. [facility] sent him to ER for potential blockage. Alert, orientedx4 History of Present Illness: Osman Blanc is a 32 y.o. male who presents to emergency department at [facility] with nausea, vomiting, diarrhea, and concerns for small-bowel obstruction. Patient reports that his symptoms began about 3 days ago with pain in the left upper quadrant. This was closely followed by the vomiting and diarrhea. He continues to have frequent, watery stools including just prior to arrival. At symptom onset, he also noticed increasing gas including belches that were very foul smelling and smells like sulfur. There has been no hematemesis. There has been no blood or mucus in the stools. He denies any fevers. He describes the pain as pressure in quality. Pain tends to worsen when he stands up. Pain has been radiating into the lower quadrant on the left. He denies any abdominal surgical history. He denies any urinary symptoms. There is no groin pain. He went to an area urgent care, and x-rays were concerning for small-bowel obstruction, so he was referred here for further evaluation. Patient or family do not report other particular provocative or alleviating factors. Review of Systems: Ten-point review of systems completed with pertinent positives and negatives placed in the HPI. Past Medical History, Past Surgical History, Family History: Reviewed with pertinent information included in the history of present illness. Social History: Social History Socioeconomic History Marital status: Single Tobacco Use Smoking status: Every Day Packs/day: 0.50 Years: 20.00 Total pack years: 10.00 Types: Cigarettes Start date: 2001 Smokeless tobacco: Never Vaping Use Vaping Use: Never used Substance and Sexual Activity Alcohol use: Not Currently Drug use: Never ALLERGIES: Honey bee venom Physical Exam: VITAL SIGNS: BP 116/83 Pulse 90 Temp 98.2 F (36.8 C) (Oral) Resp 16 Ht 1.727 m (5' 8 ) SpO2 100% BMI 28.52 kg/m Smoking Status Every Day Reviewed, as documented. GENERAL: Patient is awake, alert, and oriented appropriately. No acute respiratory distress and speaking in full and complete sentences. HEAD: Normocephalic and atraumatic. EENT: Conjunctiva clear. No redness or matting. External ears unremarkable. Nasal mucosa is pink without purulence. Oral mucosa is moist and pink. NECK: Supple without Kernig or Brudzinski sign. No significant lymphadenopathy. Normal range of motion. RESPIRATORY: Symmetric aeration bilaterally. No wheezes, rales, rhonchi, or stridor. CARDIOVASCULAR: Regular rate and rhythm. No audible murmurs, rubs, or gallops. No central or peripheral cyanosis. GASTROINTESTINAL: Diffuse tenderness, more so in the left quadrants. Facial grimace with no involuntary rebound. No McBurney's or Renee's point tenderness, guarding, rebound, or rigidity. No mass or pulsatile mass. Bowel sounds absent currently in all quadrants. No CVA tenderness. GENITOURINARY: No inguinal tenderness. NEUROLOGICAL: GCS 15. Cranial nerves II-XII are grossly intact as tested without facial droop or dermatomal paresthesias. Forehead wrinkles are symmetric. Conjugate gaze. No gross motor or cerebellar deficits. MUSCULOSKELETAL: No asymmetric edema, Homans sign, or cords. SKIN: Normal turgor. Normal capillary refill. No petechiae, purpura, vesicles, or other lesions. No icterus. PSYCHIATRIC: Normal mood. Normal affect. EMERGENCY DEPARTMENT COURSE: Prior to initial evaluation, medical screening studies are ordered as documented. Patient is brought to bed 24 and orders are placed for CT scan of the abdomen pelvis to assess for potential obstructive changes and potential sources. The bowel sounds are absent, and there is some diffuse tenderness, but there is no involuntary rebound or rigidity. IV fluids, famotidine, ondansetron, and morphine ordered. Patient is agreeable to continuing plan. Patient has been assessed and reassessed by this physician over the course of the emergency department stay. Upon most recent re-evaluation, patient remains clinically stable. He has been NPO, but there has not been any additional nausea vomiting. CT scan is consistent with small-bowel obstruction, possibly high grade or closed loop. Radiologist cannot pinpoint a source but questions perhaps an internal hernia. We have discussed initial management including NG tube placement. Patient is agreeable. We discussed surgical consultation admission to the hospital. Acute Care Surgery is paged for consultation at [phone]. We have discussed all available results. Patient is satisfied with evaluation and agreeable to recommendations. The hospitalist is requested at [phone]. Any addenda will be made as appropriate. MEDICAL DECISION MAKING: ADDITIONAL DATA: None applicable. PROCEDURES: None. CONSULTATIONS: Acute Care Surgery. Hospitalist service. DATA: Radiology: Results and imaging are reviewed through the electronic record. CT ABDOMEN/PELVIS WITH CONTRAST Final Result IMPRESSION: Obstructed ileal bowel loops. This may be related to an internal hernia or closed loop obstruction as there is decompression of the more proximal jejunum and distal ileum. Mural thickening involving multiple of the distended ileal bowel loops related to regional enteritis. Small volume free fluid in the abdomen. Additional findings noted above. D/ / Rocael Mayorga Interpreting Provider: Rocael Mayorga Lab Results: Results for orders placed or performed during the hospital encounter of 01/19/23 HEPATIC FUNCTION PANEL Result Value Ref Range Total Protein 6.7 6.4 - 8.9 g/dL Albumin 4.3 3.5 - 5.7 g/dL Bilirubin, Total 0.5 0.3 - 1.0 mg/dL Bilirubin Direct 0.1 <=0.2 mg/dL Bilirubin, Indirect 0.4 0.0 - 1.0 mg/dL Alkaline Phosphatase 69 34 - 104 U/L ALT (SGPT) 12 7 - 52 U/L AST 13 13 - 39 U/L Globulin 2.4 2.4 - 3.5 g/dL Albumin/Globulin Ratio 1.8 1.1 - 2.2 BASIC METABOLIC PANEL Result Value Ref Range Sodium 137 136 - 145 mmol/L Potassium 3.9 3.5 - 5.1 mmol/L Chloride 105 98 - 107 mmol/L Carbon Dioxide 27 23 - 29 mmol/L BUN 12 6 - 20 mg/dL Creatinine 1.06 0.70 - 1.30 mg/dL Glucose 94 70 - 105 mg/dL Calcium 9.0 8.6 - 10.3 mg/dL BUN/CREA Ratio 11 6 - 26 Osmolality (Calc) 284 280 - 300 eGFR, CKD-EPI, Male >90 >=60 mL/min/1.73m2 CBC AND ELECTRONIC DIFF Result Value Ref Range WBC Count 7.2 4.3 - 11.1 K/uL RBC Count 5.00 4.19 - 5.50 M/uL Hemoglobin 15.6 12.9 - 16.9 g/dL Hematocrit 45.7 37.5 - 50.1 % Mean Cell Volume 91.4 83.0 - 100.0 fL Mean Cell Hgb 31.2 28.0 - 33.0 pg Mean Cell Hgb Conc 34.1 31.6 - 35.5 g/dL RBC Distribution 12.0 11.5 - 14.5 % Platelet Count 234 140 - 400 K/uL Mean Platelet Volume 10.4 9.4 - 12.4 fL Segs + Bands Auto 65.9 % Immature Grans % 0.3 % Lymphocyte % Auto 24.4 % Monocyte % Auto 8.0 % Eosinophil % Auto 0.8 % Basophil % Auto 0.6 % Segs + Bands,Absolute Auto 4.8 1.6 - 8.9 K/uL Abs Lymph Auto 1.8 0.6 - 4.6 K/uL Abs Douglas Auto 0.6 0.0 - 1.3 K/uL Abs Eos Auto 0.1 0.0 - 0.6 K/uL Abs Baso Auto 0.0 0.0 - 0.2 K/uL Nucleated RBC 0 /100 WBC LIPASE Result Value Ref Range Lipase 5 (L) 11 - 82 U/L Based upon the initial history, clinical exam, and testing the patient has findings consistent with small-bowel obstruction. CT imaging is suspicious for either closed loop or high-grade obstruction. There is no clear indication of ischemia, perforation, pneumatosis, acute or gangrenous cholecystitis, or detectable hernia. Radiologist questions possible internal hernia. Laboratory testing is more reassuring. Patient does not appear septic or inappropriately acidotic. DISPOSITION: Hospitalization. This documentation was completed with voice recognition and trouble locater software. Attempts are made to proof read contemporaneously and at disposition, but some trouble locater errors may persist. Jaskaran Sotelo MD 01/19/23 4366 Addendum: Care is discussed with Acute Care Surgery Dr. Swanson at approximately 5:15 p.m. after she was able to get out of surgery. She would like to proceed with NG tube placement to low intermittent wall suction. She would like the patient kept NPO. As his white blood cell count is normal, she does not recommend antibiotics at this time. She will be able to see the patient in consultation. Jaskaran Sotelo MD 01/19/23 [id number] [facility] 01-19-2023 History of Presen t illness Narrative ASSESSMENT & PLAN Osman was seen today for nausea, vomiting, diarrhea and abdominal pain. Diagnoses and all orders for this visit: Lower abdominal pain - POCT URINE DIPSTICK AUTOMATED - XR ABDOMEN 2 VIEWS Urine negative. Upon review of previous records, patient reported bright red blood per rectum but not constipation. Was pending GI appt prior to today. Due to this with the distention and tenderness, abdominal xray obtained, showing + illeus vs bowel obstruction. The patient requires a greater level of evaluation or care than can be provided in the urgent care setting. Referral to the ER was discussed with the patient/caregiver, including risks / benefits of the referral vs risks/benefits of outpatient treatment. Patient/caregiver verbally agrees to the referral. Referral documentation has been completed. ER was contacted to notify them of the patient's condition. They will prepare to receive the patient. Patient transferred to the emergency department by private vehicle. Patient transferred to the emergency department via EMS who accepted transition of care of the patient. HPI Osman presents with: significant other as secondary historian for evaluation of abdominal pain for 3 days with sulpher burps , nausea & vomiting, several episodes of watery diarrhea, abdominal bloating, generalized abdominal pain worse with bowel movements. He had symptoms last week for 2 days but improved. He has pending colonoscopy and referral to GI due to recent history of bright red blood per rectum, although patient denies considerable history of constipation. He did not feel this was related and thought he could have food poisoning or a GI bug. No other individuals in the home with similar symptoms. Has been able to hold down fluids, but not food. Denies: fever, chest pain, difficulty breathing, changes in bladder or other acute concerns not already described above. BP 118/80 Pulse 73 Temp 98 F (36.7 C) Resp 18 Ht 1.727 m (5' 8 ) Wt 85.1 kg (187 lb 9.6 oz) SpO2 98% BMI 28.52 kg/m Smoking Status Every Day Physical Exam CONST: alert, oriented, ill appearing EYE: PERRL, conjunctiva clear, no mattering or discharge ORPHARYNX: mild erythema CARDIO: regular rate and rhythm PULM: respiratory effort normal and without dyspnea, no wheezes, rales, or rhonchi GI: Left upper and lower quadrant pain, tenderness, bloating, nausea, vomiting, diarrhea x 3 days. Abdomen distended LLQ/LUQ tenderness, bowel sounds hypoactive Results for orders placed or performed in visit on 01/19/23 POCT URINE DIPSTICK AUTOMATED Result Value Ref Range POCT APPEARANCE, URINE clear POCT COLOR, URINE drk yellow POCT GLUCOSE, URINE neg mg/dL POCT BILIRUBIN, URINE small POCT KETONES, URINE trace mg/dL POCT SPECIFIC GRAVITY, URINE >=1.030 1.001 - 1.035 POCT BLOOD, URINE negative POCT PH, URINE 5.5 5 - 7 POCT PROTEIN, URINE 30 mg/dL POCT UROBILINOGEN, URINE 0.2 0 - 2 E.U./dL POCT NITRITE, URINE neg POCT LEUKOCYTE, URINE neg POCT ESTERASE, URINE POCT BACTERIA, URINE POCT WBC, URINE POCT RBC, URINE POCT AMORPHOUS, URINE POCT CASTS, QUANTITATIVE, URINE POCT SQUAMOUS EPIS, URINE POCT RENAL EPIS, URINE POCT CRYSTALS, URINE POCT URINE COMMENTS, URINE POCT MICROSCOPIC documented in this encounter [facility] Evaluation note Diagnosis Small bowel obstruction- Primary Unspecified intestinal obstruction Small bowel obstruction Unspecified intestinal obstruction Left sided abdominal pain Abdominal pain, unspecified site documented [facility] this [facility] Diagnosis Small bowel obstruction- Primary Unspecified intestinal obstruction Small bowel obstruction Unspecified intestinal obstruction Left sided abdominal pain Abdominal pain, unspecified site documented [facility] Diagnosis Lower abdominal pain- Primary Abdominal pain, other specified site documented [facility] Diagnosis COVID-19 virus infection- Primary [facility]* Diagnosis Attention deficit hyperactivity disorder (ADHD), unspecified ADHD type documented [facility] this encounter [facility]* Attachments The following attachments cannot be sent through Care Everywhere. * amphetamine and dextroamphetamine (Sinhala) [facility] Purpose Family History No Family History Records FoundNo Family History Records FoundNo Family History Records Found Advance Directives No Advanced Directives Records FoundLatest Code Status on File Code Status Date Activated Date Inactivated Comments Full Code 01/19/2023 6:12 PM Latest Code Status on File Code Status Date Activated Date Inactivated Comments Full Code 01/19/2023 6:12 PM Reason for Referral Specialty Diagnoses / Procedures Referred By Contac t Referred To Contact Procedures DVT/VTE RISK ASSESSMENT Yuni Brennan MD [address] [place] [phone] Referral ID Status Reason Start Date Expiration Date V isits Requested Visits Authorized [id number] New Request 01/19/2023 02/13/2024 1 1 Specialty Diagnoses / Procedures Referred By Contac t Referred To Contact Procedures LOW RISK - NO PHARMACOLOGICAL DVT PROPHYLAXIS Yuni Brennan MD [address] [place] [phone] Referral ID Status Reason Start Date Expiration Date V isits Requested Visits Authorized [id number] New Request 01/19/2023 02/13/2024 1 1 Specialty Diagnoses / Procedures Referred By Contac t Referred To Contact Procedures ECG Yuni Brennan MD [address] [place] [phone] Referral ID Status Reason Start Date Expiration Date V isits Requested Visits Authorized [id number] New Request 01/19/2023 02/13/2024 1 1 Additional Source Comments (unrecognized sect ion and content) No Status Records FoundNo Status Records FoundNo Status Records Found INFORMATION SOURCE (unrecogn ized section and content) DATE CREATED AUTHOR 03/20/2022 [facility] DATE CREATED AUTHOR AUTHOR'S ORGANIZ ATION 04/22/2023 [facility] [place] DATE CREATED AUTHOR AUTHOR'S ORGANIZ ATION 07/20/2023 [facility] Care Teams (unrecognized sec tion and content) Supervisor Intermediates Relationship Specialty Start Date End Date Julee Vidal DO [address] [place] [address] PCP - General Family Medicine 01/19/23 Supervisor Intermediates Relationship Specialty Start Date End Date Julee Vidal DO [address] [place] [phone] PCP - General Family Medicine 01/19/23 Supervisor Intermediates Relationship Specialty Start Date End Date Julee Vidal DO [address] [place] [address] PCP - General Family Medicine 01/19/23 Supervisor Intermediates Relationship Specialty Start Date End Date Julee Vidal DO [address] [place] [address] PCP - General Family Medicine 01/19/23 Supervisor Intermediates Relationship Specialty Start Date End Date Julee Vidal DO [address] [place] [address] PCP - General Family Medicine 01/19/23 Supervisor Intermediates Relationship Specialty Start Date End Date Julee Vidal DO [address] [place] [address] PCP - General Family Medicine 01/19/23 Reason for Visit (unrecogniz ed section and content) Reason Comments Abdominal Pain Patient ambulatory t o ER for epigastric pain x2 days. States UC sent him to ER for potential blockage. Alert, orientedx4 Reason Comments Abdominal Pain Patient ambulatory t o ER for epigastric pain x2 days. States UC sent him to ER for potential blockage. Alert, orientedx4 Reason Comments Nausea Vomiting Diarrhea Abdominal Pain Specialty Diagnoses / Procedures Referred By Lars mcclellan Referred To Contact Yuni Brennan MD [address] [place] [address] [place] [address] [place] [address] Referral ID Status Reason Start Date Expiration Date Visits Re quested Visits Authorized [id number] 1 1 Reason Comments Other Headache, fever, bod y aches, pos covid Reason Comments Follow-up ADHD Scheduled Active and Recently Administ ered Medications (unrecognized section and content) Medication Order 01/19/2023 01/20/2023 01/21/2023 famotidine (PF) (PEPCID) injection 20 mg (COMPLETED) 20 mg, Intravenous, ONCE, 1 dose, On Sun01/19/23 at 1415, Administer by slow IV push at a rate not to exceed 10mg/min 1430 (Given - Provider: Sharita Mcfadden RN) Iopamidol (370 mg/mL) (ISOVUE) 76 % 75 mL (COMPLETED) 75 mL, Intravenous, ONCE, 1 dose, On Sun01/19/23 at 1530, Extravasation Risk, CT Procedure 1452 (Given - Radiology - Provider: Liana Cooper) Morphine (PF) injection 4 mg (COMPLETED) 4 mg, Intravenous, ONCE, 1 dose, On Sun01/19/23 at 1415 1429 (Given - Provider: Sharita Mcfadden RN) Ondansetron 4mg/2ml (ZOFRAN) injection 4 mg (COMPLETED) 4 mg, Intravenous, ONCE, 1 dose, On Sun01/19/23 at 1415 1429 (Given - Provider: Sharita Mcfadden RN) Sodium chloride 0.9% IV solution 1,000 mL (COMPLETED) 1,000 mL, Intravenous, ONCE, 1 dose, On Sun01/19/23 at 1415 1428 ($$New Bag$$ - Provider: Sharita Mcfadden RN) tetracaine-benzocaine (CETACAINE) topical spray 1 spray (COMPLETED) 1 spray, Topical, ONCE, 1 dose, On Sun01/19/23 at 1600 1648 (Given - Provider: Sharita Mcfadden RN) Continuous Medication Order 01/19/2023 01/20/2023 01/21/2023 Dextrose 5% IV solution Intravenous, at 75 mL/hr, CONTINUOUS, Starting on Sun01/20/23 at 1730, Until Discontinued 1752 ($$New Bag$$ - Provider: Cait Matthew RN) Sodium chloride 0.9% IV solution (CANCELED) Intravenous, at 100 mL/hr, CONTINUOUS, Starting on Sun01/19/23 at 1815, Until Sun01/20/23 at 1726 1930 ($$New Bag$$ - Provider: Laisha Atkinson RN) PRN Medication Order 01/19/2023 01/20/2023 01/21/2023 Acetaminophen (TYLENOL) tablet 650 mg 650 mg, Oral, EVERY 6 HOURS NEEDED, Starting on Sun01/19/23 at 1812, Until Discontinued, Mild Pain, If Motrin is also ordered, alternate for mild pain. Ketorolac (TORADOL) injection 15 mg 15 mg, Intravenous, EVERY 6 HOURS NEEDED, Starting on Sun01/19/23 at 1812, Until Sun01/24/23 at 1811, Moderate Pain 0117 (Given - Provider: Laisha Atkinson RN) Morphine (PF) injection 2 mg 2 mg, Intravenous, EVERY 4 HOURS NEEDED, Starting on Sun01/19/23 at 1859, Until Discontinued, Severe Pain 2253 (Given - Provider: Laisha Atkinson RN) 0517 (Given - Provider: Laisha Atkinson RN)0952 (Given - Provider: Cait Matthew RN)1507 (Given - Provider: Cait Matthew, RN)2032 (Given - Provider: Laisha Atkinson RN) 0143 (Given - Provider: Jonathan Degroot RN) Naloxone (NARCAN) injection 0.4 mg 0.4 mg, Intravenous, EVERY 15 MINUTES NEEDED, 2 doses, Starting on Sun01/19/23 at 1811, Until Discontinued, Respiratory Depression, Opioid Reversal Ondansetron (ZOFRAN-ODT) disintegrating tablet 4 mg(Linked Group 1) 4 mg, Oral, EVERY 6 HOURS NEEDED, Starting on Sun01/19/23 at 1812, Until Discontinued, Nausea / Vomiting, 1st line Ondansetron 4mg/2ml (ZOFRAN) injection 4 mg(Linked Group 1) 4 mg, Intravenous, EVERY 6 HOURS NEEDED, Starting on Sun01/19/23 at 1812, Until Discontinued, Nausea / Vomiting, 1st line Sodium chloride (PF) 0.9 % injection 5 mL 5 mL, Intravenous, ADMINISTER DIRECTED, Starting on Sun01/19/23 at 1811, Until Discontinued, Flush, per IV Care Guidelines Linked Groups Order Group 1: Ondansetron 4mg/2ml (ZOFRAN) injection 4 mgJump to med 4 mg, Intravenous, EVERY 6 HOURS NEEDED, Starting on Sun01/19/23 at 1812, Until Discontinued, Nausea / Vomiting, 1st line Or Ondansetron (ZOFRAN-ODT) disintegrating tablet 4 mgJump to med 4 mg, Oral, EVERY 6 HOURS NEEDED, Starting on Sun01/19/23 at 1812, Until Discontinued, Nausea / Vomiting, 1st line Scheduled Medication Order 01/19/2023 01/20/2023 01/21/2023 famotidine (PF) (PEPCID) injection 20 mg (COMPLETED) 20 mg, Intravenous, ONCE, 1 dose, On Sun01/19/23 at 1415, Administer by slow IV push at a rate not to exceed 10mg/min 1430 (Given - Provider: Sharita Mcfadden RN) Iopamidol (370 mg/mL) (ISOVUE) 76 % 75 mL (COMPLETED) 75 mL, Intravenous, ONCE, 1 dose, On Sun01/19/23 at 1530, Extravasation Risk, CT Procedure 1452 (Given - Radiology - Provider: Liana Cooper) Morphine (PF) injection 4 mg (COMPLETED) 4 mg, Intravenous, ONCE, 1 dose, On Sun01/19/23 at 1415 1429 (Given - Provider: Sharita Mcfadden RN) Ondansetron 4mg/2ml (ZOFRAN) injection 4 mg (COMPLETED) 4 mg, Intravenous, ONCE, 1 dose, On Sun01/19/23 at 1415 1429 (Given - Provider: Sharita Mcfadden RN) Sodium chloride 0.9% IV solution 1,000 mL (COMPLETED) 1,000 mL, Intravenous, ONCE, 1 dose, On Sun01/19/23 at 1415 1428 ($$New Bag$$ - Provider: Sharita Mcfadden RN) tetracaine-benzocaine (CETACAINE) topical spray 1 spray (COMPLETED) 1 spray, Topical, ONCE, 1 dose, On Sun01/19/23 at 1600 1648 (Given - Provider: Sharita Mcfadden RN) Continuous Medication Order 01/19/2023 01/20/2023 01/21/2023 Dextrose 5% IV solution Intravenous, at 75 mL/hr, CONTINUOUS, Starting on 01/20/23 at 1730, Until 01/21/23 at 1507 1752 ($$New Bag$$ - Provider: Cait Matthew RN) Sodium chloride 0.9% IV solution (CANCELED) Intravenous, at 100 mL/hr, CONTINUOUS, Starting on Sun01/19/23 at 1815, Until 01/20/23 at 1726 1930 ($$New Bag$$ - Provider: Laisha Atkinson RN) PRN Medication Order 01/19/2023 01/20/2023 01/21/2023 Acetaminophen (TYLENOL) tablet 650 mg 650 mg, Oral, EVERY 6 HOURS NEEDED, Starting on Sun01/19/23 at 1812, Until 01/21/23 at 1507, Mild Pain, If Motrin is also ordered, alternate for mild pain. Ketorolac (TORADOL) injection 15 mg 15 mg, Intravenous, EVERY 6 HOURS NEEDED, Starting on Sun01/19/23 at 1812, Until 01/21/23 at 1507, Moderate Pain 0117 (Given - Provider: Laisha Atkinson RN) Morphine (PF) injection 2 mg 2 mg, Intravenous, EVERY 4 HOURS NEEDED, Starting on Sun01/19/23 at 1859, Until 01/21/23 at 1507, Severe Pain 2253 (Given - Provider: Laisha Atkinson RN) 0517 (Given - Provider: Laisha Atkinson RN)0952 (Given - Provider: Cait Matthew RN)1507 (Given - Provider: Cait Matthew, RN)2032 (Given - Provider: Laisha Atkinson RN) 0143 (Given - Provider: Jonathan Degroot RN) Naloxone (NARCAN) injection 0.4 mg 0.4 mg, Intravenous, EVERY 15 MINUTES NEEDED, 2 doses, Starting on Sun01/19/23 at 1811, Until 01/21/23 at 1507, Respiratory Depression, Opioid Reversal Ondansetron (ZOFRAN-ODT) disintegrating tablet 4 mg(Linked Group 1) 4 mg, Oral, EVERY 6 HOURS NEEDED, Starting on Sun01/19/23 at 1812, Until 01/21/23 at 1507, Nausea / Vomiting, 1st line Ondansetron 4mg/2ml (ZOFRAN) injection 4 mg(Linked Group 1) 4 mg, Intravenous, EVERY 6 HOURS NEEDED, Starting on 01/19/23 at 1812, Until 01/21/23 at 1507, Nausea / Vomiting, 1st line Sodium chloride (PF) 0.9 % injection 5 mL 5 mL, Intravenous, ADMINISTER DIRECTED, Starting on Sun01/19/23 at 1811, Until 01/21/23 at 1507, Flush, per IV Care Guidelines Linked Groups Order Group 1: Ondansetron 4mg/2ml (ZOFRAN) injection 4 mgJump to med 4 mg, Intravenous, EVERY 6 HOURS NEEDED, Starting on Sun01/19/23 at 1812, Until 01/21/23 at 1507, Nausea / Vomiting, 1st line Or Ondansetron (ZOFRAN-ODT) disintegrating tablet 4 mgJump to med 4 mg, Oral, EVERY 6 HOURS NEEDED, Starting on Sun01/19/23 at 1812, Until 01/21/23 at 1507, Nausea / Vomiting, 1st line FOR RECORDS PERTAINING TO PATIENTS WHO ARE OR HAVE BEEN ENROLLED IN A CHEMICAL DEPENDENCY/SUBSTANCEABUSE PROGRAM, SOME INFORMATION MAY BE OMITTED. This clinical summary was aggregated from multiple sources. Caution should be exercised in using it in the provision of clinical care. This summary normalizes information from multiple sources, and as a consequence, information in this document may materially change the coding, format and clinical context of patient data. In addition, data may be omitted in some cases. CLINICAL DECISIONS SHOULD BE BASED ON THE PRIMARY CLINICAL RECORDS. [employer] [facility]. provides no warranty or guarantee of the accuracy or completeness of information in this document.
[2023-09-28 21:33] VITALS: O2SAT 97
--- NOTE | 2023-09-28 21:33 | PC.NURSE ---
pt reports coughing up green phlegm at home, pain is in right side upper chest after feeling a pop when pt coughed approx. 1 hr ago
--- NOTE | 2023-09-28 21:40 | ECG_ITS ---
The [facility] Test Date: 2023-09-28 Pat Name: YAO BLANC Department: Room: - Gender: Male [employer]: : 1990 Requested By: SHAIKH PAULY Order Number: [id number] Reading MD: GELA MELENDREZ Measurements Intervals [place] Rate: 71 P: 71 [place]: 172 QRS: 75 QRSD: 108 T: 67 QT: 370 QTc: 393 Interpretive Statements 1100 Sinus rhythm 9110 normal ECG Electronically Signed On 09-30-2023 7:32:47 EST by GELA MEELNDREZ
--- NOTE | 2023-09-28 21:40 | XR_ITS ---
The [address] [address] Patient Name: YAO BLANC MRN: [id number] date: 1990 Sex: M Assigned Patient Location: ER Current Patient Location: ER Accession/Order Number: [id number] Exam Date: 09/28/2023 21:45 Report Date: 09/28/2023 22:00 At the request of: JOSELIN LIN Procedure: XR chest 2V EXAM: XR chest 2V HISTORY: cough, chest pain COMPARISON: 08/30/2023. TECHNIQUE: PA, lateral chest x-ray FINDINGS: Lungs clear without infiltrate or edema. Normal heart size and mediastinal contour. No pleural effusion or pneumothorax. Mild pectus deformity unchanged. XR/XR chest 2V IMPRESSION: Stable chest x-ray, no acute findings. Electronically authenticated by: DARWIN TURK Date: 09/28/2023 22:00
--- NOTE | 2023-09-28 21:42 | ED_ITS ---
HPI - General Adult General Chief complaint: Upper Respiratory Infection Stated complaint: Chest Pain Time Seen by Provider: 09/28/23 21:30 Source: patient Mode of arrival: walk-in Limitations: no limitations History of Present Illness HPI narrative: Patient developed right sided chest pain last week and saw Dr Murphy. He was diagnosed with pleurisy and prescribed naproxen, baclofen and prednisone. He said that he developed a cough yesterday with greenish sputum/phlegm. About an hour ago he coughed and felt a pop in the anterior right chest. Related Data Home Medications Medication Instructions Recorded Confirmed baclofen 10 mg tablet 10 mg PO TID 09/28/23 09/28/23 naproxen 500 mg tablet 500 mg PO Q12H 09/28/23 09/28/23 prednisone 20 mg tablet 20 mg PO Q12H 09/28/23 09/28/23 Previous Rx's Medication Instructions Recorded nabumetone 750 mg tablet 750 mg PO BID PRN pain #14 tabs 08/30/23 aeqvoiufygjoelw-endtulqmnbhcvlv-OH 5 ml PO Q6H PRN cold symptoms #118 09/28/23 2 mg-30 mg-10 mg/5 mL oral syrup mL (Bromfed DM) Allergies Allergy/AdvReac Type Severity Reaction Status Date / Time No Known Drug Allergies Allergy Verified 08/30/23 07:31 [facility] Social History Smoking status: Current every day smoker Exam Narrative Exam Narrative: Nurses notes and vital signs reviewed and patient is not hypoxic. afebrile General: Well-appearing and in no apparent distress. Skin: Warm, dry, no pallor noted. No rash. Neck: Supple, non-tender. No crepitus or subcutaneous emphysema Eye: Pupils are equal, round and EOMI. No scleral icterus. Ears, Nose, Mouth, and Throat: no posterior oropharynx erythema or nasal mucosal hypertrophy, uvula is mid-line. Oral mucosa is moist Cardiovascular: Regular Rate and Rhythm without murmur, gallop or rub. Respiratory: No accessory muscle use or respiratory distress. Lungs are clear to auscultation, no wheezing, rales or rhonchi Chest Wall: Focal right upper anterior chest wall tenderness without palpable fracture, crepitus or subcutaneous emphysema. Neurological: A&O x4. No cranial nerve dysfunction observed. No truncal ataxia. Moves all extremities. Sensation intact. Psychiatric: Cooperative and interactive. Normal mood and affect. Constitutional Vital Signs, click to edit/add: Last Vital Signs Temp 98.7 F 09/28/23 21:28 Pulse 78 09/28/23 21:28 Resp 16 09/28/23 21:28 BP 128/67 09/28/23 21:28 Pulse Ox 97 09/28/23 21:33 O2 Del Method Room Air 09/28/23 21:33 Course Vital Signs Vital signs: Vital Signs Temperature 98.7 F 09/28/23 21:28 Pulse Rate 78 09/28/23 21:28 Respiratory Rate 16 09/28/23 21:28 Blood Pressure 128/67 09/28/23 21:28 Pulse Oximetry 98 09/28/23 21:28 Oxygen Delivery Method Room Air 09/28/23 21:28 Temperature 98.7 F 09/28/23 21:28 Pulse Rate 78 09/28/23 21:28 Respiratory Rate 16 09/28/23 21:28 Blood Pressure 128/67 09/28/23 21:28 Pulse Oximetry 97 09/28/23 21:33 Oxygen Delivery Method Room Air 09/28/23 21:33 Medical Decision Making MDM Narrative Medical decision making narrative: EKG obtained and is normal. Patient sent for two-view chest x-ray, which was negative. Patient informed of results and given reassurance. He has pain meds and steroid at home to take. I prescribed bromfed syrup for his cough. Imaging Data Chest x-ray: Radiologist's impression: ITS Impressions Chest X-Ray 09/28/23 21:40 IMPRESSION: Stable chest x-ray, no acute findings. Electronically authenticated by: DARWIN TURK Date: 09/28/2023 22:00 ECG Data Attestation: I personally reviewed and interpreted this ECG as follows: Interpretation: EKG interpretation: Emergency Department physician interpretation. Normal sinus rhythm at 71bpm. Normal axis, normal intervals and no ST segment elevation or depression. Normal EKG Discharge Plan Discharge Chief Complaint: Upper Respiratory Infection Clinical Impression: Acute chest wall pain, Cough Patient Disposition: Home, Self-Care Time of Disposition Decision: 22:13 Prescriptions / Home Meds: New jkxvaunmpqyzllh-vmvhgevkj-SE [Bromfed DM] 2-30-10 mg/5 mL syrup 5 ml PO Q6H PRN (Reason: cold symptoms) Qty: 118 0RF No Action baclofen 10 mg tablet 10 mg PO TID naproxen 500 mg tablet 500 mg PO Q12H prednisone 20 mg tablet 20 mg PO Q12H nabumetone 750 mg tablet 750 mg PO BID PRN (Reason: pain) Qty: 14 0RF Instructions: Upper Respiratory Infection (ED), Chest Wall Pain (ED) Stand Alone Forms: Portal Instructions Referrals: Shaikh Murphy MD [Primary Care Provider] - 1 week
== END 2023-09-28 22:25 | disposition home or self-care (01) ==
PROVIDERS: Emergency Provider Emergency Medicine; PCP Internal Medicine
DX: R07.89 Other chest pain (principal); R05.9 Cough, unspecified; Z79.899 Other long term (current) drug therapy; F17.210 Nicotine dependence, cigarettes, uncomplicated
CPT/HCPCS: 71046; 93005; 99284

== ENCOUNTER 2023-11-18 17:43 | Emergency (ER) | payer OTHER, SELFPAY ==
[2023-11-18] VITALS (19 sets, daily range): BP systolic 113–147; BP diastolic 77–87; PULSE 71–99; TEMP 37.2; O2SAT 95–99; BMI 24.4
--- OUTSIDE RECORDS SUMMARY | 2023-11-18 17:51 | XMS_ITS | CCD ---
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 Name Role Phone Mark Vidal DOde Primary Care Provider RAJESH FARRIS Attending Unavailable SELF, SELF Referring Unavailable DEVAN, JULEE Primary Care Unavailable CHARLES ALICEA Attending Unavailable SELF, SELF Referring Unavailable FUNCAROL, JULEE Primary Care Unavailable SAAD STONE Attending [...] PITTS Attending Unavailable MARSHA PITTS Referring Unavailable DANIELCK, JULEE Primary Care Unavailable DEVAN, JULEE Primary Care Unavailable CONSULT, SURGERY - GENERAL (EMERGENT) Consulting Unavailable SANTOSH, SUPO A Attending Unavailable DANIELMI, SUPO A Admitting Unavailable JULEE VIDAL Primary Care Unavailable CORONA HERRERA Attending Unavailable MD David Martines Attending Unavailable MD David Martines Attending Unavailable MD David Martines Attending Unavailable SHAIKH COATS Attending Unavailable Allergies Allergy Classification Reported Allergen(s) Allergy Type Date of Onset Reaction(s) Facility (6 sources) Honey bee venom Propensity to adverse reactions to drug 2 [facility] (1 source) Bee pollen; Translations: [bee pollen] Propensity to adverse reactions (disorder) [facility] Repository Medications Current Medications Medication Drug Class(es) [...] oral tablet (2 sources) Start: 3 End: 3 take 1 tablet [...] [Attention-deficit hyperactivity disorder, unspecified type] Onset: 09-14-2022 09-14-2022 Chronic Attention-deficit, conduct, and disruptive behavior disorders [...] Follow-Up Appointments Sunday 3:00 PM EST With: David Martines MD Where: [facility] Medicine [place] Normal [facility] Medicine Office/Clini c Noteon 07-19-2023 Family Medicine [...] is in agreement Ordered: Drug Screen POC 52752 2. Tetrahydrocannabinol (THC) use disorder, moderate, dependence (F12.20: Cannabis dependence, uncomplicated) - As above - Encouraged cessation. Orders: amphetamine-dextroamp hetamine, 30 mg = 1 cap(s), Oral, qAM, # 30 cap(s), Refills(s) 0, Pharmacy: [facility]/pharmacy #[id number], 173, cm, 07/19/23 10:31:00 EST, Height/Length [...] 10:35:00) Benzodiazepines Quant: Negative (07/19/23 10:35:00) Normal [facility] Comment on above: Result Comment: Elec tronically Signed By: Conrad INGRAM, David Palafox\.br\Date and Time Signed: 07/19/23 10:49 EST Patient Educationon 07-19-20 Patient Education Mental and Behaviora [facility] Attention Deficit Hyperactivity Disorder, Adult Attention [...] primary care provider or a mental health acute care clinical nurse specialist. Your health care provider may use a [...] Behavioral management. You may work with a pitching coach who is specially trained to help people with ADHD manage and organize activities and function more effectively. Follow these instructions at home: Medicines ? Take nsdx-jxy-nzivica and prescription medicines only as told by [...] Follow th (more content not included)... Normal [facility] Physician Referralon 023 Physician Referral [id number] .00TIFF Normal [facility] Ambulatory Visit Summaryon 08-21-2022 Ambulatory Visit Summary [...] PM EST With: David Martines MD Where: [facility] Invalid Interpretation Code Asthma [facility] Ambulatory Visit Summary OSMAN BLANC :1990 Visit [...] PM EST With: David Martines MD Where: [facility] [place] Invalid Interpretation Code Asthma [facility] Ambulatory Visit Summary OSMAN BLANC :1990 Visit [...] for choosing us for your care. Normal [facility] Medicine Office/Clini c Noteon 06-21-2023 Family Medicine Office/Clinic Note HPI Staff Osman is a 32 year old male presenting to establish care Has ADHD Establish Care: History:ADHD Last provider: MY [place], [facility] Any recent labs: Been a while [...] at next month Ordered: Drug Screen POC 15415 [facility] External Ambulatory Referral 2. Asthma (J45.909: Unspecified asthma, uncomplicated) - NO issues at this time. - On Albuterol PRN Ordered: [facility] External Ambulatory Referral 3. Smoker (F17.200: Nicotine dependence, unspecified, uncomplicated) - Please stop smoking Ordered: Drug Screen POC 05317 [facility] External Ambulatory Referral 4. BMI 27.0-27.9,adult (Z68.27: Body mass index [BMI] 27.0-27.9, adult) - BMI education given Ordered: Drug Screen POC 06797 [facility] External Ambulatory Referral 5. Encounter for surveillance of abnormal nevi (Z13.89: Encounter for screening for other disorder) - Will send to derm. Ordered: [facility] External Ambulatory Referral Orders: amphetamine-dextroamp hetamine, 30 mg = 1 cap(s), Oral, qAM, # 90 cap(s), Refills(s) 0, Pharmacy: [facility]/pharmacy #[id number], 173, cm, 06/21/23 14:42:00 EST, Height/Length [...] (06/21/23 14:53:00) Benzodiazepines Quant: Negative (06/21/23 14:53:00) [facility] Comment on above: Result Comment: Elec tronically Signed By: Conrad INGRAM, David Jungbr\Date and Time Signed: 06/21/23 15:07 EST [employer]son 06-21-2023 Forms [id number]. 00TIFF [facility] Forms [id number] .00TIFF [facility] Medication Consenton 023 Medication Consent [id number] .00TIFF [facility] PAIN MGT DRUG PANEL W/ INTER Ari 04-20-2023 6-Monoacetylmorphine (6-SARA) Ql (U) Not detected [facility] 7-Aminoclonazepam Ql (U) Not detected [facility] Alpha hydroxyalprazolam Ql (U) Not detected [facility] Ipibk-HV-Rbesaajjh (cutoff 20 ng/mL) Not detected [facility] [...] client. Barbiturates Ql (U) Not detected [facility] Benzoylecgonine Ql (U) Not detected [facility] Buprenorphine Ql (U) Not detected [facility] Carboxy tetrahydrocannabinol Ql (U) Present [facility] Comment on above: INTERPRETIVE INFORMA TION: Marijuana Metabolite The cutoff for Marijuana Metabolite (immunoassay) was changed from 20 ng/mL to 50 ng/mL, effective December 18, 2022. Carisoprodol Ql (U) Not detected [facility] Comment on above: The carisoprodol immunoassay has cross-reactivity to carisoprodol and meprobamate. clonazePAM Ql (U) Not detected [facility] Codeine Ql (U) Not detected [facility] Creatinine (U) [Mass/Vol] 348.2 mg/dL 20 .0 - 400.0 mg/dL [facility] diazePAM Ql (U) Not detected [facility] Ethyl glucuronide Ql (U) Not detected [facility] fentaNYL Ql (U) Not detected [facility] Gabapentin (cutoff 3,000 ng/mL) Not [...] HEALTH Oxazepam Ql (U) Not detected [facility] oxyCODONE Ql (U) Not detected [facility] oxyMORphone Ql (U) Not detected [facility] Pathology study See Note [facility] Comment on above: Authorized individua ls can access the [employer] Enhanced Report using the following link: [email or web address] Performed By: [facility] [address] [place] [id number] Enterprise Engineer: Vlad South MD, PhD CLIA Number: [id number] Phencyclidine Ql (U) Not detected [facility] [...] developed and its performance characteristics determined by [facility]. It has not been cleared or approved by the US Food and Drug Administration. This test was performed in a CLIA certified laboratory and is intended for clinical purposes. Tapentadol Screen Ql (U) Not detected [facility] Iahjfyynkl-s-Cgli (cutoff 200 ng/mL) Not detected [facility] Temazepam Ql (U) Not detected [facility] traMADol Ql (U) Not detected [facility] Zolpidem Metabolite (cutoff 100 ng/mL) Not detected [facility] Zolpidem Ql (U) Not detected [facility] PAIN MGT DRUG PANEL W/ INTER Ari 04-16-2023 6-acetylmorphine (cutoff 20 ng/mL) Not detected [facility] 7-Aminoclonazepam (cutoff 40 ng/mL) Not detected [facility] Lxhml-GV-Ehmkcohzkj (cutoff 20 ng/mL) Not detected [facility] Wcadg-BF-Kzclvhdum (cutoff 20 ng/mL) Not detected [facility] Alprazolam (cutoff 40 ng/mL) Not detected [facility] Amphetamine (cutoff 50 ng/mL) Present [facility] Barbiturates (cutoff 200 ng/mL) Not detected [facility] Benzoylecgonine Ql (U) Not detected [facility] Buprenorphine (cutoff 5 ng/mL) Not detected [facility] Carisoprodol (cut-off 100 ng/mL) Not detected [facility] Comment on above: Result Comment: The carisoprodol immunoassay has cross-reactivity to carisoprodol and meprobamate. Clonazepam (cutoff 20 ng/mL) Not detected [facility] Codeine (cutoff 40 ng/mL) Not detected [facility] Creatinine, Urine 348.2 mg/dL Normal 20.0-400.0 [facility] Diazepam (cutoff 50 ng/mL) Not detected [facility] DRUGS EXPECTED See Interp [facility] EER Tgt drug prof, MS/EMIT, UR See Note [facility] Comment on above: Result Comment: Auth orized individuals can access the [employer]base Enhanced Report using the following link: [email or web address] Performed By: [facility] [address] [place] [id number] Enterprise Engineer: Vlad South MD, PhD CLIA Number: [id number] Ethyl Glucuronide (cutoff 500 ng/mL) Not detected [facility] Fentanyl (cutoff 2 ng/mL) Not detected [facility] Gabapentin (cutoff 3,000 ng/mL) Not detected [facility] Hydrocodone (cutoff 40 ng/mL) Not detected [facility] Hydromorphone (cutoff 20 ng/mL) Not detected [facility] Lorazepam (cutoff 60 ng/mL) Not detected [facility] Marijuana Metabolite (cutoff 20 ng/mL) Present [facility] Comment on above: Result Comment: INTE RPRETIVE INFORMATION: Marijuana Metabolite The cutoff for Marijuana Metabolite (immunoassay) was changed from 20 ng/mL to 50 ng/mL, effective December 18, 2022. MDA (cutoff 200 ng/mL) Not detected [facility] MDEA- Jewels (cutoff 200 ng/mL) Not detected [facility] MDMA- Ecstasy (cutoff 200 ng/mL) Not detected [facility] Meperidine metabolite (cutoff 50 ng/mL) Not detected [facility] Methadone Ql (U) Not detected [facility] Methamphetamine (cutoff 200 ng/mL) Not detected [facility] Methylphenidate (cutoff 100 ng/mL) Not detected [facility] Midazolam (cutoff 20 ng/mL) Not detected [facility] Morphine (cutoff 20 ng/mL) Not detected [facility] Naloxone (cutoff 100 ng/mL) Not detected [facility] Norbuprenorphine (cutoff 20 ng/mL) Not detected [facility] Nordiazepam (cutoff 50 ng/mL) Not detected [facility] Norfentanyl (cutoff 2 ng/mL) Not detected [facility] Norhydrocodone (cutoff 100 ng/mL) Not detected [facility] Noroxycodone (cutoff 100 ng/mL) Not detected [facility] Noroxymorphone (cutoff 100 ng/mL) Not detected [facility] Oxazepam (cutoff 50 ng/mL) Not detected [facility] Oxycodone (cutoff 40 ng/mL) Not detected [facility] Oxymorphone (cutoff 40 ng/mL) Not detected [facility] PCP (cutoff 25 ng/mL) Not detected [facility] Phentermine (cutoff 100 ng/mL) Not detected [facility] Pregabalin (cutoff 3,000 ng/mL) Not detected [facility] Tapentadol (cutoff 100 ng/mL) Not detected [facility] Nvlhluzjid-h-Tcaj (cutoff 200 ng/mL) Not detected [facility] Targeted Drug Profile Interp See Note [facility] Comment on above: Result Comment: ____ DRUGS EXPECTED: ADDERALL (AMPHETAMINE) ____ CONSISTENT with medications provided: ADDERALL (AMPHETAMINE): based on amphetamine ____ INCONSISTENT with medications provided: THC: based on immunoassay detection ____ INTERPRETIVE INFORMATION: Targeted drug profile Interp Interpretation depends on accuracy and completeness of patient medication information submitted by client. Targeted drug profile panel See Below [facility] Comment on above: Result Comment: Meth odology: [...] developed and its performance characteristics determined by [facility]. It has not been cleared or approved by the US Food and Drug Administration. This test was performed in a CLIA certified laboratory and is intended for clinical purposes. 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1990 Requested By: CORONA Guallpa Order Number: [id number] Reading MD: Jhony Roberts Measurements Intervals Winston Rate: 90 P: 61 WV: 175 QRS: 61 QRSD: 116 T: 58 QT: 350 QTc: 429 Interpretive Statements Sinus rhythm Incomplete right bundle branch block Electronically Signed On 04-10-2023 11:56:33 EDT by Jhony Roberts Normal [facility] CBC AND ELECTRONIC DIFFon Basophils (Bld) [#/Vol] 0.1 10*3/uL Normal 0.0-0.2 [facility] Basophils/100 WBC (Bld) 0.7 % Normal [facility] [place] Eosinophils (Bld) [#/Vol] 0.1 10*3/uL Normal 0.0-0.6 [facility] Eosinophils/100 WBC (Bld) 0.9 % Normal [facility] Hematocrit (Bld) [Volume fraction] 43.5 % Normal 37.5-50.1 [facility] Hemoglobin (Bld) [Mass/Vol] 14.7 g/dL Normal 12.9-16.9 [facility] Immature Grans % 0.5 % Normal [facility] Lymphocytes (Bld) [#/Vol] 0.4 10*3/uL Low 0.6-4.6 [facility] Lymphocytes/100 WBC (Bld) 4.2 % Normal [facility] MCV (RBC) [Entitic vol] 88.4 fL Normal 83.0-100.0 [facility] Mean Cell Hgb 29.9 pg Normal 28.0-33.0 [facility] Mean Cell Hgb Conc 33.8 g/dL Normal 31.6-35.5 [facility] Monocytes (Bld) [#/Vol] 1.0 10*3/uL Normal 0.0-1.3 [facility] Monocytes/100 WBC (Bld) 11.1 % Normal [facility] Nucleated RBC 0 /100 WBC Normal [facility] Platelet mean volume (Bld) [Entitic vol] 10.6 fL Normal 9.4-12.4 [facility] Platelets (Bld) [#/Vol] 224 10*3/uL Normal 140-400 [facility] RBC (Bld) [#/Vol] 4.92 10*6/uL Normal 4.19-5.50 [facility] [place] RBC Distribution 11.9 % Normal 11.5-14.5 [facility] Segs + Bands Auto 82.6 % Normal [facility] Segs + Bands,Absolute Auto 7.6 K/uL Normal 1.6-8.9 [facility] WBC (Bld) [#/Vol] 9.1 10*3/uL Normal 4.3-11.1 [facility] COMPREHENSIVE METABOLIC PANE Philip 04-05-2023 Albumin [Mass/Vol] 4.7 g/dL Normal 3.5-5.7 [facility] Albumin/Globulin [Mass ratio] 1.7 {ratio} Normal 1.1-2.2 [facility] ALP [Catalytic activity/Vol] 81 U/L Normal 34-104 [facility] ALT [Catalytic activity/Vol] 26 U/L Normal 7-52 [facility] AST [Catalytic activity/Vol] 20 U/L Normal 13-39 [facility] Bilirubin [Mass/Vol] 0.6 mg/dL Normal 0.3-1.0 [facility] Calcium [Mass/Vol] 9.4 mg/dL Normal 8.6-10.3 [facility] Chloride [Moles/Vol] 105 mmol/L Normal 98-107 [facility] CO2 [Moles/Vol] 22 mmol/L Low 23-29 [facility] Creatinine [Mass/Vol] 1.10 mg/dL Normal 0.70-1.30 [facility] GFR/1.73 sq M.predicted among non-blacks MDRD (S/P/Bld) [Vol rate/Area] 90 mL/min/{1.73_m2} Normal >=60 [facility] Comment on above: Result Comment: [facility] eGFR is based on the CKD-EPI 2020 equation using creatinine, age, and sex. Globulin (S) [Mass/Vol] 2.7 g/dL Normal 2.4-3.5 [facility] Glucose [Mass/Vol] 104 mg/dL Normal 70-105 [facility] Osmolality [Osmolality] 280 mosm/kg Normal 280-300 [facility] Potassium [Moles/Vol] 3.9 mmol/L Normal 3.5-5.1 [facility] Protein [Mass/Vol] 7.4 g/dL Normal 6.4-8.9 [facility] Sodium [Moles/Vol] 135 mmol/L Low 136-145 [facility] Urea nitrogen [Mass/Vol] 13 mg/dL Normal 6-20 [facility] Urea nitrogen/Creatinine [Mass ratio] 12 mg/mg Normal 6-26 [facility] LIPASEon 04-05-2023 Lipase [Catalytic activity/Vol] 3 U/L Low 11-82 [facility] TROPONINon 04-05-2023 Troponin I.cardiac [Mass/Vol] ng/mL Normal <0.04 [facility] XR CHEST PORTABLEon 04-05-20 XR CHEST PORTABLE [...] MD Interpreting Provider: Deborah Camargo MD Normal [facility] GLUCOSE POCon 01-21-2023 Glucose [Mass/Vol] 98 mg/dL Normal 70-99 [facility] Glucose [Mass/Vol] 98 mg/dL Normal 70-99 [facility] Laboratory - Chemistry and C hemistry - challengeon 01-21-2023 Glucose [Mass/Vol] 98 mg/dL 70 - 99 mg/dL [facility] Glucose [Mass/Vol] 98 mg/dL 70 - 99 mg/dL [facility] No Panel Informationon 01-21 Interpretation and review of laboratory results Normal [facility] Interpretation and review of laboratory results Normal [facility] RF Small bowel Views W contr ast [...] FINDINGS: Enteric tube extends into the stomach. Abrasive Mixer image of the abdomen demonstrates a nonspecific, [...] FINDINGS: Enteric tube extends into the stomach. Abrasive Mixer image of the abdomen demonstrates a nonspecific, nonobstructed bowel gas pattern. Distended small bowel loops are seen in the left mid abdomen. Contrast passes readily from the stomach to the colon. IMPRESSION IMPRESSION: Persistently mildly distended small bowel loops within the left mid abdomen in findings related to minimal partial small bowel obstruction. D/ / Rocael Mayorga Interpreting Provider: Rocael Mayorga [facility] XR FLUORO SMALL BOWEL FOLLOW THROUGHon 01-21-2023 [...] FINDINGS: Enteric tube extends into the stomach. Abrasive Mixer image of the abdomen demonstrates a nonspecific, nonobstructed bowel gas pattern. Distended small bowel loops are seen in the left mid abdomen. Contrast passes readily from the stomach to the colon. IMPRESSION: Persistently mildly distended small bowel loops within the left mid abdomen in findings related to minimal partial small bowel obstruction. D/ / Rocael Mayorga Interpreting Provider: Rocael Mayorga Normal [facility] BASIC METABOLIC PANELon 01-04 Calcium [Mass/Vol] 8.6 mg/dL Normal 8.6-10.3 [facility] Chloride [Moles/Vol] 111 mmol/L High 98-107 [facility] [place] CO2 [Moles/Vol] 24 mmol/L Normal 23-29 [facility] Creatinine [Mass/Vol] 0.91 mg/dL Normal 0.70-1.30 [facility] [place] eGFR, CKD-EPI, Male > Normal >=60 [facility] Comment on above: Result Comment: Repo rted eGFR is based on the CKD-EPI 2020 equation using creatinine, age, and sex. Glucose [Mass/Vol] 88 mg/dL Normal 70-105 [facility] [place] Osmolality [Osmolality] 291 mosm/kg Normal 280-300 [facility] Potassium [Moles/Vol] 4.0 mmol/L Normal 3.5-5.1 [facility] Sodium [Moles/Vol] 141 mmol/L Normal 136-145 [facility] Urea nitrogen [Mass/Vol] 11 mg/dL Normal 6-20 [facility] Urea nitrogen/Creatinine [Mass ratio] 12 mg/mg Normal 6-26 [facility] CBC,PLATELETSon 01-20-2023 Hematocrit (Bld) [Volume fraction] 43.0 % Normal 37.5-50.1 [facility] Hemoglobin (Bld) [Mass/Vol] 14.7 g/dL Normal 12.9-16.9 [facility] MCV (RBC) [Entitic vol] 90.9 fL Normal 83.0-100.0 [facility] Mean Cell Hgb 31.1 pg Normal 28.0-33.0 [facility] Mean Cell Hgb Conc 34.2 g/dL Normal 31.6-35.5 [facility] Platelet mean volume (Bld) [Entitic vol] 10.5 fL Normal 9.4-12.4 [facility] Platelets (Bld) [#/Vol] 232 10*3/uL Normal 140-400 [facility] [place] RBC (Bld) [#/Vol] 4.73 10*6/uL Normal 4.19-5.50 [facility] RBC Distribution 12.0 % Normal 11.5-14.5 [facility] WBC (Bld) [#/Vol] 8.3 10*3/uL Normal 4.3-11.1 [facility] GLUCOSE POCon 01-20-2023 Glucose [Mass/Vol] 68 mg/dL Low 70-99 [facility] Comment on above: Result Comment: [facility] [place] [facility] Glucose [Mass/Vol] 74 mg/dL Normal 70-99 [facility] Glucose [Mass/Vol] 103 mg/dL High 70-99 [facility] Comment on above: Result Comment: SHANTA [place] [facility] Glucose [Mass/Vol] 91 mg/dL Normal 70-99 [facility] Comment on above: Result Comment: SHANTA [place] [facility] HEPATIC FUNCTION PANELon Albumin [Mass/Vol] 3.7 g/dL Normal 3.5-5.7 [facility] Albumin/Globulin [Mass ratio] 1.5 {ratio} Normal 1.1-2.2 [facility] ALP [Catalytic activity/Vol] 61 U/L Normal 34-104 [facility] ALT [Catalytic activity/Vol] 10 U/L Normal 7-52 [facility] AST [Catalytic activity/Vol] 11 U/L Low 13-39 [facility] Bilirubin [Mass/Vol] 0.7 mg/dL Normal 0.3-1.0 [facility] [place] Bilirubin, Indirect 0.6 mg/dL Normal 0.0-1.0 [facility] [place] Bilirubin.indirect [Mass/Vol] 0.1 mg/dL Normal <=0.2 [facility] Globulin (S) [Mass/Vol] 2.4 g/dL Normal 2.4-3.5 [facility] Protein [Mass/Vol] 6.1 g/dL Low 6.4-8.9 [facility] Laboratory - Chemistry and C hemistry - challengeon 01-20-2023 Glucose [Mass/Vol] 68 mg/dL Low 70 - 99 mg/dL [facility] Comment on above: RN Notified Glucose [Mass/Vol] 74 mg/dL 70 - 99 mg/dL [facility] Glucose [Mass/Vol] 103 mg/dL High 70 - 99 mg/dL [facility] Comment on above: RN Notified Calcium [Mass/Vol] 8.6 mg/dL 8.6 - 10. 3 mg/dL [facility] Chloride [Moles/Vol] 111 mmol/L High 98 - 10 7 mmol/L [facility] CO2 [Moles/Vol] 24 mmol/L 23 - 29 mmol/L [facility] Creatinine [Mass/Vol] 0.91 mg/dL 0.70 - 1.30 mg/dL [facility] GFR/1.73 sq M.predicted CKD-EPI (S/P/Bld) [Vol rate/Area] - PINF [facility] Comment on above: Reported eGFR is bas ed on the CKD-EPI 2020 equation using creatinine, age, and sex. Glucose [Mass/Vol] 88 mg/dL 70 - 105 mg/dL [facility] Osmolality Calc [Osmolality] 291 280 - 300 [facility] Potassium [Moles/Vol] 4.0 mmol/L 3.5 - 5.1 mmol/L [facility] Sodium [Moles/Vol] 141 mmol/L 136 - 145 mmol/L [facility] Urea nitrogen [Mass/Vol] 11 mg/dL 6 - 20 mg/d L [facility] Urea nitrogen/Creatinine [Mass ratio] 12 mg/mg 6 - 26 [facility] Albumin [Mass/Vol] 3.7 g/dL 3.5 - 5.7 g/dL [facility] Albumin/Globulin [Mass ratio] 1.5 {ratio} 1.1 - 2.2 [facility] ALP [Catalytic activity/Vol] 61 U/L 34 - 104 U/L [facility] ALT [Catalytic activity/Vol] 10 U/L 7 - 52 U/L [facility] AST [Catalytic activity/Vol] 11 U/L Low 13 - 39 U/L [facility] Bilirubin [Mass/Vol] 0.7 mg/dL 0.3 - 1 .0 mg/dL [facility] Bilirubin.direct [Mass/Vol] 0.1 mg/dL NINF - 0.2 mg/dL [facility] Globulin (S) [Mass/Vol] 2.4 g/dL 2.4 - 3.5 g/dL [facility] Magnesium [Mass/Vol] 1.9 mg/dL 1.6 - 2 .6 mg/dL [facility] Protein [Mass/Vol] 6.1 g/dL Low 6.4 - 8.9 g/dL [facility] Glucose [Mass/Vol] 91 mg/dL 70 - 99 mg/dL [facility] Comment on above: RN Notified Laboratory - Hematology and Cell countson 01-20-2023 Erythrocyte distribution width (RBC) [Ratio] 12.0 % 11.5 - 14.5 % [facility] Hematocrit (Bld) [Volume fraction] 43.0 % 37.5 - 50.1 % [facility] Hemoglobin (Bld) [Mass/Vol] 14.7 g/dL 12.9 - 16.9 g/dL [facility] MCH (RBC) [Entitic mass] 31.1 pg 28. 0 - 33.[address] [facility] MCHC (RBC) [Mass/Vol] 34.2 g/dL 31.6 - 35.5 g/dL [facility] MCV (RBC) [Entitic vol] 90.9 fL 83.0 - 100.[address] [facility] Platelet mean volume (Bld) [Entitic vol] 10.5 fL 9.4 - 12.[address] [facility] Platelets (Bld) [#/Vol] 232 10*3/uL 140 - 400 K/uL [facility] RBC (Bld) [#/Vol] 4.73 10*6/uL [facility] WBC (Bld) [#/Vol] 8.3 10*3/uL 4.3 - 11.1 K/uL [facility] MAGNESIUMon 01-20-2023 Magnesium [Mass/Vol] 1.9 mg/dL Normal 1.6-2.6 [facility] Panel Informationon 01-20 Interpretation and review of laboratory results Abnormal [facility] Interpretation and review of laboratory results Normal [facility] Interpretation and review of laboratory results Abnormal [facility] Interpretation and review of laboratory results Abnormal [facility] Bilirubin, Indirect 0.6 mg/dL 0.0 - 1. 0 mg/dL [facility] Interpretation and review of laboratory results Normal [facility] Interpretation and review of laboratory results Abnormal [facility] Interpretation and review of laboratory results Normal [facility] Interpretation and review of laboratory results Normal [facility] RF Small bowel Views W contr ast Raisa 01-20-2023 Radiology Study observation (narrative) [facility] BASIC METABOLIC PANELon 01-04 Calcium [Mass/Vol] 9.0 mg/dL Normal 8.6-10.3 [facility] Chloride [Moles/Vol] 105 mmol/L Normal 98-107 [facility] CO2 [Moles/Vol] 27 mmol/L Normal 23-29 [facility] Creatinine [Mass/Vol] 1.06 mg/dL Normal 0.70-1.30 [facility] eGFR, CKD-EPI, Male > Normal >=60 [facility] Comment on above: Result Comment: Repo rted eGFR is based on the CKD-EPI 2020 equation using creatinine, age, and sex. Glucose [Mass/Vol] 94 mg/dL Normal 70-105 [facility] Osmolality [Osmolality] 284 mosm/kg Normal 280-300 [facility] Potassium [Moles/Vol] 3.9 mmol/L Normal 3.5-5.1 [facility] Sodium [Moles/Vol] 137 mmol/L Normal 136-145 [facility] Urea nitrogen [Mass/Vol] 12 mg/dL Normal 6-20 [facility] Urea nitrogen/Creatinine [Mass ratio] 11 mg/mg Normal 6-26 [facility] CBC AND ELECTRONIC DIFFon Basophils (Bld) [#/Vol] 0.0 10*3/uL Normal 0.0-0.2 [facility] [place] Basophils/100 WBC (Bld) 0.6 % Normal [facility] [place] Eosinophils (Bld) [#/Vol] 0.1 10*3/uL Normal 0.0-0.6 [facility] [place] Eosinophils/100 WBC (Bld) 0.8 % Normal [facility] [place] Hematocrit (Bld) [Volume fraction] 45.7 % Normal 37.5-50.1 [facility] [place] Hemoglobin (Bld) [Mass/Vol] 15.6 g/dL Normal 12.9-16.9 [facility] [place] Immature Grans % 0.3 % Normal [facility] [place] Lymphocytes (Bld) [#/Vol] 1.8 10*3/uL Normal 0.6-4.6 [facility] [place] Lymphocytes/100 WBC (Bld) 24.4 % Normal [facility] [place] MCV (RBC) [Entitic vol] 91.4 fL Normal 83.0-100.0 [facility] [place] Mean Cell Hgb 31.2 pg Normal 28.0-33.0 [facility] Mean Cell Hgb Conc 34.1 g/dL Normal 31.6-35.5 [facility] [place] Monocytes (Bld) [#/Vol] 0.6 10*3/uL Normal 0.0-1.3 [facility] Monocytes/100 WBC (Bld) 8.0 % Normal [facility] [place] Nucleated RBC 0 /100 WBC Normal [facility] [place] Platelet mean volume (Bld) [Entitic vol] 10.4 fL Normal 9.4-12.4 [facility] [place] Platelets (Bld) [#/Vol] 234 10*3/uL Normal 140-400 [facility] [place] RBC (Bld) [#/Vol] 5.00 10*6/uL Normal 4.19-5.50 [facility] [place] RBC Distribution 12.0 % Normal 11.5-14.5 [facility] Segs + Bands Auto 65.9 % Normal [facility] Segs + Bands,Absolute Auto 4.8 K/uL Normal 1.6-8.9 [facility] WBC (Bld) [#/Vol] 7.2 10*3/uL Normal 4.3-11.1 [facility] CT ABDOMEN/PELVIS WITH CONTR Estefany 01-19-2023 CT [...] / Rocael Mayorga Interpreting Provider: Rocael Mayorga [facility] CT Abdomen and Pelvis W cont rast Paola 01-19-2023 IMPRESSION: Obstructed ileal bowel loops. This [...] / Rocael Mayorga Interpreting Provider: Rocael Mayorga . [facility] Radiology Study observation (narrative) [facility] Abdomen and Pelvis W cont rast IVOrdered By: Osman Gonsalez on 01-19-2023 [facility] Work Phone: HEPATIC FUNCTION PANELon Albumin [Mass/Vol] 4.3 g/dL Normal 3.5-5.7 [facility] [place] Albumin/Globulin [Mass ratio] 1.8 {ratio} Normal 1.1-2.2 [facility] ALP [Catalytic activity/Vol] 69 U/L Normal 34-104 [facility] ALT [Catalytic activity/Vol] 12 U/L Normal 7-52 [facility] [place] AST [Catalytic activity/Vol] 13 U/L Normal 13-39 [facility] [place] Bilirubin [Mass/Vol] 0.5 mg/dL Normal 0.3-1.0 [facility] [place] Bilirubin, Indirect 0.4 mg/dL Normal 0.0-1.0 [facility] [place] Bilirubin.indirect [Mass/Vol] 0.1 mg/dL Normal <=0.2 [facility] [place] Globulin (S) [Mass/Vol] 2.4 g/dL Normal 2.4-3.5 [facility] [place] Protein [Mass/Vol] 6.7 g/dL Normal 6.4-8.9 [facility] [place] LIPASEon 01-19-2023 Lipase [Catalytic activity/Vol] 5 U/L Low 11-82 [facility] Laboratory - Chemistry and C hemistry - challengeon 01-19-2023 Albumin [Mass/Vol] 4.3 g/dL 3.5 - 5.7 g/dL [facility] Albumin/Globulin [Mass ratio] 1.8 {ratio} 1.1 - 2.2 [facility] ALP [Catalytic activity/Vol] 69 U/L 34 - 104 U/L [facility] ALT [Catalytic activity/Vol] 12 U/L 7 - 52 U/L [facility] AST [Catalytic activity/Vol] 13 U/L 13 - 39 U/L [facility] Bilirubin [Mass/Vol] 0.5 mg/dL 0.3 - 1 .0 mg/dL [facility] Bilirubin.direct [Mass/Vol] 0.1 mg/dL NINF - 0.2 mg/dL [facility] Calcium [Mass/Vol] 9.0 mg/dL 8.6 - 10. 3 mg/dL [facility] Chloride [Moles/Vol] 105 mmol/L 98 - 10 7 mmol/L [facility] CO2 [Moles/Vol] 27 mmol/L 23 - 29 mmol/L [facility] Creatinine [Mass/Vol] 1.06 mg/dL 0.70 - 1.30 mg/dL [facility] GFR/1.73 sq M.predicted CKD-EPI (S/P/Bld) [Vol rate/Area] - PINF [facility] Comment on above: Reported eGFR is bas ed on the CKD-EPI 2020 equation using creatinine, age, and sex. Globulin (S) [Mass/Vol] 2.4 g/dL 2.4 - 3.5 g/dL [facility] Glucose [Mass/Vol] 94 mg/dL 70 - 105 mg/dL [facility] Lipase [Catalytic activity/Vol] 5 U/L Low 11 - 82 U/L [facility] Osmolality Calc [Osmolality] 284 280 - 300 [facility] Potassium [Moles/Vol] 3.9 mmol/L 3.5 - 5.1 mmol/L [facility] Protein [Mass/Vol] 6.7 g/dL 6.4 - 8.9 g/dL [facility] Sodium [Moles/Vol] 137 mmol/L 136 - 145 mmol/L [facility] Urea nitrogen [Mass/Vol] 12 mg/dL 6 - 20 mg/d L [facility] Urea nitrogen/Creatinine [Mass ratio] 11 mg/mg 6 - 26 [facility] Laboratory - Hematology and Cell countson 01-19-2023 Basophils (Bld) [#/Vol] 0.0 10*3/uL 0.0 - 0.2 K/uL [facility] Basophils/100 WBC (Bld) 0.6 % [facility] Eosinophils (Bld) [#/Vol] 0.1 10*3/uL 0. 0 - 0.6 K/uL [facility] Eosinophils/100 WBC (Bld) 0.8 % [facility] Erythrocyte distribution width (RBC) [Ratio] 12.0 % 11.5 - 14.5 % [facility] Hematocrit (Bld) [Volume fraction] 45.7 % 37.5 - 50.1 % [facility] Hemoglobin (Bld) [Mass/Vol] 15.6 g/dL 12.9 - 16.9 g/dL [facility] Immature granulocytes/100 WBC (Bld) 0.3 % [facility] Lymphocytes (Bld) [#/Vol] 1.8 10*3/uL 0. 6 - 4.6 K/uL [facility] Lymphocytes/100 WBC (Bld) 24.4 % [facility] MCH (RBC) [Entitic mass] 31.2 pg 28. 0 - 33.[address] [facility] MCHC (RBC) [Mass/Vol] 34.1 g/dL 31.6 - 35.5 g/dL [facility] MCV (RBC) [Entitic vol] 91.4 fL 83.0 - 100.[address] [facility] Monocytes (Bld) [#/Vol] 0.6 10*3/uL 0.0 - 1.3 K/uL [facility] Monocytes/100 WBC (Bld) 8.0 % [facility] Neutrophils (Bld) [#/Vol] 4.8 10*3/uL 1. 6 - 8.9 K/uL [facility] Nucleated RBC/100 WBC (Bld) [Ratio] 0 % /[address] [facility] Platelet mean volume (Bld) [Entitic vol] 10.4 fL 9.4 - 12.[address] [facility] Platelets (Bld) [#/Vol] 234 10*3/uL 140 - 400 K/uL [facility] RBC (Bld) [#/Vol] 5.00 10*6/uL [facility] Segmented neutrophils/100 WBC (Bld) 65.9 % [facility] WBC (Bld) [#/Vol] 7.2 10*3/uL 4.3 - 11.1 K/uL [facility] No Panel Informationon 01-19 Bilirubin, Indirect 0.4 mg/dL 0.0 - 1. 0 mg/dL [facility] Interpretation and review of laboratory results Normal [facility] Interpretation and review of laboratory results Abnormal [facility] POCT URINE DIPSTICK AUTOMATE Don 01-19-2023 Amorphous sediment LM Ql (Urine sed) [facility] Appearance (U) clear [facility] Bacteria LM Ql (Urine sed) [facility] Bilirubin Ql (U) small [facility] Casts LM.LPF (Urine sed) [#/Area] [facility] Color (U) drk yellow [facility] Crystals LM Nom (Urine sed) [facility] Epithelial cells.squamous LM.HPF (Urine sed) [#/Area] [facility] Flow cytometry specialist review Saad (Unsp spec) [Interp] [facility] Glucose Auto test strip (U) [Mass/Vol] Negative mg/dL [facility] Ketones [Mass/Vol] trace mg/dL [facility] Leukocyte esterase Qn (U) [facility] Leukocyte esterase Test strip Ql (U) Negative [facility] Microscopic observation Gram stain Nom (Bronch spec) [facility] Nitrite Ql (U) Negative [facility] pH (U) 5.5 [pH] 5 - 7 [facility] Protein Ql (U) 30 mg/dL [facility] RBC LM.HPF (Urine sed) [#/Area] [facility] RBC Ql (U) Negative [facility] Specific gravity (U) [Rel density] 1.001 - 1.035 [facility] Transitional cells LM Ql (Urine sed) [facility] Urobilinogen Qn (U) 0.2 [facility] WBC LM.HPF (Urine sed) [#/Area] [facility] XR ABDOMEN 2 VIEWSon 023 XR ABDOMEN [...] / Jaskaran Le Interpreting Provider: Jaskaran Le [facility] XR Abdomen 2 Viewson 023 IMPRESSION: Ileus [...] / Jaskaran Le Interpreting Provider: Jaskaran Le . [facility] Radiology Study observation (narrative) [facility]AN XR Abdomen 2 ViewsOrdered By : Jaskaran Le on 01-19-2023 [facility] [employer] Work Phone: HIV-1 2 Antibody p24 Agon HIV-1 2 Antibody p24 Ag Non-Reactive Normal Nonreactiv e [facility] Comment on above: Result Comment: This assay detects human immunodeficiency virus (HIV) p24 antigen and antibodies to HIV type 1 (HIV-1 group O) and/or type 2 (HIV-2). Reactive results will have follow up confirmatory testing. Performed By: #### H IV, HPA, TPAL #### [facility] [address] [place] [address] 29069 Hepatitis Prof.(Routine A,B, C)on 01-04-2022 Hepatitis A Antibody IgM Non-Reactive Normal Nonreacti ve [facility] Comment on above: Result Comment: Biot in greater than 500 ng/mL may lead to falsely depressed results. Hepatitis A Virus (HAV) IgM antibodies not detected. Does not exclude the possibility of exposure to or infection of HAV. Levels of HAV IgM antibodies may be below measurement range due to early infection. Performed By: #### H IV, HPA, TPAL #### [facility] [address] [place] [address] 41225 Hepatitis B Core IgM Non-Reactive Normal Nonreactive A [facility] Comment on above: Result Comment: Assa y performance characteristics have not been established for immunocompromised or immunosuppressed patients, cord blood, or patients less than 2 years of age. IgM antibodies to Hepatitis B Core Antigen not detected. Does not exclude the possibility of exposure or infection with Hepatitis B Core Virus. Performed By: #### H IV, HPA, TPAL #### [facility] [address] [place] [address] 99614 Hepatitis C Virus Antibody Non-Reactive Normal Nonreactive [facility] Comment on above: Result Comment: Hepa titis C Virus (HCV) IgG antibodies not detected; does not exclude the possibility of exposure of HCV. Performed By: #### H IV, HPA, TPAL #### [facility] [address] [place] [address] 39910 Hepatitis B Surface Antigen Non-Reactive Normal Nonreactive [facility] Comment on above: Result Comment: Spec imen considered negative for HBsAg. Performed By: #### H IV, HPA, TPAL #### [facility] [address] [place] [address] 47668 Treponema Pallidum Abon 06-0 Treponema Pallidum Ab Negative Normal NEGATIVE [facility] Comment on above: Performed By: #### H IV, HPA, TPAL #### [facility] [address] [place] [address] 16557 Drug Screen, Urineon 022 Amphetamine Screen,Urine Positive Abnormal Xtiwnq=9589 [facility] Comment on above: Result Comment: Unco nfirmed presumptive positive. Refer to Urine Drug Screen Interpretation result for interpretative guidelines. Performed By: #### U DS #### [facility] [address] [place] [address] 32199 Barbiturate Screen,Urine Negative Normal Vqmegw=180 [facility] Comment on above: Performed By: #### U DS #### [facility] [address] [place] [address] 61673 Benzodiazepines Screen,Urine Negative Normal Vdakth=878 [facility] Comment on above: Performed By: #### U DS #### [facility] [address] [place] [address] 36532 Buprenorphine Screen,Urine Negative Normal Cutoff=5 [facility] Comment on above: Performed By: #### U DS #### [facility] [address] [place] [address] 42553 Cannabinoid Screen,Urine Negative Normal Cutoff = 50 [facility] Comment on above: Performed By: #### U DS #### [facility] [address] [place] [address] 44210 Cocaine Screen,Urine Negative Normal Cutoff= 300 [facility] Comment on above: Performed By: #### U DS #### [facility] [address] [place] [address] 70770 Opiate Screen,Urine Negative Normal Hdcozw=558 [facility] Comment on above: Performed By: #### U DS #### [facility] [address] [place] [address]305 Phencyclidine Screen,Urine Negative Normal Cutoff=25 [facility] Comment on above: Performed By: #### U DS #### [facility] [address] [place] [address] 30006 Ur. Drug Screen Interpretation See Below Normal [facility] Comment on above: Result Comment: [...] request. Performed By: #### U DS #### [facility] [address] [place] [address] 45601 ABDLMon 11-24-[address] [address] Ultrasound Report Signed PRELIMINARY DRAFT REPORT UNTIL ELECTRONICALLY SIGNED PATIENT: Osman Blanc MR#: [id number] : 1990 AGE/SEX: 31 / M ADMITTED: 11/24/21 OUTSIDE LOCN: LOCATION: [facility] ATTENDING: Ismael Winston DO ORDER PHYSICIAN: Ismael Winston BIRAD: NA Not Applicable DATE OF SERVICE: 11/24/21 ACCESSION NUMBERS(S): [id number] PROCEDURE(S): US abdomen limited REASON FOR EXAM: [...] MD Interpreting Provider: Jaqui Dickens MD Normal [facility] Emergency Documentationon Emergency Documentation [address] [address] Emergency Department Note Signed PRELIMINARY DRAFT REPORT UNTIL ELECTRONICALLY SIGNED PATIENT: Osman Blanc MR#: [id number] : 1990 AGE/SEX: 31 / M ADMITTED: 09/04/21 OUTSIDE LOCN: LOCATION: [facility] ATTENDING: cc: Ismael Winston; Disposition Clinical Impression: [...] edema no (more content not included)... Normal [facility] [id number] 07-27-[id number] [address] XRay Report Signed PRELIMINARY DRAFT REPORT UNTIL ELECTRONICALLY SIGNED PATIENT: Osman Blanc MR#: [id number] : 1990 AGE/SEX: 30 / M ADMITTED: 07/27/21 OUTSIDE LOCN: LOCATION: [facility] ATTENDING: Ismael Winston DO ORDER PHYSICIAN: Ismael Winston BIRAD: DATE OF SERVICE: 07/27/21 FOLLOW UP: ACCESSION NUMBERS(S): [id number] PROCEDURE(S): XR hand 3V LT REASON FOR [...] Charles Bryan Interpreting Provider: Charles Bryan Normal [facility] Basic Metabolic Panelon 11-2 Calcium [Mass/Vol] 8.5 mg/dL Low 8.6-10.3 [facility] Comment on above: Performed By: #### B MP, TROP ####[facility] [address] [place] [address] Chloride [Moles/Vol] 106 mmol/L Normal 98-107 [facility] Comment on above: Performed By: #### B MP, TROP ####[facility] [address] [place] [address] CO2 [Moles/Vol] 24 mmol/L Normal 23-29 [facility] Comment on above: Performed By: #### B MP, TROP ####[address] [address] Creatinine [Mass/Vol] 0.89 mg/dL Normal 0.70-1.30 [facility] Comment on above: Performed By: #### B MP, TROP ####[address] [address] eGFR For Americans > 60 Normal > 60 [facility] Comment on above: Result Comment: eGFR = Estimated Glomerular Filtration Rate reported as mL/min/1.73 square meters Chronic Kidney Disease: < 60; Kidney failure: < 15 Performed By: #### B TAHIRA, TROP ####[address] [address] eGFR For Non- Americans > 60 Normal > 60 [facility] Comment on above: Performed By: #### Clarisa HOFFMANN, TROP ####[address] [address] Glucose [Mass/Vol] 101 mg/dL Normal 70-105 [facility] Comment on above: Performed By: #### B MP, TROP ####[address] [address] Osmolality,Calculated 283 Normal 280-300 [facility] Comment on above: Performed By: #### B MP, TROP ####[address] [address] Potassium [Moles/Vol] 4.3 mmol/L Normal 3.5-5.1 [facility] Comment on above: Performed By: #### B MP, TROP ####[address] [id number] Sodium [Moles/Vol] 136 mmol/L Normal 136-145 [facility] Comment on above: Performed By: #### B MP, TROP ####[facility] [address] [place], [place] [id number] Urea nitrogen [Mass/Vol] 14 mg/dL Normal 6-20 [facility] Comment on above: Performed By: #### B MP, TROP ####[facility] [address] [place] [address] Urea nitrogen/Creatinine [Mass ratio] 16 mg/mg Normal 6- [facility] Comment on above: Performed By: #### B MP, TROP ####[facility] [address] [place] [address] [id number] 06-26-[id number] [address] XRay Report Signed PRELIMINARY DRAFT REPORT UNTIL ELECTRONICALLY SIGNED PATIENT: Osman Blanc MR#: [id number] : 1990 AGE/SEX: 30 / M ADMITTED: 06/26/21 OUTSIDE LOCN: LOCATION: [facility] ATTENDING: ORDER PHYSICIAN: Tucker Bell BIRAD: DATE OF SERVICE: 06/26/21 FOLLOW UP: ACCESSION NUMBERS(S): [id number] PROCEDURE(S): XR chest 1V portable REASON FOR [...] MD Interpreting Provider: Markus Cornejo MD Normal [facility] Complete Blood Count with Di ffon 06-26-2021 Basophils (Bld) [#/Vol] 0.1 10*3/uL Normal 0.0-0.2 [facility] Comment on above: Performed By: #### C BC #### [facility] [address] [place] [address] 737[address] Basophils/100 WBC (Bld) 1.1 % Normal [facility] Comment on above: Performed By: #### C BC #### [facility] [address] [place] [address]82 Eosinophils (Bld) [#/Vol] 0.2 10*3/uL Normal 0.0-0.6 [facility] Comment on above: Performed By: #### C BC #### [facility] [address] [place] [address] Eosinophils/100 WBC (Bld) 3.6 % Normal [facility] Comment on above: Performed By: #### C BC #### [facility] [address] [place] [address] Erythrocyte distribution width (RBC) [Ratio] 12.1 % Normal 11.5-14.5 [facility] Comment on above: Performed By: #### C BC #### [facility] [address] [place] [address]103 Hematocrit (Bld) [Volume fraction] 44.0 % Normal 37.5-50.1 [facility] Comment on above: Performed By: #### C BC #### [facility] [address] [place] [address] Hemoglobin (Bld) [Mass/Vol] 14.8 g/dL Normal 12.9-16.9 [facility] Comment on above: Performed By: #### C BC #### [facility] [address] [place] [address] 14291 Immature granulocytes/100 WBC (Bld) 0.3 % Normal 0-4 [facility] Comment on above: Performed By: #### C BC #### [facility] [address] [place] [address] 47[address] Lymphocytes (Bld) [#/Vol] 2.4 10*3/uL Normal 0.6-4.6 [facility] Comment on above: Performed By: #### C BC #### [facility] [address] [place] [address] 56724 Lymphocytes/100 WBC (Bld) 37.0 % Normal [facility] Comment on above: Performed By: #### C BC #### [facility] [address] [place] [address] 16257 MCH (RBC) [Entitic mass] 30.4 pg Normal 28.0-33.3 [facility] Comment on above: Performed By: #### C BC #### [facility] [address] [place] [address] 80949 MCV (RBC) [Entitic vol] 90.3 fL Normal 83.0-100.0 A [facility] Comment on above: Performed By: #### C BC #### [facility] [address] [place] [address]791 Mean Corpuscular HGB Conc 33.6 g/dL Normal 31.6-35.5 [facility] Comment on above: Performed By: #### C BC #### [facility] [address] [place] [id number] Monocytes (Bld) [#/Vol] 0.6 10*3/uL Normal 0.0-1.3 [facility] Comment on above: Performed By: #### C BC #### [facility] [address] [place] [address] 19302 Monocytes/100 WBC (Bld) 8.9 % Normal [facility] Comment on above: Performed By: #### C BC #### [facility] [address] [place] [address] 32590 Neutrophils (Bld) [#/Vol] 3.2 10*3/uL Normal 1.6-8.9 [facility] Comment on above: Performed By: #### C BC #### [facility] [address] [place] [address]7580 Platelet mean volume (Bld) [Entitic vol] 10.5 fL Normal 9.4-12.4 [facility] Comment on above: Performed By: #### C BC #### [facility] [address] [place] [address] 07333 Platelets (Bld) [#/Vol] 261 10*3/uL Normal 140-400 [facility] Comment on above: Performed By: #### C BC #### [facility] [address] [place] [address] 84422 RBC (Bld) [#/Vol] 4.87 10*6/uL Normal 4.19-5.50 [facility] Comment on above: Performed By: #### C BC #### [facility] [address] [place] [address] 14393 Segmented neutrophils/100 WBC (Bld) 49.1 % Normal [facility] Comment on above: Performed By: #### C BC #### [facility] [address] [place] [address] 34038 WBC (Bld) [#/Vol] 6.4 10*3/uL Normal 4.3-11.1 [facility] Comment on above: Performed By: #### C BC #### [facility] [address] [place] [address]44 Electrocardiograph Reporton 06-26-2021 Electrocardiograph Report [address] [address] Electrocardiograph Report Signed PRELIMINARY DRAFT REPORT UNTIL ELECTRONICALLY SIGNED PATIENT: Osman Blanc MR#: [id number] : 1990 AGE/SEX: 30 / M ADMITTED: 06/26/21 OUTSIDE LOCN: LOCATION: [facility] ATTENDING: ZORA PHYSICIAN: Erick Martinez TECHNOLOGIST: ZI PHYSICIAN: Tucker Bell PRIMARY PHYSICIAN: Ismael Winston DATE OF SERVICE: 06/26/21 ACCESSION NUMBERS(S): [id number] HT: 172.72 WT: 180 PROCEDURE(S): ECG 12 lead ECG cc: ; [facility] Test Date: 2021-06-26 Pat Name: Osman Blanc Department: EXAM21 Room: 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1990 Requested By: Tucker Bell Order Number: [id number] Zora MD: Erick Martinez Measurements Intervals Winston Rate: 63 P: 43 WV: 185 QRS: 81 QRSD: 118 T: 69 QT: 398 QTc: 408 Interpretive Statements Sinus rhythm Incomplete right bundle branch block Electronically Signed On 06-28-2021 6:20:40 EST by Erick Martinez [facility] Emergency Documentationon Emergency Documentation [address] [id number] Emergency Department Note Signed PRELIMINARY DRAFT REPORT UNTIL ELECTRONICALLY SIGNED PATIENT: Osman Blanc MR#: [id number] : 1990 AGE/SEX: 30 / M ADMITTED: 06/26/21 OUTSIDE LOCN: LOCATION: [facility] ATTENDING: cc: Ismael Winston; Disposition Clinical Impression: [...] PRN Reason: Pain Transmission Status: Received by [facility] 2400 Referrals: Ismael Winston DO [Primary [...] type discomfort. (more content not included)... Normal [facility] Troponin Ion 06-26-2021 Troponin I.cardiac [Mass/Vol] ng/mL Normal < 0.04 [facility] Comment on above: Performed By: #### B MP, TROP ####[facility] [address] [place] [address] C.trach N.gonorrhoea DNA Fajardo Uon 06-15-2021 Chlamydia Trachomatis DNA Ur Not detected Normal Not Detect [facility] Comment on above: Result Comment: Chla mydia trachomatis DNA not detected by real-time PCR. Specimen source- [place] Urine Performed By: #### C TNGPANU #### [facility] [address] [place], [place] [id number] Neisseria Gonorrhoeae DNA, Ur Not detected Normal Not Detect [facility] Comment on above: Result Comment: Neis seria gonorrhoeae DNA not detected by real-time PCR. Specimen source- [place] Urine Performed By: #### C TNGPANU #### [facility] [address] [place], [place] [address] Pain Mgt Ur Drug Scrn w Inte rpon 06-08-2021 Pain Mgt Ur Drg Scr Rslt w Int SEE BELOW Normal [facility] Comment on above: Result Comment: [...] Detected Tapentadol (cutoff 100 ng/mL) Not Detected Boluduzhwm-j-Hxkf (cutoff 200 ng/mL) Not Detected Methadone (cutoff [...] Detected Alprazolam (cutoff 40 ng/mL) Not Detected Pszgk-BP-Fwhepzbylo (cutoff 20 ng/mL) Not Detected Clonazepam (cutoff [...] Detected Midazolam (cutoff 20 ng/mL) Not Detected Zgvma-GV-Sgmodaifn (cutoff 20 ng/mL) Not Detected Zolpidem (cutoff [...] developed and its performance characteristics determined by [facility]. It has not been cleared or approved by the US Food and Drug Administration. This test was performed in a CLIA certified laboratory and is intended for clinical purposes. EER Tgt drug prof, MS/EMIT, UR, Interp See Note Access [facility] Enhanced Report using the link below: -Direct access: [email or web address] Performed by [facility], [address] [place] [address] Enterprise Engineer: Jocelyn Bruner MD Performed By: #### P MUDSI ####[facility] [address] [place], [place] [address] Specimen Rejecton 05-16-2021 Specimen Reject Miscellaneous Normal [facility] Comment on above: Result Comment: CALL ED [facility]...SPOKE WITH JULI...NOTIFIED OF REJECTION Specimen: [id number] DRG SCR W I Problem:WRONG DATE OF [birth year]. CORRECT IS [birth year] Called to on 05/13/21 at 2026. Performed By: #### Q A #### [facility] [address] [place] [address] Vital Signs Date Time Vital Sign Value Performing Clinician Faci lity 04-16-2023 12:54-0400 Body height 172.7 cm Mitesh Agee MD Work Phone: [facility] 04-16-2023 12:54-0400 Body mass index (BMI) [Ratio] 27.31 kg/m2 Mitesh Agee MD Work Phone: [facility] 04-16-2023 12:54-0400 Body temperature 97.81 [degF] Mitesh Agee MD Work Phone: [facility] 04-16-2023 12:54-0400 Body weight 81.47 kg Mitesh Agee MD Work Phone: [facility] 04-16-2023 12:54-0400 Diastolic blood pressure 74 mm[Hg] Mitesh Agee MD Work Phone: [facility] 04-16-2023 12:54-0400 Heart rate 88 /min Mitesh Agee MD Work Phone: [facility] 04-16-2023 12:54-0400 SaO2% (BldA) [Mass fraction] 97 % Mitesh Agee MD Work Phone: [facility] 04-16-2023 12:54-0400 Systolic blood pressure 106 mm[Hg] Mitesh Agee MD Work Phone: [facility] 04-05-2023 15:03-0400 Body temperature 100 [degF] Rajesh Farris MD Work Phone: [facility] 04-05-2023 15:03-0400 Diastolic blood pressure 68 mm[Hg] Rajesh Farris MD Work Phone: [facility] 04-05-2023 15:03-0400 Heart rate 85 /min Rajesh Farris MD Work Phone: [facility] 04-05-2023 15:03-0400 SaO2% (BldA) [Mass fraction] 97 % Rajesh Farris MD Work Phone: [facility] 04-05-2023 15:03-0400 Systolic blood pressure 122 mm[Hg] Rajesh Farris MD Work Phone: [facility] 01-21-2023 11:34-0400 Body temperature 98.2 [degF] Yuni Brennan MD Work Phone: [facility] 01-21-2023 11:34-0400 Diastolic blood pressure 80 mm[Hg] Yuni Brennan MD Work Phone: [facility] 01-21-2023 11:34-0400 Heart rate 80 /min Yuni Brennan MD Work Phone: [facility] 01-21-2023 11:34-0400 Respiratory rate 18 /min Yuni Brennan MD Work Phone: [facility] 01-21-2023 11:34-0400 SaO2% (BldA) [Mass fraction] 99 % Yuni Brennan MD Work Phone: [facility] 01-21-2023 11:34-0400 Systolic blood pressure 118 mm[Hg] Yuni Brennan MD Work Phone: [facility] 01-19-2023 19:36-0400 Body height 172.7 cm Yuni Brennan MD Work Phone: [facility] 01-19-2023 19:36-0400 Body mass index (BMI) [Ratio] 28.43 kg/m2 Yuni Brennan MD Work Phone: [facility] 01-19-2023 19:36-0400 Body weight 84.82 kg Yuni Brennan MD Work Phone: [facility] 01-19-2023 10:08-0400 Body height 172.7 cm Marsha Pitts BURGLAR ALARM MECHANIC-TANKAGE SUPERVISOR Work Phone: [facility] 01-19-2023 10:08-0400 Body mass index (BMI) [Ratio] 28.52 kg/m2 Marsha Pitts BURGLAR ALARM MECHANIC-TANKAGE SUPERVISOR Work Phone: [facility] 01-19-2023 10:08-0400 Body temperature 98.01 [degF] Marsha Pitts BURGLAR ALARM MECHANIC-TANKAGE SUPERVISOR Work Phone: [facility] 01-19-2023 10:08-0400 Body weight 85.09 kg Marsha Pitts BURGLAR ALARM MECHANIC-TANKAGE SUPERVISOR Work Phone: [facility] 01-19-2023 10:08-0400 Diastolic blood pressure 80 mm[Hg] Marsha Pitts BURGLAR ALARM MECHANIC-TANKAGE SUPERVISOR Work Phone: [facility] 01-19-2023 10:08-0400 Heart rate 73 /min Marsha Pitts BURGLAR ALARM MECHANIC-TANKAGE SUPERVISOR Work Phone: [facility] 01-19-2023 10:08-0400 Respiratory rate 18 /min Marsha Pitts BURGLAR ALARM MECHANIC-TANKAGE SUPERVISOR Work Phone: [facility] 01-19-2023 10:08-0400 SaO2% (BldA) [Mass fraction] 98 % Marsha Pitts BURGLAR ALARM MECHANIC-TANKAGE SUPERVISOR Work Phone: [facility] 01-19-2023 10:08-0400 Systolic blood pressure 118 mm[Hg] Marsha Pitts BURGLAR ALARM MECHANIC-TANKAGE SUPERVISOR Work Phone: [facility] Encounters Encounter Date Encounter Type Care Provider Facility Start: 09-25-2023 End: 09-25-2023 ambulatory SHAIKH PAULY Not Available Start: 08-20-2023 ambulatory MD David Martines Facil ity:[facility] Start: 07-19-2023 End: 07-20-2023 ambulatory MD David Martines Facility:[facility] Start: 06-21-2023 End: 06-22-2023 ambulatory MD David Martines Facility:[facility] Start: 05-28-2023 ambulatory MD David Martines Facility :[facility] Start: 04-16-2023 ambulatory CHARLES ALICEA Facility: [facility] Start: 04-16-2023 End: 04-16-2023 Office outpatient visit 15 minutes Charlessandy Alicea Work Phone: [facility] Comment on above: Attention deficit hy peractivity disorder (ADHD), unspecified ADHD type Start: 04-05-2023 ambulatory RAJESH FARRIS Facility [facility] Start: 04-05-2023 End: 04-05-2023 Office outpatient visit 15 minutes Rajesh Farris MD Work Phone: [facility] Comment on above: COVID-19 virus infec tion (Primary Dx) Start: 04-05-2023 End: 04-05-2023 Emergency department patient visit JULEE VIDAL Facility:[facility] Start: 01-19-2023 End: 01-21-2023 ambulatory JULEE DEVAN Facility:[facility] Start: 01-19-2023 End: 01-21-2023 Emergency department patient visit Jaskaran Sotelo MD Work Phone: [facility] Comment on above: Small bowel obstruct ion Start: 01-19-2023 ambulatory MARSHA PITTS Facilit y:[facility] Start: 01-19-2023 End: 01-19-2023 Subsequent hospital visit by physician Marsha Pitts BURGLAR ALARM MECHANIC-TANKAGE SUPERVISOR Work Phone: [facility] Comment on above: Arrived Start: 01-19-2023 End: 01-19-2023 Office outpatient visit 40 minutes Marsha M Hong BURGLAR ALARM MECHANIC-TANKAGE SUPERVISOR Work Phone: [facility] Comment on above: Lower abdominal pain (Primary Dx) Start: 01-11-2023 ambulatory [facility] Facility:[facility] Start: 01-11-2023 Encounter for genera l adult medical examination without abnormal findings [facility] Facility:[facility] Start: 09-14-2022 ambulatory SAAD STONE Facility :[facility] Start: 06-16-2022 ambulatory ROSEANNE THRASHER Facility: [facility] Procedures Date Procedure Procedure Detail Performing [...] Radiologic exam abdo men 2 views Marsha Pitts BURGLAR ALARM MECHANIC-TANKAGE SUPERVISOR Work Phone: Start: 01-19-2023 Urnls dip stick/tabl et rgnt auto w/o microscopy Marsha Pitts BURGLAR ALARM MECHANIC-TANKAGE SUPERVISOR Work Phone: Start: 09-14-2022 Follow-up visit Follow-up SAAD STONE Plan of Treatment Date Care Activity Detail Author Start: 01-11-2029 Tetanus vaccination [facility] Start: 07-16-2023 End: 07-16-2023 Patient encounter procedure 07/16/2023 1:00 PM EST Office Visit [facility] [address] [place] [address] Julee Vidal DO [address] [place] [phone] [facility] Start: 04-16-2023 End: 04-16-2023 Patient encounter procedure 04/16/2023 11:00 AM EDT Office Visit [facility] [address] [place] [address] Charles Alicea DO [address] [place] [address] [facility] Start: 04-06-2023 Influenza vaccination INFLUENZA VACC INE (#1) [facility] Start: 12-20-2021 COVID-19 VACCINE (2 - Booster for Jolene series) COVID-19 VACCINE (2 - Booster for Jolene series) [facility] Start: 2003 HIV screening HIV SCREENING DISCUSSI ON [facility] Start: 1994 PNEUMOCOCCAL VACCINE SERIES (1 - PCV) PNEUMOCOCCAL VACCINE SERIES (1 - PCV) [facility] Start: 1988 Hepatitis C screening HEPATITI S C VIRUS SCREENING [facility] Standard ECG ECG ECG STAT Needed until discontinued starting 01/19/2023 [facility] Comment on above: Needed until disc ontinued starting 01/19/2023 Immunizations Immunization Date Immunization Notes Care Provider Kelly gaines 06-16-2022 influenza, injectabl e, quadrivalent, preservative free Marsha Hong BURGLAR ALARM MECHANIC-TANKAGE SUPERVISOR Work Phone: [facility] 06-16-2022 influenza virus vacc ine, unspecified formulation Rajesh Farris MD Work Phone: [facility] 06-14-2021 influenza, injectabl e, quadrivalent, preservative free Marsha Hong BURGLAR ALARM MECHANIC-TANKAGE SUPERVISOR Work Phone: [facility] 01-11-2019 tetanus toxoid, redu etienne diphtheria toxoid, and acellular pertussis vaccine, adsorbed Marsha Hong BURGLAR ALARM MECHANIC-TANKAGE SUPERVISOR Work Phone: [facility] 05-08-2005 hepatitis B vaccine, pediatric or pediatric/adolescent dosage Marsha Hong BURGLAR ALARM MECHANIC-TANKAGE SUPERVISOR Work Phone: [facility] 05-08-2005 tetanus toxoid, adsorbed Bra ndy Hong BURGLAR ALARM MECHANIC-TANKAGE SUPERVISOR Work Phone: [facility] 02-17-2002 measles, mumps and r ubella virus vaccine Marsha Hong BURGLAR ALARM MECHANIC-TANKAGE SUPERVISOR Work Phone: [facility] 04-23-2001 hepatitis B vaccine, pediatric or pediatric/adolescent dosage Marsha Hong BURGLAR ALARM MECHANIC-TANKAGE SUPERVISOR Work Phone: [facility] 04-23-2001 measles, mumps and r ubella virus vaccine Marsha Hong BURGLAR ALARM MECHANIC-TANKAGE SUPERVISOR Work Phone: [facility] 03-21-1993 diphtheria, tetanus toxoids and acellular pertussis vaccine, unspecified formulation Marsha Hong BURGLAR ALARM MECHANIC-TANKAGE SUPERVISOR Work Phone: [facility] 03-21-1993 poliovirus vaccine, unspecified formulation Marsha Hong BURGLAR ALARM MECHANIC-TANKAGE SUPERVISOR Work Phone: [facility] 04-08-1991 diphtheria, tetanus toxoids and acellular pertussis vaccine, unspecified formulation Marsha Hong BURGLAR ALARM MECHANIC-TANKAGE SUPERVISOR Work Phone: [facility] 04-08-1991 poliovirus vaccine, unspecified formulation Marsha Hong BURGLAR ALARM MECHANIC-TANKAGE SUPERVISOR Work Phone: [facility] 02-19-1990 diphtheria, tetanus toxoids and acellular pertussis vaccine, unspecified formulation Marsha Hong BURGLAR ALARM MECHANIC-TANKAGE SUPERVISOR Work Phone: [facility] 02-19-1990 measles, mumps and r ubella virus vaccine Marsha Hong BURGLAR ALARM MECHANIC-TANKAGE SUPERVISOR Work Phone: [facility] 11-28-1989 diphtheria, tetanus toxoids and acellular pertussis vaccine, unspecified formulation Marsha Hong BURGLAR ALARM MECHANIC-TANKAGE SUPERVISOR Work Phone: [facility] 11-28-1989 poliovirus vaccine, unspecified formulation Marsha Hong BURGLAR ALARM MECHANIC-TANKAGE SUPERVISOR Work Phone: [facility] 04-17-1989 diphtheria, tetanus toxoids and acellular pertussis vaccine, unspecified formulation Marsha Hong BURGLAR ALARM MECHANIC-TANKAGE SUPERVISOR Work Phone: [facility] 04-17-1989 poliovirus vaccine, unspecified formulation Marsha Hong BURGLAR ALARM MECHANIC-TANKAGE SUPERVISOR Work Phone: [facility] Payers Date Payer Category Payer Unknown [facility] [id number] 2022-Present [address] [place] [address] [id number] 2022 Unknown [id number] 2022 Unknown [id number] 2021 Unknown [id number] 1990 Unknown [id number] 1988 Unknown [id number] 1988 Unknown [id number] 1988 Unknown [id number] [id number] 1988 Unknown [id number] [id number] 1988 Unknown [id number] 2.16.840.1.125569.3.579.2.1248 1988 Unknown [id number] [id number] 1988 Unknown [id number] [id number] 1988 Unknown [id number] 2.16.840.1.038708.3.579.2.1248 1988 Unknown [id number] [id number] 1988 Unknown [id number] [id number] 1988 Unknown [id number] [id number] 1988 Unknown [id number] [id number] Social History Date Type Detail Facility Start: 08-06-2001 Tobacco smoking status [facility] Smokes t obacco daily [facility] Start: 08-06-2001 History of tobacco use Cigarette Smo ker [facility] Start: 06-15-2022 End: 04-16-2023 Cigarettes smoked current (pack per day) - Reported 0.5 [facility] Start: 06-15-2022 Tobacco use and exposure Smokeless t obacco non-user [facility] Start: 01-19-2023 End: 04-16-2023 Alcohol intake Ex-drinker (finding) [facility] Start: 01-19-2023 End: 04-16-[address] [facility] Start: 1990 Sex Assigned At Not on file [facility] Start: 01-09-2023 End: 08-31-2023 Exposure to SARS-CoV-2 (event) Not sure [facility] Clinical Notes 01-19-2023 to 04-16-2023 Assessment & [...] this time and urine drug screen obtained. [facility] 04-16-2023 Miscellaneous Notes Associate d Problem(s): Attention deficit hyperactivity disorder (ADHD) Chronic, stable, well controlled on current regimen. Oarrs reviewed and appropriate. Medication refilled for 3 mo. CSA completed at this time and urine drug screen obtained. documented in this encounter [facility] 04-16-2023 History and physi francisco javier note This is a resident progress note generated at [facility]. I, Dr. Agee, [...] resident throughout patient's visit here in the [facility], and participated in the construction of the SOAP as recorded and agree with it as written by the resident Dr Agee [facility] 04-16-2023 History and physi francisco javier note This is a resident progress note generated at [facility]. I, Dr. Agee, am being [...] resident throughout patient's visit here in the [facility], and participated in the construction of the SOAP as recorded and agree with it as written by the resident Dr Anuel mcknight documented in this encounter [facility] 04-05-2023 History and physi francisco javier note This is a resident progress note generated at [facility]. I, Dr. 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 Headache and subjective fever seeming to not [...] 0.4 (L) 0.6 - 4.6 K/uL Abs Nicholas Auto 1.0 0.0 - 1.3 K/uL Abs [...] F/up prn Staff: Dr. Dale Farris MD Airplane Rental Clerk, PGY-2 [facility] [phone] Associated attestation - Vic Hunter DO - 04/16/2023 6:24 AM EDT 04/05/2023 IVic, was immediately available in the clinic throughout the course of this patient's treatment encounter. I discussed the patient's case with the resident, and I agree with the SOAP note including history, exam, decision making, diagnosis, and care plan. See resident documentation for details. [facility] 04-05-2023 History and physi francisco javier note This is a resident progress note generated at [facility]. I, Dr. 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 Headache and subjective fever seeming to not [...] 0.4 (L) 0.6 - 4.6 K/uL Abs Nicholas Auto 1.0 0.0 - 1.3 K/uL Abs [...] F/up prn Staff: Dr. Dale Farris MD Airplane Rental Clerk, PGY-2 [facility] [phone] Associated attestation - Vic Hunter DO - 04/16/2023 6:24 AM EDT 04/05/2023 I, Vic Hunter, was immediately available in the clinic throughout the course of this patient's treatment encounter. I discussed the patient's case with the resident, and I agree with the SOAP note including history, exam, decision making, diagnosis, and care plan. See resident documentation for details. documented in this encounter [facility] 01-21-2023 Hospital course Narrative Images from the [...] Department Dept Phone 04/16/2023 11:00 AM Charles Alicea [facility] [phone] encounter [facility] 01-21-2023 Nurse Note Nursing Discharge Time Out [...] Discharge Time Out completed with: Name of RN/Supervisor Safety Deposit/Grade Checker who verifies discharge items complete:Alysia London RN [facility] 01-21-2023 Plan of care note Problem: Patient Care Overview Goal: Plan of Care Review Outcome: Completed Goal: Individualization & Mutuality Outcome: Completed Goal: Discharge Needs Assessment Outcome: Completed Goal: Interdisciplinary Rounds/Family Conf Outcome: Completed [facility] 01-21-2023 Miscellaneous Notes Formattin g of this [...] Discharge Time Out completed with: Name of RN/Supervisor Safety Deposit/Grade Checker who verifies discharge items complete:Alysia London RN [...] returned from x-ray. documented in this encounter [facility] 01-21-2023 Miscellaneous Notes Formattin g of this [...] Discharge Time Out completed with: Name of RN/Supervisor Safety Deposit/Grade Checker who verifies discharge items complete:Alysia London RN [...] returned from x-ray. documented in this encounter [facility] 01-20-2023 Nurse Note Pt's NG taken out and clear liquid diet ordered.Pt refusingIV fluids at this time. [facility] 01-20-2023 History of Presen t illness Narrative Hospital Medicine Daily Progress Note Patient: Osman Blanc, 1990, [id number] Physician: Yuni Brennan MD Length of Stay: [...] WBC/Hgb/Hct/Plts: 8.3/14.7/43.0/232 (01/20 122) Bun/Creat/Cl/CO2/Glucose: 11/0.91/111/24/74 (01/20 012-01/20 1339) Na/K+/Phos/Mg/Ca: 141/4.0/--/1.9/8.6 (01/20 122) Additional Labs/Cultures/Micro: [...] Yuni Brennan MD Summary: ACS progress note [address] [address] ACUTE CARE SURGERY PROGRESS NOTE DATE & [...] 0.9% IV solution Intravenous Continuous Supo Heladio Folaranmi, MD 100 mL/hr at 01/19/231929 New Bag at 01/19/231929 RESULTS: Reviewed Electronically signed by: Phil Swanson DO 01/20/23 8:57 AM documented in this encounter [facility] 01-20-2023 History of Presen t illness Narrative [facility] Medicine Daily Progress Note Patient: Osman Blanc, 1990, [id number] Physician: Yuni Brennan MD Length of Stay: [...] 11/0.91/111/24/74 (01/20 122-01/20 1339) Na/K+/Phos/Mg/Ca: 141/4.0/--/1.9/8.6 (01/20 0122) Additional Labs/Cultures/Micro: New Imaging/Radiological Studies: Assessment/Plan: Osman [...] Yuni Brennan MD Summary: ACS progress note [address] [address] ACUTE CARE SURGERY PROGRESS NOTE [...] mg 4 mg Oral Q6H PRN Yuni Brennna MD Sodium chloride (PF) 0.9 % injection 5 mL 5 mL Intravenous As directed PRN Yuni Brennan MD Sodium chloride 0.9% IV solution Intravenous Continuous Supo Heladio Brennan MD 100 mL/hr at 01/19/231929 New Bag at 01/19/231929 RESULTS: Reviewed Electronically signed by: Phil Swanson DO 01/20/23 8:57 AM documented in this encounter [facility] 01-20-2023 Nurse Note No changes from morning assessment. [facility] 01-20-2023 Plan of care note Problem: Patient Care Overview Goal: Plan of Care Review Outcome: Ongoing Goal: Individualization & Mutuality Outcome: Ongoing Goal: Discharge Needs Assessment Outcome: Ongoing Goal: Interdisciplinary Rounds/Family Conf Outcome: Ongoing [facility] 01-20-2023 Nurse Note Pt returned from x-ray. [facility] 01-19-2023 Consult note Associated Order (s): IP CONSULT TO SURGERY - GENERAL (EMERGENT) Summary: ACS Consult Note [address], [place], [place] [address] ACUTE CARE SURGERY CONSULT NOTE [...] This 32 y/o male pt presents to [facility] ED c/o severe abdominal pain. Pt reports [...] and discussed with the patient and/or appropriate customer counter representative. Electronically signed by: Phil Swanson DO 01/19/23 7:[address] [facility] 01-19-2023 Consult note Associated Order (s): IP CONSULT TO SURGERY - GENERAL (EMERGENT) Summary: ACS Consult Note [address] [address] ACUTE CARE SURGERY CONSULT NOTE DATE & [...] This 32 y/o male pt presents to [facility] ED c/o severe abdominal pain. Pt reports [...] and discussed with the patient and/or appropriate customer counter representative. Electronically signed by: Phil Swanson DO 01/19/23 7:30 PM documented in this encounter [facility] 01-19-2023 Consult note Associated Order (s): IP CONSULT TO SURGERY - GENERAL (EMERGENT) Summary: ACS Consult Note [address] [address] ACUTE CARE SURGERY CONSULT NOTE DATE & [...] to ER for epigastric pain x2 days. [facility] sent him to ER for potential blockage. Alert, orientedx4 HISTORY OF PRESENT ILLNESS This 32 y/o male pt presents to [facility] ED c/o severe abdominal pain. Pt reports [...] and discussed with the patient and/or appropriate customer counter representative. Electronically signed by: Phil Swanson DO 01/19/23 7:30 PM documented in this encounter [facility] 01-19-2023 History and physi francisco javier note [facility] History & Physical Patient: Osman Blanc, 1990, [id number] Physician: Yuni Brennan MD Admit Date: 01/19/2023 [...] Bun/Creat/Cl/CO2/Glucose: 12/1.06/105/27/94 (01/19 1354) Na/K+/Phos/Mg/Ca: 137/3.9/--/--/9.0 (01/19 135)pH/PCO2/PO2/HCO3: 5.5/--/--/-- (01/19 1017) [...] / Rocael Mayorga Interpreting Provider: Rocael Mayorga [facility] 01-19-2023 History and physi fracnisco javier note Hospital Medicine History & Physical Patient: Osman Blanc, 1990, [id number] Physician: Yuni Brennan MD Admit Date: 01/19/2023 [...] and Imaging WBC/Hgb/Hct/Plts: 7.2/15.6/45.7/234 (01/19 1354) Bun/Creat/Cl/CO2/Glucose: 12/.06/105/27/94 (01/19 135) Na/K+/Phos/Mg/Ca: 137/3.9/--/--/9.0 (01/19 135)pH/PCO2/PO2/HCO3: 5.5/--/--/-- [...] Provider: Rocael Mayorga documented in this encounter [facility] 01-19-2023 History and physi francisco javier note [facility] History & Physical Patient: Osman Blanc, 1990, [id number] Physician: Yuni Brennan MD Admit Date: 01/19/2023 [...] deficits. Labs and Imaging WBC/Hgb/Hct/Plts: 7.2/15.6/45.7/234 (01/19 135) Bun/Creat/Cl/CO2/Glucose: 12/.06/105/27/94 (01/19 135) Na/K+/Phos/Mg/Ca: 137/3.9/--/--/9.0 (01/19 135)pH/PCO2/PO2/HCO3: 5.5/--/--/-- [...] Provider: Rocael Mayorga documented in this encounter [facility] 01-19-2023 Emergency departm ent Note Report given to 3A. [facility] 01-19-2023 Emergency departm ent [...] to ER for epigastric pain x2 days. [facility] sent him to ER for potential blockage. Alert, orientedx4 History of Present Illness: Osman Blanc is a 32 y.o. male who presents to emergency department at [facility] with nausea, vomiting, diarrhea, and concerns [...] Care Surgery is paged for consultation at [phone]. We have discussed all available results. Patient is satisfied with evaluation and agreeable to recommendations. The hospitalist is requested at [phone]. Any addenda will be made as appropriate. [...] Auto 1.8 0.6 - 4.6 K/uL Abs Nicholas Auto 0.6 0.0 - 1.3 K/uL Abs [...] documentation was completed with voice recognition and talent development consultant software. Attempts are made to proof read contemporaneously and at disposition, but some talent development consultant errors may persist. Jaskaran Sotelo MD 01/19/23 8724 Addendum: Care is discussed with Acute Care [...] patient in consultation. Jaskaran Sotelo MD 01/19/23 [address] encounter [facility] 01-19-2023 Emergency departm ent Note Report given [...] to ER for epigastric pain x2 days. [facility] sent him to ER for potential blockage. Alert, orientedx4 History of Present Illness: Osman Blanc is a 32 y.o. male who presents to emergency department at [facility] with nausea, vomiting, diarrhea, and concerns [...] Care Surgery is paged for consultation at [phone]. We have discussed all available results. Patient [...] Auto 1.8 0.6 - 4.6 K/uL Abs Nicholas Auto 0.6 0.0 - 1.3 K/uL Abs [...] documentation was completed with voice recognition and talent development consultant software. Attempts are made to proof read contemporaneously and at disposition, but some talent development consultant errors may persist. Jaskaran Sotelo MD 01/19/23 2935 Addendum: Care is discussed with Acute Care [...] patient in consultation. Jaskaran Sotelo MD 01/19/23 [address] encounter [facility] 01-19-2023 Emergency departm ent Note Attempted to call report to 3A [facility] 01-19-2023 Emergency departm ent Note Patient presents to the ED from for a possible bowel blockage. The patient reports diarrhea and vomiting for the past 2 days. Patient reports that he has been unable to eat or he vomits. [facility] 01-19-2023 Physician Emergen cy department Note TRIAGE CHIEF COMPLAINT: Chief Complaint Patient presents with Abdominal Pain Patient ambulatory to ER for epigastric pain x2 days. [facility] sent him to ER for potential blockage. Alert, orientedx4 History of Present Illness: Osman Blanc is a 32 y.o. male who presents to emergency department at [facility] with nausea, vomiting, diarrhea, and concerns [...] Care Surgery is paged for consultation at [phone]. We have discussed all available results. Patient is satisfied with evaluation and agreeable to recommendations. The hospitalist is requested at [phone]. Any addenda will be made as appropriate. [...] Auto 1.8 0.6 - 4.6 K/uL Abs Nicholas Auto 0.6 0.0 - 1.3 K/uL Abs [...] documentation was completed with voice recognition and talent development consultant software. Attempts are made to proof read contemporaneously and at disposition, but some talent development consultant errors may persist. Jaskaran Sotelo MD 01/19/23 6751 Addendum: Care is discussed with Acute Care [...] patient in consultation. Jaskaran Sotelo MD 01/19/[address] [facility] 01-19-2023 History of Presen t illness Narrative [...] URINE POCT MICROSCOPIC documented in this encounter [facility] Evaluation note Diagnosis Small bowel obstruction- Primary Unspecified intestinal obstruction Small bowel obstruction Unspecified intestinal obstruction Left sided abdominal pain Abdominal pain, unspecified site [facility] Diagnosis Small bowel obstruction- Primary Unspecified intestinal obstruction Small bowel obstruction Unspecified intestinal obstruction Left sided abdominal pain Abdominal pain, unspecified site [facility] Diagnosis Lower abdominal pain- Primary Abdominal pain, other specified site [facility] Diagnosis COVID-19 virus infection- Primary [facility] Diagnosis Attention deficit hyperactivity disorder (ADHD), unspecified ADHD type [facility] Attachments The following attachments cannot be sent through Care Everywhere. * amphetamine and dextroamphetamine (Thai) [facility] Family History No Family [...] Procedures DVT/VTE RISK ASSESSMENT Yuni Brennan MD [address] [place], [place] [id number] Referral ID Status Reason Start Date Expiration Date V isits Requested Visits Authorized [id number] New Request 01/19/2023 02/13/2024 1 1 Specialty Diagnoses / Procedures Referred By Contac t Referred To Contact Procedures LOW RISK - NO PHARMACOLOGICAL DVT PROPHYLAXIS Yuni Brennan MD [address] [place] [phone] Referral ID Status Reason Start Date Expiration Date V isits Requested Visits Authorized [id number] New Request 01/19/2023 02/13/2024 1 1 Specialty Diagnoses / Procedures Referred By Contac t Referred To Contact Procedures ECG Yuni Brennan MD [address] [place] [phone] Referral ID Status Reason Start Date Expiration Date V isits Requested Visits Authorized [id number] New Request 01/19/2023 02/13/2024 1 1 Additional Source Comments (unrecognized sect ion and content) No Status Records FoundNo Status Records FoundNo Status Records FoundNo Status Records Found INFORMATION SOURCE (unrecogn ized section and content) DATE CREATED AUTHOR 03/20/2022 [facility] DATE CREATED AUTHOR AUTHOR'S ORGANIZ ATION 04/22/2023 [facility] DATE CREATED AUTHOR AUTHOR'S ORGANIZ ATION 07/20/2023 [facility] DATE CREATED AUTHOR AUTHOR'S ORGANIZ ATION 10/02/2023 [facility] EPIC Care Teams (unrecognized sec tion and content) Musical Instrument Mechanic Relationship Specialty Start Date End Date DanielJulee morse [address] [place] [address] PCP - General Family Medicine 01/19/23 Musical Instrument Mechanic Relationship Specialty Start Date End Date DevanJulee [address] [place] [address] PCP - General Family Medicine 01/19/23 Musical Instrument Mechanic Relationship Specialty Start Date End Date Devan Julee, [address] [place] [address] PCP - General Family Medicine 01/19/23 Musical Instrument Mechanic Relationship Specialty Start Date End Date DanielJulee morse [address] [place] [address] PCP - General Family Medicine 01/19/23 Musical Instrument Mechanic Relationship Specialty Start Date End Date DanielJulee morse [address] [place] [address] PCP - General Family Medicine 01/19/23 Musical Instrument Mechanic Relationship Specialty Start Date End Date DevanJulee [address] [place] [address] PCP - General Family Medicine 01/19/23 Reason for Visit (unrecogniz ed section and content) Reason Comments Abdominal Pain Patient ambulatory t o ER for epigastric pain x2 days. [facility] for potential blockage. Alert, orientedx4 Reason Comments Abdominal Pain Patient ambulatory t o ER for epigastric pain x2 days. [facility] sent him to ER for potential blockage. Alert, orientedx4 Reason Comments Nausea Vomiting Diarrhea Abdominal Pain Specialty Diagnoses / Procedures Referred By Lars mcclellan Referred To Contact Yuni Brennan MD [address] [place] [address] [place] [address] [place] [address] Referral ID Status Reason Start Date Expiration Date Visits Re quested Visits Authorized [id number] 1 1 Reason Comments Other Headache, fever, [...] CONTINUOUS, Starting on 01/20/23 at 1730, Until Discontinued 1752 ($$New Bag$$ [...] Laisha Atkinson RN)0952 (Given - Provider: Cait Matthew, RN)1507 (Given - Provider: Cait Matthew, RN)203 (Given - Provider: Laisha Atkinson RN) 0143 [...] Laisha Atkinson RN)0952 (Given - Provider: Cait Matthew, RN)1507 (Given - Provider: Cait Matthew, RN)2032 [...] BE BASED ON THE PRIMARY CLINICAL RECORDS. [email or web address] [facility]. provides no warranty or guarantee of the accuracy or completeness of information in this document.
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
[2023-11-18 18:06] LABS: Basophils Absolute Auto 0.1 10^3/uL (0.0-0.1); Basophils Percent Auto 0.6 % (0.2-2.0); Eosinophils Absolute Auto 0.1 10^3/uL (0.0-0.7); Eosinophils Percent Auto 0.5 % (0.9-7.0); Hematocrit 43.2 % (42.0-54.0); Immature Granulocytes Abs Auto 0.04 10^3/uL (0.00-0.03); Immature Granulocytes Pct Auto 0.4 % (0.0-0.5); Lymphocytes Percent Auto 20.9 % (20.5-60.0); Mean Corpuscular HGB Conc 34.7 g/dL (29.9-35.2); Mean Corpuscular Hemoglobin 31.5 pg (25.9-34.0); Mean Corpuscular Volume 90.8 fL (80.0-94.0); Mean Platelet Volume 10.2 fL (9.5-13.5); Monocytes Absolute Auto 0.9 10^3/uL (0.3-0.8); Monocytes Percent Auto 9.4 % (1.7-12.0); Neutrophils Absolute Auto 6.4 10^3/uL (1.4-6.5); Neutrophils Percent Auto 68.2 % (43.0-75.0); Platelet Count 319 10^3/uL (150-450); Red Blood Count 4.76 10^6/uL (4.70-6.10); Red Cell Distribution Width 11.9 % (11.0-15.0); White Blood Count 9.4 10^3/uL (4.0-11.0)
[2023-11-18] MEDS: ONDANSETRON PF 4 MG/2 ML VIAL IV (18:06)
[2023-11-18] MEDS: ADACEL DIPH,PERTUSS(ACELL),TET VAC/PF 0.5 ML ADULT SYRINGE IM (18:06)
[2023-11-18] MEDS: HYDROMORPHONE HCL 0.5 MG/0.5 ML SYRINGE IV ×2 (18:06→19:22)
[2023-11-18] MEDS: BACITRACIN OINTMENT 28.4 GM TUBE 1 APPLIC TOPICAL (18:08)
[2023-11-18 18:16] LABS: Anion Gap 16.2; BUN Creatinine Ratio 16.5; Calcium 9.6 mg/dL (8.5-10.1); Carbon Dioxide 22.6 mmol/L (21.0-32.0); Chloride 105 mmol/L (98-107); Estimated GFR (African America >60 (>=60); Estimated GFR (Non-African Ame >60 (>=60); Glucose 110 mg/dL (74-106); Potassium 3.8 mmol/L (3.5-5.1); Sodium 140 mmol/L (136-145)
[2023-11-18] MEDS: CEFAZOLIN SODIUM/DEXTROSE,ISO 2 GM/50 ML PIGGYBACK IV (18:26)
[2023-11-18] MEDS: 0.9 % SODIUM CHLORIDE 1,000 ML 1000 ML IV (18:29)
== END 2023-11-18 20:40 | disposition short-term general hospital (02) ==
PROVIDERS: Physician Assistant; Emergency Provider Emergency Medicine; PCP Internal Medicine
DX: T22.212A Burn of second degree of left forearm, initial encounter (principal); T20.26XA Burn of second degree of forehead and cheek, initial encounter; T20.212A Burn of second degree of left ear [any part, except ear drum], initial encounter; X08.8XXA Exposure to other specified smoke, fire and flames, initial encounter; T27.3XXA Burn of respiratory tract, part unspecified, initial encounter; F17.210 Nicotine dependence, cigarettes, uncomplicated; Z23 Encounter for immunization
CPT/HCPCS: 36415; 80048; 85025; 90471; 90715; 96365; 96375; 96376; 99285; J1170

== ENCOUNTER 2023-11-20 19:28 | Emergency (ER) | payer OTHER, SELFPAY ==
[2023-11-20 19:32] VITALS: BP 110/87; PULSE 88; TEMP 36.6; O2SAT 99; BMI 24.4
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
[2023-11-20 19:39] VITALS: O2SAT 99
--- OUTSIDE RECORDS SUMMARY | 2023-11-20 19:41 | XMS_ITS | CCD ---
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 Tapentadol Screen Ql (U) Not detected [facility] Bznowjlmne-x-Fenp (cutoff 200 ng/mL) Not detected [facility] Temazepam Ql (U) Not detected [facility] traMADol Ql (U) Not detected [facility] Zolpidem Metabolite (cutoff 100 ng/mL) Not detected [facility] Zolpidem Ql (U) Not detected [facility] PAIN MGT DRUG PANEL W/ INTER Ari 04-16-2023 6-acetylmorphine (cutoff 20 ng/mL) Not detected [facility] [place] 7-Aminoclonazepam (cutoff 40 ng/mL) Not detected [facility] [place] Mhczz-KJ-Akgjicbwgo (cutoff 20 ng/mL) Not detected [facility] [place] Alfwu-JE-Vythvgyks (cutoff 20 ng/mL) Not detected [facility] [place] Alprazolam (cutoff 40 ng/mL) Not detected [facility] [place] Amphetamine (cutoff 50 ng/mL) Present [facility] [place] Barbiturates (cutoff 200 ng/mL) Not detected [facility] [place] Benzoylecgonine Ql (U) Not detected [facility] [place] Buprenorphine (cutoff 5 ng/mL) Not detected [facility] [place] Carisoprodol (cut-off 100 ng/mL) Not detected [facility] [place] Comment on above: Result Comment: The carisoprodol immunoassay has cross-reactivity to carisoprodol and meprobamate. Clonazepam (cutoff 20 ng/mL) Not detected [facility] [place] Codeine (cutoff 40 ng/mL) Not detected [facility] [place] Creatinine, Urine 348.2 mg/dL Normal 20.0-400.0 [facility] [place] Diazepam (cutoff 50 ng/mL) Not detected [facility] [place] DRUGS EXPECTED See Interp [facility] [place] EER Tgt drug prof, MS/EMIT, UR See Note [facility] [place] Comment on above: Result Comment: Auth orized individuals can access the [employer]att Enhanced Report using the following link: [email or web address] Performed By: [facility] [address] [place] [address] Line Assigner: Koko South MD, PhD CLIA Number: [id number] Ethyl Glucuronide (cutoff 500 ng/mL) Not detected [facility] [place] Fentanyl (cutoff 2 ng/mL) Not detected [facility] [place] Gabapentin (cutoff 3,000 ng/mL) Not detected [facility] [place] Hydrocodone (cutoff 40 ng/mL) Not detected [facility] [place] Hydromorphone (cutoff 20 ng/mL) Not detected [facility] [place] Lorazepam (cutoff 60 ng/mL) Not detected [facility] [place] Marijuana Metabolite (cutoff 20 ng/mL) Present [facility] [place] Comment on above: Result Comment: INTE RPRETIVE INFORMATION: Marijuana Metabolite The cutoff for Marijuana Metabolite (immunoassay) was changed from 20 ng/mL to 50 ng/mL, effective December 18, 2022. MDA (cutoff 200 ng/mL) Not detected [facility] [place] MDEA- Jewels (cutoff 200 ng/mL) Not detected [facility] [place] MDMA- Ecstasy (cutoff 200 ng/mL) Not detected [facility] [place] Meperidine metabolite (cutoff 50 ng/mL) Not detected [facility] [place] Methadone Ql (U) Not detected [facility] [place] Methamphetamine (cutoff 200 ng/mL) Not detected [facility] [place] Methylphenidate (cutoff 100 ng/mL) Not detected [facility] [place] Midazolam (cutoff 20 ng/mL) Not detected [facility] [place] Morphine (cutoff 20 ng/mL) Not detected [facility] [place] Naloxone (cutoff 100 ng/mL) Not detected [facility] [place] Norbuprenorphine (cutoff 20 ng/mL) Not detected [facility] [place] Nordiazepam (cutoff 50 ng/mL) Not detected [facility] [place] Norfentanyl (cutoff 2 ng/mL) Not detected [facility] [place] Norhydrocodone (cutoff 100 ng/mL) Not detected [facility] [place] Noroxycodone (cutoff 100 ng/mL) Not detected [facility] [place] Noroxymorphone (cutoff 100 ng/mL) Not detected [facility] [place] Oxazepam (cutoff 50 ng/mL) Not detected [facility] [place] Oxycodone (cutoff 40 ng/mL) Not detected [facility] [place] Oxymorphone (cutoff 40 ng/mL) Not detected [facility] [place] PCP (cutoff 25 ng/mL) Not detected [facility] [place] Phentermine (cutoff 100 ng/mL) Not detected [facility] [place] Pregabalin (cutoff 3,000 ng/mL) Not detected [facility] [place] Tapentadol (cutoff 100 ng/mL) Not detected [facility] [place] Hoqtpntqea-d-Awgg (cutoff 200 ng/mL) Not detected [facility] Targeted Drug Profile Interp See Note [facility] Comment on above: Result Comment: ____ DRUGS EXPECTED: ADDERALL (AMPHETAMINE) ____ CONSISTENT with medications provided: ADDERALL (AMPHETAMINE): based on amphetamine ____ INCONSISTENT with medications provided: THC: based on immunoassay detection ____ INTERPRETIVE INFORMATION: Targeted drug profile Interp Interpretation depends on accuracy and completeness of patient medication information submitted by client. Targeted drug profile panel See Below [facility] Comment on above: Result Comment: Meth [...] developed and its performance characteristics determined by [facility] [employer] It has not been cleared or approved by the US Food and Drug Administration. This test was performed in a CLIA certified laboratory and is intended for clinical purposes. Temazepam (cutoff 50 ng/mL) Not detected [facility] [place] Tramadol (cutoff 100 ng/mL) Not detected [facility] [place] Zolpidem (cutoff 20 ng/mL) Not detected [facility] [place] Zolpidem Metabolite (cutoff 100 ng/mL) Not detected Normal 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: : 1990 Requested By: CORONA Guallpa Order Number: [id number] Reading MD: Jhony Roberts Measurements Intervals Cedar Rate: 90 P: 61 NV: 175 QRS: 61 QRSD: 116 T: 58 QT: 350 QTc: 429 Interpretive Statements Sinus rhythm Incomplete right bundle branch block Electronically Signed On 04-10-2023 11:56:33 EDT by Jhony Roberts [facility] [place] CBC AND ELECTRONIC DIFFon Basophils (Bld) [#/Vol] 0.1 10*3/uL Normal 0.0-0.2 [facility] Basophils/100 WBC (Bld) 0.7 % Normal [facility] [place] Eosinophils (Bld) [#/Vol] 0.1 10*3/uL Normal 0.0-0.6 [facility] Eosinophils/100 WBC (Bld) 0.9 % Normal [facility] [place] Hematocrit (Bld) [Volume fraction] 43.5 % Normal 37.5-50.1 [facility] Hemoglobin (Bld) [Mass/Vol] 14.7 g/dL Normal 12.9-16.9 [facility] Immature Grans % 0.5 % Normal [facility] Lymphocytes (Bld) [#/Vol] 0.4 10*3/uL Low 0.6-4.6 [facility] Lymphocytes/100 WBC (Bld) 4.2 % Normal [facility] MCV (RBC) [Entitic vol] 88.4 fL Normal 83.0-100.0 [facility] Mean Cell Hgb 29.9 pg Normal 28.0-33.0 [facility] Mean Cell Hgb Conc 33.8 g/dL Normal 31.6-35.5 [facility] [place] Monocytes (Bld) [#/Vol] 1.0 10*3/uL Normal 0.0-1.3 [facility] Monocytes/100 WBC (Bld) 11.1 % Normal [facility] Nucleated RBC 0 /100 WBC Normal [facility] Platelet mean volume (Bld) [Entitic vol] 10.6 fL Normal 9.4-12.4 [facility] Platelets (Bld) [#/Vol] 224 10*3/uL Normal 140-400 [facility] RBC (Bld) [#/Vol] 4.92 10*6/uL Normal 4.19-5.50 [facility] [place] RBC Distribution 11.9 % Normal 11.5-14.5 [facility] Segs + Bands Auto 82.6 % Normal [facility] Segs + Bands,Absolute Auto 7.6 K/uL Normal 1.6-8.9 [facility] WBC (Bld) [#/Vol] 9.1 10*3/uL Normal 4.3-11.1 [facility] COMPREHENSIVE METABOLIC PANE Philip 04-05-2023 Albumin [Mass/Vol] 4.7 g/dL Normal 3.5-5.7 [facility] Albumin/Globulin [Mass ratio] 1.7 {ratio} Normal 1.1-2.2 [facility] ALP [Catalytic activity/Vol] 81 U/L Normal 34-104 [facility] ALT [Catalytic activity/Vol] 26 U/L Normal 7-52 [facility] AST [Catalytic activity/Vol] 20 U/L Normal 13-39 [facility] Bilirubin [Mass/Vol] 0.6 mg/dL Normal 0.3-1.0 [facility] Calcium [Mass/Vol] 9.4 mg/dL Normal 8.6-10.3 [facility] Chloride [Moles/Vol] 105 mmol/L Normal 98-107 [facility] CO2 [Moles/Vol] 22 mmol/L Low 23-29 [facility] Creatinine [Mass/Vol] 1.10 mg/dL Normal 0.70-1.30 [facility] GFR/1.73 sq M.predicted among non-blacks MDRD (S/P/Bld) [Vol rate/Area] 90 mL/min/{1.73_m2} Normal >=60 [facility] Comment on above: Result Comment: [facility] eGFR is based on the CKD-EPI 2020 equation using creatinine, age, and sex. Globulin (S) [Mass/Vol] 2.7 g/dL Normal 2.4-3.5 [facility] Glucose [Mass/Vol] 104 mg/dL Normal 70-105 [facility] Osmolality [Osmolality] 280 mosm/kg Normal 280-300 [facility] Potassium [Moles/Vol] 3.9 mmol/L Normal 3.5-5.1 [facility] Protein [Mass/Vol] 7.4 g/dL Normal 6.4-8.9 [facility] Sodium [Moles/Vol] 135 mmol/L Low 136-145 [facility] Urea nitrogen [Mass/Vol] 13 mg/dL Normal 6-20 [facility] Urea nitrogen/Creatinine [Mass ratio] 12 mg/mg Normal 6-26 [facility] LIPASEon 04-05-2023 Lipase [Catalytic activity/Vol] 3 U/L Low 11-82 [facility] TROPONINon 04-05-2023 Troponin I.cardiac [Mass/Vol] ng/mL Normal <0.04 [facility] XR CHEST PORTABLEon 04-05-20 XR CHEST PORTABLE [...] MD Interpreting Provider: Deborah Camargo MD Normal [facility] GLUCOSE POCon 01-21-2023 Glucose [Mass/Vol] 98 mg/dL Normal 70-99 [facility] Glucose [Mass/Vol] 98 mg/dL Normal 70-99 [facility] Laboratory - Chemistry and C hemistry - challengeon 01-21-2023 Glucose [Mass/Vol] 98 mg/dL 70 - 99 mg/dL [facility] Glucose [Mass/Vol] 98 mg/dL 70 - 99 mg/dL [facility] No Panel Informationon 01-21 Interpretation and review of laboratory results Normal [facility] Interpretation and review of laboratory results Normal [facility] RF Small bowel Views W contr ast [...] FINDINGS: Enteric tube extends into the stomach. Soap Maker image of the abdomen demonstrates a nonspecific, [...] FINDINGS: Enteric tube extends into the stomach. Soap Maker image of the abdomen demonstrates a nonspecific, nonobstructed bowel gas pattern. Distended small bowel loops are seen in the left mid abdomen. Contrast passes readily from the stomach to the colon. IMPRESSION IMPRESSION: Persistently mildly distended small bowel loops within the left mid abdomen in findings related to minimal partial small bowel obstruction. D/ / Rocael Mayorga Interpreting Provider: Rocael Mayorga [facility] XR FLUORO SMALL BOWEL FOLLOW THROUGHon 01-21-2023 [...] FINDINGS: Enteric tube extends into the stomach. Soap Maker image of the abdomen demonstrates a nonspecific, nonobstructed bowel gas pattern. Distended small bowel loops are seen in the left mid abdomen. Contrast passes readily from the stomach to the colon. IMPRESSION: Persistently mildly distended small bowel loops within the left mid abdomen in findings related to minimal partial small bowel obstruction. D/ / Rocael Mayorga Interpreting Provider: Rocael Mayorga Normal [facility] BASIC METABOLIC PANELon 01-04 Calcium [Mass/Vol] 8.6 mg/dL Normal 8.6-10.3 [facility] Chloride [Moles/Vol] 111 mmol/L High 98-107 [facility] CO2 [Moles/Vol] 24 mmol/L Normal 23-29 [facility] Creatinine [Mass/Vol] 0.91 mg/dL Normal 0.70-1.30 [facility] eGFR, CKD-EPI, Male > Normal >=60 [facility] Comment on above: Result Comment: Repo rted eGFR is based on the CKD-EPI 2020 equation using creatinine, age, and sex. Glucose [Mass/Vol] 88 mg/dL Normal 70-105 [facility] Osmolality [Osmolality] 291 mosm/kg Normal 280-300 [facility] Potassium [Moles/Vol] 4.0 mmol/L Normal 3.5-5.1 [facility] Sodium [Moles/Vol] 141 mmol/L Normal 136-145 [facility] Urea nitrogen [Mass/Vol] 11 mg/dL Normal 6-20 [facility] Urea nitrogen/Creatinine [Mass ratio] 12 mg/mg Normal 6- [facility] CBC,PLATELETSon 01-20-2023 Hematocrit (Bld) [Volume fraction] 43.0 % Normal 37.5-50.1 [facility] Hemoglobin (Bld) [Mass/Vol] 14.7 g/dL Normal 12.9-16.9 [facility] MCV (RBC) [Entitic vol] 90.9 fL Normal 83.0-100.0 [facility] [place] Mean Cell Hgb 31.1 pg Normal 28.0-33.0 [facility] Mean Cell Hgb Conc 34.2 g/dL Normal 31.6-35.5 [facility] [place] Platelet mean volume (Bld) [Entitic vol] 10.5 fL Normal 9.4-12.4 [facility] Platelets (Bld) [#/Vol] 232 10*3/uL Normal 140-400 [facility] RBC (Bld) [#/Vol] 4.73 10*6/uL Normal 4.19-5.50 [facility] [place] RBC Distribution 12.0 % Normal 11.5-14.5 [facility] WBC (Bld) [#/Vol] 8.3 10*3/uL Normal 4.3-11.1 [facility] [place] GLUCOSE POCon 01-20-2023 Glucose [Mass/Vol] 68 mg/dL Low 70-99 [facility] Comment on above: Result Comment: SHANTA [place] otified Glucose [Mass/Vol] 74 mg/dL Normal 70-99 [facility] Glucose [Mass/Vol] 103 mg/dL High 70-99 [facility] [place] Comment on above: Result Comment: SHANTA [place] [facility] Glucose [Mass/Vol] 91 mg/dL Normal 70-99 [facility] Comment on above: Result Comment: SHANTA [place] ot[place] HEPATIC FUNCTION PANELon Albumin [Mass/Vol] 3.7 g/dL Normal 3.5-5.7 [facility] Albumin/Globulin [Mass ratio] 1.5 {ratio} Normal 1.1-2.2 [facility] ALP [Catalytic activity/Vol] 61 U/L Normal 34-104 [facility] ALT [Catalytic activity/Vol] 10 U/L Normal 7-52 [facility] AST [Catalytic activity/Vol] 11 U/L Low 13-39 [facility] Bilirubin [Mass/Vol] 0.7 mg/dL Normal 0.3-1.0 [facility] [place] Bilirubin, Indirect 0.6 mg/dL Normal 0.0-1.0 [facility] [place] Bilirubin.indirect [Mass/Vol] 0.1 mg/dL Normal <=0.2 [facility] Globulin (S) [Mass/Vol] 2.4 g/dL Normal 2.4-3.5 [facility] Protein [Mass/Vol] 6.1 g/dL Low 6.4-8.9 [facility] [place] Laboratory - Chemistry and C hemistry - challengeon 01-20-2023 Glucose [Mass/Vol] 68 mg/dL Low 70 - 99 mg/dL [facility] Comment on above: RN Notified Glucose [Mass/Vol] 74 mg/dL 70 - 99 mg/dL [facility] Glucose [Mass/Vol] 103 mg/dL High 70 - 99 mg/dL [facility] Comment on above: RN Notified Calcium [Mass/Vol] 8.6 mg/dL 8.6 - 10. 3 mg/dL [facility] Chloride [Moles/Vol] 111 mmol/L High 98 - 10 7 mmol/L [facility] CO2 [Moles/Vol] 24 mmol/L 23 - 29 mmol/L [facility] Creatinine [Mass/Vol] 0.91 mg/dL 0.70 - 1.30 mg/dL [facility] GFR/1.73 sq M.predicted CKD-EPI (S/P/Bld) [Vol rate/Area] - PINF [facility] Comment on above: Reported eGFR is bas ed on the CKD-EPI 2020 equation using creatinine, age, and sex. Glucose [Mass/Vol] 88 mg/dL 70 - 105 mg/dL [facility] Osmolality Calc [Osmolality] 291 280 - 300 [facility] Potassium [Moles/Vol] 4.0 mmol/L 3.5 - 5.1 mmol/L [facility] Sodium [Moles/Vol] 141 mmol/L 136 - 145 mmol/L [facility] Urea nitrogen [Mass/Vol] 11 mg/dL 6 - 20 mg/d L [facility] Urea nitrogen/Creatinine [Mass ratio] 12 mg/mg 6 - 26 [facility] Albumin [Mass/Vol] 3.7 g/dL 3.5 - 5.7 g/dL [facility] Albumin/Globulin [Mass ratio] 1.5 {ratio} 1.1 - 2.2 [facility] ALP [Catalytic activity/Vol] 61 U/L 34 - 104 U/L [facility] ALT [Catalytic activity/Vol] 10 U/L 7 - 52 U/L [facility] AST [Catalytic activity/Vol] 11 U/L Low 13 - 39 U/L [facility] Bilirubin [Mass/Vol] 0.7 mg/dL 0.3 - 1 .0 mg/dL [facility] Bilirubin.direct [Mass/Vol] 0.1 mg/dL NINF - 0.2 mg/dL [facility] Globulin (S) [Mass/Vol] 2.4 g/dL 2.4 - 3.5 g/dL [facility] Magnesium [Mass/Vol] 1.9 mg/dL 1.6 - 2 .6 mg/dL [facility] Protein [Mass/Vol] 6.1 g/dL Low 6.4 - 8.9 g/dL [facility] Glucose [Mass/Vol] 91 mg/dL 70 - 99 mg/dL [facility] Comment on above: RN Notified Laboratory - Hematology and Cell countson 01-20-2023 Erythrocyte distribution width (RBC) [Ratio] 12.0 % 11.5 - 14.5 % [facility] Hematocrit (Bld) [Volume fraction] 43.0 % 37.5 - 50.1 % [facility] Hemoglobin (Bld) [Mass/Vol] 14.7 g/dL 12.9 - 16.9 g/dL [facility] MCH (RBC) [Entitic mass] 31.1 pg 28. 0 - 33.0 pg [facility] MCHC (RBC) [Mass/Vol] 34.2 g/dL 31.6 - 35.5 g/dL [facility] MCV (RBC) [Entitic vol] 90.9 fL 83.0 - 100.0 fL [facility] Platelet mean volume (Bld) [Entitic vol] 10.5 fL 9.4 - 12.4 fL [facility] Platelets (Bld) [#/Vol] 232 10*3/uL 140 - 400 K/uL [facility] RBC (Bld) [#/Vol] 4.73 10*6/uL [facility] WBC (Bld) [#/Vol] 8.3 10*3/uL 4.3 - 11.1 K/uL [facility] MAGNESIUMon 01-20-2023 Magnesium [Mass/Vol] 1.9 mg/dL Normal 1.6-2.6 [facility] No Panel Informationon 01-20 Interpretation and review of laboratory results Abnormal [facility] Interpretation and review of laboratory results Normal [facility] Interpretation and review of laboratory results Abnormal [facility] Interpretation and review of laboratory results Abnormal [facility] Bilirubin, Indirect 0.6 mg/dL 0.0 - 1. 0 mg/dL [facility] Interpretation and review of laboratory results Normal [facility] Interpretation and review of laboratory results Abnormal [facility] Interpretation and review of laboratory results Normal [facility] Interpretation and review of laboratory results Normal [facility] RF Small bowel Views W contr ast Raisa 01-20-2023 Radiology Study observation (narrative) [facility] BASIC METABOLIC PANELon 01-04 Calcium [Mass/Vol] 9.0 mg/dL Normal 8.6-10.3 [facility] Chloride [Moles/Vol] 105 mmol/L Normal 98-107 [facility] CO2 [Moles/Vol] 27 mmol/L Normal 23-29 [facility] Creatinine [Mass/Vol] 1.06 mg/dL Normal 0.70-1.30 [facility] eGFR, CKD-EPI, Male > Normal >=60 [facility] Comment on above: Result Comment: Repo rted eGFR is based on the CKD-EPI 2020 equation using creatinine, age, and sex. Glucose [Mass/Vol] 94 mg/dL Normal 70-105 [facility] Osmolality [Osmolality] 284 mosm/kg Normal 280-300 [facility] Potassium [Moles/Vol] 3.9 mmol/L Normal 3.5-5.1 [facility] Sodium [Moles/Vol] 137 mmol/L Normal 136-145 [facility] Urea nitrogen [Mass/Vol] 12 mg/dL Normal 6-[address] [facility] [place] Urea nitrogen/Creatinine [Mass ratio] 11 mg/mg Normal 6-[address] [facility] [place] CBC AND ELECTRONIC DIFFon Basophils (Bld) [#/Vol] 0.0 10*3/uL Normal 0.0-0.[address] [facility] [place] Basophils/100 WBC (Bld) 0.6 % Normal [facility] [place] Eosinophils (Bld) [#/Vol] 0.1 10*3/uL Normal 0.0-0.[address] [facility] [place] Eosinophils/100 WBC (Bld) 0.8 % Normal [facility] [place] Hematocrit (Bld) [Volume fraction] 45.7 % Normal 37.5-50.1 [facility] Hemoglobin (Bld) [Mass/Vol] 15.6 g/dL Normal 12.9-16.9 [facility] Immature Grans % 0.3 % Normal [facility] [place] Lymphocytes (Bld) [#/Vol] 1.8 10*3/uL Normal 0.6-4.6 [facility] Lymphocytes/100 WBC (Bld) 24.4 % Normal [facility] [place] MCV (RBC) [Entitic vol] 91.4 fL Normal 83.0-100.0 [facility] [place] Mean Cell Hgb 31.2 pg Normal 28.0-33.0 [facility] Mean Cell Hgb Conc 34.1 g/dL Normal 31.6-35.5 [facility] [place] Monocytes (Bld) [#/Vol] 0.6 10*3/uL Normal 0.0-1.3 [facility] Monocytes/100 WBC (Bld) 8.0 % Normal [facility] Nucleated RBC 0 /100 WBC Normal [facility] [place] Platelet mean volume (Bld) [Entitic vol] 10.4 fL Normal 9.4-12.4 [facility] Platelets (Bld) [#/Vol] 234 10*3/uL Normal 140-400 [facility] RBC (Bld) [#/Vol] 5.00 10*6/uL Normal 4.19-5.50 [facility] RBC Distribution 12.0 % Normal 11.5-14.5 [facility] Segs + Bands Auto 65.9 % Normal [facility] Segs + Bands,Absolute Auto 4.8 K/uL Normal 1.6-8.9 [facility] WBC (Bld) [#/Vol] 7.2 10*3/uL Normal 4.3-11.[address] [facility] [address] ABDOMEN/PELVIS WITH CONTR Estefany 01-19-2023 CT [...] / Rocael Mayorga Interpreting Provider: Rocael Mayorga [facility] CT Abdomen and Pelvis W cont rast [...] / Rocael Mayorga Interpreting Provider: Rocael Mayorga [facility] Radiology Study observation (narrative) [facility] CT Abdomen and Pelvis W cont rast IVOrdered By: Osman Gonsalez on 01-19-2023 [facility] Work Phone: HEPATIC FUNCTION PANELon Albumin [Mass/Vol] 4.3 g/dL Normal 3.5-5.7 [facility] Albumin/Globulin [Mass ratio] 1.8 {ratio} Normal 1.1-2.2 [facility] ALP [Catalytic activity/Vol] 69 U/L Normal 34-104 [facility] ALT [Catalytic activity/Vol] 12 U/L Normal 7-52 [facility] AST [Catalytic activity/Vol] 13 U/L Normal 13-39 [facility] Bilirubin [Mass/Vol] 0.5 mg/dL Normal 0.3-1.0 [facility] Bilirubin, Indirect 0.4 mg/dL Normal 0.0-1.0 [facility] [place] Bilirubin.indirect [Mass/Vol] 0.1 mg/dL Normal <=0.2 [facility] Globulin (S) [Mass/Vol] 2.4 g/dL Normal 2.4-3.5 [facility] Protein [Mass/Vol] 6.7 g/dL Normal 6.4-8.9 [facility] LIPASEon 01-19-2023 Lipase [Catalytic activity/Vol] 5 U/L Low 11-82 [facility] Laboratory - Chemistry and C hemistry - challengeon 01-19-2023 Albumin [Mass/Vol] 4.3 g/dL 3.5 - 5.7 g/dL [facility] Albumin/Globulin [Mass ratio] 1.8 {ratio} 1.1 - 2.2 [facility] ALP [Catalytic activity/Vol] 69 U/L 34 - 104 U/L [facility] ALT [Catalytic activity/Vol] 12 U/L 7 - 52 U/L [facility] AST [Catalytic activity/Vol] 13 U/L 13 - 39 U/L [facility] Bilirubin [Mass/Vol] 0.5 mg/dL 0.3 - 1 .0 mg/dL [facility] Bilirubin.direct [Mass/Vol] 0.1 mg/dL NINF - 0.2 mg/dL [facility] Calcium [Mass/Vol] 9.0 mg/dL 8.6 - 10. 3 mg/dL [facility] Chloride [Moles/Vol] 105 mmol/L 98 - 10 7 mmol/L [facility] CO2 [Moles/Vol] 27 mmol/L 23 - 29 mmol/L [facility] Creatinine [Mass/Vol] 1.06 mg/dL 0.70 - 1.30 mg/dL [facility] GFR/1.73 sq M.predicted CKD-EPI (S/P/Bld) [Vol rate/Area] - PINF [facility] Comment on above: Reported eGFR is bas ed on the CKD-EPI 2020 equation using creatinine, age, and sex. Globulin (S) [Mass/Vol] 2.4 g/dL 2.4 - 3.5 g/dL [facility] Glucose [Mass/Vol] 94 mg/dL 70 - 105 mg/dL [facility] Lipase [Catalytic activity/Vol] 5 U/L Low 11 - 82 U/L [facility] Osmolality Calc [Osmolality] 284 280 - 300 [facility] Potassium [Moles/Vol] 3.9 mmol/L 3.5 - 5.1 mmol/L [facility] Protein [Mass/Vol] 6.7 g/dL 6.4 - 8.9 g/dL [facility] Sodium [Moles/Vol] 137 mmol/L 136 - 145 mmol/L [facility] Urea nitrogen [Mass/Vol] 12 mg/dL 6 - 20 mg/d L [facility] Urea nitrogen/Creatinine [Mass ratio] 11 mg/mg 6 - 26 [facility] Laboratory - Hematology and Cell countson 01-19-2023 Basophils (Bld) [#/Vol] 0.0 10*3/uL 0.0 - 0.2 K/uL [facility] Basophils/100 WBC (Bld) 0.6 % [facility] Eosinophils (Bld) [#/Vol] 0.1 10*3/uL 0. 0 - 0.6 K/uL [facility] Eosinophils/100 WBC (Bld) 0.8 % [facility] Erythrocyte distribution width (RBC) [Ratio] 12.0 % 11.5 - 14.5 % [facility] Hematocrit (Bld) [Volume fraction] 45.7 % 37.5 - 50.1 % [facility] Hemoglobin (Bld) [Mass/Vol] 15.6 g/dL 12.9 - 16.9 g/dL [facility] Immature granulocytes/100 WBC (Bld) 0.3 % [facility] Lymphocytes (Bld) [#/Vol] 1.8 10*3/uL 0. 6 - 4.6 K/uL [facility] Lymphocytes/100 WBC (Bld) 24.4 % [facility] MCH (RBC) [Entitic mass] 31.2 pg 28. 0 - 33.0 pg [facility] MCHC (RBC) [Mass/Vol] 34.1 g/dL 31.6 - 35.5 g/dL [facility] MCV (RBC) [Entitic vol] 91.4 fL 83.0 - 100.0 fL [facility] Monocytes (Bld) [#/Vol] 0.6 10*3/uL 0.0 - 1.3 K/uL [facility] Monocytes/100 WBC (Bld) 8.0 % [facility] Neutrophils (Bld) [#/Vol] 4.8 10*3/uL 1. 6 - 8.9 K/uL [facility] Nucleated RBC/100 WBC (Bld) [Ratio] 0 % /100 WBC [facility] Platelet mean volume (Bld) [Entitic vol] 10.4 fL 9.4 - 12.4 fL [facility] Platelets (Bld) [#/Vol] 234 10*3/uL 140 - 400 K/uL [facility] RBC (Bld) [#/Vol] 5.00 10*6/uL [facility] Segmented neutrophils/100 WBC (Bld) 65.9 % [facility] WBC (Bld) [#/Vol] 7.2 10*3/uL 4.3 - 11.1 K/uL [facility] No Panel Informationon 01-19 Bilirubin, Indirect 0.4 mg/dL 0.0 - 1. 0 mg/dL [facility] Interpretation and review of laboratory results Normal [facility] Interpretation and review of laboratory results Abnormal [facility] POCT URINE DIPSTICK AUTOMATE Don 01-19-2023 Amorphous sediment LM Ql (Urine sed) [facility] Appearance (U) clear [facility] Bacteria LM Ql (Urine sed) [facility] Bilirubin Ql (U) small [facility] Casts LM.LPF (Urine sed) [#/Area] [facility] Color (U) drk yellow [facility] Crystals LM Nom (Urine sed) [facility] Epithelial cells.squamous LM.HPF (Urine sed) [#/Area] [facility] Flow cytometry specialist review Saad (Unsp spec) [Interp] [facility] Glucose Auto test strip (U) [Mass/Vol] Negative mg/dL [facility] Ketones [Mass/Vol] trace mg/dL [facility] Leukocyte esterase Qn (U) [facility] Leukocyte esterase Test strip Ql (U) Negative [facility] Microscopic observation Gram stain Nom (Bronch spec) [facility] Nitrite Ql (U) Negative [facility] pH (U) 5.5 [pH] 5 - 7 [facility] Protein Ql (U) 30 mg/dL [facility] RBC LM.HPF (Urine sed) [#/Area] [facility] RBC Ql (U) Negative [facility] Specific gravity (U) [Rel density] 1.001 - 1.035 [facility] Transitional cells LM Ql (Urine sed) [facility] Urobilinogen Qn (U) 0.2 [facility] WBC LM.HPF (Urine sed) [#/Area] [facility] XR ABDOMEN 2 VIEWSon 023 XR ABDOMEN [...] / Jaskaran Le Interpreting Provider: Jaskaran Le [facility] [place] XR Abdomen 2 Viewson 023 IMPRESSION: Ileus [...] / Jaskaran Le Interpreting Provider: Jaskaran Le [facility] Radiology Study observation (narrative) [facility] XR Abdomen 2 ViewsOrdered By : Jaskaran Le on 01-19-2023 [facility] [employer] Work Phone: HIV-1 2 Antibody p24 Agon HIV-1 2 Antibody p24 Ag Non-Reactive Normal Nonreactiv e [facility] Comment on above: Result Comment: This assay detects human immunodeficiency virus (HIV) p24 antigen and antibodies to HIV type 1 (HIV-1 group O) and/or type 2 (HIV-2). Reactive results will have follow up confirmatory testing. Performed By: #### H IV, HPA, TPAL #### [facility] Laboratory [address] [place] [address] [phone] Hepatitis Prof.(Routine A,B, C)on 01-04-2022 Hepatitis A Antibody IgM Non-Reactive Normal Nonreacti ve [facility] Comment on above: Result Comment: Biot in greater than 500 ng/mL may lead to falsely depressed

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
[2023-11-20] MEDS: OXYCODONE HCL/ACETAMINOPHEN 5MG/325MG 1 TAB PO (19:46)
== END 2023-11-20 19:48 | disposition home or self-care (01) ==
PROVIDERS: Emergency Provider Internal Medicine; PCP Internal Medicine
DX: T20.20XA Burn of second degree of head, face, and neck, unspecified site, initial encounter (principal); X08.8XXA Exposure to other specified smoke, fire and flames, initial encounter; F17.210 Nicotine dependence, cigarettes, uncomplicated
CPT/HCPCS: 99283

== ENCOUNTER 2024-01-08 13:54 | Outpatient (OUT) | payer OTHER, SELFPAY ==
--- NOTE | 2024-01-08 13:59 | XR_ITS ---
[facility] [place] [id number] Patient Name: YAO BLANC MRN: [id number] date: 1990 Sex: M Assigned Patient Location: [facility] Current Patient Location: Accession/Order Number: [id number] Exam Date: 01/08/2024 14:10 Report Date: 01/09/2024 14:13 At the request of: SHAIKH PAULY Procedure: XR ribs LT min 3V w CXR1V EXAMINATION: XR ribs LT min 3V w CXR1V HISTORY: Chest Wall Pain R07.89 ; left lateral rib pain; possible injury 5 days ago COMPARISON: No relevant comparison available. FINDINGS: LUNGS: No significant pulmonary parenchymal abnormalities. PLEURA: No pneumothorax, effusion, or pleural thickening. MEDIASTINUM: No visible mass or adenopathy. CARDIAC: No cardiomegaly or cardiac silhouette abnormality. RIBS: Nondisplaced fracture of anterior left ninth rib. Old healed fracture of right 5th rib. Suspect old healed fracture of left clavicle. OTHER: Negative. XR/XR ribs LT min 3V w CXR1V IMPRESSION: 1. Acute, nondisplaced fracture of the anterior left ninth rib. 2. No pneumothorax or appreciable pleural effusion. Electronically authenticated by: HARRY COREY Date: 01/09/2024 14:13
== END 2024-01-08 13:55 | disposition home or self-care (01) ==
LOC: RAD 13:55
PROVIDERS: PCP Internal Medicine; Visit Provider Internal Medicine
DX: R07.89 Other chest pain (principal); S22.32XA Fracture of one rib, left side, initial encounter for closed fracture
CPT/HCPCS: 71101

== ENCOUNTER 2024-01-28 14:33 | Outpatient (OUT) | payer OTHER, SELFPAY ==
--- OUTSIDE RECORDS SUMMARY | 2024-01-28 14:51 | XMS_ITS | CCD ---
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 [Mass/Vol] 0.7 mg/dL 0.3 - 1 .0 mg/dL [facility] Bilirubin.direct [Mass/Vol] 0.1 mg/dL NINF - 0.2 mg/dL [facility] Globulin (S) [Mass/Vol] 2.4 g/dL 2.4 - 3.5 g/dL [facility] Magnesium [Mass/Vol] 1.9 mg/dL 1.6 - 2 .6 mg/dL [facility] Protein [Mass/Vol] 6.1 g/dL Low 6.4 - 8.9 g/dL [facility] Glucose [Mass/Vol] 91 mg/dL 70 - 99 mg/dL [facility] Comment on above: RN Notified Laboratory - Hematology and Cell countson 01-20-2023 Erythrocyte distribution width (RBC) [Ratio] 12.0 % 11.5 - 14.5 % [facility] Hematocrit (Bld) [Volume fraction] 43.0 % 37.5 - 50.1 % [facility] Hemoglobin (Bld) [Mass/Vol] 14.7 g/dL 12.9 - 16.9 g/dL [facility] MCH (RBC) [Entitic mass] 31.1 pg 28. 0 - 33.0 pg [facility] MCHC (RBC) [Mass/Vol] 34.2 g/dL 31.6 - 35.5 g/dL [facility] MCV (RBC) [Entitic vol] 90.9 fL 83.0 - 100.0 fL [facility] Platelet mean volume (Bld) [Entitic vol] 10.5 fL 9.4 - 12.4 fL [facility] Platelets (Bld) [#/Vol] 232 10*3/uL 140 - 400 K/uL [facility] RBC (Bld) [#/Vol] 4.73 10*6/uL [facility] WBC (Bld) [#/Vol] 8.3 10*3/uL 4.3 - 11.1 K/uL [facility] MAGNESIUMon 01-20-2023 Magnesium [Mass/Vol] 1.9 mg/dL Normal 1.6-2.6 [facility] No Panel Informationon 01-20 Interpretation and review of laboratory results Abnormal [facility] Interpretation and review of laboratory results Normal [facility] Interpretation and review of laboratory results Abnormal [facility] Interpretation and review of laboratory results Abnormal [facility] Bilirubin, Indirect 0.6 mg/dL 0.0 - 1. 0 mg/dL [facility] Interpretation and review of laboratory results Normal [facility] Interpretation and review of laboratory results Abnormal [facility] Interpretation and review of laboratory results Normal [facility] Interpretation and review of laboratory results Normal [facility] RF Small bowel Views W contr ast Raisa 01-20-2023 Radiology Study observation (narrative) [facility] BASIC METABOLIC PANELon 01-04 Calcium [Mass/Vol] 9.0 mg/dL Normal 8.6-10.3 [facility] Chloride [Moles/Vol] 105 mmol/L Normal 98-107 [facility] CO2 [Moles/Vol] 27 mmol/L Normal 23-29 [facility] Creatinine [Mass/Vol] 1.06 mg/dL Normal 0.70-1.30 [facility] eGFR, CKD-EPI, Male > Normal >=60 [facility] Comment on above: Result Comment: Repo rted eGFR is based on the CKD-EPI 2020 equation using creatinine, age, and sex. Glucose [Mass/Vol] 94 mg/dL Normal 70-105 [facility] Osmolality [Osmolality] 284 mosm/kg Normal 280-300 [facility] Potassium [Moles/Vol] 3.9 mmol/L Normal 3.5-5.1 [facility] Sodium [Moles/Vol] 137 mmol/L Normal 136-145 [facility] Urea nitrogen [Mass/Vol] 12 mg/dL Normal 6-20 [facility] Urea nitrogen/Creatinine [Mass ratio] 11 mg/mg Normal 6-26 [facility] CBC AND ELECTRONIC DIFFon Basophils (Bld) [#/Vol] 0.0 10*3/uL Normal 0.0-0.2 [facility] Basophils/100 WBC (Bld) 0.6 % Normal [facility] Eosinophils (Bld) [#/Vol] 0.1 10*3/uL Normal 0.0-0.6 [facility] Eosinophils/100 WBC (Bld) 0.8 % Normal [facility] Hematocrit (Bld) [Volume fraction] 45.7 % Normal 37.5-50.1 [facility] Hemoglobin (Bld) [Mass/Vol] 15.6 g/dL Normal 12.9-16.9 [facility] Immature Grans % 0.3 % Normal [facility] Lymphocytes (Bld) [#/Vol] 1.8 10*3/uL Normal 0.6-4.6 [facility] Lymphocytes/100 WBC (Bld) 24.4 % Normal [facility] MCV (RBC) [Entitic vol] 91.4 fL Normal 83.0-100.0 [facility] Mean Cell Hgb 31.2 pg Normal 28.0-33.0 [facility] Mean Cell Hgb Conc 34.1 g/dL Normal 31.6-35.5 [facility] Monocytes (Bld) [#/Vol] 0.6 10*3/uL Normal 0.0-1.3 [facility] Monocytes/100 WBC (Bld) 8.0 % Normal R [facility] Nucleated RBC 0 /100 WBC Normal [facility] Platelet mean volume (Bld) [Entitic vol] 10.4 fL Normal 9.4-12.4 [facility] Platelets (Bld) [#/Vol] 234 10*3/uL Normal 140-400 [facility] RBC (Bld) [#/Vol] 5.00 10*6/uL Normal 4.19-5.50 [facility] RBC Distribution 12.0 % Normal 11.5-14.5 [facility] Segs + Bands Auto 65.9 % Normal [facility] Segs + Bands,Absolute Auto 4.8 K/uL Normal 1.6-8.9 [facility] WBC (Bld) [#/Vol] 7.2 10*3/uL Normal 4.3-11.1 [facility] CT ABDOMEN/PELVIS WITH CONTR Estefany 01-19-2023 CT [...] / Rocael Mayorga Interpreting Provider: Rocael Mayorga [facility] CT Abdomen and Pelvis W [facility] rast [place] 01-19-2023 IMPRESSION: Obstructed ileal bowel [...] / Rocael Mayorga Interpreting Provider: Rocael Mayorga [facility] Radiology Study observation (narrative) [facility] CT Abdomen and Pelvis W cont rast IVOrdered By: Osman Gonsalez on 01-19-2023 [facility] Work Phone: HEPATIC FUNCTION PANELon Albumin [Mass/Vol] 4.3 g/dL Normal 3.5-5.7 [facility] Albumin/Globulin [Mass ratio] 1.8 {ratio} Normal 1.1-2.2 [facility] ALP [Catalytic activity/Vol] 69 U/L Normal 34-104 [facility] ALT [Catalytic activity/Vol] 12 U/L Normal 7-52 [facility] [place] AST [Catalytic activity/Vol] 13 U/L Normal 13-39 [facility] [place] Bilirubin [Mass/Vol] 0.5 mg/dL Normal 0.3-1.0 [facility] Bilirubin, Indirect 0.4 mg/dL Normal 0.0-1.0 [facility] [place] Bilirubin.indirect [Mass/Vol] 0.1 mg/dL Normal <=0.2 [facility] Globulin (S) [Mass/Vol] 2.4 g/dL Normal 2.4-3.5 [facility] Protein [Mass/Vol] 6.7 g/dL Normal 6.4-8.9 [facility] LIPASEon 01-19-2023 Lipase [Catalytic activity/Vol] 5 U/L Low 11-82 [facility] Laboratory - Chemistry and C hemistry - challengeon 01-19-2023 Albumin [Mass/Vol] 4.3 g/dL 3.5 - 5.7 g/dL [facility] Albumin/Globulin [Mass ratio] 1.8 {ratio} 1.1 - 2.2 [facility] ALP [Catalytic activity/Vol] 69 U/L 34 - 104 U/L [facility] ALT [Catalytic activity/Vol] 12 U/L 7 - 52 U/L [facility] AST [Catalytic activity/Vol] 13 U/L 13 - 39 U/L [facility] Bilirubin [Mass/Vol] 0.5 mg/dL 0.3 - 1 .0 mg/dL [facility] Bilirubin.direct [Mass/Vol] 0.1 mg/dL NINF - 0.2 mg/dL [facility] Calcium [Mass/Vol] 9.0 mg/dL 8.6 - 10. 3 mg/dL [facility] Chloride [Moles/Vol] 105 mmol/L 98 - 10 7 mmol/L [facility] CO2 [Moles/Vol] 27 mmol/L 23 - 29 mmol/L [facility] Creatinine [Mass/Vol] 1.06 mg/dL 0.70 - 1.30 mg/dL [facility] GFR/1.73 sq M.predicted CKD-EPI (S/P/Bld) [Vol rate/Area] - PINF [facility] Comment on above: Reported eGFR is bas ed on the CKD-EPI 2020 equation using creatinine, age, and sex. Globulin (S) [Mass/Vol] 2.4 g/dL 2.4 - 3.5 g/dL [facility] Glucose [Mass/Vol] 94 mg/dL 70 - 105 mg/dL [facility] Lipase [Catalytic activity/Vol] 5 U/L Low 11 - 82 U/L [facility] Osmolality Calc [Osmolality] 284 280 - 300 [facility] Potassium [Moles/Vol] 3.9 mmol/L 3.5 - 5.1 mmol/L [facility] Protein [Mass/Vol] 6.7 g/dL 6.4 - 8.9 g/dL [facility] Sodium [Moles/Vol] 137 mmol/L 136 - 145 mmol/L [facility] Urea nitrogen [Mass/Vol] 12 mg/dL 6 - 20 mg/d L [facility] Urea nitrogen/Creatinine [Mass ratio] 11 mg/mg 6 - 26 [facility] Laboratory - Hematology and Cell countson 01-19-2023 Basophils (Bld) [#/Vol] 0.0 10*3/uL 0.0 - 0.2 K/uL [facility] Basophils/100 WBC (Bld) 0.6 % [facility] Eosinophils (Bld) [#/Vol] 0.1 10*3/uL 0. 0 - 0.6 K/uL [facility] Eosinophils/100 WBC (Bld) 0.8 % [facility] Erythrocyte distribution width (RBC) [Ratio] 12.0 % 11.5 - 14.5 % [facility] Hematocrit (Bld) [Volume fraction] 45.7 % 37.5 - 50.1 % [facility] Hemoglobin (Bld) [Mass/Vol] 15.6 g/dL 12.9 - 16.9 g/dL [facility] Immature granulocytes/100 WBC (Bld) 0.3 % [facility] Lymphocytes (Bld) [#/Vol] 1.8 10*3/uL 0. 6 - 4.6 K/uL [facility] Lymphocytes/100 WBC (Bld) 24.4 % [facility] MCH (RBC) [Entitic mass] 31.2 pg 28. 0 - 33.0 pg [facility] MCHC (RBC) [Mass/Vol] 34.1 g/dL 31.6 - 35.5 g/dL [facility] MCV (RBC) [Entitic vol] 91.4 fL 83.0 - 100.0 fL [facility] Monocytes (Bld) [#/Vol] 0.6 10*3/uL 0.0 - 1.3 K/uL [facility] Monocytes/100 WBC (Bld) 8.0 % A [facility] Neutrophils (Bld) [#/Vol] 4.8 10*3/uL 1. 6 - 8.9 K/uL [facility] Nucleated RBC/100 WBC (Bld) [Ratio] 0 % /100 WBC [facility] Platelet mean volume (Bld) [Entitic vol] 10.4 fL 9.4 - 12.4 fL [facility] Platelets (Bld) [#/Vol] 234 10*3/uL 140 - 400 K/uL [facility] RBC (Bld) [#/Vol] 5.00 10*6/uL [facility] Segmented neutrophils/100 WBC (Bld) 65.9 % [facility] WBC (Bld) [#/Vol] 7.2 10*3/uL 4.3 - 11.1 K/uL [facility] No Panel Informationon 01-19 Bilirubin, Indirect 0.4 mg/dL 0.0 - 1. 0 mg/dL [facility] Interpretation and review of laboratory results Normal [facility] Interpretation and review of laboratory results Abnormal [facility] POCT URINE DIPSTICK AUTOMATE Don 01-19-2023 Amorphous sediment LM Ql (Urine sed) [facility] Appearance (U) clear [facility] Bacteria LM Ql (Urine sed) [facility] Bilirubin Ql (U) small [facility] Casts LM.LPF (Urine sed) [#/Area] [facility] Color (U) drk yellow [facility] Crystals LM Nom (Urine sed) [facility] Epithelial cells.squamous LM.HPF (Urine sed) [#/Area] [facility] Flow cytometry specialist review Saad (Unsp spec) [Interp] [facility] Glucose Auto test strip (U) [Mass/Vol] Negative mg/dL [facility] Ketones [Mass/Vol] trace mg/dL [facility] Leukocyte esterase Qn (U) [facility] Leukocyte esterase Test strip Ql (U) Negative [facility] Microscopic observation Gram stain Nom (Bronch spec) [facility] Nitrite Ql (U) Negative [facility] pH (U) 5.5 [pH] 5 - 7 [facility] Protein Ql (U) 30 mg/dL [facility] RBC LM.HPF (Urine sed) [#/Area] [facility] RBC Ql (U) Negative [facility] Specific gravity (U) [Rel density] 1.001 - 1.035 [facility] Transitional cells LM Ql (Urine sed) [facility] Urobilinogen Qn (U) 0.2 [facility] WBC LM.HPF (Urine sed) [#/Area] [facility] XR ABDOMEN 2 VIEWSon 023 XR [...] versus partial small bowel obstruction. D/ / Jaskraan Le Interpreting Provider: Jaskaran Le [facility] XR Abdomen 2 Viewson 023 [...] / Jaskaran Le Interpreting Provider: Jaskaran Le [facility] Radiology Study observation (narrative) [facility] XR Abdomen 2 ViewsOrdered By : Jaskaran Le on 01-19-2023 [employer] Work Phone: HIV-1 2 Antibody p24 Agon HIV-1 2 Antibody p24 Ag Non-Reactive Normal Nonreactiv e [facility] Comment on above: Result Comment: This assay detects human immunodeficiency virus (HIV) p24 antigen and antibodies to HIV type 1 (HIV-1 group O) and/or type 2 (HIV-2). Reactive results will have follow up confirmatory testing. Performed By: #### H IV, HPA, TPAL #### [facility] [address] [place] [id number] Hepatitis Prof.(Routine A,B, C)on 01-04-2022 Hepatitis A Antibody IgM Non-Reactive Normal Nonreacti ve [facility] Comment on above: Result Comment: Biot in greater than 500 ng/mL may lead to falsely depressed results. Hepatitis A Virus (HAV) IgM antibodies not detected. Does not exclude the possibility of exposure to or infection of HAV. Levels of HAV IgM antibodies may be below measurement range due to early infection. Performed By: #### H IV, HPA, TPAL #### [facility] [address] [place] [address] [id number] Hepatitis B Core IgM Non-Reactive Normal Nonreactive A [facility] Comment on above: Result Comment: Assa y performance characteristics have not been established for immunocompromised or immunosuppressed patients, cord blood, or patients less than 2 years of age. IgM antibodies to Hepatitis B Core Antigen not detected. Does not exclude the possibility of exposure or infection with Hepatitis B Core Virus. Performed By: #### H IV, HPA, TPAL #### [facility] [address] [place] [id number] Hepatitis C Virus Antibody Non-Reactive Normal Nonreactive [facility] Comment on above: Result Comment: Hepa titis C Virus (HCV) IgG antibodies not detected; does not exclude the possibility of exposure of HCV. Performed By: #### H IV, HPA, TPAL #### [facility] [address] [place] [address] [id number] Hepatitis B Surface Antigen Non-Reactive Normal Nonreactive [facility] Comment on above: Result Comment: Spec imen considered negative for HBsAg. Performed By: #### H IV, HPA, TPAL #### [facility] [address] [place] [id number] Treponema Pallidum Abon 06-0 Treponema Pallidum Ab Negative Normal NEGATIVE [facility] Comment on above: Performed By: #### H IV, HPA, TPAL #### [facility] [address] [place] [id number] Drug Screen, Urineon 022 Amphetamine Screen,Urine Positive Abnormal Mruxnx=[id number] [facility] Comment on above: Result Comment: Unco nfirmed presumptive positive. Refer to Urine Drug Screen Interpretation result for interpretative guidelines. Performed By: #### U DS #### [facility] [address] [place] [address] [id number] Barbiturate Screen,Urine Negative Normal Swqaje=589 [facility] Comment on above: Performed By: #### U DS #### [facility] [address] [place] [address] [id number] Benzodiazepines Screen,Urine Negative Normal Togsjd=363 [facility] Comment on above: Performed By: #### U DS #### [facility] [address] [place] [address] [id number] Buprenorphine Screen,Urine Negative Normal Cutoff=5 [facility] Comment on above: Performed By: #### U DS #### [facility] [address] [place] [address] [phone] Cannabinoid Screen,Urine Negative Normal Cutoff = 50 [facility] Comment on above: Performed By: #### U DS #### [facility] [address] [place] [address] [phone] Cocaine Screen,Urine Negative Normal Cutoff= 300 [facility] Comment on above: Performed By: #### U DS #### [facility] [address] [place] [address] 11440 Opiate Screen,Urine Negative Normal Gsvbsi=080 [facility] Comment on above: Performed By: #### U DS #### [facility] [address] [place] [address] [phone] Phencyclidine Screen,Urine Negative Normal Cutoff=25 [facility] Comment on above: Performed By: #### U DS #### [facility] [address] [place] [address] Ur. Drug Screen Interpretation See Below Normal [facility] Comment on above: Result Comment: This is [...] request. Performed By: #### U DS #### [facility] [address] [place] [address] [facility] [address] Ultrasound Report Signed PRELIMINARY DRAFT REPORT UNTIL ELECTRONICALLY SIGNED PATIENT: Osman Mckee MR#: [id number] : 1990 AGE/SEX: 31 / M ADMITTED: 11/24/21 OUTSIDE LOCN: LOCATION: [facility] ATTENDING: Ismael Winston DO ORDER PHYSICIAN: Ismael Winston BIRAD: NA Not Applicable DATE OF SERVICE: 11/24/21 ACCESSION NUMBERS(S): [id number] PROCEDURE(S): US abdomen limited REASON FOR EXAM: [...] MD Interpreting Provider: Jaqui Dickens MD Normal [facility] Emergency Documentationon Emergency Documentation [address] [address] Emergency Department Note Signed PRELIMINARY DRAFT REPORT UNTIL ELECTRONICALLY SIGNED PATIENT: Osman Mckee MR#: [id number] : 1990 AGE/SEX: 31 / M ADMITTED: 09/04/21 OUTSIDE LOCN: LOCATION: [facility] ATTENDING: cc: Ismael Winston; Disposition Clinical [...] edema no (more content not included)... Normal [facility] [id number] 07-27-[id number] [address] XRay Report Signed PRELIMINARY DRAFT REPORT UNTIL ELECTRONICALLY SIGNED PATIENT: Osman Mckee MR#: [id number] : 1990 AGE/SEX: 30 / M ADMITTED: 07/27/21 OUTSIDE LOCN: LOCATION: [facility] ATTENDING: Ismael Winston DO ORDER PHYSICIAN: Ismael Winston BIRAD: DATE OF SERVICE: 07/27/21 FOLLOW UP: ACCESSION NUMBERS(S): [id number] PROCEDURE(S): XR hand 3V LT REASON FOR [...] Charles Bryan Interpreting Provider: Charles Bryan Normal [facility] Basic Metabolic Panelon 11-2 Calcium [Mass/Vol] 8.5 mg/dL Low 8.6-10.3 [facility] Comment on above: Performed By: #### B MP, TROP ####[facility] [address] [place] [address] Chloride [Moles/Vol] 106 mmol/L Normal 98-[address] [facility] Comment on above: Performed By: #### B MP, TROP ####[facility] [address] [place] [address]012 CO2 [Moles/Vol] 24 mmol/L Normal 23-29 [facility] Comment on above: Performed By: #### B MP, TROP ####[facility] [address] [place] [address] Creatinine [Mass/Vol] 0.89 mg/dL Normal 0.70-1.30 [facility] Comment on above: Performed By: #### B MP, TROP ####[facility] [address] [place] [address] 37850 eGFR For Americans > 60 Normal > 60 [facility] Comment on above: Result Comment: eGFR = Estimated Glomerular Filtration Rate reported as mL/min/1.73 square meters Chronic Kidney Disease: < 60; Kidney failure: < 15 Performed By: #### B MP, TROP ####[facility] [address] [place] [address]4767 eGFR For Non- Americans > 60 Normal > 60 [facility] Comment on above: Performed By: #### B MP, TROP ####[facility] [address] [place] [address] Glucose [Mass/Vol] 101 mg/dL Normal 70-105 [facility] Comment on above: Performed By: #### B MP, TROP ####[facility] [address] [place] [address] Osmolality,Calculated 283 Normal 280-300 [facility] Comment on above: Performed By: #### B MP, TROP ####[address] [address] Potassium [Moles/Vol] 4.3 mmol/L Normal 3.5-5.1 [facility] Comment on above: Performed By: #### B MP, TROP ####[address] [address] Sodium [Moles/Vol] 136 mmol/L Normal 136-145 [facility] Comment on above: Performed By: #### B MP, TROP ####[address] [address] Urea nitrogen [Mass/Vol] 14 mg/dL Normal 6-20 [facility] Comment on above: Performed By: #### B MP, TROP ####[address] [address] Urea nitrogen/Creatinine [Mass ratio] 16 mg/mg Normal 6-26 [facility] Comment on above: Performed By: #### B MP, TROP ####[address] [address] [id number] 06-26-[id number] [address] XRay Report Signed PRELIMINARY DRAFT REPORT UNTIL ELECTRONICALLY SIGNED PATIENT: Osman Mckee MR#: [id number] : 1990 AGE/SEX: 30 / M ADMITTED: 06/26/21 OUTSIDE LOCN: LOCATION: [facility] ATTENDING: ORDER PHYSICIAN: Tucker DE LEON: DATE OF SERVICE: 06/26/21 FOLLOW UP: ACCESSION NUMBERS(S): [id number] PROCEDURE(S): XR chest 1V portable REASON FOR [...] MD Interpreting Provider: Markus Cornejo MD Normal [facility] Complete Blood Count with Di ffon 06-26-2021 Basophils (Bld) [#/Vol] 0.1 10*3/uL Normal 0.0-0.2 [facility] Comment on above: Performed By: #### C BC #### [facility] [address] [place] [address] Basophils/100 WBC (Bld) 1.1 % Normal [facility] Comment on above: Performed By: #### C BC #### [facility] [address] [place] [address] Eosinophils (Bld) [#/Vol] 0.2 10*3/uL Normal 0.0-0.6 [facility] Comment on above: Performed By: #### C BC #### [facility] [address] [place] [address] Eosinophils/100 WBC (Bld) 3.6 % Normal [facility] Comment on above: Performed By: #### C BC #### [facility] [address] [place] [address] Erythrocyte distribution width (RBC) [Ratio] 12.1 % Normal 11.5-14.5 [facility] Comment on above: Performed By: #### C BC #### [facility] [address] [place] [address] Hematocrit (Bld) [Volume fraction] 44.0 % Normal 37.5-50.1 [facility] Comment on above: Performed By: #### C BC #### [facility] [address] [place] [address] Hemoglobin (Bld) [Mass/Vol] 14.8 g/dL Normal 12.9-16.9 [facility] Comment on above: Performed By: #### C BC #### [facility] [address] [place] [address] Immature granulocytes/100 WBC (Bld) 0.3 % Normal 0-4 [facility] Comment on above: Performed By: #### C BC #### [facility] [address] [place] [address] Lymphocytes (Bld) [#/Vol] 2.4 10*3/uL Normal 0.6-4.6 [facility] Comment on above: Performed By: #### C BC #### [facility] [address] [place] [address] Lymphocytes/100 WBC (Bld) 37.0 % Normal [facility] Comment on above: Performed By: #### C BC #### [facility] [address] [place] [address] MCH (RBC) [Entitic mass] 30.4 pg Normal 28.0-33.3 [facility] Comment on above: Performed By: #### C BC #### [facility] [address] [place] [address] MCV (RBC) [Entitic vol] 90.3 fL Normal 83.0-100.0 [facility] Comment on above: Performed By: #### C BC #### [facility] [address] [place] [address] Mean Corpuscular HGB Conc 33.6 g/dL Normal 31.6-35.5 [facility] Comment on above: Performed By: #### C BC #### [facility] [address] [place] [address]45 Monocytes (Bld) [#/Vol] 0.6 10*3/uL Normal 0.0-1.3 [facility] Comment on above: Performed By: #### C BC #### [facility] [address] [place] [address]85 Monocytes/100 WBC (Bld) 8.9 % Normal [facility] Comment on above: Performed By: #### C BC #### [facility] [address] [place] [address] Neutrophils (Bld) [#/Vol] 3.2 10*3/uL Normal 1.6-8.9 [facility] Comment on above: Performed By: #### C BC #### [facility] [address] [place] [address] Platelet mean volume (Bld) [Entitic vol] 10.5 fL Normal 9.4-12.4 [facility] Comment on above: Performed By: #### C BC #### [facility] [address] [place] [address]017 Platelets (Bld) [#/Vol] 261 10*3/uL Normal 140-400 [facility] Comment on above: Performed By: #### C BC #### [facility] [address] [place] [address] 22379 RBC (Bld) [#/Vol] 4.87 10*6/uL Normal 4.19-5.50 [facility] Comment on above: Performed By: #### C BC #### [facility] [address] [place] [address] [phone] Segmented neutrophils/100 WBC (Bld) 49.1 % Normal [facility] Comment on above: Performed By: #### C BC #### [facility] [address] [place] [address] [id number] WBC (Bld) [#/Vol] 6.4 10*3/uL Normal 4.3-11.1 [facility] Comment on above: Performed By: #### C BC #### [facility] [address] [place] [address] [phone] Electrocardiograph Reporton 06-26-2021 Electrocardiograph Report [address] [address] Electrocardiograph Report Signed PRELIMINARY DRAFT REPORT UNTIL ELECTRONICALLY SIGNED PATIENT: Osman Mckee MR#: [id number] : 1990 AGE/SEX: 30 / M ADMITTED: 06/26/21 OUTSIDE LOCN: LOCATION: [facility] ATTENDING: ZORA PHYSICIAN: Erick Martinez TECHNOLOGIST: ZI PHYSICIAN: Tucker Bell PRIMARY PHYSICIAN: Ismael Lorenz Catrachito DATE OF SERVICE: 06/26/21 ACCESSION NUMBERS(S): [id number] HT: 172.72 WT: 180 PROCEDURE(S): ECG 12 lead ECG cc: ; [facility] Test Date: 2021-06-26 Pat Name: Osman Mckee Department: EXAM21 Room: Gender: M Manager Pool: : [id number] Requested By: Tucker Bell Order Number: [id number] Zora MD: Erick Martinez Measurements Intervals Badger Rate: 63 P: 43 ID: [id number] QRS: 81 QRSD: 118 T: 69 QT: 398 QTc: 408 Interpretive Statements Sinus rhythm Incomplete right bundle branch block Electronically Signed On 06-28-2021 6:20:40 EST by Erick Lucas [facility] Emergency Documentationon Emergency Documentation [address] [address] Emergency Department Note Signed PRELIMINARY DRAFT REPORT UNTIL ELECTRONICALLY SIGNED PATIENT: Osman Mckee MR#: [id number] : 1990 AGE/SEX: 30 / M ADMITTED: 06/26/21 OUTSIDE LOCN: LOCATION: [facility] ATTENDING: cc: Ismael Winston; Disposition Clinical [...] PRN Reason: Pain Transmission Status: Received by [facility] 2400 Referrals: Ismael Winston DO [Primary [...] type discomfort. (more content not included)... Normal [facility] Troponin Ion 06-26-2021 Troponin I.cardiac [Mass/Vol] ng/mL Normal < 0.04 [facility] Comment on above: Performed By: #### B MP, TROP ####[facility] [address] [place], [place] [id number] C.trach N.gonorrhoea DNA Fajardo Uon 06-15-2021 Chlamydia Trachomatis DNA Ur Not detected Normal Not Detect [facility] Comment on above: Result Comment: Chla mydia trachomatis DNA not detected by real-time PCR. Specimen source- [place] Urine Performed By: #### C TNGPANU #### [facility] [address] [place] [address] Neisseria Gonorrhoeae DNA, Ur Not detected Normal Not Detect [facility] Comment on above: Result Comment: Neis seria gonorrhoeae DNA not detected by real-time PCR. Specimen source- [place] Urine Performed By: #### C TNGPANU #### [facility] [address], [place] [id number] Pain Mgt Ur Drug Scrn w Inte rpon 06-08-2021 Pain Mgt Ur Drg Scr Rslt w Int SEE BELOW Normal [facility] Comment on above: Result Comment: Test name [...] Detected Tapentadol (cutoff 100 ng/mL) Not Detected Dgottxkuud-j-Nlqq (cutoff 200 ng/mL) Not Detected Methadone (cutoff [...] Detected Alprazolam (cutoff 40 ng/mL) Not Detected Icxwu-EH-Hkpiobbhnp (cutoff 20 ng/mL) Not Detected Clonazepam (cutoff [...] Detected Midazolam (cutoff 20 ng/mL) Not Detected Otsck-MP-Etyijfvdo (cutoff 20 ng/mL) Not Detected Zolpidem (cutoff [...] developed and its performance characteristics determined by [facility]. It has not been cleared or approved by the [place] Food and Drug Administration. This test was performed in a CLIA certified laboratory and is intended for clinical purposes. EER Tgt drug prof, MS/EMIT, UR, Interp See Note Access [employer] Enhanced Report using the link below: -Direct access: [email or web address] Performed by [facility], [address] [place] [address] Cloud Operations Engineer: Jocelyn Bruner MD Performed By: #### P MUDSI ####[facility] [address] [place], [place] [address] Specimen Rejecton 05-16-2021 Specimen Reject Miscellaneous Normal [facility] Comment on above: Result Comment: CALL [facility]...SPOKE WITH JULI...NOTIFIED OF REJECTION Specimen: [id number] DRG SCR W I Problem:WRONG DATE OF [birth year]. CORRECT IS [birth year] Called to on 05/13/21 at 2026. Performed By: #### Q A #### [facility] [address] [place] [address] Vital Signs Date Time Vital Sign Value Performing Clinician Rosalee garcia 11-18-2023 22:42-0400 Body temperature 98.2 [degF] Koko Magana MD Work Phone: [facility] 11-18-2023 22:42-0400 Diastolic blood pressure 84 mm[Hg] Koko Magana MD Work Phone: [facility]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
[2024-01-28 15:05] LABS: Basophils Absolute Auto 0.1 10^3/uL (0.0-0.1); Basophils Percent Auto 1.3 % (0.2-2.0); Eosinophils Absolute Auto 0.1 10^3/uL (0.0-0.7); Hemoglobin 14.1 g/dL (14.0-18.0); Immature Granulocytes Abs Auto 0.03 10^3/uL (0.00-0.03); Immature Granulocytes Pct Auto 0.4 % (0.0-0.5); Lymphocytes Absolute Auto 1.5 10^3/uL (1.2-3.8); Lymphocytes Percent Auto 22.3 % (20.5-60.0); Mean Corpuscular HGB Conc 35.3 g/dL (29.9-35.2); Mean Corpuscular Hemoglobin 30.7 pg (25.9-34.0); Mean Platelet Volume 9.7 fL (9.5-13.5); Monocytes Absolute Auto 0.5 10^3/uL (0.3-0.8); Monocytes Percent Auto 7.8 % (1.7-12.0); Neutrophils Absolute Auto 4.6 10^3/uL (1.4-6.5); Neutrophils Percent Auto 67.2 % (43.0-75.0); Platelet Count 374 10^3/uL (150-450); Red Cell Distribution Width 11.1 % (11.0-15.0); White Blood Count 6.8 10^3/uL (4.0-11.0)
[2024-01-28 15:11] LABS: Erythrocyte Sedimentation Rate 59 mm/hr (<=15)
[2024-01-28 15:31] LABS: Alanine Aminotransferase 52 U/L (16-63); Albumin Globulin Ratio 1.1; Alkaline Phosphatase 106 U/L (46-116); Aspartate Amino Transferase 19 U/L (15-37); Bilirubin Total 0.4 mg/dL (0.2-1.0); C Reactive Protein <0.50 mg/dL (<=0.50); Calcium 8.7 mg/dL (8.5-10.1); Carbon Dioxide 27.3 mmol/L (21.0-32.0); Chloride 104 mmol/L (98-107); Estimated GFR (African America >60 (>=60); Estimated GFR (Non-African Ame >60 (>=60); Globulin 3.6 g/dL; Glucose 101 mg/dL (74-106); Lactate Dehydrogenase 209 U/L (85-227); Potassium 3.3 mmol/L (3.5-5.1); Sodium 141 mmol/L (136-145); Total Protein 7.6 g/dL (6.4-8.2)
[2024-01-29 12:09] LABS: PTH, Intact 31 pg/mL (15-65)
[2024-01-29 16:10] LABS: Albumin 3.8 g/dL (2.9-4.4); Alpha-1-Globulin 0.2 g/dL (0.0-0.4); Alpha-2-Globulin 0.7 g/dL (0.4-1.0); Gamma Globulin 1.4 g/dL (0.4-1.8)
== END 2024-01-28 14:34 | disposition home or self-care (01) ==
LOC: LAB 14:34
PROVIDERS: PCP Internal Medicine; Visit Provider Internal Medicine
DX: M84.40XD Pathological fracture, unspecified site, subsequent encounter for fracture with routine healing (principal)
CPT/HCPCS: 36415; 80053; 82306; 83615; 83970; 84155; 84165; 85025; 85652; 86140

== ENCOUNTER 2025-02-26 15:32 | Outpatient (OUT) | payer OTHER, SELFPAY ==
--- OUTSIDE RECORDS SUMMARY | 2025-02-16 13:40 | XMS_ITS | Encounter Summary ---
Author Organization [facility] Address [address] [place] [address] Care Team Providers Care Lining Cementer Name Role Phone Gordon Caputo MD Primary Care Provider Kenia Hoyos NP Unavailable [phone] Shaikh JUAN JOSE Murphy Unavailable [phone] Reason for Referral * Medications - Closed Specialty Diagnoses / Procedures [facility] Referred To Contact Diagnoses Attention deficit hyperactivity disorder (ADHD), predominantly hyperactive type Jen Taylor NP [address] [place] [address] Phone: tel: fax: Referral ID Status Reason Start Date Expiration Date Visits Re quested Visits Authorized [id number] Closed 1 1 * Medications - Closed Specialty Diagnoses / Procedures [facility] Referred To Contact Diagnoses Attention deficit hyperactivity disorder (ADHD), predominantly hyperactive type Jen Taylor NP [address] [place] [address] Phone: tel: fax: Referral ID Status Reason Start Date Expiration Date Visits Re quested Visits Authorized [id number] Closed 1 1 * Medications - Closed Specialty Diagnoses / Procedures [facility] Referred To Contact Diagnoses Attention deficit hyperactivity disorder (ADHD), predominantly hyperactive type Jen Taylor NP [address] [place] [address] Phone: tel: fax: Referral ID Status Reason Start Date Expiration Date Visits Re quested Visits Authorized [id number] Closed 1 1 Reason for Visit * Reason Comments Med Refill Encounter Details Date Type Department Care Team (Late st Contact Info) Description 02/16/2025 1:40 PM EDT Office Visit [facility] [address] [place] [phone] Jen Taylor NP [address] [place] [phone] Attention deficit hyperactivity disorder (ADHD), predominantly hyperactive type (Primary Dx); Tetrahydrocannabinol (THC) use disorder, moderate, dependence (HCC); Mild intermittent asthma without complication (HCC); Chronic pain of both knees; Chronic bilateral low back pain without sciatica; Gastroesophageal reflux disease without esophagitis Social History Tobacco Use Types Packs/Day Years Used Date Smoking Tobacco: Every Day Cigarettes 1 15 Passive Smoke Exposure: Current Smokeless Tobacco: Never Alcohol Use Standard Drinks/Week Comments Yes 0 (1 standard drink = 0.6 oz pur e alcohol) OCCASSIONALLY PHQ-2 Answer Date Recorded Patient Health Questionnaire-2 Score 0 01/22/2024 Sex and Gender Information Value Date Recorded Sex Assigned at Not on file Legal Sex Male 9:17 AM EST Gender Identity Not on file Sexual Orientation Not on file documented as of this encounter Last Filed Vital Signs Vital Sign Reading Time Taken Comments Blood Pressure 104/76 02/16/2025 1:40 PM EDT Pulse 70 02/16/2025 1:40 PM EDT Temperature 36.4 C (97.5 F) 02/16/2025 1:40 PM EDT Respiratory Rate 18 02/16/2025 1:40 PM EDT Oxygen Saturation 96% 02/16/2025 1:40 PM EDT Inhaled Oxygen Concentration - - Weight 87.7 kg (193 lb 6.4 oz) 02/16/2025 1:40 P M EDT Height - - Body Mass Index 28.56 01/22/2024 1:35 PM EDT documented in this encounter Patient Instructions * Patient Instructions* Jen Taylor NP - 02/16/2025 1:40 PM EDT Acid reflux: Recommendations: freq small meals, nothing to eat or drink at least 2 hours prior to bed, limit caffeine, alcohol, as well as spicy foods Meds to limit or avoid if possible: NSAIDS Elevate HOB if possible documented in this encounter Progress Notes * Jen Taylor NP - 02/16/2025 2:17 PM EDTAssociated Problem(s): Gastroesophageal reflux disease without esophagitis Recommendations: freq small meals, nothing to eat or drink at least 2 hours prior to bed, limit caffeine, alcohol, as well as spicy foods Meds to limit or avoid if possible: NSAIDS Elevate HOB if possible Start famotidine * Jen Taylor NP - 02/16/2025 2:16 PM EDTAssociated Problem(s): Chronic bilateral low back pain without sciatica meloxicam * Jen Taylor NP - 02/16/2025 2:14 PM EDTAssociated Problem(s): Attention deficit hyperactivity disorder (ADHD) Med agreement signed Has taken in the past I am aware of THC OARRS reviewed Fu in 3months * Jen Taylor NP - 02/16/2025 1:58 PM EDTAssociated Problem(s): Tetrahydrocannabinol (THC) use disorder, moderate, dependence (HCC) Type: edibles and smoking Get both from the dispensery Uses it for pain related dx * Jen Taylor NP - 02/16/2025 1:57 PM EDTAssociated Problem(s): Mild intermittent asthma without complication (HCC) Occ flares Made worse with extremes in temp Albuterol use now is twice a week * KAY HUFF - 02/16/2025 1:40 PM EDT Pt has been taking the adderall as a as needed since he has not been in since 01/23/24 Pt would like to get back on the naproxen 500mg tablet again for RA pains Pt would like to discuss GI issues- no vomiting no diarrhea, no nausea. Pt is having acid reflex and on and off constipation * Jen Taylor NP - 02/16/2025 1:40 PM EDT Images from the original note were not included. Osman Mckee is a 34 y.o. male presents with chief complaint of Med Refill HPI: ADHD; dx, age young child, took medication growing cannot focus, no sit still, impulsive actions, starts something then gets distracted Currently is unemployed, most recent job over a year ago. Has children, is not , lives with girlfriend No SI/HI/hallucinations, no hx of bipolar disorder or schizophrenia Has hx of OA not RA (but sister has RA), has bilat knee pain and low back pain: back pain sharp andachy if bends wrong way back locks up) , knee pains sharp pain, does get some inttermitent swelling, no erythema GI: acid reflux is new, burning in throat makes him cough/choke, tums helps some but only temporary, no NV, non epigastric pain, no recent blood in stool, has had in the past. Caffeine: coffee or teaocc in the morning, 32 oz 1 or 2 daily splits with girlfriend SUBJECTIVE: MEDICATIONS: Current Outpatient Medications Medication Instructions baclofen (Lioresal) 10 MG tablet TAKE 1 TABLET IN THE MORNING, EVENING, AND BEFORE BEDTIME naproxen (Naprosyn) 500 MG tablet TAKE 1 TABLET (500 MG) BY MOUTH IN THE MORNING AND BEFORE BEDTIME ALLERGIES: Allergies Allergen Reactions Honey Bee Venom Hives REVIEW OF SYMPTOMS: Review of Systems Constitutional: Negative for activity change, appetite change and unexpected weight change. HENT: Negative for ear pain, nosebleeds, sneezing, trouble swallowing and voice change. Eyes: Negative for pain, discharge and visual disturbance. Respiratory: Negative for apnea, chest tightness and wheezing. Cardiovascular: Negative for leg swelling. Gastrointestinal: Negative for abdominal distention, blood in stool, constipation and diarrhea. GERD Genitourinary: Negative for decreased urine volume, difficulty urinating, dysuria and hematuria. Musculoskeletal: Positive for arthralgias and back pain. Skin: Negative for color change. Neurological: Negative for dizziness, tremors and seizures. Psychiatric/Behavioral: Positive for decreased concentration. Negative for agitation, hallucinations, self-injury and suicidal ideas. The patient is not nervous/anxious. Hematological: Negative for adenopathy. Does not bruise/bleed easily. Endocrine: Negative for cold intolerance, heat intolerance, polydipsia and polyuria. Allergic/Immunologic: Negative for environmental allergies and food allergies. PAST MEDICAL HISTORY No past medical history on file. No past surgical history on file. family history includes No Known Problems in his father and mother. OBJECTIVE: Visit Vitals BP 104/76 (BP Location: Left arm, Patient Position: Sitting, BP Cuff Size: Adult long) Pulse 70 Temp 97.5 ??F (Temporal) Resp 18 Wt 193 lb 6.4 oz SpO2 96% BMI 28.56 kg/m?? Smoking Status Every Day BSA 2.07 m?? Physical Exam Vitals and nursing note reviewed. Constitutional: Appearance: Normal appearance. HENT: Head: Normocephalic. Right Ear: External ear normal. Left Ear: External ear normal. Nose: Nose normal. Mouth/Throat: Mouth: Mucous membranes are moist. Pharynx: Oropharynx is clear. Eyes: Extraocular Movements: Extraocular movements intact. Conjunctiva/sclera: Conjunctivae normal. Neck: Vascular: No carotid bruit. Cardiovascular: Rate and Rhythm: Normal rate and regular rhythm. Pulses: Normal pulses. Heart sounds: Normal heart sounds. Pulmonary: Effort: Pulmonary effort is normal. Breath sounds: Normal breath sounds. No wheezing or rhonchi. Abdominal: General: Bowel sounds are normal. Palpations: Abdomen is soft. Musculoskeletal: Cervical back: Neck supple. Right lower leg: No edema. Left lower leg: No edema. Comments: Lumbar near full ROM -SLR X2 DTR s 2+ bilat patellar/achilles MMT 5/5 bilat LE Bilat knees: +crepitus no laxity noted Lymphadenopathy: Cervical: No cervical adenopathy. Skin: General: Skin is warm and dry. Capillary Refill: Capillary refill takes 2 to 3 seconds. Neurological: General: No focal deficit present. Mental Status: He is alert. Psychiatric: Mood and Affect: Mood normal. Behavior: Behavior normal. Thought Content: Thought content normal. Judgment: Judgment normal. ASSESSMENT AND PLAN: No follow-ups on file. Problem List Items Addressed This Visit Attention deficit hyperactivity disorder (ADHD) Med agreement signed Has taken in the past I am aware of THC OARRS reviewed Fu in 3months Relevant Medications amphetamine-dextroamphetamine XR (Adderall XR) 30 MG 24 hr capsule amphetamine-dextroamphetamine XR (Adderall XR) 30 MG 24 hr capsule (Start on 03/18/2025) amphetamine-dextroamphetamine XR (Adderall XR) 30 MG 24 hr capsule (Start on 04/17/2025) Other Relevant Orders Lipid panel TSH Tetrahydrocannabinol (THC) use disorder, moderate, dependence (HCC) - Primary Type: edibles and smoking Get both from the dispensery Uses it for pain related dx Mild intermittent asthma without complication (HCC) Occ flares Made worse with extremes in temp Albuterol use now is twice a week Relevant Orders Comprehensive metabolic panel Chronic pain of both knees Relevant Medications meloxicam (Mobic) 15 MG tablet Other Relevant Orders CBC and differential Comprehensive metabolic panel Chronic bilateral low back pain without sciatica meloxicam Relevant Medications meloxicam (Mobic) 15 MG tablet Other Relevant Orders CBC and differential Urinalysis with reflex microscopic (clean catch) Gastroesophageal reflux disease without esophagitis Recommendations: freq small meals, nothing to eat or drink at least 2 hours prior to bed, limit caffeine, alcohol, as well as spicy foods Meds to limit or avoid if possible: NSAIDS Elevate HOB if possible Start famotidine Relevant Orders CBC and differential Comprehensive metabolic panel documented in this encounter Plan of Treatment Upcoming Encounters Date Type Department Care Team (Late st Contact Info) Description 04/20/2025 1:20 PM EDT Office Visit [facility] [address] [place] [address] Jen Taylor NP [address] [place] [phone] Scheduled Orders Name Type Priority Associated Diagnoses Orde r Schedule CBC and differential Lab Routine Chronic pain of both knees Chronic bilateral low back pain without sciatica Gastroesophageal reflux disease without esophagitis Expected: 02/16/2025 (Approximate), Expires: 02/16/2026 Comprehensive metabolic panel Lab Routine Mild intermittent asthma without complication (HCC) Chronic pain of both knees Gastroesophageal reflux disease without esophagitis Expected: 02/16/2025 (Approximate), Expires: 02/16/2026 Lipid panel Lab Routine Attention deficit hyperactivity disorder (ADHD), predominantly hyperactive type Expected: 02/16/2025 (Approximate), Expires: 02/16/2026 TSH Lab Routine Attention deficit hyperactivity disorder (ADHD), predominantly hyperactive type Expected: 02/16/2025 (Approximate), Expires: 02/16/2026 Urinalysis with reflex microscopic (clean catch) Lab Routine Chronic bilateral low back pain without sciatica Expected: 02/16/2025 (Approximate), Expires: 02/16/2026 documented as of this encounter Visit Diagnoses Diagnosis Attention deficit hyperactivity disorder (ADHD), predominantly hyperactive type- Primary Tetrahydrocannabinol (THC) use disorder, moderate, dependence (HCC) Mild intermittent asthma without complication (HCC) Chronic pain of both knees Chronic bilateral low back pain without sciatica Gastroesophageal reflux disease without esophagitis Esophageal reflux documented in this encounter Care Teams Lining Cementer Relationship Specialty Start Date End Date Gordon Caputo MD [address] [place] [phone] PCP - General Family Medicine 03/11/24 Shaikh Murphy MD [address] [place] [address] PCP - [facility] 05/06/24 Kenia Hoyos NP [address] [place] [phone] Nurse Practitioner Family Medicine 03/11/24 documented as of this encounter
--- OUTSIDE RECORDS SUMMARY | 2025-02-26 15:36 | XMS_ITS | Encounter Summary ---
Author Organization [facility] Address [address] [place] [address] Care Team Providers Care Furnace Combustion Tester Name Role Phone Gordon Caputo MD Primary Care Provider [phone] Kenia Hoyos NP Unavailable [phone] Shaikh JUAN JOSE Murphy Unavailable [phone] Encounter Details Date Type Department Care Team (Late Contact Info) Description 02/16/2025 Abstract [facility] [address] [place] [address] Jen Taylor NP [address] [place] [phone] Social History Tobacco Use Types Packs/Day Years [...] on file documented as of this encounter Plan of Treatment Upcoming Encounters Date Type Department Care Team ([facility] Contact Info) Description 04/20/2025 1:20 PM EDT Office Visit [facility] [address] [place] [address] Jen Taylor NP [address] [place] [phone] documented as of this encounter Visit Diagnoses Not on filedocumented in this encounter Care Teams Furnace Combustion Tester Relationship Specialty Start Date End Date Gordon Caputo MD [address] [place] [phone] PCP - General Family Medicine 03/11/24 Shaikh Murphy MD [address] [place] [phone] PCP - [facility] 05/06/24 Kenia Hoyos NP [address] [place] [phone] Nurse Practitioner Family Medicine 03/11/24 documented as of this encounter
--- OUTSIDE RECORDS SUMMARY | 2025-02-26 15:36 | XMS_ITS | Encounter Summary ---
Author Organization [facility] Address [address] [place] [address] Care Team Providers Care Senior Administrative Associate Name Role Phone Shaikh JUAN JOSE Murphy Primary Care Provider [phone] Gordon Caputo MD Primary Care Provider [phone] Kenia Hoyos NP Unavailable [phone] Shaikh JUAN JOSE Murphy Unavailable [phone] Encounter Details Date Type Department Care Team (Late Contact Info) Description 01/09/2024 Clinisync Result Encounter [facility] External Department Unsolicited Shaikh Murphy MD [address] [place] [address] Social History Tobacco Use Types Packs/Day Years Used Date Smoking Tobacco: Every Day Cigarettes 1 15 Passive Smoke Exposure: Current Smokeless Tobacco: Never Alcohol Use Standard Drinks/Week Comments Yes 0 (1 standard drink = 0.6 oz pur e alcohol) OCCASSIONALLY PHQ-2 Answer Date Recorded Patient Health Questionnaire-2 Score 0 01/02/2024 Sex and Gender Information Value Date Recorded Sex Assigned at Not on file Legal Sex Male 9:17 AM EST Gender Identity Not on file Sexual Orientation Not on file documented as of this encounter Plan of Treatment Upcoming Encounters Date Type Department Care Team (Late Contact Info) Description 04/20/2025 1:20 PM EDT [facility] [address] [place] [address] Jen Taylor NP [address] [place] [address] documented as of this encounter Procedures Procedure Name Priority Date/Time Associated Diagnosis Comments XR RIBS LEFT INCLUDE CHEST (MIN 3 VIEWS) 01/09/2024 2:13 PM EDT documented in this encounter Results * XR RIBS LEFT INCLUDE CHEST (MIN 3 VIEWS) (01/09/2024 2:13 PM EDT) Anatomical Region Laterality Modality Radiographic Luisa ging 01/09/2024 2:13 PM EDT Narrative 01/09/2024 2:15 PM EDT [address] [address] XRay Report Signed Patient: YAO MCKEE II MR#: [id number] : 1990 Acct:[id number] Age/Sex: 33 / M ADM Date: 01/08/24 Loc: RAD Attending Dr: Shaikh Katherine Alejandre Ordering Physician: Shaikh Hill Murphy Date of Service: 01/08/24 Procedure(s): XR ribs LT min 3V w CXR1V Accession Number(s): [id number] cc: Shaikh Hill Murphy [address] [address] Patient Name: YAO MCKEE MRN: [id number] date: 1990 Sex: M Assigned Patient Location: [facility] Current Patient Location: Accession/Order Number: [id number] Exam Date: 01/08/2024 14:10 Report Date: 01/09/2024 14:13 At the request of: SHAIKH KATHERINE Procedure: XR ribs LT min 3V w CXR1V EXAMINATION: XR ribs LT min 3V w CXR1V HISTORY: Chest Wall Pain R07.89 ; left lateral rib pain; possible injury 5 days ago COMPARISON: No relevant comparison available. FINDINGS: LUNGS: No significant pulmonary parenchymal abnormalities. PLEURA: No pneumothorax, effusion, or pleural thickening. MEDIASTINUM: No visible mass or adenopathy. CARDIAC: No cardiomegaly or cardiac silhouette abnormality. RIBS: Nondisplaced fracture of anterior left ninth rib. Old healed fracture of right 5th rib. Suspect old healed fracture of left clavicle. OTHER: Negative. XR/XR ribs LT min 3V w CXR1V IMPRESSION: 1. Acute, nondisplaced fracture of the anterior left ninth rib. 2. No pneumothorax or appreciable pleural effusion. Electronically authenticated by: ROCKY BOWERS Date: 01/09/2024 14:13 Dictated By: Rocky Bowers M.D. Signed By: 01/09/24 1415 DD/ 1413 TD/TT: Pipe Bowl Paint Trimmer: Procedure Note Radiology, Radiologist, MD - 01/09/2024 [place] [address] XRay Report Signed Patient: YAO MCKEE [facility]#: [id number] : 1990Acct:[id number] Age/Sex: 33 / MADM Date: 01/08/24 Loc: RAD Attending Dr: Shaikh Katherine Alejandre Ordering Physician: Shaikh Hill Murphy Date of Service: 01/08/24 Procedure(s): XR ribs LT min 3V w CXR1V Accession Number(s): [id number] cc: Shaikh Hill Murphy [place] [id number] Patient Name: YAO MCKEE MRN: [id number] date: 1990 Sex: M Assigned Patient Location: [facility] Current Patient Location: Accession/Order Number: [id number] Exam Date: 01/08/2024 14:10 Report Date: 01/09/2024 14:13 At the request of: SHAIKH KATHERINE Procedure: XR ribs LT min 3V w CXR1V EXAMINATION: XR ribs LT min 3V w CXR1V HISTORY: Chest Wall Pain R07.89 ; left lateral rib pain; possible injury 5 days ago COMPARISON: No relevant comparison available. FINDINGS: LUNGS: No significant pulmonary parenchymal abnormalities. PLEURA: No pneumothorax, effusion, or pleural thickening. MEDIASTINUM: No visible mass or adenopathy. CARDIAC: No cardiomegaly or cardiac silhouette abnormality. RIBS: Nondisplaced fracture of anterior left ninth rib. Old healedfracture of right 5th rib. Suspect old healed fracture of left clavicle. OTHER: Negative. XR/XR ribs LT min 3V w CXR1V IMPRESSION: 1. Acute, nondisplaced fracture of the anterior left ninth rib. 2. No pneumothorax or appreciable pleural effusion. Electronically authenticated by: ROCKY BOWERS Date: 01/09/2024 14:13 Dictated By: Rocky Bowers M.D. Signed By:01/09/24 1415 DD/ 1413 TD/TT: Pipe Bowl Paint Trimmer: Shaikh Katherine INGRAM IMG XR PROCEDURES Final Result documented in this encounter Visit Diagnoses Not on filedocumented in this encounter Care Teams Senior Administrative Associate Relationship Specialty Start Date End Date Shaikh Murphy MD [address] [place] [address] PCP - General Internal Medicine 09/25/23 03/10/24 Gordon Caputo MD [address] [place] [address] PCP - General Family Medicine 03/11/24 Shaikh Murphy MD [address] [place] [address] PCP - [facility] 05/06/24 Kenia Hoyos NP [address] [place] [address] Nurse Practitioner Family Medicine 03/11/24 documented as of this encounter
--- OUTSIDE RECORDS SUMMARY | 2025-02-26 15:36 | XMS_ITS | Encounter Summary ---
Author Organization [facility] Address [address] [place] [address] Care Team Providers Care Cargo Worker Name Role Phone Shaikh JUAN JOSE Murphy Primary Care Provider [phone] Gordon Caputo MD Primary Care Provider [phone] Kenia Hoyos NP Unavailable [phone] Shaikh JUAN JOSE Murphy Unavailable [phone] Reason for Visit * Reason Comments Med Refill Encounter Details Date Type Department Care Team (Late st Contact Info) Description 10/17/2023 Refill [facility] EXT DEP Shaikh Murphy MD [address] [place] [address] Right-sided chest wall pain Social History Tobacco Use Types Packs/Day Years Used Date Smoking Tobacco: Every Day Cigarettes 1 15 Passive Smoke Exposure: Current Smokeless Tobacco: Never Alcohol Use Standard Drinks/Week Comments Yes 0 (1 standard drink = 0.6 oz pur e alcohol) OCCASSIONALLY PHQ-2 Answer Date Recorded Patient Health Questionnaire-2 Score 0 09/25/2023 Sex and Gender Information Value Date Recorded Sex Assigned at Not on file Legal Sex Male 9:17 AM EST Gender Identity Not on file Sexual Orientation Not on file documented as of this encounter Miscellaneous Notes * Telephone Encounter - Shaikh Katherine MD - 10/17/2023 11:55 AM EDT Approving, but needs appt for additional refills. documented in this encounter Plan of Treatment Upcoming Encounters Date Type Department Care Team (Late st Contact Info) Description 04/20/2025 1:20 PM EDT Office Visit [facility] [address] [place] [address] Jen Taylor NP [address] [place] [address] documented as of this encounter Visit Diagnoses Diagnosis Right-sided chest wall pain Painful respiration documented in this encounter Care Teams Cargo Worker Relationship Specialty Start Date End Date Shaikh Murphy MD [address] [place] [address] PCP - General Internal Medicine 09/25/23 03/10/24 Gordon Caputo MD [address] [place] [address] PCP - General Family Medicine 03/11/24 Shaikh Murphy MD [address] [place] [address] PCP - [facility] 05/06/24 Kenia Hoyos NP [address] [place] [address] Nurse Practitioner Family Medicine 03/11/24 documented as of this encounter
--- OUTSIDE RECORDS SUMMARY | 2025-02-26 15:36 | XMS_ITS | Encounter Summary ---
Author Organization [facility] Address [address] [facility] [place] [address] Care Team Providers Care Steam Tank Operator Name Role Phone Shaikh JUAN JOSE Murphy Primary Care Provider [phone] Gordon Caputo MD Primary Care Provider [phone] Kenia Hoyos NP Unavailable Shaikh JUAN JOSE Murphy Unavailable [phone] Encounter Details Date Type Department Care Team (Late Contact Info) Description 01/09/2024 Orders Only [facility] [address] [facility] [address] [place] [address] Shaikh Murphy MD [address] [place] [address] Social History Tobacco Use Types Packs/Day Years [...] Upcoming Encounters Date Type Department Care Team ([facility] Contact Info) Description 04/20/2025 1:20 PM EDT Office Visit [facility] [address] [place] [address] Jen Taylor, DES [address] [place] [address] documented as of this encounter Procedures Procedure Name Priority Date/Time Associated Diagnosis Comments XR RIBS 2 VIEWS LEFT Routine 01/09/2024 3:04 PM EDT XR RIBS 2 VIEWS LEFT Routine 01/09/2024 2:55 PM EDT documented in this encounter Results * XR RIBS 2 VIEWS LEFT (01/09/2024 3:04 PM EDT) Anatomical Region Laterality Modality Radiographic Luisa ging Shaikh Katherine INGRAM IMG XR PROCEDURES Final Result * XR RIBS 2 VIEWS LEFT (01/09/2024 2:55 PM EDT) Anatomical Region Laterality Modality Radiographic Luisa ging Shaikh Katherine INGRAM IMG XR PROCEDURES Final Result documented in this encounter Visit Diagnoses Not on filedocumented in this encounter Care Teams Steam Tank Operator Relationship Specialty Start Date End Date Shaikh Murphy MD [address] [place] [address] PCP - General Internal Medicine 09/25/23 03/10/24 Gordon Caputo MD [address] [place] [address] PCP - General Family Medicine 03/11/24 Shaikh Murphy MD [address] [place] [address] PCP - [facility] 05/06/24 Kenia Hoyos NP [address] [place] [address] Nurse Practitioner Family Medicine 03/11/24 documented as of this encounter
--- OUTSIDE RECORDS SUMMARY | 2025-02-26 15:36 | XMS_ITS | Encounter Summary ---
Author Organization [facility] Address [address] [place] [address] Care Team Providers Care Trim Mounter Name Role Phone Gordon Caputo MD Primary Care Provider Kenia Hoyos NP Unavailable [phone] Shaikh JUAN JOSE Murphy Unavailable [phone] Encounter Details Date Type Department Care Team (Late Contact Info) Description 02/16/2025 Bamboo flowsheet [facility] [address] [place] [address] Jen Taylor NP [address] [place] [address] Social History Tobacco Use Types Packs/Day Years [...] 04/20/2025 1:20 PM EDT Office Visit [facility] [address] [place] [address] Jen Taylor NP [address] [place] [address] documented as of this encounter Visit Diagnoses Not on filedocumented in this encounter Care Teams Trim Mounter Relationship Specialty Start Date End Date Gordon Caputo MD [address] [place] [address] PCP - General Family Medicine 03/11/24 Shaikh Murphy MD [address] [place] [address] PCP - [facility] 05/06/24 Kenia Hoyos NP [address] [place] [address] Nurse Practitioner Family Medicine 03/11/24 documented as of this encounter
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
--- OUTSIDE RECORDS SUMMARY | 2025-02-26 15:36 | XMS_ITS | Clinical Summary ---
Author Organization [facility] Address [address], [address] [place] [address] Care Team Providers Care Hands And Dial Inspector Name Role Phone Unavailable Primary Care Provider Unavailabl e Allergies No known active allergies Medications No known medications Social History Tobacco Use Types Packs/Day Years Used Date Smoking Tobacco: Every Day Cigarettes Tobacco Cessation:Ready to Q uit: Not Asked; Counseling Given: Not Answered Alcohol Use Standard Drinks/Week Comments Never 0 (1 standard drink = 0.6 oz pur e alcohol) AUDIT-C Answer Date Recorded Q1: How often do you have a drink containing alcohol? Never 11/02/2024 Q2: How many drinks containi ng alcohol do you have on a typical day when you are drinking? Patient does not drink Q3: How often do you have si x or more drinks on one occasion? Never 11/02/2024 Sex and Gender Information Value Date Recorded Sex Assigned at Not on file Legal Sex Male 11:23 PM EST Gender Identity Not on file Sexual Orientation Not on file Last Filed Vital Signs Vital Sign Reading Time Taken Comments Blood Pressure 146/97 11/02/2024 5:31 PM EDT Pulse 82 11/02/2024 5:31 PM EDT Temperature 36.9 C (98.5 F) 11/02/2024 3:09 PM EDT Respiratory Rate 11 11/02/2024 5:31 PM EDT Oxygen Saturation 99% 11/02/2024 5:31 PM EDT Inhaled Oxygen Concentration - - Weight 77.1 kg (170 lb) 11/02/2024 3:09 PM EDT Height - - Body Mass Index - - Plan of Treatment Health Maintenance Due Date Last Done Comments Depression Screen 2000 Varicella vaccine (1 of 2 - 13+ 2-dose series) 2001 HIV screen 2003 Hepatitis C screen 2006 Hepatitis B vaccine (1 of 3 - 19+ 3-dose series) 2007 Pneumococcal 0-49 years Vaccine (1 of 2 - PCV) 2007 COVID-19 Vaccine (2 - 2023- season) 2024 10/25/2021 Flu vaccine (#1) 03/06/2025 06/16/2022, 06/14/2021 DTaP/Tdap/Td vaccine (7 - Td or Tdap) 01/11/2029 01/11/2019, 03/21/1993, 04/08/1991, Additional history exists Polio vaccine Completed 03/21/1993, 10/1990, 11/28/1989, Additional history exists HPV vaccine Aged Out No longer eligi ble based on patient's age to complete this topic Hepatitis A vaccine Aged Out No longe r eligible based on patient's age to complete this topic Hib vaccine Aged Out No longer eligi ble based on patient's age to complete this topic Meningococcal (ACWY) vaccine Aged Out No longer eligible based on patient's age to complete this topic Meningococcal B vaccine Aged Out No l onger eligible based on patient's age to complete this topic Insurance [facility]
[2025-02-26 16:04] LABS: Hematocrit 44.9 % (42.0-54.0); Hemoglobin 15.4 g/dL (14.0-18.0); Immature Granulocytes Abs Auto 0.03 10^3/uL (0.00-0.03); Immature Granulocytes Pct Auto 0.4 % (0.0-0.5); Lymphocytes Absolute Auto 1.9 10^3/uL (1.2-3.8); Mean Corpuscular HGB Conc 34.3 g/dL (29.9-35.2); Mean Corpuscular Hemoglobin 31.1 pg (25.9-34.0); Mean Corpuscular Volume 90.7 fL (80.0-94.0); Platelet Count 265 10^3/uL (150-450); Red Blood Count 4.95 10^6/uL (4.70-6.10); White Blood Count 7.6 10^3/uL (4.0-11.0)
[2025-02-26 16:28] LABS: Alanine Aminotransferase 27 U/L (16-63); Albumin Globulin Ratio 1.2; Albumin Level 4.1 g/dL (3.4-5.0); Alkaline Phosphatase 84 U/L (46-116); Anion Gap 12.8; Aspartate Amino Transferase 19 U/L (15-37); Blood Urea Nitrogen 15.0 mg/dL (7.0-18.0); Calcium 9.1 mg/dL (8.5-10.1); Carbon Dioxide 26.2 mmol/L (21.0-32.0); Chloride 103 mmol/L (98-107); Cholesterol 163 mg/dL (<=200); Estimated GFR (African America >60 (>=60 mL/min/1.73m^2); Estimated GFR (Non-African Ame >60 (>=60 mL/min/1.73m^2); Globulin 3.5 g/dL; Glucose 104 mg/dL (74-106); HDL Cholesterol 52 mg/dL (40-60); Potassium 4.0 mmol/L (3.5-5.1); Sodium 138 mmol/L (136-145); Thyroid Stimulating Hormone 0.804 uIU/mL (0.358-3.740); Total Protein 7.6 g/dL (6.4-8.2); Triglycerides 171 mg/dL (<=150); VLDL CHOLESTEROL 34.2 mg/dL
== END 2025-02-26 15:33 | disposition home or self-care (01) ==
LOC: LAB 15:34
PROVIDERS: PCP Nurse Practitioner; Visit Provider Nurse Practitioner
DX: F90.1 Attention-deficit hyperactivity disorder, predominantly hyperactive type (principal); M25.561 Pain in right knee; M25.562 Pain in left knee; G89.29 Other chronic pain; M54.50 Low back pain, unspecified; K21.9 Gastro-esophageal reflux disease without esophagitis; J45.20 Mild intermittent asthma, uncomplicated
CPT/HCPCS: 36415; 80053; 80061; 84443; 85025

== ENCOUNTER 2025-03-13 10:22 | Outpatient (REF) | payer OTHER, SELFPAY ==
--- OUTSIDE RECORDS SUMMARY | 2025-03-13 10:24 | XMS_ITS | Encounter Summary ---
Author Organization [facility] Address [address] [place] [address] Care Team Providers Care Respiratory Therapy Assistant Name Role Phone Gordon Caputo MD Primary Care Provider Kenia Hoyos NP Unavailable [phone] Shaikh JUAN JOSE Murphy Unavailable [phone] Encounter Details Date Type Department Care Team (Late Contact Info) Description 02/16/2025 Abstract [facility] [address] [place] [address] Jen Taylor NP [address] [place] [address] Social History Tobacco Use Types Packs/Day Years [...] Upcoming Encounters Date Type Department Care Team ([facility] Contact Info) Description 04/20/2025 1:20 PM EDT Office Visit [facility] [address] [place] [address] Jen Taylor NP [address] [place] [address] documented as of this encounter Visit Diagnoses Not on filedocumented in this encounter Care Teams Respiratory Therapy Assistant Relationship Specialty Start Date End Date Gordon Caputo MD [address] [place] [address] PCP - General Family Medicine 03/11/24 Shaikh Murphy MD [address] [place] [address] PCP - [facility] 05/06/24 Kenia Hoyos NP [address] [place] [address] Nurse Practitioner Family Medicine 03/11/24 documented as of this encounter
--- OUTSIDE RECORDS SUMMARY | 2025-03-13 10:24 | XMS_ITS | Encounter Summary ---
Author Organization [facility] Address [address] [place] [address] Care Team Providers Care Lay Up Operator Name Role Phone Gordon Caputo MD Primary Care Provider Kenia Hoyos NP Unavailable [phone] Shaikh JUAN JOSE Murphy Unavailable [phone] Encounter Details Date Type Department Care Team (Late Contact Info) Description 02/26/2025 Clinisync Result Encounter [facility] External Department Unsolicited Jen Taylor NP [address] [place] [address] Social History Tobacco Use Types Packs/Day Years [...] 04/20/2025 1:20 PM EDT [facility] [address] [place] [address] Jen Taylor NP [address] [place] [address] documented as of this encounter Procedures Procedure Name Priority Date/Time Associated Diagnosis Comments [facility] CMP (CMP) (FOR REMOTE [facility] USE) Routine 02/26/2025 3:47 PM EDT ALL THYROID STIM HORMONE Routine 02/26/2025 3:47 PM EDT ALL LIPID PROFILE (FASTING) Routine 02/26/2025 3:47 PM EDT ALL CBC WITH AUTO DIFF Routine 02/26/2025 3:47 PM EDT documented in this encounter Results * ALL THYROID STIM HORMONE (02/26/2025 3:47 PM EDT) THYROID STIMULATING HORMONE 0.804 0.358 - 3.740 uIU/mL TBH 02/26/2025 3:47 PM EDT 02/26/2025 3:54 PM EDT Narrative CLINISYNC - 02/26/2025 4:39 PM EDT us Jen Taylor NP CLINISYNC Final Result [facility] * (ABNORMAL) ALL LIPID PROFILE (FASTING) (02/26/2025 3:47 PM EDT) TRIGLYCERIDES 171(H) <=150 mg/dL TBH CHOLESTEROL 163 <=200 mg/dL TBH HDL CHOLESTEROL 52 40 - 60 mg/dL TBH Comment: > or =60 mg/dl - LOW CARDIOVASCULAR RISK <40 mg/dl - HIGH CARDIOVASCULAR RISK LDL CHOLESTEROL CALCULATED 77.0 mg/dL TB Comment: <100 mg/dl OPTIMAL 100-129 mg/dl NEAR OR ABOVE OPTIMAL 130-159 mg/dl BORDERLINE HIGH 160-189 mg/dl HIGH >190 mg/dl VERY HIGH VLDL CHOLESTEROL 34.2 mg/dL TBH CHOL HDL RATIO 3.1 TB Comment: 3.3 - 4.4 LOW RISK 4.4 - 7.1 AVERAGE RISK 7.1 - 11.0 MODERATE RISK >11.0 HIGH RISK 02/26/2025 3:47 PM EDT 02/26/2025 3:54 PM EDT Narrative CLINISYNC - 02/26/2025 4:39 PM EDT us Jen Taylor CONTRACT ASSOCIATE CLINISYNC Final Result [facility] * [facility] CMP (CMP) (FOR REMOTE [facility] USE) (02/26/2025 3:47 PM EDT) SODIUM 138 136 - 145 mmol/L TBH POTASSIUM 4.0 3.5 - 5.1 mmol/L TBH CHLORIDE 103 98 - 107 mmol/L TBH CARBON DIOXIDE 26.2 21.0 - 32.0 mmol/L TBH ANION GAP 12.8 TBH GLUCOSE 104 74 - 106 mg/dL TBH BLOOD UREA NITROGEN 15.0 7.0 - 18.0 mg/dL TBH CREATININE 1.07 0.70 - 1.30 mg/dL TBH TBH EGFR-AF MALAGASY >60 >=60 mL/min/1. 73m 2 TBH TBH EGFR-NON AF MALAGASY >60 >=60 mL/min/1. 73m 2 TBH BUN CREATININE RATIO 14.0 TBH CALCIUM 9.1 8.5 - 10.1 mg/dL TBH BILIRUBIN TOTAL 0.6 0.2 - 1.0 mg/dL TBH ASPARTATE AMINO TRANSFERASE 19 15 - 37 U/L TBH ALANINE AMINOTRANSFERASE 27 16 - 63 U/L TBH ALKALINE PHOSPHATASE 84 46 - 116 U/L TBH TOTAL PROTEIN 7.6 6.4 - 8.2 g/dL TBH ALBUMIN LEVEL 4.1 3.4 - 5.0 g/dL TBH GLOBULIN 3.5 g/dL TBH ALBUMIN GLOBULIN RATIO 1.2 TBH 02/26/2025 3:47 PM EDT 02/26/2025 3:54 PM EDT Narrative CLINISYNC - 02/26/2025 4:39 PM EDT Jen Taylor CONTRACT ASSOCIATE CLINISYNC Final Result [facility] * (ABNORMAL) ALL CBC WITH AUTO DIFF (02/26/2025 3:47 PM EDT) [facility] TB WBC 7.6 4.0 - 11.0 10 3/uL TBH TBH RBC 4.95 4.70 - 6.10 10 6/uL TBH TBH HGB 15.4 14.0 - 18.0 g/dL TBH TBH HCT 44.9 42.0 - 54.0 % TBH TBH MCV 90.7 80.0 - 94.0 fL TBH TBH MCH 31.1 25.9 - 34.0 pg TBH TBH MCHC 34.3 29.9 - 35.2 g/dL TBH TBH RDW 12.8 11.0 - 15.0 % TBH TBH PLT 265 150 - 450 10 3/uL TBH TBH MPV 10.2 9.5 - 13.5 fL TBH NEUTROPHILS PERCENT AUTO 66.7 43.0 - 75.0 % TBH LYMPHOCYTES PERCENT AUTO 24.7 20.5 - 60.0 % TBH MONOCYTES PERCENT AUTO 6.7 1.7 - 12.0 % TBH TBH EO % 0.7(L) 0.9 - 7.0 % TBH BASOPHILS PERCENT AUTO 0.8 0.2 - 2.0 % TBH IMMATURE GRANULOCYTES PCT AUTO 0.4 0.0 - 0.5 % TBH NEUTROPHILS ABSOLUTE AUTO 5.1 1.4 - 6.5 10 3/uL TBH LYMPHOCYTES ABSOLUTE AUTO 1.9 1.2 - 3.8 10 3/uL TBH MONOCYTES ABSOLUTE AUTO 0.5 0.3 - 0.8 10 3/uL TBH TBH EO # 0.1 0.0 - 0.7 10 3/uL TBH BASOPHILS ABSOLUTE AUTO 0.1 0.0 - 0.1 10 3/uL TBH IMMATURE GRANULOCYTES ABS AUTO 0.03 0.00 - 0.03 10 3/uL TBH 02/26/2025 3:47 PM EDT 02/26/2025 3:54 PM EDT Narrative CLINISYNC - 02/26/2025 4:17 PM EDT us Jen Taylor NP CLINISYNC Final Result CLINISYNC [facility] documented in this encounter Visit Diagnoses Not on filedocumented in this encounter Care Teams Lay Up Operator Relationship Specialty Start Date End Date Gordon Caputo MD [address] [place] [address] PCP - General Family Medicine 03/11/24 Shaikh Murphy MD [address] [place] [address] PCP - [facility] 05/06/24 Kenia Hoyos NP [address] [place] [address] Nurse Practitioner Family Medicine 03/11/24 documented as of this encounter
--- OUTSIDE RECORDS SUMMARY | 2025-03-13 10:24 | XMS_ITS | Clinical Summary ---
Author Organization [facility] Address [address] [place] [address] Care Team Providers Care Miller First Name Role Phone Gordon Caputo MD Primary Care Provider [phone] Kenia Hoyos CASE AIDE Unavailable Shaikh JUAN JOSE Murphy Unavailable [phone] Allergies Active Allergy Reactions Criticality Noted [...] young for cancer screening. Recent labs at [facility] - reviewed and discussed with patient. Too late for influenza vaccine now. 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 He lives with [...] Encounters Date Type Department Care Team Description 02/26/2025 Clinisync Result Encounter [facility] External Department Unsolicited Jen Taylor NP 02/16/2025 1:40 PM EDT Office Visit [facility] [address] [place] [address] Jen Taylor NP Attention deficit hyperactivity disorder (ADHD), predominantly hyperactive type (Primary Dx); Tetrahydrocannabinol (THC) use disorder, moderate, dependence (HCC); Mild intermittent asthma without complication (HCC); Chronic pain of both knees; Chronic bilateral low back pain without sciatica; Gastroesophageal reflux disease without esophagitis 02/16/2025 Abstract [facility] [address] [place] [address] Jen Taylor NP 02/16/2025 Bamboo flowsheet [facility] [address] [place] [address] Jen Taylor NP from Last 3 Months [...] Visit [facility] [address] [place] [address] Jen Taylor NP [address] [place] [address] Health Maintenance Due Date Last Done Comments Influenza Vaccine (#1) 2025 06/16/2022, 2020 Procedures Procedure Name Priority Date/Time Associated Diagnosis Comments ALL THYROID STIM HORMONE Routine 02/26/2025 3:47 PM EDT ALL LIPID PROFILE (FASTING) Routine 02/26/2025 3:47 PM EDT [facility] CMP (CMP) (FOR REMOTE [facility] USE) Routine 02/26/2025 3:47 PM EDT ALL CBC WITH AUTO DIFF Routine 02/26/2025 3:47 PM EDT from Last 3 Months Results * [facility] CMP (CMP) (FOR REMOTE [facility] USE) (02/26/2025 3:47 PM EDT) SODIUM 138 136 - 145 mmol/L TBH POTASSIUM 4.0 3.5 - 5.1 mmol/L TBH CHLORIDE 103 98 - 107 mmol/L TBH CARBON DIOXIDE 26.2 21.0 - 32.0 mmol/L TBH ANION GAP 12.8 TBH GLUCOSE 104 74 - 106 mg/dL TBH BLOOD UREA NITROGEN 15.0 7.0 - 18.0 mg/dL TBH CREATININE 1.07 0.70 - 1.30 mg/dL TBH TBH EGFR-AF [place]ANI >60 >=60 mL/min/1. 73m 2 TBH TBH EGFR-NON AF [place]ANI >60 >=60 mL/min/1. 73m 2 TBH BUN [...] - 02/26/2025 4:39 PM EDT Jen Taylor NP CLINISYNC Final Result Performing Organization Address [facility] Co de Phone Number [facility] * ALL THYROID STIM HORMONE (02/26/2025 3:47 PM EDT) THYROID STIMULATING HORMONE 0.804 0.358 - 3.740 uIU/mL TB 02/26/2025 3:47 PM EDT 02/26/2025 3:54 PM EDT Narrative CLINISYNC - 02/26/2025 4:39 PM EDT Jen Taylor NP CLINISYNC Final Result Performing Organization Address [facility] Co vt Phone Number [facility] * (ABNORMAL) ALL LIPID PROFILE (FASTING) (02/26/2025 3:47 PM EDT) TRIGLYCERIDES 171(H) <=150 mg/dL TBH CHOLESTEROL 163 <=200 mg/dL TB HDL CHOLESTEROL 52 40 - 60 mg/dL TB Comment: > or =60 mg/dl - LOW CARDIOVASCULAR RISK <40 mg/dl - HIGH CARDIOVASCULAR RISK LDL CHOLESTEROL CALCULATED 77.0 mg/dL TB Comment: <100 mg/dl OPTIMAL 100-129 mg/dl NEAR OR ABOVE OPTIMAL 130-159 mg/dl BORDERLINE HIGH 160-189 mg/dl HIGH >190 mg/dl VERY HIGH VLDL CHOLESTEROL 34.2 mg/dL TB CHOL HDL RATIO 3.1 TB Comment: 3.3 - 4.4 LOW RISK 4.4 - 7.1 AVERAGE RISK 7.1 - 11.0 MODERATE RISK >11.0 HIGH RISK 02/26/2025 3:47 PM EDT 02/26/2025 3:54 PM EDT Narrative CLINISYNC - 02/26/2025 4:39 PM EDT Jen Taylor NP CLINISYNC Final Result [facility] * (ABNORMAL) ALL CBC WITH AUTO DIFF (02/26/2025 3:47 PM EDT) [facility] TB WBC 7.6 4.0 - 11.0 10 [...] Narrative CLINISYNC - 02/26/2025 4:17 PM EDT Jen Taylor NP CLINISYNC Final Result [facility] from Last 3 Months Insurance [employer] Care Teams Miller First Relationship Specialty Start Date End Date Gordon Caputo MD [address] [place] [address] PCP - General Family Medicine 03/11/24 Shaikh Murphy MD [address] [place] [address] PCP - [facility] 05/06/24 Kenia Hoyos NP [address] [place] [address] Nurse Practitioner Family Medicine 03/11/24
--- OUTSIDE RECORDS SUMMARY | 2025-03-13 10:24 | XMS_ITS | Clinical Summary ---
Author Organization [facility] Address [address], [address] [place] [address] Care Team Providers Care Principal Bioinformatics Specialist Name Role Phone Unavailable Primary Care Provider [...] patient's age to complete this topic Insurance [facility]
--- OUTSIDE RECORDS SUMMARY | 2025-03-13 10:24 | XMS_ITS | Encounter Summary ---
Author Organization [facility] Address [address] [facility] [place] [address] Care Team Providers Care Fabricator Special Items Name Role Phone Shaikh JUAN JOSE Murphy Primary Care Provider [phone] Gordon Caputo MD Primary Care Provider [phone] Kenia Hoyos NP Unavailable Shaikh JUAN JOSE Murphy Unavailable [phone] Encounter Details Date Type Department Care Team (Late Contact Info) Description 01/09/2024 Orders Only [facility] [address] [facility] [address] [place] [address] Shaikh Murphy MD [address] [place] [address] Social History Tobacco Use Types Packs/Day Years [...] Upcoming Encounters Date Type Department Care Team ([facility] Contact Info) Description 04/20/2025 1:20 PM EDT Office Visit [facility] [address] [place] [address] Jen Taylor, DES [address] [place] [address] documented as of this encounter Procedures Procedure [...] on filedocumented in this encounter Care Teams Fabricator Special Items Relationship Specialty Start Date End Date Shaikh Murphy MD [address] [place] [address] PCP - General Internal Medicine 09/25/23 03/10/24 Gordon Caputo MD [address] [place] [address] PCP - General Family Medicine 03/11/24 Shaikh Murphy MD [address] [place] [address] PCP - [facility] 05/06/24 Kenia Hoyos NP [address] [place] [address] Nurse Practitioner Family Medicine 03/11/24 documented as of this encounter
--- OUTSIDE RECORDS SUMMARY | 2025-03-13 10:24 | XMS_ITS | Encounter Summary ---
Author Organization [facility] Address [address] [place] [address] Care Team Providers Care Asphalt Paving Machine Operator Name Role Phone Shaikh JUAN JOSE Murphy Primary Care Provider [phone] Gordon Caputo MD Primary Care Provider [phone] Kenia Hoyos NP Unavailable [phone] Shaikh JUAN JOSE Muprhy Unavailable [phone] Reason for Visit * Reason Comments Med Refill Encounter Details Date Type Department Care Team (Late st Contact Info) Description 10/17/2023 Refill [facility] Shaikh Murphy MD [address] [place] [address] Right-sided chest wall pain Social History Tobacco [...] [facility] [address] [place] [address] Jen Taylor NP [address] [place] [phone] documented as of this encounter Visit Diagnoses Diagnosis Right-sided chest wall pain Painful respiration documented in this encounter Care Teams Asphalt Paving Machine Operator Relationship Specialty Start Date End Date Shaikh Murphy MD [address] [place] [phone] PCP - General Internal Medicine 09/25/23 03/10/24 Gordon Caputo MD [address] [place] [address] PCP - General Family Medicine 03/11/24 Shaikh Murphy MD [address] [place] [address] PCP - [facility] 05/06/24 Kenia Hoyos NP [address] [place] [address] Nurse Practitioner Family Medicine 03/11/24 documented as of this encounter
[2025-03-13 11:03] LABS: Glucose Urine UA NEGATIVE (NEGATIVE)
== END 2025-03-13 10:23 | disposition home or self-care (01) ==
LOC: LAB 10:22
PROVIDERS: PCP Nurse Practitioner; Visit Provider Nurse Practitioner
DX: F90.1 Attention-deficit hyperactivity disorder, predominantly hyperactive type (principal); M25.561 Pain in right knee; M25.562 Pain in left knee; G89.29 Other chronic pain; M54.50 Low back pain, unspecified; K21.9 Gastro-esophageal reflux disease without esophagitis; J45.20 Mild intermittent asthma, uncomplicated
CPT/HCPCS: 81003

== ENCOUNTER 2025-05-18 08:59 | Outpatient (OUT) | payer OTHER, SELFPAY ==
--- OUTSIDE RECORDS SUMMARY | 2025-05-14 07:49 | XMS_ITS | Continuity of Care Document ---
Author Organization [facility] Address [address] [place] [address] Phone Care Team Providers Care Consumer Attorney Name Role Phone Junie Jaime DO Primary Care Provider Junie Jaime DO Attending Provider [phone] Care Teams Patient Care Team Team Status: Active Member Role Status Dates Junie Jaime DO Primary Care Provider Active Patient Care Team Team Status: Inactive Member Role Status Dates Junie Jaime DO Primary Care Provider Active S tart: May 14, 2025 End: May 14, 2025 Junie Jaime DO Attending Provider Active Star t: May 14, 2025 End: May 14, 2025 Chief Complaint and Reason for Visit Chief Complaint Admit Date check up May 14, 2025 10 :43am Reason for Visit Admit Date ADHD May 14, 2025 10 :43am Asthma May 14, 2025 10 :43am Bilateral hand numbness May 14 10:43am GERD (gastroesophageal reflux disease) O ctober 2024 10:43am Allergies, Adverse Reactions, Alerts Allergen Type Severity Reaction Last Updated Verified Status No Known Allergies Allergy Unknown Octobe r 2024 10:57am Yes Active Social History Smoking Status Status Start Date End Date Date of Observa tion Smokes tobacco daily (finding) May 14, 2025 11:01am Observation Status Observation Response Date of Response Legal Sex Male (finding) Sex Assigned At Male [birth year] Family History Relationship Condition Age at Onset Recorded Date/T govind mother Chronic obstructive pulmonary disease Unknown sister Asthma Unknown maternal grandfather Malignant neoplasm Unknown Heart disease Unknown Problems Active Problems Medical Problem Onset Date Status Bilateral hand numbness Unknown Active ADHD Unknown Active GERD (gastroesophageal reflux disease) Unknown Active Asthma Unknown Active Medications Medication Status Dose Units Route Directions Qty Days St art Date Stop Date End Date Instructions Adherence Albuterol Sulfate 90 mcg/actuati on HFA aerosol inhaler Discont inued 2 PUFF INHALA TION EVERY 4-6 HOURS as needed [facility] 2024 12:00a m Octob er 2024 11:39 am Baclofen 10 mg tablet Discont inued 10 MG PO Daily [facility] r 2024 12:00a m Octob er 2024 10:58 am Naproxen 500 mg tablet Discont inued 500 MG PO Twice daily [facility] Meloxicam 15 mg tablet Active 15 MG PO Daily [facility] 2024 12:00a m Complies with drug therapy Dextroamphe tamine-Amph etamine (Adderall Xr) 30 mg capsule,ext ended release 24hr Discont inued 30 MG PO Daily [facility] 2024 12:00a m Octob er 2024 11:38 am Dextroamphe tamine-Amph etamine (Adderall Xr) 30 mg capsule,ext ended release 24hr Discont inued 30 MG PO Daily 30 30 [facility] 11:45 am Albuterol Sulfate 90 mcg/actuati on HFA aerosol inhaler Active 2 PUFF INHALA TION EVERY 4-6 HOURS as needed for shortness of breath or wheezing 8.5 [facility] 2024 11:39a m Complies with drug therapy Famotidine 40 mg tablet Active 40 MG PO Daily 30 [facility] 2024 12:00a m Complies with drug therapy Dextroamphe tamine-Amph etamine (Adderall Xr) 30 mg capsule,ext ended release 24hr Active 30 MG PO Daily 30 30 [facility] 2024 Complies with drug therapy Immunizations Immunization Event Date Not Given Reason Dose Number Prosecuting Attorney Lot Number Vaccine Information Statement (VIS) Detail Administration Location COVID-19 [id number].COV2.S ([employer]) October 25, 2021 [id number] Vital Signs Vital Reading Result Reference Range Collection Date/Time Height 69 [in_i] May 14 10:56am Weight 84.36 kg May 14 10:56am Heart Rate 80 /min 60-100 May 14 10:56am Respiratory rate 16 /min 12-24 May 10:56am Oxygen saturation by Pulse oximetry 99 % 95-100 May 14, 2025 10 :56am BP Systolic 102 mm[Hg] 100-140 May 14 10:56am BP Diastolic 52 mm[Hg] 60-100 May 14 10:56am BMI (Body Mass Index) 27.4 kg/m2 Octobe r 2024 10:56am Advance Directives Advance Directive Response Recorded Date/ Time Advance Directives No March 31, 2025 4:34pm Insurance Providers Guarantor Osman Mckee Address [address] [place] [address] Contact Info. Home Phone: Payer Policy Id Subscriber's Name Subscriber Id Effectiv e Date Expiration Date [place] [employer] [id number] Osman Mckee [id number] [place] [employer] WOLF [id number] Osman Mckee [id number] Encounters Encounter Location(s) Arrival/Admit Date Discharge/Depart Date Provider(s) Departed Physician/Prov ider Office Visit -[facility] Family Medicine [place] May 14, 2025 10:43am May 14, 2025 11:48am Junie Jaime DO Recent Diagnosis Onset Date Admit Date ADHD Unknown May 14 10:43am Asthma Unknown May 14 10:43am Bilateral hand numbness Unknown May 14, 2025 10:43am GERD (gastroesophageal reflux disease) Unknown May 14, 2025 10:43am Assessments Diagnosis Onset Date Resolution Status Admit Date ADHD acute May 14 025 10:43am Asthma acute May 14 10:43am Bilateral hand numbness acute O ctober 2024 10:43am GERD (gastroesophageal reflu x disease) acute May 14 10:43am Plan of Treatment Future Tests Future scheduled test information is unavailable Pending Tests Test Name Ordered Date Scheduled Date XR cervical spine LAT/FLX/EXT May 14, 2025 11:40am Future Visits Future appointment information is unavailable Referrals to Other Providers Referral information is unavailable Future Procedures Future procedure information is unavailable Future Medications Future medication information is unavailable Patient Instructions Patient instructions are unavailable
--- OUTSIDE RECORDS SUMMARY | 2025-05-18 09:03 | XMS_ITS | Encounter Summary ---
Author Organization [facility] Address [address] [place] [address] Care Team Providers Care Metal Die Finisher Name Role Phone Gordon Caputo MD Primary Care Provider Kenia Hoyos PLATE FORMER Unavailable [phone] Shaikh JUAN JOSE Murphy Unavailable [phone] Encounter Details Date Type Department Care Team (Late st Contact Info) Description 02/16/2025 Abstract [facility] [address] [place] [address] Jen Taylor NP [address] [place] [address] Social History Tobacco Use Types Packs/Day Years [...] as of this encounter Plan of Treatment Not on file documented as of this encounter Visit Diagnoses Not on filedocumented in this encounter Care Teams Metal Die Finisher Relationship Specialty Start Date End Date Gordon Caputo MD PCP - General Family Medicine 03/11/24 Shaikh Murphy MD [address] [place] [address] PCP - [facility] 05/06/24 Kenia Hoyos NP Nurse Practitioner Family Medicine 03/11/24 documented as of this encounter
--- OUTSIDE RECORDS SUMMARY | 2025-05-18 09:03 | XMS_ITS | Clinical Summary ---
Author Organization [facility] Healthcare Address [address] [place] [address] Care Team Providers Care Waste Water Worker Name Role Phone Gordon Caputo MD Primary Care Provider [phone] Kenia Hoyos PANEL WIRER Unavailable [phone] Shaikh JUAN JOSE Murphy Unavailable [phone] Allergies Active Allergy Reactions Criticality Noted Date Comments Honey Bee Venom Hives 06/15/2022 Medications amphetamine-dextro amphetamine XR (Adderall XR) 30 MG 24 hr capsuleIndications :Attention deficit hyperactivity disorder (ADHD), predominantly hyperactive type Take 1 capsule (30 mg) by mouth in the morning. Do not crush or chew. 30 capsule 5 Active amphetamine-dextro amphetamine XR (Adderall XR) 30 MG 24 hr capsuleIndications :Attention deficit hyperactivity disorder (ADHD), predominantly hyperactive type Take 1 capsule (30 mg) by mouth in the morning. Do not crush or chew. Do not start before March 18, 2025. 30 capsule 5 Active amphetamine-dextro amphetamine XR (Adderall XR) 30 MG 24 hr capsuleIndications :Attention deficit hyperactivity disorder (ADHD), predominantly hyperactive type Take 1 capsule (30 mg) by mouth in the morning. Do not crush or chew. Do not start before April 17, 2025. 30 capsule 5 Active famotidine (Pepcid) 20 MG tabletIndications: Gastroesophageal reflux disease without esophagitis Take 1 tablet (20 mg) by mouth Daily 30 tablet 1 5 Active Active Problems Problem Noted Date Diagnosed Date [...] young for cancer screening. Recent labs at [facility] - reviewed and discussed with patient. Too late for influenza vaccine now. 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 He lives [...] Encounters Date Type Department Care Team Description 03/13/2025 Clinisync Result Encounter [facility] External Department Unsolicited Jen Taylor NP 02/26/2025 Clinisync Result Encounter [facility]OMS External Department Unsolicited Jen Taylor NP 02/16/2025 1:40 PM EDT Office Visit [facility] [address] [place] [address] Jen Taylor NP Attention deficit hyperactivity disorder (ADHD), predominantly hyperactive type (Primary Dx); Tetrahydrocannabinol (THC) use disorder, moderate, dependence (HCC); Mild intermittent asthma without complication (HCC); Chronic pain of both knees; Chronic bilateral low back pain without sciatica; Gastroesophageal reflux disease without esophagitis 02/16/2025 Abstract [facility]] [address] [place] [address] Jen Taylor NP 02/16/2025 Bamboo flowsheet [facility] [address] [place] [address] Jen Taylor, DES from Last 3 Months Immunizations Immunization Administration [...] 01/22/2024 1:35 PM EDT Plan of Treatment Health Maintenance Due Date Last Done Comments Influenza Vaccine (#1) 2025 06/16/2022, 2020 Procedures Procedure Name Priority Date/Time Associated Diagnosis Comments TBH UA (CLEAN/CATCH) MICROSCOPIC IF INDICATE Routine 03/13/2025 10:22 AM EDT ALL THYROID STIM HORMONE Routine 02/26/2025 3:47 PM EDT ALL LIPID PROFILE (FASTING) Routine 02/26/2025 3:47 PM EDT [facility] CMP (CMP) (FOR REMOTE [facility] USE) Routine 02/26/2025 3:47 PM EDT ALL CBC WITH AUTO DIFF Routine 02/26/2025 3:47 PM EDT from Last 3 Months Results * (ABNORMAL) TBH UA (CLEAN/CATCH) MICROSCOPIC IF INDICATE (03/13/2025 10:22 AM EDT) COLOR URINE YELLOW YELLOW TBH CLARITY URINE CLEAR CLEAR TBH SPECIFIC GRAVITY URINE >=1.030(A) 1.005 - 1.025 TBH PH URINE 6.0 5.0 - 9.0 TBH PROTEIN URINE NEGATIVE NEG/TRACE mg/dL TBH GLUCOSE URINE UA NEGATIVE NEGATIVE mg/dL TBH BILIRUBIN URINE NEGATIVE NEGATIVE TBH KETONES URINE NEGATIVE NEGATIVE mg/dL TBH BLOOD URINE NEGATIVE NEGATIVE TBH NITRITE URINE NEGATIVE NEGATIVE TBH UROBILINOGEN URINE 0.2 0.2 - 1.0 EU/dL TBH LEUKOCYTE ESTERASE URINE NEGATIVE NEGATIVE TBH URINE MICROSCOPIC INDICATED NO TBH 03/13/2025 10:2 2 AM EDT 03/13/2025 10:24 AM EDT Narrative CLINISYNC - 03/13/2025 11:03 AM EDT Jen Taylor NP CL[facility] Final Result [facility] TB * [facility] CMP (CMP) (FOR REMOTE [facility] USE) (02/26/2025 3:47 PM EDT) SODIUM 138 136 - 145 mmol/L TBH POTASSIUM 4.0 3.5 - 5.1 mmol/L TBH CHLORIDE 103 98 - 107 mmol/L TBH CARBON DIOXIDE 26.2 21.0 - 32.0 mmol/L TBH ANION GAP 12.8 TBH GLUCOSE 104 74 - 106 mg/dL TBH BLOOD UREA NITROGEN 15.0 7.0 - 18.0 mg/dL TBH CREATININE 1.07 0.70 - 1.30 mg/dL TBH TBH EGFR-AF [place]UGUESE >60 >=60 mL/min/1. 73m 2 TBH TBH EGFR-NON AF [place]UESE >60 >=60 mL/min/1. 73m 2 TBH BUN [...] NP CLINISYNC Final Result Performing Organization Address [facility]/ZIP Co de Phone Number CLINISYMS TB * ALL THYROID STIM HORMONE (02/26/2025 3:47 PM EDT) Pathologist [facility] THYROID STIMULATING HORMONE 0.804 0.358 - 3.740 uIU/mL TB 02/26/2025 3:47 PM EDT 02/26/2025 3:54 PM EDT Narrative CLINISYNC - 02/26/2025 4:39 PM EDT Jen Brandon NUNES CLINISYNC Final Result Performing Organization Address [facility] Phone Number [facility] * (ABNORMAL) ALL LIPID PROFILE (FASTING) (02/26/2025 3:47 PM EDT) Pathologist [facility] TRIGLYCERIDES 171(H) <=150 mg/dL TBH CHOLESTEROL 163 [...] CLINISYNC - 02/26/2025 4:39 PM EDT Jen Brooksjason NUNES CLINISYNC Final Result Performing Organization Address [facility] Co de Phone Number [facility] * (ABNORMAL) ALL CBC WITH AUTO DIFF (02/26/2025 3:47 PM EDT) TBH WBC 7.6 4.0 - 11.0 10 3/uL [...] Jen Taylor NP CLINISYNC Final Result CLINIS[facility]NC [facility] from Last 3 Months Insurance [employer] Care Teams Waste Water Worker Relationship Specialty Start Date End Date Gordon Caputo MD PCP - General Family Medicine 03/11/24 Shaikh Murphy MD [address] [place] [address] PCP - [facility] 05/06/24 Kenia Hoyos NP Nurse Practitioner Family Medicine 03/11/24
--- OUTSIDE RECORDS SUMMARY | 2025-05-18 09:03 | XMS_ITS | Clinical Summary ---
Author Organization [facility] Address [address], [address] [place] [address] Care Team Providers Care Supervisor Graphite Name Role Phone Unavailable Primary Care Provider [...] Vaccine (1 of 2 - PCV) 2007 Flu vaccine (#1) 03/06/2025 06/16/2022, 06/14/2021 COVID-19 Vaccine (2 - 2024- season) 2025 10/25/2021 DTaP/Tdap/Td vaccine (7 - Td or Tdap) 01/11/2029 01/11/2019, 03/21/1993, 04/08/1991, Additional history exists Polio vaccine Completed 03/21/1993, 10/1990, 11/28/1989, Additional history exists HPV vaccine (No Doses Required) Completed Hepatitis A vaccine Aged Out No longe [...] patient's age to complete this topic Insurance [facility]
--- OUTSIDE RECORDS SUMMARY | 2025-05-18 09:03 | XMS_ITS | Encounter Summary ---
Author Organization [facility] Address [address] [place] [address] Care Team Providers Care Piano Technician Name Role Phone Shaikh JUAN JOSE Murphy Primary Care Provider [phone] Gordon Caputo MD Primary Care Provider [phone] Kenia Hoyos NP Unavailable [phone] Shaikh JUAN JOSE Murphy Unavailable [phone] Encounter Details Date Type Department Care Team (Late st Contact Info) Description 01/09/2024 Clinisync Result Encounter [facility] External Department Unsolicited Shaikh Murphy MD [address] [place] [address] Social History Tobacco Use Types Packs/Day Years [...] on file documented as of this encounter Procedures Procedure Name Priority Date/Time Associated Diagnosis Comments XR RIBS LEFT INCLUDE CHEST (MIN 3 VIEWS) 01/09/2024 2:13 PM EDT documented in this encounter Results * XR RIBS LEFT INCLUDE CHEST (MIN 3 VIEWS) (01/09/2024 2:13 PM EDT) Anatomical Region Laterality Modality Radiographic Luisa ging 01/09/2024 2:13 PM EDT Narrative 01/09/2024 2:15 PM EDT [place] [id number] XRay Report Signed Patient: YAO MCKEE II MR#: [id number] : 1990 Acct:[id number] Age/Sex: 33 / M ADM Date: 01/08/24 Loc: RAD Attending Dr: Shaikh Katherine Alejandre Ordering Physician: Shaikh Hill Murphy Date of Service: 01/08/24 Procedure(s): XR ribs LT min 3V w CXR1V Accession Number(s): [id number] cc: Shaikh Hill Murphy [place] [address] Patient Name: YAO MCKEE MRN: [id number] date: 1990 Sex: M Assigned Patient Location: [facility] Current Patient Location: Accession/Order Number: [id number] Exam Date: 01/08/2024 14:10 Report Date: 01/09/2024 [...] Signed By: 01/09/24 1415 DD/ 1413 TD/TT: Gravity Prospecting Operator Helper: Procedure Note Radiology, Radiologist, MD - 01/09/2024 [place] [address] XRay Report Signed Patient: YAO MCKEE IIMR#: [id number] : 1990Acct:[id number] Age/Sex: 33 / MADM Date: 01/08/24 Loc: RAD Attending Dr: Shaikh Katherine Alejandre Ordering Physician: Shaikh Hill Murphy Date of Service: 01/08/24 Procedure(s): XR ribs LT min 3V w CXR1V Accession Number(s): [id number] cc: Shaikh Hill Murphy [place] [address] Patient Name: YAO MCKEE MRN: [facility]:[id number] date: 1990 Sex: M Assigned Patient Location: [facility] Current Patient Location: Accession/Order Number: [id number] Exam Date: 01/08/2024 14:10 Report Date: 01/09/2024 [...] Rocky Bowers M.D. Signed By:01/09/24 1415 DD/ 141 TD/TT: Gravity Prospecting Operator Helper: Shaikh Katherine INGRAM IMG XR PROCEDURES Final Result documented in this encounter Visit Diagnoses Not on filedocumented in this encounter Care Teams Piano Technician Relationship Specialty Start Date End Date Shaikh Murphy MD PCP - General Internal Medicine 09/25/23 03/10/24 Gordon Caputo MD PCP - General Family Medicine 03/11/24 Shaikh Murphy MD [address] [place] [address] PCP - [facility] 05/06/24 Kenia Hoyos NP Nurse Practitioner Family Medicine 03/11/24 documented as of this encounter
--- OUTSIDE RECORDS SUMMARY | 2025-05-18 09:03 | XMS_ITS | Encounter Summary ---
Author Organization [facility] Address [address] [place] [address] Care Team Providers Care Jawbone Breaker Name Role Phone Unavailable Primary Care Provider Unavailabl e Encounter Details Date Type Department Care Team (Late st Contact Info) Description 08/11/2016 Procedure Visit Initial Department Assigned, To Be Social History Tobacco Use Types Packs/Day Years Used Date Smoking Tobacco: Every Day Cigarettes 1 7 Alcohol Use Standard Drinks/Week Comments Yes 24 (1 standard drink = 0.6 oz pu re alcohol) 1 case in a week Substance Use Types Use/Week Comments No Sex and Gender Information Value Date Recorded Sex Assigned at Not on file Legal Sex Male 11:18 AM EST Gender Identity Not on file Sexual Orientation Not on file documented as of this encounter Plan of Treatment Not on file documented as of this encounter Visit Diagnoses Not on filedocumented in this encounter
--- OUTSIDE RECORDS SUMMARY | 2025-05-18 09:04 | XMS_ITS | Encounter Summary ---
Author Organization [facility] Address [address] [place] [address] Care Team Providers Care Virtual Classroom Manager Name Role Phone Shaikh JUAN JOSE Murphy Primary Care Provider [phone] Gordon Caputo MD Primary Care Provider [phone] Kenia Hoyos NP Unavailable Shaikh JUAN JOSE Murphy Unavailable [phone] Encounter Details Date Type Department Care Team (Late st Contact Info) Description 01/09/2024 Orders Only [facility] [address] [place] [address] Shaikh Murphy MD [address] [facility] [place] [address] Social History Tobacco Use Types Packs/Day Years [...] on filedocumented in this encounter Care Teams Virtual Classroom Manager Relationship Specialty Start Date End Date Shaikh Murphy MD PCP - General Internal Medicine 09/25/23 03/10/24 Gordon Caputo MD PCP - General Family Medicine 03/11/24 Shaikh Murphy MD [address] [place] [address] PCP - [facility] 05/06/24 Kenia Hoyos NP Nurse Practitioner Family Medicine 03/11/24 documented as of this encounter
--- OUTSIDE RECORDS SUMMARY | 2025-05-18 09:04 | XMS_ITS | Clinical Summary ---
Author Organization [facility] Address [address] [facility] [address] [place] [address] Care Team Providers Care Marine Rigger Name Role Phone Unavailable Primary Care Provider Unavailabl e Source Comments The following information is NOT included in Care Everywhere downloads:Psychiatric notes, ECG results, Cardiac Rehab notes, Pulmonary Function notes, data from [employer] (includes but not limited toPregnancy data,audiograms, eye exams, pre-surgical evaluation notes, well-child exam data).[facility] Allergies No known active allergies Medications ALBUTEROL INHALATION Inhale. Active amoxicillin (AMOXIL) 500 MG capsule Take 500 mg by mouth 3 times daily. Active ibuprofen (MOTRIN) 800 MG tablet Take 800 mg by mouth every 8 hours as needed. Active Active Problems Problem Noted Date Diagnosed Date Asthma ADHD (attention deficit hyperactivity disorder) Immunizations Immunization Administration Dates Next Due Hep B (peds/adol, 3-dose) (CVX=08) 05/08/2005 Influenza, injectable, quadr ivalent, preservative free (OFC=588) 06/16/2022 Influenza, unspecified formulation (CVX=88) 04/2021 TST-PPD, intradermal (PPD) (CVX=96) 03/29/2016 Tdap (SER=588) 01/11/2019 Social History Tobacco Use Types Packs/Day Years [...] Sign Reading Time Taken Comments Blood Pressure 134/84 11/18/2023 10:42 PM EDT Pulse 88 11/18/2023 10:42 PM EDT Temperature 36.8 C (98.2 F) 11/18/2023 10:42 PM EDT Respiratory Rate 20 11/18/2023 10:42 PM EDT Oxygen Saturation 98% 11/18/2023 10:42 PM EDT Inhaled Oxygen Concentration - - Weight 73.5 kg (162 lb) 03/29/2016 10:22 AM EDT Height 172.7 cm (5' 8 ) 03/29/2016 10:22 AM EDT Body Mass Index 24.63 03/29/2016 10:22 AM EDT Plan of Treatment Health Maintenance Due Date Last Done Comments HIV Test 2003 Hepatitis B (HBV) Vaccine (2 of 3 - 3-dose series) 06/05/2005 05/08/2005 Hepatitis C Antibody 2006 Hepatitis A (HAV) Vaccine (o ptional start 19+ years) 2007 Pneumococcal Vaccine(s) (1 of 2 - PCV) 2007 HPV Vaccine (optional start 27-45 years) 2015 Cholesterol 2023 COVID-19 Vaccine (2 - 2024- season) 2025 Influenza Vaccine (#1) 2025 06/16/2022, 2020 Tetanus (Td or Tdap) Booster 01/11/2029 01/11/2019 Shingles (RZV) Vaccine (1 of 2) 2038 Tdap Booster Completed 01/11/2019 Insurance [employer] on file * Guarantor: Darrion Turner Account Type Relation to Patient Date of Phone Billing Address [facility] [address] [place] [address]
--- OUTSIDE RECORDS SUMMARY | 2025-05-18 09:04 | XMS_ITS | Encounter Summary ---
Author Organization [facility] Address [address] [place] [address] Care Team Providers Care Ssis Architect Name Role Phone Shaikh JUAN JOSE Murphy Primary Care Provider [phone] Gordon Caputo MD Primary Care Provider [phone] Kenia Hoyos NP Unavailable [phone] Shaikh JUAN JOSE Murphy Unavailable [phone] Reason for Visit * Reason Comments Med Refill Encounter Details Date Type Department Care Team (Late st Contact Info) Description 10/17/2023 Refill [facility] EXT DEP Shaikh Murphy MD [address] [place] [address] Right-sided chest wall pain Social History Tobacco [...] documented in this encounter Plan of Treatment Not on file documented as of this encounter Visit Diagnoses Diagnosis Right-sided chest wall pain Painful respiration documented in this encounter Care Teams Ssis Architect Relationship Specialty Start Date End Date Shaikh Murphy MD PCP - General Internal Medicine 09/25/23 03/10/24 Gordon Caputo MD PCP - General Family Medicine 03/11/24 Shaikh Murphy MD [address] [place] [address] PCP - [facility] 05/06/24 Kenia Hoyos NP Nurse Practitioner Family Medicine 03/11/24 documented as of this encounter
--- NOTE | 2025-05-18 09:05 | XR_ITS ---
The [place] [id number] Patient Name: YAO BLANC MRN: [id number] date: 1990 Sex: M Assigned Patient Location: [facility] Current Patient Location: [facility] Accession/Order Number: [id number] Exam Date: 05/18/2025 09:10 Report Date: 05/18/2025 09:35 At the request of: SHANE HINTON DO Procedure: XR cervical spine w flex/ext CERVICAL SPINE WITH FLEXION AND EXTENSION VIEWS - 7 views: CLINICAL HISTORY: Bilateral Hand Numbness COMPARISON: None TECHNIQUE: AP, lateral (neutral, flexion, extension) both oblique and odontoid views were obtained. There is straightening of the normal cervical curvature. There is no evidence of fracture or displacement. There is no significant instability with flexion or extension. The disc spaces are preserved. There is no prominent hypertrophy. The neural foramen are patent. The atlantoaxial relationship is preserved. There is no prevertebral soft tissue swelling. XR/XR cervical spine w flex/ext IMPRESSION: LOSS OF NORMAL CERVICAL LORDOSIS. NO ACUTE BONY FINDINGS Impression dictated by: Marisol Liu M.D. 05/18/2025 9:35 AM Dictation Location: [place] [address] Electronically authenticated by: [id number] Y Date: 05/18/2025 09:35
--- OUTSIDE RECORDS SUMMARY | 2025-05-18 09:08 | XMS_ITS | CCD ---
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 [place], [place] [id number] Cellulose Insulation Helper: Hardeep Garvin MD Erythrocyte distribution width (RBC) [Ratio] 11.6 % Low 11.8-14.4 [facility] Comment on above: Performed By: #### ABDELRAHMAN VANEGAS, BMP #### [facility] [address] [place], [facility] Cellulose Insulation Helper: Hardeep Garvin MD Hematocrit (Bld) [Volume fraction] 47.0 % Normal 40.7-50.3 [facility] Comment on above: Performed By: #### ABDELRAHMAN VANEGAS, BMP #### [facility] [address] [place] [id number] Cellulose Insulation Helper: Hardeep Garvin MD Hemoglobin (Bld) [Mass/Vol] 16.0 g/dL Normal 13.0-17.0 [facility] Comment on above: Performed By: #### ABDELRAHMAN VANEGAS, BMP #### [facility] [address] [place], [facility] Cellulose Insulation Helper: Hardeep Garvin MD Immature granulocytes/100 WBC (Bld) 0 % Normal 0 [facility] Comment on above: Performed By: #### ABDELRAHMAN VANEGAS, BMP #### [facility] [address] [place], [facility] Cellulose Insulation Helper: Hardeep Garvin MD Lymphocytes (Bld) [#/Vol] 2.44 10*3/uL Normal 1.10-3.70 [facility] Comment on above: Performed By: #### ABDELRAHMAN VANEGAS, BMP #### [facility] [address] [place] [address] Cellulose Insulation Helper: Hardeep Garvin MD Lymphocytes/100 WBC (Bld) 30 % Normal 24-43 [facility] Comment on above: Performed By: #### ABDELRAHMAN VANEGAS, BMP #### [address] [place], [place] [id number] Cellulose Insulation Helper: Hardeep Garvin MD MCH (RBC) [Entitic mass] 30.5 pg Normal 25.2-33.5 [facility] Comment on above: Performed By: #### ABDELRAHMAN VANEGAS, BMP #### [address] [place], [facility] Cellulose Insulation Helper: Hardeep Garvin MD MCHC (RBC) [Mass/Vol] 34.0 g/dL Normal 28.4-34.[address] [facility] Comment on above: Performed By: #### ABDELRAHMAN VANEGAS, BMP #### [address] [place] [address] Cellulose Insulation Helper: Hardeep Garvin MD MCV (RBC) [Entitic vol] 89.5 fL Normal 82.6-102.9 [facility] Comment on above: Performed By: #### ABDELRAHMAN VANEGAS, BMP #### [address] [place] [id number] Cellulose Insulation Helper: Hardeep Garvin MD Monocytes (Bld) [#/Vol] 0.59 10*3/uL Normal 0.10-1.20 [facility] Comment on above: Performed By: #### ABDELRAHMAN VANEGAS, BMP #### [address] [place], [place] [address] Cellulose Insulation Helper: Hardeep Garvin MD Monocytes/100 WBC (Bld) 7 % Normal 3-[address] [facility] Comment on above: Performed By: #### ABDELRAHMAN VANEGAS, BMP #### [address] [place] [id number] Cellulose Insulation Helper: Hardeep Garvin MD Neutrophil (Seg) 61 % Normal 36-65 [facility] Comment on above: Performed By: #### ABDELRAHMAN VANEGAS, BMP #### [address] [place] [id number] Cellulose Insulation Helper: Hardeep Garvin MD NRBC Automated 0.0 per 100 WBC Normal 0.0 [facility] Comment on above: Performed By: #### ABDELRAHMAN VANEGAS, BMP #### [facility] [address] [place] [id number] Cellulose Insulation Helper: Hardeep Garvin MD Platelet mean volume (Bld) [Entitic vol] 10.1 fL Normal 8.1-13.5 [facility] Comment on above: Performed By: #### ABDELRAHMAN VANEGAS, BMP #### [facility] [address] [place] [address] Cellulose Insulation Helper: Hardeep Garvin MD Platelets (Bld) [#/Vol] 263 10*3/uL Normal 138-453 [facility] Comment on above: Performed By: #### ABDELRAHMAN VANEGAS, BMP #### [address] [place] [id number] Cellulose Insulation Helper: Hardeep Garvin MD RBC (Bld) [#/Vol] 5.25 10*6/uL Normal 4.21-5.77 [facility] Comment on above: Performed By: #### ABDELRAHMAN VANEGAS, BMP #### [address] [place] [id number] Cellulose Insulation Helper: Hardeep Garvin MD WBC (Bld) [#/Vol] 8.1 10*3/uL Normal 3.5-11.3 [facility] Comment on above: Performed By: #### ABDELRAHMAN VANEGAS, BMP #### [facility] [address] [place] [address] Cellulose Insulation Helper: Hardeep Garvin MD D-Dimer Teston 11-02-2024 D-Dimer Test 0.28 ug/mL FEU Normal 0.00-0.59 [facility] Comment on above: Result Comment: When combined with a low clinical probability, a D dimer value of <0.50 ug/mL FEU is considered negative for DVT and PE (negative predictive value of 98%, sensitivity of 97%). If this test is not being used to help rule out DVT and PE, then the following reference range should be utilized: 0.00 - 0.59 ug/mL FEU. The D-Dimer assay is intended for use as an aid in the diagnosis of venous thromboembolism (DVT and PE) and the results should be interpreted in conjunction with the patient's medical history, clinical presentation, and other findings. Elevated levels of D-dimer activity can be seen in any state of coagulation activation and is not recommended in patients with therapeutic dose anticoagulant therapy for >24 hours, fibrinolytic therapy within the previous 7 days, trauma or surgery within the previous 4 weeks, disseminated malignancies, aortic aneurysm, sepsis, severe infections, pneumonia, severe skin infections, liver cirrhosis, advanced age, coronary disease, diabetes, and . A very low percentage of patients with DVT may yield D-dimer results below the cutoff of 0.5 ug/mL FEU. This is known to be more prevalent in patients with distal DVT. Performed By: #### D GOVIND #### [facility] [address] [place] [address] Cellulose Insulation Helper: Hardeep Garvin MD D-Dimer, Quantitativeon 10-06 Fibrin D-dimer FEU (PPP) [Mass/Vol] 0.28 [facility] Comment on above: When combined with a low clinical probability, a D dimer value of <0.50 ug/mL FEU is considered negative for DVT and PE (negative predictive value of 98%, sensitivity of 97%). If this test is not being used to help rule out DVT and PE, then the following reference range should be utilized: 0.00 - 0.59 ug/mL FEU. The D-Dimer assay is intended for use as an aid in the diagnosis of venous thromboembolism (DVT and PE) and the results should be interpreted in conjunction with the patient's medical history, clinical presentation, and other findings. Elevated levels of D-dimer activity can be seen in any state of coagulation activation and is not recommended in patients with therapeutic dose anticoagulant therapy for >24 hours, fibrinolytic therapy within the previous 7 days, trauma or surgery within the previous 4 weeks, disseminated malignancies, aortic aneurysm, sepsis, severe infections, pneumonia, severe skin infections, liver cirrhosis, advanced age, coronary disease, diabetes, and . A very low percentage of patients with DVT may yield D-dimer results below the cutoff of 0.5 ug/mL FEU. This is known to be more prevalent in patients with distal DVT. [facility] No Panel Informationon 11-02 [facility] Portable XR Chest AP single viewon 11-02-2024 No acute cardiopulmonary abnormality is identified. [facility] EXAMINATION: ONE XRAY VIEW OF THE CHEST 11/02/2024 3:36 pm COMPARISON: 04/05/2023 HISTORY: ORDERING SYSTEM PROVIDED HISTORY: cp TECHNOLOGIST PROVIDED HISTORY: cp FINDINGS: The heart is normal in size. There is no focal pulmonary consolidation. There is no pleural effusion or pneumothorax. No acute osseous abnormality is identified. [facility] Jonas De Leon MD - 11/02/2024 EXAMINATION: ONE XRAY VIEW OF THE CHEST 11/02/2024 3:36 pm COMPARISON: 04/05/2023 HISTORY: ORDERING SYSTEM PROVIDED HISTORY: cp TECHNOLOGIST PROVIDED HISTORY: cp FINDINGS: The heart is normal in size. There is no focal pulmonary consolidation. There is no pleural effusion or pneumothorax. No acute osseous abnormality is identified. IMPRESSION: No acute cardiopulmonary abnormality is identified. [facility] Radiology Study observation (narrative) [facility] Portable XR Chest AP single viewOrdered By: Jonas De Leon on 11-02-2024 [facility] Work Phone: Troponinon 11-02-2024 Troponin I.cardiac High sensitivity method [Mass/Vol] 6 ng/L 0 - 22 ng/L [facility] Comment on above: High Sensitivity Tro ponin values cannot be compared with other Troponin methodologies. [facility] Troponin, High Sens 6 ng/L Normal 0-22 [facility] Comment on above: Result Comment: High Sensitivity Troponin values cannot be compared with other Troponin methodologies. Performed By: #### T ROPI #### [facility] [address] [place] [address] Cellulose Insulation Helper: Hardeep Garvin MD Troponin I.cardiac High sensitivity method [Mass/Vol] 7 ng/L 0 - 22 ng/L [facility] Comment on above: High Sensitivity Tro ponin values cannot be compared with other Troponin methodologies. Troponin, High Sens 7 ng/L Normal 0-22 [facility] Comment on above: Result Comment: High Sensitivity Troponin values cannot be compared with other Troponin methodologies. Performed By: #### T KASSIDY, [facility], [facility] #### [facility] [address] [place] [address] Cellulose Insulation Helper: Hardeep Garvin MD XR CHEST PORTABLEon 11-03-19 XR CHEST PORTABLE EXAMINATION: ONE XRAY VIEW OF THE CHEST 11/02/2024 3:36 pm COMPARISON: 04/05/2023 HISTORY: ORDERING SYSTEM PROVIDED HISTORY: cp TECHNOLOGIST PROVIDED HISTORY: cp FINDINGS: The heart is normal in size. There is no focal pulmonary consolidation. There is no pleural effusion or pneumothorax. No acute osseous abnormality is identified. IMPRESSION: No acute cardiopulmonary abnormality is identified. Interpreted by: Jonas De Leon MD Signed by: Jonas De Leon MD 11/02/24 Final result Normal [facility] Consultson 11-19-2023 Collar Tacker Authentication Interface Message Text Attestation signed by Tavon Pang MD at 11/19/2023 12:08 PM Teaching Physician Note: I reviewed the resident's documentation and discussed the patient with the resident. I agree with the resident's medical decision making as documented in the resident's note Tavon Pang MD Division of Trauma, Critical Care, [place], and Emergency General Surgery Department of Surgery [facility] DIVISION OF BURN SURGERY BURN SURGERY CONSULTATION [...] DO, PGY2 General Surgery Resident Normal [facility] Provider Noteson 11-19-19 Collar Tacker Authentication Interface Message Text EMERGENCY DEPARTMENT - [...] 1650 Sun Nov 18, [id number] Last tetanus 2015 [MS] ED Course User Index [MS] Ethan [...] resident's note. Koko Magana MD Normal [facility] Progress Noteson 11-19-2023 Collar Tacker Authentication Interface Message Text Pt identified by [...] prescriptions provided to patient. Photos obtained, see intermediate teacher. Patient instructed to follow up as scheduled. Nallely Ji RN Normal [facility] Ambulatory Visit Summaryon 1 09-19-2022 Ambulatory Visit Summary OSMAN MCKEE :1990 Visit Date:07/19/2023 Ambulatory Visit Instructions Your [...] PM EST With: David Martines MD Where: [facility] [place] Normal [facility] Family Medicine Office/Clini c Noteon 07-19-2023 Family [...] is in agreement Ordered: Drug Screen POC 29990 2. Tetrahydrocannabinol (THC) use disorder, moderate, dependence (F12.20: Cannabis dependence, uncomplicated) - As above - Encouraged cessation. Orders: amphetamine-dextroamp hetamine, 30 mg = 1 cap(s), Oral, qAM, # 30 cap(s), Refills(s) 0, Pharmacy: [facility]/pharmacy #[id number], 173, cm, 07/19/23 10:31:00 EST, Height/Length [...] 10:35:00) Benzodiazepines Quant: Negative (07/19/23 10:35:00) Normal [facility] Comment on above: Result Comment: Elec tronically Signed By: Conrad INGRAM, David Park.br\Date and Time Signed: 07/19/23 10:49 EST Patient Educationon 07-19-20 Patient Education [facility] Attention Deficit Hyperactivity Disorder, Adult Attention [...] primary care provider or a mental health pharmacy customer care specialist. Your health care provider may use [...] Behavioral management. You may work with a health care coach who is specially trained to help people with ADHD manage and organize activities and function more effectively. Follow these instructions at home: Medicines ? Take csik-tde-tlvcvpr and prescription medicines only as told by [...] Follow th (more content not included)... Normal [facility] Physician Referralon 023 Physician Referral [id number] .00TIFF Normal [facility] Ambulatory Visit Summaryon 08-21-2022 Ambulatory Visit Summary OSMAN MCKEE :1990 [...] PM EST With: David Martines MD Where: [facility] Invalid Interpretation Code Asthma [facility] Ambulatory Visit Summary OSMAN MCKEE :1990 [...] PM EST With: David Martines MD Where: [facility] Invalid Interpretation Code Asthma [facility] Ambulatory Visit Summary OSMAN MCKEE :1990 [...] for choosing us for your care. Normal [facility] Family Medicine Office/Clini c Noteon 06-21-2023 Family Medicine Office/Clinic Note HPI Staff Osman is a 32 year old male presenting to establish care Has ADHD Establish Care: History:ADHD Last provider: MY [facility], [facility] Any recent labs: Been a while Health [...] at next month Ordered: Drug Screen POC 35882 [facility] [place]ulatory Referral 2. Asthma (J45.909: Unspecified asthma, uncomplicated) - NO issues at this time. - On Albuterol PRN Ordered: [facility] Ref[facility] 3. Smoker (F17.200: Nicotine dependence, unspecified, uncomplicated) - Please stop smoking Ordered: Drug Screen POC 81269 [facility] Ambulatory Referral 4. BMI 27.0-27.9,adult (Z68.27: Body mass index [BMI] 27.0-27.9, adult) - BMI education given Ordered: Drug Screen POC 58219 [facility] Ambulatory Referral 5. Encounter for surveillance of abnormal nevi (Z13.89: Encounter for screening for other disorder) - Will send to derm. Ordered: [facility] Ambulatory Referral Orders: amphetamine-dextroamp hetamine, 30 mg = 1 cap(s), Oral, qAM, # 90 cap(s), Refills(s) 0, Pharmacy: [facility]/pharmacy #[id number], 173, cm, 06/21/23 14:42:00 EST, Height/Length Dosing, [...] 14:53:00) Benzodiazepines Quant: Negative (06/21/23 14:53:00) [facility] Comment on above: Result Comment: Elec tronically Signed By: Conrad INGRAM, David Jungbr\Date and Time Signed: 06/21/23 15:07 EST Formson 06-21-2023 Forms [id number]. 00TIFF [facility] Forms [id number] .00TIFF [facility] Medication Consenton 023 Medication Consent [id number] .00TIFF [facility] PAIN MGT DRUG PANEL W/ INTER Ari 04-20-2023 6-Monoacetylmorphine (6-SARA) Ql (U) Not detected [facility] 7-Aminoclonazepam Ql (U) Not detected [facility] Alpha hydroxyalprazolam Ql (U) Not detected [facility] Vngpm-PE-Tcvufcjdj (cutoff 20 ng/mL) Not detected [facility] ALPRAZolam Ql (U) Not detected [facility] Amphetamines Ql (U) Present [facility] Annotation comment [Interpretation] Narrative See Interp [facility] Annotation comment [Interpretation] Narrative See Note [facility] Comment on above: ___ DRUGS EXPECTED: ADDERALL (AMPHETAMINE) ___ CONSISTENT with medications provided: ADDERALL (AMPHETAMINE): based on amphetamine ___ INCONSISTENT with medications provided: THC: based on immunoassay detection ___ INTERPRETIVE INFORMATION: Targeted drug profile Interp Interpretation depends on accuracy and completeness of patient medication information submitted by client. Barbiturates Ql (U) Not detected [facility] Benzoylecgonine Ql (U) Not detected [facility] Buprenorphine Ql (U) Not detected [facility] Carboxy tetrahydrocannabinol Ql (U) Present [facility] Comment on above: INTERPRETIVE INFORMA TION: Marijuana Metabolite The cutoff for Marijuana Metabolite (immunoassay) was changed from 20 ng/mL to 50 ng/mL, effective December 18, 2022. Carisoprodol Ql (U) Not detected [facility] Comment on above: The carisoprodol immunoassay has cross-reactivity to carisoprodol and meprobamate. clonazePAM Ql (U) Not detected [facility] Codeine Ql (U) Not detected [facility] Creatinine (U) [Mass/Vol] 348.2 mg/dL 20.0 - 400.0 mg/dL [facility] diazePAM Ql (U) Not detected [facility] Ethyl glucuronide Ql (U) Not detected [facility] fentaNYL Ql (U) Not detected [facility] Gabapentin (cutoff 3,000 ng/mL) Not detected [facility] HYDROcodone Ql (U) Not detected [facility] HYDROmorphone Ql (U) Not detected [facility] LORazepam Ql (U) Not detected [facility] Methadone Ql (U) Not detected [facility] Methamphetamine Ql (U) Not detected [facility] Methylenedioxyamphetamin e Ql (U) Not detected [facility] Methylenedioxyethylamphe tamine Ql (U) Not detected [facility] Methylenedioxymethamphet amine Ql (U) Not detected [facility] Methylphenidate Ql (U) Not detected [facility] Midazolam Screen Ql (U) Not detected [facility] Morphine Ql (U) Not detected [facility] Naloxone (cutoff 100 ng/mL) Not detected [facility] Norbuprenorphine Confirm Ql (U) Not detected [facility] Nordiazepam Ql (U) Not detected [facility] Norfentanyl Ql (U) Not detected [facility] Norhydrocodone Confirm Ql (U) Not detected [facility] Normeperidine Confirm Ql (U) Not detected [facility] Noroxycodone Confirm Ql (U) Not detected [facility] Noroxymorphone (cutoff 100 ng/mL) Not detected [facility] Oxazepam Ql (U) Not detected [facility] oxyCODONE Ql (U) Not detected [facility] oxyMORphone Ql (U) Not detected [facility] Pathology study See Note [facility] Comment on above: Authorized individua ls can access the Someecards Enhanced Report using the following link: [email or web address] Performed By: [facility] [address] [place] [id number] Computer Technology Instructor: Koko South MD, PhD CLIA Number: [id number] Phencyclidine Ql (U) Not detected [facility] Phentermine Ql (U) Not detected [facility] Pregabalin (cutoff 3,000 ng/mL) Not detected [facility] Service comment (Unsp spec) [Interp] See Below [facility] Comment on above: Methodology: Qualita tive [...] developed and its performance characteristics determined by [facility]. It has not been cleared or approved by the [place] Food and Drug Administration. This test was performed in a CLIA certified laboratory and is intended for clinical purposes. Tapentadol Screen Ql (U) Not detected [facility] Nifevmabkc-c-Utbw (cutoff 200 ng/mL) Not detected [facility] Temazepam Ql (U) Not detected [facility] traMADol Ql (U) Not detected [facility] Zolpidem Metabolite (cutoff 100 ng/mL) Not detected [facility] Zolpidem Ql (U) Not detected [facility] PAIN MGT DRUG PANEL W/ INTER Ari 04-16-2023 6-acetylmorphine (cutoff 20 ng/mL) Not detected [facility] 7-Aminoclonazepam (cutoff 40 ng/mL) Not detected [facility] Cuhlg-KN-Rduxjqszrt (cutoff 20 ng/mL) Not detected [facility] Vaogo-UY-Bpsxclxrg (cutoff 20 ng/mL) Not detected [facility] Alprazolam (cutoff 40 ng/mL) Not detected [facility] Amphetamine (cutoff 50 ng/mL) Present [facility] Barbiturates (cutoff 200 ng/mL) Not detected [facility] Benzoylecgonine Ql (U) Not detected [facility] Buprenorphine (cutoff 5 ng/mL) Not detected [facility] Carisoprodol (cut-off 100 ng/mL) Not detected [facility] Comment on above: Result Comment: The carisoprodol immunoassay has cross-reactivity to carisoprodol and meprobamate. Clonazepam (cutoff 20 ng/mL) Not detected [facility] Codeine (cutoff 40 ng/mL) Not detected [facility] Creatinine, Urine 348.2 mg/dL Normal 20.0-400.0 [facility] Diazepam (cutoff 50 ng/mL) Not detected [facility] DRUGS EXPECTED See Interp [facility] EER Tgt drug prof, MS/EMIT, UR See Note [facility] Comment on above: Result Comment: Auth orized individuals can access the [employer] Enhanced Report using the following link: [email or web address] Performed By: [facility] [address] [place] [id number] Computer Technology Instructor: Koko South MD, PhD CLIA Number: [id number] Ethyl Glucuronide (cutoff 500 ng/mL) Not detected [facility] [place] Fentanyl (cutoff 2 ng/mL) Not detected [facility] Gabapentin (cutoff 3,000 ng/mL) Not detected [facility] [place] Hydrocodone (cutoff 40 ng/mL) Not detected [facility] [place] Hydromorphone (cutoff 20 ng/mL) Not detected [facility] [place] Lorazepam (cutoff 60 ng/mL) Not detected [facility] [place] Marijuana Metabolite (cutoff 20 ng/mL) Present [facility] [place] Comment on above: Result Comment: INTE RPRETIVE INFORMATION: Marijuana Metabolite The cutoff for Marijuana Metabolite (immunoassay) was changed from 20 ng/mL to 50 ng/mL, effective December 18, 2022. MDA (cutoff 200 ng/mL) Not detected [facility] [place] MDEA- Jewels (cutoff 200 ng/mL) Not detected [facility] [place] MDMA- Ecstasy (cutoff 200 ng/mL) Not detected [facility] [place] Meperidine metabolite (cutoff 50 ng/mL) Not detected [facility] [place] Methadone Ql (U) Not detected [facility] [place] Methamphetamine (cutoff 200 ng/mL) Not detected [facility] [place] Methylphenidate (cutoff 100 ng/mL) Not detected [facility] [place] Midazolam (cutoff 20 ng/mL) Not detected [facility] [place] Morphine (cutoff 20 ng/mL) Not detected [facility] [place] Naloxone (cutoff 100 ng/mL) Not detected [facility] [place] Norbuprenorphine (cutoff 20 ng/mL) Not detected [facility] [place] Nordiazepam (cutoff 50 ng/mL) Not detected [facility] [place] Norfentanyl (cutoff 2 ng/mL) Not detected [facility] [place] Norhydrocodone (cutoff 100 ng/mL) Not detected [facility] [place] Noroxycodone (cutoff 100 ng/mL) Not detected [facility] [place] Noroxymorphone (cutoff 100 ng/mL) Not detected [facility] [place] Oxazepam (cutoff 50 ng/mL) Not detected [facility] [place] Oxycodone (cutoff 40 ng/mL) Not detected [facility] [place] Oxymorphone (cutoff 40 ng/mL) Not detected [facility] [place] PCP (cutoff 25 ng/mL) Not detected [facility] [place] Phentermine (cutoff 100 ng/mL) Not detected [facility] [place] Pregabalin (cutoff 3,000 ng/mL) Not detected [facility] [place] Tapentadol (cutoff 100 ng/mL) Not detected [facility] Dqyfabsale-y-Ghbs (cutoff 200 ng/mL) Not detected [facility] [place] Targeted Drug Profile Interp See Note [facility] [place] Comment on above: Result Comment: ___ DRUGS EXPECTED: ADDERALL (AMPHETAMINE) ___ CONSISTENT with medications provided: ADDERALL (AMPHETAMINE): based on amphetamine ___ INCONSISTENT with medications provided: THC: based on immunoassay detection ___ INTERPRETIVE INFORMATION: Targeted drug profile Interp Interpretation depends on accuracy and completeness of patient medication information submitted by client. Targeted drug profile panel See Below [facility] Comment on above: Result Comment: Meth [...] developed and its performance characteristics determined by [facility]. It has not been cleared or approved by the [place] Food and Drug Administration. This test was performed in a CLIA certified laboratory and is intended for clinical purposes. Temazepam (cutoff 50 ng/mL) Not detected Normal [facility] [place] Tramadol (cutoff 100 ng/mL) Not detected [facility] [place] Zolpidem (cutoff 20 ng/mL) Not detected Normal [facility] [place] Zolpidem Metabolite (cutoff 100 ng/mL) Not detected Normal [facility] [place] ECGon 04-10-2023 Electrocardiogram [facility] Test Date: 2023-04-05 Pat Name: OSMAN MCKEE Department: [id number] Room: E17 Gender: M Senior Financial: : 1990 Requested By: CORONA Guallpa Order Number: [id number] Reading MD: Jhony Roberts Measurements Intervals [place] Rate: 90 P: 61 MT: 175 QRS: 61 QRSD: 116 T: 58 QT: 350 QTc: 429 Interpretive Statements Sinus rhythm Incomplete right bundle branch block Electronically Signed On 04-10-2023 11:56:33 EDT by Jhony Roberts Normal [facility] [place] CBC AND ELECTRONIC DIFFon Basophils (Bld) [#/Vol] 0.1 10*3/uL Normal 0.0-0.2 [facility] Basophils/100 WBC (Bld) 0.7 % Normal [facility] [place] Eosinophils (Bld) [#/Vol] 0.1 10*3/uL Normal 0.0-0.6 [facility] Eosinophils/100 WBC (Bld) 0.9 % Normal [facility] [place] Hematocrit (Bld) [Volume fraction] 43.5 % Normal 37.5-50.1 [facility] Hemoglobin (Bld) [Mass/Vol] 14.7 g/dL Normal 12.9-16.9 [facility] Immature Grans % 0.5 % Normal [facility] [place] Lymphocytes (Bld) [#/Vol] 0.4 10*3/uL Low 0.6-4.6 [facility] Lymphocytes/100 WBC (Bld) 4.2 % Normal [facility] MCV (RBC) [Entitic vol] 88.4 fL Normal 83.0-100.0 [facility] Mean Cell Hgb 29.9 pg Normal 28.0-33.0 [facility] Mean Cell Hgb Conc 33.8 g/dL Normal 31.6-35.5 [facility] [place] Monocytes (Bld) [#/Vol] 1.0 10*3/uL Normal 0.0-1.3 [facility] Monocytes/100 WBC (Bld) 11.1 % Normal [facility] [place] Nucleated RBC 0 /100 WBC Normal [facility] [place] Platelet mean volume (Bld) [Entitic vol] 10.6 fL Normal 9.4-12.4 [facility] Platelets (Bld) [#/Vol] 224 10*3/uL Normal 140-400 [facility] RBC (Bld) [#/Vol] 4.92 10*6/uL Normal 4.19-5.50 [facility] [place] RBC Distribution 11.9 % Normal 11.5-14.5 [facility] Segs + Bands Auto 82.6 % Normal [facility] Segs + Bands,Absolute Auto 7.6 K/uL Normal 1.6-8.9 [facility] WBC (Bld) [#/Vol] 9.1 10*3/uL Normal 4.3-11.1 [facility] COMPREHENSIVE METABOLIC PANE Philip 04-05-2023 Albumin [Mass/Vol] 4.7 g/dL Normal 3.5-5.7 [facility] Albumin/Globulin [Mass ratio] 1.7 {ratio} Normal 1.1-2.2 [facility] ALP [Catalytic activity/Vol] 81 U/L Normal 34-104 [facility] ALT [Catalytic activity/Vol] 26 U/L Normal 7-52 [facility] AST [Catalytic activity/Vol] 20 U/L Normal 13-39 [facility] Bilirubin [Mass/Vol] 0.6 mg/dL Normal 0.3-1.0 [facility] Calcium [Mass/Vol] 9.4 mg/dL Normal 8.6-10.3 [facility] Chloride [Moles/Vol] 105 mmol/L Normal 98-107 [facility] CO2 [Moles/Vol] 22 mmol/L Low 23-29 [facility] Creatinine [Mass/Vol] 1.10 mg/dL Normal 0.70-1.30 [facility] GFR/1.73 sq M.predicted among non-blacks MDRD (S/P/Bld) [Vol rate/Area] 90 mL/min/{1.73_m2} Normal >=60 [facility] Comment on above: Result Comment: Repo rted eGFR is based on the CKD-EPI 2020 equation using creatinine, age, and sex. Globulin (S) [Mass/Vol] 2.7 g/dL Normal 2.4-3.5 [facility] [place] Glucose [Mass/Vol] 104 mg/dL Normal 70-105 [facility] Osmolality [Osmolality] 280 mosm/kg Normal 280-300 [facility] Potassium [Moles/Vol] 3.9 mmol/L Normal 3.5-5.1 [facility] Protein [Mass/Vol] 7.4 g/dL Normal 6.4-8.9 [facility] Sodium [Moles/Vol] 135 mmol/L Low 136-145 [facility] Urea nitrogen [Mass/Vol] 13 mg/dL Normal 6-20 [facility] Urea nitrogen/Creatinine [Mass ratio] 12 mg/mg Normal 6-26 [facility] LIPASEon 04-05-2023 Lipase [Catalytic activity/Vol] 3 U/L Low 11-82 [facility] TROPONINon 04-05-2023 Troponin I.cardiac [Mass/Vol] ng/mL Normal <0.04 [facility] XR CHEST PORTABLEon 04-05-20 23 XR CHEST PORTABLE EXAMINATION: ONE XRAY VIEW [...] Reddy MD Interpreting Provider: Deborah Camargo MD [facility] Laboratory - Chemistry and C hemistry - challengeon 01-21-2023 Glucose [Mass/Vol] 98 mg/dL 70 - 99 mg/dL [facility] Glucose [Mass/Vol] 98 mg/dL 70 - 99 mg/dL [facility] No Panel Informationon 01-21 Interpretation and review of laboratory results [facility] Interpretation and review of laboratory results Normal [facility] RF Small bowel Views W contr [...] FINDINGS: Enteric tube extends into the stomach. Grain Blender image of the abdomen demonstrates a nonspecific, [...] FINDINGS: Enteric tube extends into the stomach. G[employer] Blender image of the abdomen demonstrates a nonspecific, nonobstructed bowel gas pattern. Distended small bowel loops are seen in the left mid abdomen. Contrast passes readily from the stomach to the colon. IMPRESSION IMPRESSION: Persistently mildly distended small bowel loops within the left mid abdomen in findings related to minimal partial small bowel obstruction. D/ / Rocael Mayorga Interpreting Provider: Rocael Mayorga [facility] Laboratory - Chemistry and C hemistry - challengeon 01-20-2023 Glucose [Mass/Vol] 68 mg/dL Low 70 - 99 mg/dL [facility] Comment on above: RN Notified Glucose [Mass/Vol] 74 mg/dL 70 - 99 mg/dL [facility] Glucose [Mass/Vol] 103 mg/dL High 70 - 99 mg/dL [facility] Comment on above: RN Notified Calcium [Mass/Vol] 8.6 mg/dL 8.6 - 10. 3 mg/dL [facility] Chloride [Moles/Vol] 111 mmol/L High 98 - 10 7 mmol/L [facility] CO2 [Moles/Vol] 24 mmol/L 23 - 29 mmol/L [facility] Creatinine [Mass/Vol] 0.91 mg/dL 0.70 - 1.30 mg/dL [facility] GFR/1.73 sq M.predicted CKD-EPI (S/P/Bld) [Vol rate/Area] - PINF [facility] Comment on above: Reported eGFR is bas ed on the CKD-EPI 2020 equation using creatinine, age, and sex. Glucose [Mass/Vol] 88 mg/dL 70 - 105 mg/dL [facility] Osmolality Calc [Osmolality] 291 280 - 300 [facility] Potassium [Moles/Vol] 4.0 mmol/L 3.5 - 5.1 mmol/L [facility] Sodium [Moles/Vol] 141 mmol/L 136 - 145 mmol/L [facility] Urea nitrogen [Mass/Vol] 11 mg/dL 6 - 20 mg/d L [facility] Urea nitrogen/Creatinine [Mass ratio] 12 mg/mg 6 - 26 [facility] Albumin [Mass/Vol] 3.7 g/dL 3.5 - 5.7 g/dL [facility] Albumin/Globulin [Mass ratio] 1.5 {ratio} 1.1 - 2.2 [facility] ALP [Catalytic activity/Vol] 61 U/L 34 - 104 U/L [facility] ALT [Catalytic activity/Vol] 10 U/L 7 - 52 U/L [facility] AST [Catalytic activity/Vol] 11 U/L Low 13 - 39 U/L [facility] Bilirubin [Mass/Vol] 0.7 mg/dL 0.3 - 1 .0 mg/dL [facility] Bilirubin.direct [Mass/Vol] 0.1 mg/dL NINF - 0.2 mg/dL [facility] Globulin (S) [Mass/Vol] 2.4 g/dL 2.4 - 3.5 g/dL [facility] Magnesium [Mass/Vol] 1.9 mg/dL 1.6 - 2 .6 mg/dL [facility] Protein [Mass/Vol] 6.1 g/dL Low 6.4 - 8.9 g/dL [facility] Glucose [Mass/Vol] 91 mg/dL 70 - 99 mg/dL [facility] Comment on above: RN Notified Laboratory - Hematology and Cell countson 01-20-2023 Erythrocyte distribution width (RBC) [Ratio] 12.0 % 11.5 - 14.5 % [facility] Hematocrit (Bld) [Volume fraction] 43.0 % 37.5 - 50.1 % [facility] Hemoglobin (Bld) [Mass/Vol] 14.7 g/dL 12.9 - 16.9 g/dL [facility] MCH (RBC) [Entitic mass] 31.1 pg 28. 0 - 33.0 pg [facility] MCHC (RBC) [Mass/Vol] 34.2 g/dL 31.6 - 35.5 g/dL [facility] MCV (RBC) [Entitic vol] 90.9 fL 83.0 - 100.0 fL [facility] Platelet mean volume (Bld) [Entitic vol] 10.5 fL 9.4 - 12.4 fL [facility] Platelets (Bld) [#/Vol] 232 10*3/uL 140 - 400 K/uL [facility] RBC (Bld) [#/Vol] 4.73 10*6/uL [facility] WBC (Bld) [#/Vol] 8.3 10*3/uL 4.3 - 11.1 K/uL [facility] No Panel Informationon 01-20 Interpretation and review of laboratory results Abnormal [facility] Interpretation and review of laboratory results Normal [facility] Interpretation and review of laboratory results Abnormal [facility] Interpretation and review of laboratory results Abnormal [facility] Bilirubin, Indirect 0.6 mg/dL 0.0 - 1. 0 mg/dL [facility] Interpretation and review of laboratory results Normal [facility] Interpretation and review of laboratory results Abnormal [facility] Interpretation and review of laboratory results Normal [facility] Interpretation and review of laboratory results Normal [facility] RF Small bowel Views W contr ast Raisa 01-20-2023 Radiology Study observation (narrative) [facility] CT Abdomen and Pelvis W cont [...] / Rocael Mayorga Interpreting Provider: Rocael Mayorga [facility] Radiology Study observation (narrative) [facility] CT Abdomen and Pelvis W cont rast IVOrdered By: Osman Gonsalez on 01-19-2023 [facility] Work Phone: Laboratory - Chemistry and C hemistry - challengeon 01-19-2023 Albumin [Mass/Vol] 4.3 g/dL 3.5 - 5.7 g/dL [facility] Albumin/Globulin [Mass ratio] 1.8 {ratio} 1.1 - 2.2 [facility] ALP [Catalytic activity/Vol] 69 U/L 34 - 104 U/L [facility] ALT [Catalytic activity/Vol] 12 U/L 7 - 52 U/L [facility] AST [Catalytic activity/Vol] 13 U/L 13 - 39 U/L [facility] Bilirubin [Mass/Vol] 0.5 mg/dL 0.3 - 1 .0 mg/dL [facility] Bilirubin.direct [Mass/Vol] 0.1 mg/dL NINF - 0.2 mg/dL [facility] Calcium [Mass/Vol] 9.0 mg/dL 8.6 - 10. 3 mg/dL [facility] Chloride [Moles/Vol] 105 mmol/L 98 - 10 7 mmol/L [facility] CO2 [Moles/Vol] 27 mmol/L 23 - 29 mmol/L [facility] Creatinine [Mass/Vol] 1.06 mg/dL 0.70 - 1.30 mg/dL [facility] GFR/1.73 sq M.predicted CKD-EPI (S/P/Bld) [Vol rate/Area] - PINF [facility] Comment on above: Reported eGFR is bas ed on the CKD-EPI 2020 equation using creatinine, age, and sex. Globulin (S) [Mass/Vol] 2.4 g/dL 2.4 - 3.5 g/dL [facility] Glucose [Mass/Vol] 94 mg/dL 70 - 105 mg/dL [facility] Lipase [Catalytic activity/Vol] 5 U/L Low 11 - 82 U/L [facility] Osmolality Calc [Osmolality] 284 280 - 300 [facility] Potassium [Moles/Vol] 3.9 mmol/L 3.5 - 5.1 mmol/L [facility] Protein [Mass/Vol] 6.7 g/dL 6.4 - 8.9 g/dL [facility] Sodium [Moles/Vol] 137 mmol/L 136 - 145 mmol/L [facility] Urea nitrogen [Mass/Vol] 12 mg/dL 6 - 20 mg/d L [facility] Urea nitrogen/Creatinine [Mass ratio] 11 mg/mg 6 - 26 [facility] Laboratory - Hematology and Cell countson 01-19-2023 Basophils (Bld) [#/Vol] 0.0 10*3/uL 0.0 - 0.2 K/uL [facility] Basophils/100 WBC (Bld) 0.6 % [facility] Eosinophils (Bld) [#/Vol] 0.1 10*3/uL 0.0 - 0.6 K/uL [facility] Eosinophils/100 WBC (Bld) 0.8 % [facility] Erythrocyte distribution width (RBC) [Ratio] 12.0 % 11.5 - 14.5 % [facility] Hematocrit (Bld) [Volume fraction] 45.7 % 37.5 - 50.1 % [facility] Hemoglobin (Bld) [Mass/Vol] 15.6 g/dL 12.9 - 16.9 g/dL [facility] Immature granulocytes/100 WBC (Bld) 0.3 % [facility] Lymphocytes (Bld) [#/Vol] 1.8 10*3/uL 0.6 - 4.6 K/uL [facility] Lymphocytes/100 WBC (Bld) 24.4 % [facility] MCH (RBC) [Entitic mass] 31.2 pg 28. 0 - 33.0 pg [facility] MCHC (RBC) [Mass/Vol] 34.1 g/dL 31.6 - 35.5 g/dL [facility] MCV (RBC) [Entitic vol] 91.4 fL 83.0 - 100.0 fL [facility] Monocytes (Bld) [#/Vol] 0.6 10*3/uL 0.0 - 1.3 K/uL [facility] Monocytes/100 WBC (Bld) 8.0 % [facility] Neutrophils (Bld) [#/Vol] 4.8 10*3/uL 1.6 - 8.9 K/uL [facility] Nucleated RBC/100 WBC (Bld) [Ratio] 0 % /100 WBC [facility] Platelet mean volume (Bld) [Entitic vol] 10.4 fL 9.4 - 12.4 fL [facility] Platelets (Bld) [#/Vol] 234 10*3/uL 140 - 400 K/uL [facility] RBC (Bld) [#/Vol] 5.00 10*6/uL [facility] Segmented neutrophils/100 WBC (Bld) 65.9 % [facility] WBC (Bld) [#/Vol] 7.2 10*3/uL 4.3 - 11.1 K/uL [facility] No Panel Informationon 01-19 Bilirubin, Indirect 0.4 mg/dL 0.0 - 1. 0 mg/dL [facility] Interpretation and review of laboratory results Normal [facility] Interpretation and review of laboratory results Abnormal [facility] POCT URINE DIPSTICK AUTOMATE Don 01-19-2023 Amorphous sediment LM Ql (Urine sed) [facility] Appearance (U) clear [facility] TH Bacteria LM Ql (Urine sed) [facility] Bilirubin Ql (U) small [facility] Casts LM.LPF (Urine sed) [#/Area] [facility] Color (U) drk yellow [facility] Crystals LM Nom (Urine sed) [facility] Epithelial cells.squamous LM.HPF (Urine sed) [#/Area] [facility] Flow cytometry specialist review Saad (Unsp spec) [Interp] [facility] Glucose Auto test strip (U) [Mass/Vol] Negative mg/dL [facility] Ketones [Mass/Vol] trace mg/dL [facility] Leukocyte esterase Qn (U) [facility] Leukocyte esterase Test strip Ql (U) Negative [facility] Microscopic observation Gram stain Nom (Bronch spec) [facility] Nitrite Ql (U) Negative [facility] pH (U) 5.5 [pH] 5 - 7 [facility] Protein Ql (U) 30 mg/dL [facility] TH RBC LM.HPF (Urine sed) [#/Area] [facility] RBC Ql (U) Negative [facility] Specific gravity (U) [Rel density] 1.001 - 1.035 [facility] Transitional cells LM Ql (Urine sed) [facility] Urobilinogen Qn (U) 0.2 [facility] WBC LM.HPF (Urine sed) [#/Area] [facility] XR Abdomen 2 Viewson 023 IMPRESSION: Ileus [...] / Jaskaran Le Interpreting Provider: Jaskaran Le [facility] Radiology Study observation (narrative) [facility] XR Abdomen 2 ViewsOrdered By : Jaskaran Le on 01-19-2023 [facility] Work Phone: HIV-1 2 Antibody p24 Agon HIV-1 2 Antibody p24 Ag Non-Reactive Normal Nonreactiv e [facility] Comment on above: Result Comment: This assay detects human immunodeficiency virus (HIV) p24 antigen and antibodies to HIV type 1 (HIV-1 group O) and/or type 2 (HIV-2). Reactive results will have follow up confirmatory testing. Performed By: #### H IV, HPA, TPAL #### [facility] [address] [place] [id number] Hepatitis Prof.(Routine A,B, C)on 01-04-2022 Hepatitis A Antibody IgM Non-Reactive Normal Nonreacti ve [facility] Comment on above: Result Comment: Biot in greater than 500 ng/mL may lead to falsely depressed results. Hepatitis A Virus (HAV) IgM antibodies not detected. Does not exclude the possibility of exposure to or infection of HAV. Levels of HAV IgM antibodies may be below measurement range due to early infection. Performed By: #### H IV, HPA, TPAL #### [facility] [address] [place] [id number] Hepatitis B Core IgM Non-Reactive Normal Nonreactive A [facility] Comment on above: Result Comment: Assa y performance characteristics have not been established for immunocompromised or immunosuppressed patients, cord blood, or patients less than 2 years of age. IgM antibodies to Hepatitis B Core Antigen not detected. Does not exclude the possibility of exposure or infection with Hepatitis B Core Virus. Performed By: #### H IV, HPA, TPAL #### [facility] [address] [place] [id number] Hepatitis C Virus Antibody Non-Reactive Normal Nonreactive [facility] Comment on above: Result Comment: Hepa titis C Virus (HCV) IgG antibodies not detected; does not exclude the possibility of exposure of HCV. Performed By: #### H IV, HPA, TPAL #### [facility] [address] [place] [phone] Hepatitis B Surface Antigen Non-Reactive Normal Nonreactive [facility] Comment on above: Result Comment: Spec imen considered negative for HBsAg. Performed By: #### H IV, HPA, TPAL #### [facility] [address] [place] [address] [phone] Treponema Pallidum Abon 06-0 Treponema Pallidum Ab Negative Normal NEGATIVE [facility] Comment on above: Performed By: #### H IV, HPA, TPAL #### [facility] [address] [place] [id number] Drug Screen, Urineon 12-20-2 022 Amphetamine Screen,Urine Positive Abnormal Eeiscl=[id number] [facility] Comment on above: Result Comment: Unco nfirmed presumptive positive. Refer to Urine Drug Screen Interpretation result for interpretative guidelines. Performed By: #### U DS #### [facility] [address] [place] [id number] Barbiturate Screen,Urine Negative Normal Omxupn=607 [facility] Comment on above: Performed By: #### U DS #### [facility] [address] [place] [phone] Benzodiazepines Screen,Urine Negative Normal Jwvcrk=284 [facility] Comment on above: Performed By: #### U DS #### [facility] [address] [place] [phone] Buprenorphine Screen,Urine Negative Normal Cutoff=5 [facility] Comment on above: Performed By: #### U DS #### [facility] [address] [place] [address] [phone] Cannabinoid Screen,Urine Negative Normal Cutoff = 50 [facility] Comment on above: Performed By: #### U DS #### [facility] [address] [place] [address] [phone] Cocaine Screen,Urine Negative Normal Cutoff= 300 [facility] Comment on above: Performed By: #### U DS #### [facility] [address] [place] [address] [id number] Opiate Screen,Urine Negative Normal Ajojqe=545 [facility] Comment on above: Performed By: #### U DS #### [facility] [facility] [address] [place] [id number] Phencyclidine Screen,Urine Negative Normal Cutoff=25 [facility] Comment on above: Performed By: #### U DS #### [facility] [address] [place] [address] Ur. Drug Screen Interpretation See Below Normal [facility] Comment on above: Result Comment: This is [...] request. Performed By: #### U DS #### [facility] [address] [place] [id number] [facility] 11-24-[address] [address] Ultrasound Report Signed PRELIMINARY DRAFT REPORT UNTIL ELECTRONICALLY SIGNED PATIENT: Osman Mckee MR#: [id number] : 1990 AGE/SEX: 31 / M ADMITTED: 11/24/21 OUTSIDE LOCN: LOCATION: [facility] ATTENDING: Ismale Winston DO ORDER PHYSICIAN: Ismael Winston BIRAD: NA Not Applicable DATE OF SERVICE: 11/24/21 ACCESSION NUMBERS(S): [id number] PROCEDURE(S): US abdomen limited REASON FOR EXAM: [...] Provider: Jaqui Dickens MD Normal [facility] Emergency Documentationon Emergency Documentation [address] [address] Emergency Department Note Signed PRELIMINARY DRAFT REPORT UNTIL ELECTRONICALLY SIGNED PATIENT: Osman Mckee MR#: [id number] : 1990 AGE/SEX: 31 / M ADMITTED: 09/04/21 OUTSIDE LOCN: LOCATION: [facility] ATTENDING: cc: Ismael Winston; Disposition Clinical Impression: [...] (more content not included)... Normal [facility] [id number] 07-27-[id number] [address] XRay Report Signed PRELIMINARY DRAFT REPORT UNTIL ELECTRONICALLY SIGNED PATIENT: Osman Mckee MR#: [id number] : 1990 AGE/SEX: 30 / M ADMITTED: 07/27/21 OUTSIDE LOCN: LOCATION: [facility] ATTENDING: Ismael Winston DO ORDER PHYSICIAN: Ismael Winston BIRAD: DATE OF SERVICE: 07/27/21 FOLLOW UP: ACCESSION NUMBERS(S): [id number] PROCEDURE(S): XR hand 3V LT REASON FOR [...] Interpreting Provider: Charles Bryan Normal [facility] Basic Metabolic Panelon 11-2 Calcium [Mass/Vol] 8.5 mg/dL Low 8.6-10.3 [facility] Comment on above: Performed By: #### B TAHIRA, TROP ####[facility] [address] [place] [address] Chloride [Moles/Vol] 106 mmol/L Normal 98-107 [facility] Comment on above: Performed By: #### B TAHIRA, TROP ####[facility] [address] [place] [address] CO2 [Moles/Vol] 24 mmol/L Normal 23-29 [facility] Comment on above: Performed By: #### B MP, TROP ####[facility] [address] [place] [address] Creatinine [Mass/Vol] 0.89 mg/dL Normal 0.70-1.30 [facility] Comment on above: Performed By: #### B MP, TROP ####[facility] [address] [place] [address]86 eGFR For Americans > 60 Normal > 60 [facility] Comment on above: Result Comment: eGFR = Estimated Glomerular Filtration Rate reported as mL/min/1.73 square meters Chronic Kidney Disease: < 60; Kidney failure: < 15 Performed By: #### B MP, TROP ####[facility] [address] [place] [address]98 eGFR For Non- Americans > 60 Normal > 60 [facility] Comment on above: Performed By: #### B MP, TROP ####[facility] [address] [place] [address] Glucose [Mass/Vol] 101 mg/dL Normal 70-105 [facility] Comment on above: Performed By: #### B MP, TROP ####[facility] [address] [place] [address] Osmolality,Calculated 283 Normal 280-300 [facility] Comment on above: Performed By: #### B MP, TROP ####[address] [address] Potassium [Moles/Vol] 4.3 mmol/L Normal 3.5-5.1 [facility] Comment on above: Performed By: #### B MP, TROP ####[address] [address] Sodium [Moles/Vol] 136 mmol/L Normal 136-145 [facility] Comment on above: Performed By: #### B MP, TROP ####[address] [address] Urea nitrogen [Mass/Vol] 14 mg/dL Normal 6-20 [facility] Comment on above: Performed By: #### B MP, TROP ####[address] [address] Urea nitrogen/Creatinine [Mass ratio] 16 mg/mg Normal 6-26 [facility] Comment on above: Performed By: #### B MP, TROP ####[address] [address] [id number] 06-26-[id number] [address] XRay Report Signed PRELIMINARY DRAFT REPORT UNTIL ELECTRONICALLY SIGNED PATIENT: Osman Mckee MR#: [id number] : 1990 AGE/SEX: 30 / M ADMITTED: 06/26/21 OUTSIDE LOCN: LOCATION: [facility] ATTENDING: ORDER PHYSICIAN: Tucker DE LEON: DATE OF SERVICE: 06/26/21 FOLLOW UP: ACCESSION NUMBERS(S): [id number] PROCEDURE(S): XR chest 1V portable REASON FOR [...] Provider: Markus Cornejo MD Normal [facility] Complete Blood Count with Di ffon 06-26-2021 Basophils (Bld) [#/Vol] 0.1 10*3/uL Normal 0.0-0.2 [facility] Comment on above: Performed By: #### C BC #### [facility] [address] [place] [address] Basophils/100 WBC (Bld) 1.1 % Normal [facility] Comment on above: Performed By: #### C BC #### [facility] [address] [place] [address] Eosinophils (Bld) [#/Vol] 0.2 10*3/uL Normal 0.0-0.6 [facility] Comment on above: Performed By: #### C BC #### [facility] [address] [place] [address] Eosinophils/100 WBC (Bld) 3.6 % Normal [facility] Comment on above: Performed By: #### C BC #### [facility] [address] [place] [address] Erythrocyte distribution width (RBC) [Ratio] 12.1 % Normal 11.5-14.5 [facility] Comment on above: Performed By: #### C BC #### [facility] [address] [place] [address]35 Hematocrit (Bld) [Volume fraction] 44.0 % Normal 37.5-50.1 [facility] Comment on above: Performed By: #### C BC #### [facility] [address] [place] [address]23 Hemoglobin (Bld) [Mass/Vol] 14.8 g/dL Normal 12.9-16.9 [facility] Comment on above: Performed By: #### C BC #### [facility] [address] [place] [address] Immature granulocytes/100 WBC (Bld) 0.3 % Normal 0-4 [facility] Comment on above: Performed By: #### C BC #### [facility] [address] [place] [address] 14504 Lymphocytes (Bld) [#/Vol] 2.4 10*3/uL Normal 0.6-4.6 [facility] Comment on above: Performed By: #### C BC #### [facility] [address] [place] [address] 30728 Lymphocytes/100 WBC (Bld) 37.0 % Normal [facility] Comment on above: Performed By: #### C BC #### [facility] [address] [place] [address]255 MCH (RBC) [Entitic mass] 30.4 pg Normal 28.0-33.3 [facility] Comment on above: Performed By: #### C BC #### [facility] [address] [place] [address] 28471 MCV (RBC) [Entitic vol] 90.3 fL Normal 83.0-100.0 [facility] Comment on above: Performed By: #### C BC #### [facility] [address] [place] [address]3684 Mean Corpuscular HGB Conc 33.6 g/dL Normal 31.6-35.5 [facility] Comment on above: Performed By: #### C BC #### [facility] [address] [place] [address]11 Monocytes (Bld) [#/Vol] 0.6 10*3/uL Normal 0.0-1.3 [facility] Comment on above: Performed By: #### C BC #### [facility] [address] [place] [address] 87242 Monocytes/100 WBC (Bld) 8.9 % Normal [facility] Comment on above: Performed By: #### C BC #### [facility] [address] [place] [address] 00168 Neutrophils (Bld) [#/Vol] 3.2 10*3/uL Normal 1.6-8.9 [facility] Comment on above: Performed By: #### C BC #### [facility] [address] [place] [address] 69687 Platelet mean volume (Bld) [Entitic vol] 10.5 fL Normal 9.4-12.4 [facility] Comment on above: Performed By: #### C BC #### [facility] [address] [place] [address] 21619 Platelets (Bld) [#/Vol] 261 10*3/uL Normal 140-400 [facility] Comment on above: Performed By: #### C BC #### [facility] [address] [place] [address] 58191 RBC (Bld) [#/Vol] 4.87 10*6/uL Normal 4.19-5.50 [facility] Comment on above: Performed By: #### C BC #### [facility] [address] [place] [address] [phone] Segmented neutrophils/100 WBC (Bld) 49.1 % Normal [facility] Comment on above: Performed By: #### C BC #### [facility] [address] [place] [address] [phone] WBC (Bld) [#/Vol] 6.4 10*3/uL Normal 4.3-11.1 [facility] Comment on above: Performed By: #### C BC #### [facility] [address] [place] [address] Electrocardiograph Reporton 06-26-2021 Electrocardiograph Report [address] [address] Electrocardiograph Report Signed PRELIMINARY DRAFT REPORT UNTIL ELECTRONICALLY SIGNED PATIENT: Osman Mckee MR#: [id number] : 1990 AGE/SEX: 30 / M ADMITTED: 06/26/21 OUTSIDE LOCN: LOCATION: [facility] ATTENDING: ZORA PHYSICIAN: Erick Martinez TECHNOLOGIST: ZI PHYSICIAN: Tucker Bell PRIMARY PHYSICIAN: Ismael Lorenz Catrachito DATE OF SERVICE: 06/26/21 ACCESSION NUMBERS(S): [id number] HT: 172.72 WT: 180 PROCEDURE(S): ECG 12 lead ECG cc: ; [facility] Test Date: 2021-06-26 Pat Name: Osman Mckee Department: EXAM21 Room: Gender: M Senior Financial: : 1990 Requested By: Tucker Bell Order Number: [id number] Zora MD: Erick Martinez Measurements Intervals [place] Rate: 63 P: 43 MT: 185 QRS: 81 QRSD: 118 T: 69 QT: 398 QTc: 408 Interpretive Statements Sinus rhythm Incomplete right bundle branch block Electronically Signed On 06-28-2021 6:20:40 EST by Erick Lucas [facility] Emergency Documentationon Emergency Documentation [address] [address] Emergency Department Note Signed PRELIMINARY DRAFT REPORT UNTIL ELECTRONICALLY SIGNED PATIENT: Osman Mckee MR#: [id number] : 1990 AGE/SEX: 30 / M ADMITTED: 06/26/21 OUTSIDE LOCN: LOCATION: [facility] ATTENDING: cc: Ismael Winston; Disposition Clinical Impression: [...] PRN Reason: Pain Transmission Status: Received by [facility] Referrals: Ismale Winston DO [Primary Care Provider] - Forms: [...] (more content not included)... Normal [facility] Troponin Ion 06-26-2021 Troponin I.cardiac [Mass/Vol] ng/mL Normal < 0.04 [facility] Comment on above: Performed By: #### B MP, TROP ####[facility] [address] [id number] C.trach N.gonorrhoea DNA Fajardo Uon 06-15-2021 Chlamydia Trachomatis DNA Ur Not detected Normal Not Detect [facility] Comment on above: Result Comment: Chla mydia trachomatis DNA not detected by real-time PCR. Specimen source- [place] Urine Performed By: #### C TNGPANU #### [facility] [address] [id number] Neisseria Gonorrhoeae DNA, Ur Not detected Normal Not Detect [facility] Comment on above: Result Comment: Neis seria gonorrhoeae DNA not detected by real-time PCR. Specimen source- [place] Urine Performed By: #### C TNGPANU #### [facility] [address] [id number] Pain Mgt Ur Drug Scrn w Inte rpon 06-08-2021 Pain Mgt Ur Drg Scr Rslt w Int SEE BELOW Normal [facility] Comment on above: Result Comment: Test name [...] Detected Tapentadol (cutoff 100 ng/mL) Not Detected Tejbmktmvc-k-Vnfq (cutoff 200 ng/mL) Not Detected Methadone (cutoff [...] Detected Alprazolam (cutoff 40 ng/mL) Not Detected Cfwev-GF-Skrtcgcepw (cutoff 20 ng/mL) Not Detected Clonazepam (cutoff [...] Detected Midazolam (cutoff 20 ng/mL) Not Detected Fvvqz-RE-Gdhuyevrr (cutoff 20 ng/mL) Not Detected Zolpidem (cutoff [...] developed and its performance characteristics determined by [facility]. It has not been cleared or approved by the [place] Food and Drug Administration. This test was performed in a CLIA certified laboratory and is intended for clinical purposes. EER Tgt drug prof, MS/EMIT, UR, Interp See Note Access [employer] Enhanced Report using the link below: -Direct access: [email or web address] Performed by [facility], [address] [place] [id number] Computer Technology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 1988 Unknown [id number] 727 1988 Unknown [id number] 1988 Unknown [id number] 1988 Unknown [id number] 1988 Unknown [id number] 1248 1988 Unknown [id number] 1248 1988 Unknown [id number] 1248 1988 Unknown [id number] 173 1988 Unknown [id number] 1259 Unknown [id number] 531 Social History Date Type Detail Facility Start: 06-15-2022 End: 05-14-2025 Tobacco smoking status [facility] Smokes tobacco daily [facility] Start: 08-06-2001 History of tobacco use Cigarette Smoker [facility] Start: 06-15-2022 End: 01-22-2024 Cigarettes smoked current (pack per day) - Reported 0.5 [facility] Start: 06-15-2022 End: 01-22-2024 Tobacco use and exposure Smokeless tobacco non-user [facility] Start: 06-16-2022 End: 01-19-2023 Alcohol intake Ex-drinker (finding) [facility] Start: 01-19-2023 End: 01-22-2024 Tobacco use panel [facility] Start: 1988 Sex Assigned At Not on file [facility] Start: 2022 End: 04-05-2023 Exposure to SARS-CoV-2 (event) Not sure [facility] Start: 04-05-2016 End: 02-16-2025 Alcohol intake Current drinker of alcohol (finding) [facility] Start: 03-29-2016 Alcohol Comment 1 case in a week [facility] Start: 11-02-2024 Alcoholic beverage intake Lifetime non-drinker (finding) [employer] How often to you hav e a drink containing alcohol? Never [employer] How many standard drinks containing alcohol do you have on a typical day? Patient does not drink [employer] Start: 09-13-2012 Sex Male (finding) [employer] History of tobacco use Passive smoker [facility] Start: 09-25-2023 [address] [facility] Start: 1990 Sex Assigned At Male [facility] Functional Status Date Assessment Result Facility [facility] [employer] Clinical Notes 06-16-2022 to 02-16-2025 Jen Taylor NP - 02/16/2025 2:17 PM Marcus Taylor NP - 02/16/2025 2:16 PM Marcus Taylor NP - 02/16/2025 2:14 PM Marcus Taylor NP - 02/16/2025 1:58 PM EDTPatient InstructionsAttachments Note Date & Type Note Facility 02-16-2025 History of Present illness Narrative Associated Problem(s): Gastroesophageal reflux disease without esophagitis Recommendations: freq small meals, nothing to eat or drink at least 2 hours prior to bed, limit caffeine, alcohol, as well as spicy foods Meds to limit or avoid if possible: NSAIDS Elevate HOB if possible Start famotidine Associated Problem(s): Chronic bilateral low back pain without sciatica meloxicam Associated Problem(s): Attention deficit hyperactivity disorder (ADHD) Med agreement signed Has taken in the past I am aware of THC OARRS reviewed Fu in 3months Associated Problem(s): Tetrahydrocannabinol (THC) use disorder, moderate, dependence (HCC) Type: edibles and smoking Get both from the dispensery Uses it for pain related dx Associated Problem(s): Mild intermittent asthma without complication (HCC) Occ flares Made worse with extremes in temp Albuterol use now is twice a week Pt has been taking the adderall as a as needed since he has not been in since 01/23/24 Pt would like to get back on the naproxen 500mg tablet again for RA pains Pt would like to discuss GI issues- no vomiting no diarrhea, no nausea. Pt is having acid reflex and on and off constipation Images from the original note were not [...] and low back pain: back pain sharp and achy if bends wrong way back locks up) , knee pains sharp pain, does get some inttermitent swelling, no erythema GI: acid reflux is new, burning in throat makes him cough/choke, tums helps some but only temporary, no NV, non epigastric pain, no recent blood in stool, has had in the past. Caffeine: coffee or tea occ in the morning, 32 oz 1 or [...] Size: Adult long) Pulse 70 Temp 97.5 F (Temporal) Resp 18 Wt 193 lb 6.4 oz SpO2 96% BMI 28.56 kg/m Smoking Status Every Day BSA 2.07 m Physical Exam Vitals and nursing note reviewed. [...] Comprehensive metabolic panel documented in this encounter [facility] 02-16-2025 Instructions Jen Taylor NP - 02/16/2025 1:40 PM EDT Acid reflux: Recommendations: freq small meals, nothing to eat or drink at least 2 hours prior to bed, limit caffeine, alcohol, as well as spicy foods Meds to limit or avoid if possible: NSAIDS Elevate HOB if possible documented in this encounter [facility] 11-02-2024 Hospital Discharge instructions Ernesto Woodson II, PA-C - 11/02/2024 5:24 PM EDT Have your blood pressure rechecked next week. If you are still incarcerated have the alf recheck your blood pressure and record this on a regular basis. You will receive a survey in the next couple days regarding your experience in the ED. We are constantly striving to improve our care and welcome your feedback. Thank you very much for your time. The emergency department evaluation is not a [...] return to the hospital for repeat evaluation. The following attachments cannot be sent through Care Everywhere.Chest Pain (Angolan)documented in this encounter [facility] 11-19-2023 Note [facility] History and Physical Examination [...] by smothering with his shirt. Presented to [place] ED and transferred to [facility] ED for further evaluation of his [...] memory loss, disorientation, inattention, feelings of depression) Hematologic/Lymphatic/Immunologic: negative (no anemia, bleeding, bruising) Endocrine: negative [...] wound check (more content not included)... [facility] Consult note Formatting of th is note is different from the original. Images from the original note were not included. [facility] History and Physical Examination [...] by smothering with his shirt. Presented to [place] ED and transferred to [facility] ED for further evaluation of his [...] memory loss, disorientation, inattention, feelings of depression) Hematologic/Lymphatic/Immunologic: negative (no anemia, bleeding, bruising) Endocrine: negative [...] Gladys Limon MD Burn Surgery/ ICU Pager: [phone] Teaching Physician Note: I saw and evaluated [...] and Emergency General Surgery Department of Surgery [facility] Work Phone: 11-19-2023 Consult note Formatting of th is note is different from the original. Images from the original note were not included. [facility] History and Physical Examination [...] by smothering with his shirt. Presented to [place] ED and transferred to [facility] ED for further evaluation of his [...] memory loss, disorientation, inattention, feelings of depression) Hematologic/Lymphatic/Immunologic: negative (no anemia, bleeding, bruising) Endocrine: negative [...] Basic Metabolic Panel None CBC None ASSESSMENT/PLAN: Osamn Mckee is a 33 year old man [...] Gladys Limon MD Burn Surgery/ ICU Pager: [phone] Teaching Physician Note: I saw and evaluated [...] and Emergency General Surgery Department of Surgery [facility] documented in this encounter [facility] 11-19-2023 History of Present illness Narrative [...] prescriptions provided to patient. Photos obtained, see intermediate teacher. Patient instructed to follow up as scheduled. Nallely Ji RN documented in this encounter [facility] 11-19-2023 Hospital Discharge instructions Ethan Garrido MD - 11/19/2023 12:39 AM EDT EMERGENCY DEPARTMENT FOLLOW-UP: Please see your Primary Care Physician at next available appointment for follow up. Please call today or tomorrow to make an appointment. Residents of [facility] may apply for discounts available only to residents of this [facility] by contacting the Eligibility Call Center at [phone]. If you do not have a primary physician please call [phone] for guidance on finding a [facility] provider. PLEASE NOTE: If you are [...] this visit: None documented in this encounter [facility] 04-16-2023 Evaluation + Plan note Associated Problem(s): Attention deficit hyperactivity disorder (ADHD) Chronic, stable, well controlled on current regimen. Oarrs reviewed and appropriate. Medication refilled for 3 mo. CSA completed at this time and urine drug screen obtained. [facility] 04-16-2023 Miscellaneous Notes Associated Problem(s): Attention deficit hyperactivity disorder (ADHD) Chronic, stable, well controlled on current regimen. Oarrs reviewed and appropriate. Medication refilled for 3 mo. CSA completed at this time and urine drug screen obtained. documented in this encounter [facility] 04-16-2023 History and physical note This is a resident progress note generated at [facility]. I, Dr. Agee, [...] review. Mitesh Agee MD Associated attestation - Salo Do MD - 04/20/2023 10:43 AM EDT Patient here follow-up ADD doing extremely well on Focalin 30 mg XR, we refill no heart skipping palpitations blood pressure is normal no anorexia weight stable. I was immediately available to the resident throughout patient's visit here in the [facility], and participated in the construction of the SOAP as recorded and agree with it as written by the resident Dr Anuel mcknight [facility] 04-16-2023 History and physical note This is a resident progress note generated at [facility]. I, Dr. Agee, am being [...] review. Mitesh Agee MD Associated attestation - Salo Do MD - 04/20/2023 10:43 AM EDT [...] Dr Anuel mcknight documented in this encounter [facility] 04-05-2023 History and physical note This is a resident progress note generated at [facility]. I, Dr. 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 Headache and subjective fever seeming to not [...] 0.4 (L) 0.6 - 4.6 K/uL Abs [place] Auto 1.0 0.0 - 1.3 K/uL Abs [...] F/up prn Staff: Dr. Dale Farris MD Agri Business Agent, PGY-2 [facility] [phone] Associated attestation - Vic Hunter DO - 04/16/2023 6:24 AM EDT 04/05/2023 Vic Roca, was immediately available in the clinic throughout the course of this patient's treatment encounter. I discussed the patient's case with the resident, and I agree with the SOAP note including history, exam, decision making, diagnosis, and care plan. See resident documentation for details. [facility] 04-05-2023 History and physical note This is a resident progress note generated at [facility]. Chanelle, Dr. 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 Headache and subjective fever seeming to not [...] 0.4 (L) 0.6 - 4.6 K/uL Abs [place] Auto 1.0 0.0 - 1.3 K/uL Abs [...] F/up prn Staff: Dr. Dale Farris MD Agri Business Agent, PGY-2 [facility] [phone] Associated attestation - Vic Hunter DO - 04/16/2023 6:24 AM EDT 04/05/2023 I, Vic Hunter, was immediately available in the clinic throughout the course of this patient's treatment encounter. I discussed the patient's case with the resident, and I agree with the SOAP note including history, exam, decision making, diagnosis, and care plan. See resident documentation for details. documented in this encounter [facility] 01-21-2023 Hospital course Narrative Images [...] Dept Phone 04/16/2023 11:[address] [facility] [phone] documented in this encounter [facility] 01-21-2023 Nurse Note Nursing Discharge [...] Discharge Time Out completed with: Name of RN/Educational Technology Specialist/[employer] Factory Worker who verifies discharge items complete:Alysia London RN [facility] 01-21-2023 Plan of care note Problem: Patient Care Overview Goal: Plan of Care Review Outcome: Completed Goal: Individualization & Mutuality Outcome: Completed Goal: Discharge Needs Assessment Outcome: Completed Goal: Interdisciplinary Rounds/Family Conf Outcome: Completed [facility] 01-21-2023 Miscellaneous Notes Nursing Discharge Time Out [...] Discharge Time Out completed with: Name of RN/Educational Technology Specialist/[employer] Factory Worker who verifies discharge items complete:Alysia London RN [...] returned from x-ray. documented in this encounter [facility] 01-21-2023 Miscellaneous Notes Nursing Discharge Time Out [...] Discharge Time Out completed with: Name of RN/Educational Technology Specialist/[employer] Factory Worker who verifies discharge items complete:Alysia London RN [...] returned from x-ray. documented in this encounter [facility] 01-20-2023 Nurse Note Pt's NG taken out and clear liquid diet ordered.Pt refusingIV fluids at this time. [facility] 01-20-2023 History of Present illness Narrative [facility] Daily Progress Note Patient: Osman Mckee, 1990, [id number] Physician: Yuni Brennan MD Length of Stay: [...] Yuni Brennan MD Summary: ACS progress note [address] [address] ACUTE CARE SURGERY PROGRESS NOTE [...] chloride 0.9% IV solution Intravenous Continuous Yuni Brenann MD 100 mL/hr at 01/19/231929 New Bag at 01/19/231929 RESULTS: Reviewed Electronically signed by: Phil Swanson DO 01/20/23 8:57 AM documented in this encounter [facility] 01-20-2023 History of Present illness Narrative [facility] Daily Progress Note Patient: Osman Mckee, 1990, [id number] Physician: Yuni Brennan MD Length of Stay: [...] normal mood Data Review: WBC/Hgb/Hct/Plts: 8.3/14.7/43.0/232 (01/20 012) Bun/Creat/Cl/CO2/Glucose: 11/0.91/111/24/74 (01/20 012-01/20 1339) Na/K+/Phos/Mg/Ca: 141/4.0/--/1.9/8.6 [...] Yuni Brennan MD Summary: ACS progress note [address], [place], [place] [address] ACUTE CARE SURGERY PROGRESS NOTE DATE [...] 01/20/23 8:57 AM documented in this encounter [facility] 01-20-2023 Nurse Note No changes from morning assessment. [facility] 01-20-2023 Plan of care note Problem: Patient Care Overview Goal: Plan of Care Review Outcome: Ongoing Goal: Individualization & Mutuality Outcome: Ongoing Goal: Discharge Needs Assessment Outcome: Ongoing Goal: Interdisciplinary Rounds/Family Conf Outcome: Ongoing [facility] 01-20-2023 Nurse Note Pt returned from x-ray. [facility] 01-19-2023 Consult note Associated Order (s): IP CONSULT TO SURGERY - GENERAL (EMERGENT) Summary: ACS Consult Note [address] [address] ACUTE CARE SURGERY CONSULT NOTE [...] ER for epigastric pain x2 days. [facility] sent him to ER for potential blockage. Alert, orientedx4 HISTORY OF PRESENT ILLNESS This 32 y/o male pt presents to [facility] ED c/o severe abdominal pain. [...] and discussed with the patient and/or appropriate sales representative groceries. Electronically signed by: Phil Swanson DO 01/19/23 7:30 PM [facility] 01-19-2023 Consult note Associated Order (s): IP CONSULT TO SURGERY - GENERAL (EMERGENT) Summary: ACS Consult Note [address] [address] ACUTE CARE SURGERY CONSULT NOTE DATE & [...] ER for epigastric pain x2 days. [facility] sent him to ER for potential blockage. Alert, orientedx4 HISTORY OF PRESENT ILLNESS This 32 y/o male pt presents to [facility] ED c/o severe abdominal pain. [...] and discussed with the patient and/or appropriate sales representative groceries. Electronically signed by: Phil Swanson DO 01/19/23 7:30 PM documented in this encounter [facility] 01-19-2023 Consult note Associated Order (s): IP CONSULT TO SURGERY - GENERAL (EMERGENT) Summary: ACS Consult Note [address] [address] ACUTE CARE SURGERY CONSULT NOTE DATE & [...] This 32 y/o male pt presents to [facility] ED c/o severe abdominal pain. [...] and discussed with the patient and/or appropriate sales representative groceries. Electronically signed by: Phil Swanson DO 01/19/23 7:30 PM documented in this encounter [facility] 01-19-2023 History and physical note [facility] History & Physical Patient: Osman Mckee, 1990, [id number] Physician: Yuni Brennan MD Admit Date: 01/19/2023 [...] WBC/Hgb/Hct/Plts: 7.2/15.6/45.7/234 (01/19 135) Bun/Creat/Cl/CO2/Glucose: 12/.06/105/27/94 (01/19 1354) Na/K+/Phos/Mg/Ca: 137/3.9/--/--/9.0 (01/19 [...] / Rocael Mayorga Interpreting Provider: Rocael Mayorga [facility] 01-19-2023 History and physical note [facility] History & Physical Patient: Osman Mckee, 1990, [id number] Physician: Yuni Brennan MD Admit Date: 01/19/2023 [...] 1354) Bun/Creat/Cl/CO2/Glucose: 12/.06/105/27/94 (01/19 1354) Na/K+/Phos/Mg/Ca: 137/3.9/--/--/9.0 (06/16 1354)pH/PCO2/PO2/HCO3: 5.5/--/--/-- (01/19 1017) Lab Results Component [...] Provider: Rocael Mayorga documented in this encounter [facility] 01-19-2023 History and physical note Hospital Medicine History & Physical Patient: Osman Mckee, 1990, [id number] Physician: Yuni Brennan MD Admit Date: 01/19/2023 [...] Provider: Rocael Mayorga documented in this encounter [facility] 01-19-2023 Emergency department Note Report given to 3A. [facility] 01-19-2023 Emergency department Note Report given to [...] ER for epigastric pain x2 days. [facility] sent him to ER for potential blockage. Alert, orientedx4 History of Present Illness: Osman Mckee is a 32 y.o. male who presents to emergency department at [facility] with nausea, vomiting, diarrhea, and concerns [...] Care Surgery is paged for consultation at [phone]. We have discussed all available results. Patient is satisfied with evaluation and agreeable to recommendations. The hospitalist is requested at [phone]. Any addenda will be made as appropriate. [...] Auto 1.8 0.6 - 4.6 K/uL Abs [place] Auto 0.6 0.0 - 1.3 K/uL Abs [...] documentation was completed with voice recognition and roofing subcontractor software. Attempts are made to proof read contemporaneously and at disposition, but some roofing subcontractor errors may persist. Jaskaran Sotelo MD 01/19/23 7109 Addendum: Care is discussed with Acute Care [...] patient in consultation. Jaskaran Sotelo MD 01/19/23 7587 documented in this encounter [facility] 01-19-2023 Emergency department Note Report given to [...] ER for epigastric pain x2 days. [facility] sent him to ER for potential blockage. Alert, orientedx4 History of Present Illness: Osman Mckee is a 32 y.o. male who presents to emergency department at [facility] with nausea, vomiting, diarrhea, and concerns [...] Care Surgery is paged for consultation at [phone]. We have discussed all available results. Patient is satisfied with evaluation and agreeable to recommendations. The hospitalist is requested at [phone]. Any addenda will be made as appropriate. [...] Auto 1.8 0.6 - 4.6 K/uL Abs [place] Auto 0.6 0.0 - 1.3 K/uL Abs [...] documentation was completed with voice recognition and roofing subcontractor software. Attempts are made to proof read contemporaneously and at disposition, but some roofing subcontractor errors may persist. Jaskaran Sotelo MD 01/19/23 1725 Addendum: Care is discussed with Acute Care [...] patient in consultation. Jaskaran Sotelo MD 01/19/23 0618 documented in this encounter [facility] 01-19-2023 Emergency department Note Attempted to call report to 3A [facility] 01-19-2023 Emergency department Note Patient presents to the ED from for a possible bowel blockage. The patient reports diarrhea and vomiting for the past 2 days. Patient reports that he has been unable to eat or he vomits. [facility] 01-19-2023 Physician Emergency department Note TRIAGE CHIEF COMPLAINT: Chief Complaint Patient presents with Abdominal Pain Patient ambulatory to ER for epigastric pain x2 days. [facility] sent him to ER for potential blockage. Alert, orientedx4 History of Present Illness: Osman Mckee is a 32 y.o. male who presents to emergency department at [facility] with nausea, vomiting, diarrhea, and concerns [...] Care Surgery is paged for consultation at [phone]. We have discussed all available results. Patient is satisfied with evaluation and agreeable to recommendations. The hospitalist is requested at [phone]. Any addenda will be made as appropriate. [...] Auto 1.8 0.6 - 4.6 K/uL Abs [place] Auto 0.6 0.0 - 1.3 K/uL Abs [...] documentation was completed with voice recognition and roofing subcontractor software. Attempts are made to proof read contemporaneously and at disposition, but some roofing subcontractor errors may persist. Jaskaran Sotelo MD 01/19/23 1325 Addendum: Care is discussed with Acute Care [...] patient in consultation. Jaskaran Sotelo MD 01/19/23 7357 [facility] 01-19-2023 History of Present illness Narrative ASSESSMENT [...] URINE POCT MICROSCOPIC documented in this encounter [facility] 01-12-2023 Evaluation + Plan note Associated Problem(s): Attention deficit hyperactivity disorder (ADHD) Chronic, stable, controlled. No indication for change at this time. Refills sent [facility] 01-12-2023 Miscellaneous Notes Associated Problem(s): Attention deficit hyperactivity disorder (ADHD) Chronic, stable, controlled. No indication for change at this time. Refills sent documented in this encounter [facility] 01-11-2023 History and physical note [facility] This is a resident progress note generated at [facility]. I, Dr. Hartman, am being precepted by the physician annotated above. I have free and unrestricted access to attending and they are present for all aspects of any procedure performed. SUBJECTIVE Chief Complaint Patient presents with Medication Refill Wellness Osman Mckee is a 32 y.o. male who presents for wellness examination. Adderall doing well. No changes. Needs refills. Any concerns today about your health: intermittent BRBPR, 2 occasions in the past 3 months, not associated with pain or straining, on tissue and in toilet, no FH GI cancer but does have FH renal cancer, declines rectal exam Seeing any other providers/Specialists? 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 Occasional Tylenol When was the last time you saw a dentist? Within the last 6 months Eye doctor? Within the last year Hearing Changes? no Safety: Do you always wear your seat belt? yes Do you feel safe at home? yes Any falls within last 6 months? no Do you feel safe in the community? yes Do you have any problems with managing finances? Dressing? Shopping? no Preparing meals? no Cognitive Function? no Sleep: any sleep apnea? Snoring? Told he snores sometimes Skin: any changing moles? Color? Rashes? Lipoma on right lateral side, firm nodule on posterior head intermittently tender Depression/Low mood? Change in interest level in activities? no Any history of mood disorder no Any urinary problems? Changes in stream? flow? increased frequency day or night? no Any problems with ED? no Sexual history and practices? Yes, one female partner Would you like screening for STIs? no HIV or Hep C? no Immunizations: Last Tdap? Unknown, does not want at this time Hep B series? yes COVID? yes Advanced Directives? Has not previously thought about, discussed today, will think about Past Medical History: Diagnosis Date ADHD Adjustment disorder Asthma Pulled muscle In back-job related Family History Problem Relation Age of Onset Other - Specify Mother COPD Asthma Sister No known problems Brother Heart Disease - Other Paternal Grandfather Cancer Paternal Grandfather No past surgical history on file. Social History Socioeconomic History Marital status: Single Spouse name: Not on file Number of children: Not on file Years of education: Not on file Highest education level: Not on file Occupational History Not on file Tobacco Use Smoking status: Every Day Packs/day: 0.50 Years: 20.00 Pack years: 10.00 Types: Cigarettes Start date: 2001 Smokeless tobacco: Never Vaping Use Vaping Use: Never used Substance and Sexual Activity Alcohol use: Not Currently Drug use: Never Sexual activity: Not on file Other Topics Concern Not on file Social History Narrative Not on file Social Determinants of Health Financial Resource Strain: Not on file Food Insecurity: Not on file Transportation Needs: Not on file Physical Activity: Not on file Stress: Not on file Social Connections: Not on file Intimate Partner Violence: Not on file Housing Stability: Not on file Allergies: Honey bee venom Current Outpatient Medications Medication Sig Dispense Refill amphetamine-dextroamphetamine XR 30 MG Cap SR 24HR Take 1 capsule by mouth daily every morning. 30 capsule 0 No current facility-administered medications for this visit. Review of Systems Negative for chills, fever and unexpected weight change, dyspnea, CP, abdominal pain, dysuria, HOWE. As documented per HPI. OBJECTIVE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
== END 2025-05-18 09:00 | disposition home or self-care (01) ==
LOC: RAD 09:01
PROVIDERS: PCP Nurse Practitioner; Visit Provider Family Medicine
DX: R20.0 Anesthesia of skin (principal)
CPT/HCPCS: 72052

== ENCOUNTER 2025-05-29 08:21 | Emergency (ER) | payer OTHER, SELFPAY ==
[2025-05-29 08:28] VITALS: BP 116/80; PULSE 63; TEMP 36.6; O2SAT 97; BMI 27.4
--- NOTE | 2025-05-29 08:51 | CT_ITS ---
The [address] [address] Patient Name: YAO BLANC MRN: [id number] date: 1990 Sex: M Assigned Patient Location: ER Current Patient Location: [facility] Accession/Order Number: [id number] Exam Date: 05/29/2025 09:00 Report Date: 05/29/2025 09:39 At the request of: JESSICA JETER DO Procedure: CT abdomen pelvis w con CT ABDOMEN AND PELVIS WITH CONTRAST CLINICAL DATA: Left upper quadrant and epigastric pain with nausea and vomiting. COMPARISON: None Spiral images were obtained through the abdomen and pelvis following 100 mL of Omnipaque 300. This CT exam was performed using one or more following dose reduction techniques: Automated exposure control, adjustment of the mA and/or kV according to patient size, or use of iterative reconstruction technique. Limited cuts through the lung bases show a right lower lobe calcified granuloma. No intrahepatic masses are noted. No calcified gallstones are seen. The common duct is slightly prominent however no choledocholithiasis is identified. There are splenic granulomas. The pancreas and adrenal glands are within normal limits. The renal nephrogram is are symmetric. No hydronephrosis is seen. The abdominal aorta is normal caliber. There are few small lymph nodes. No ascites is identified. There is no dilated small bowel. There is a small amount of stool colonic stool though there are also segments of the colon which are under distended with apparent wall thickening. The bony structures are intact. Images through the pelvis show nondistended small bowel loops, some containing fluid. No appendiceal inflammation is noted. There is a small amount of distal colonic stool. No diverticular disease is seen. The prostate is not enlarged. The urinary bladder wall appears slightly thickened though this might relate to underdistention. No ascites is noted. CT/CT abdomen pelvis w con IMPRESSION: SLIGHT COMMON DUCT PROMINENCE, WITHOUT OBVIOUS CHOLEDOCHOLITHIASIS. NO BOWEL OR URINARY TRACT OBSTRUCTION. APPARENT URINARY BLADDER WALL THICKENING THAT MAY RELATE TO UNDERDISTENTION THOUGH CORRELATION IS RECOMMENDED TO EXCLUDE ANY POSSIBILITY OF CYSTITIS. NO OTHER ACUTE FINDINGS. Impression dictated by: Marisol Liu M.D. 05/29/2025 9:39 AM Dictation Location: [id number]02 Electronically authenticated by: [id number] Y Date: 05/29/2025 09:39
[2025-05-29 09:02] LABS: Hematocrit 45.9 % (42.0-54.0); Hemoglobin 16.0 g/dL (14.0-18.0); Immature Granulocytes Abs Auto 0.05 10^3/uL (0.00-0.03); Immature Granulocytes Pct Auto 0.4 % (0.0-0.5); Lymphocytes Absolute Auto 1.8 10^3/uL (1.2-3.8); Mean Corpuscular HGB Conc 34.9 g/dL (29.9-35.2); Mean Corpuscular Hemoglobin 31.3 pg (25.9-34.0); Mean Corpuscular Volume 89.8 fL (80.0-94.0); Platelet Count 254 10^3/uL (150-450); Red Blood Count 5.11 10^6/uL (4.70-6.10); White Blood Count 13.6 10^3/uL (4.0-11.0)
[2025-05-29 09:10] LABS: Alanine Aminotransferase 26 U/L (16-63); Albumin Globulin Ratio 1.1; Albumin Level 4.0 g/dL (3.4-5.0); Alkaline Phosphatase 103 U/L (46-116); Anion Gap 13.2; Aspartate Amino Transferase 16 U/L (15-37); Blood Urea Nitrogen 14.0 mg/dL (7.0-18.0); Calcium 9.0 mg/dL (8.5-10.1); Carbon Dioxide 26.2 mmol/L (21.0-32.0); Chloride 103 mmol/L (98-107); Estimated GFR (African America >60 (>=60 mL/min/1.73m^2); Estimated GFR (Non-African Ame >60 (>=60 mL/min/1.73m^2); Globulin 3.6 g/dL; Glucose 95 mg/dL (74-106); Lipase 13.0 U/L (16.0-77.0); Potassium 4.4 mmol/L (3.5-5.1); Sodium 138 mmol/L (136-145); Total Protein 7.6 g/dL (6.4-8.2)
[2025-05-29] MEDS: 0.9 % SODIUM CHLORIDE 1,000 ML 1000 ML IV (09:13)
[2025-05-29] MEDS: FAMOTIDINE/PF 20 MG/2 ML VIAL IV (09:14)
[2025-05-29] MEDS: HYDROMORPHONE HCL 0.5 MG/0.5 ML SYRINGE IV (09:14)
--- NOTE | 2025-05-29 09:20 | ED.GENADUL1 ---
HPI HPI - General Adult General Chief complaint: Abdominal Pain Stated complaint: ABDOMINAL PAIN, VOMITING Time Seen by Provider: 05/29/25 08:25 Source: patient Mode of arrival: walk-in History of Present Illness HPI narrative: Patient is a 34-year-old male presenting to the emergency department for evaluation of upper abdominal pain. Patient states that he has a history of bowel obstruction in the past requiring an NG tube. He states this episode of abdominal pain reminds him of the last time he was diagnosed with a bowel obstruction 2 years ago. He was supposed to get EGD/colonoscopy but never followed through with this. Patient states that last night he started experience upper abdominal pain associate with nausea and 2 episodes of vomiting. He denies constipation or diarrhea, his last bowel movement was this morning. He denies any chest pain or shortness breath. No fevers or chills. Denies history of intra-abdominal surgeries. He is otherwise healthy with no chronic medical conditions. His only medication is Adderall, no chronic opiates. He denies excessive alcohol use or history of gallstones. Related Data Home Medications ?Medication ?Instructions ?Recorded ?Confirmed dextroamphetamine-amphetamine ER 30 mg PO QAM 11/20/23 05/29/25 30 mg 24hr capsule,extend release Allergies Allergy/AdvReac Type Severity Reaction Status Date / Time No Known Drug Allergies Allergy Verified 05/29/25 08:28 Opioid HPI Opioid Management Most Recent Opioid Data: Last Pain Scale 8 Today, 09:14 Last MAR Pain Assessment Today, 09:14 Review of Systems ROS Status of ROS 10 or more systems reviewed and unremarkable except as noted in history and below PFSH PFS Social History Smoking status: Current every day smoker Little interest or pleasure in doing things: not at all Feeling down, depressed, or hopeless: not at all Exam Narrative Exam Narrative: CONSTITUTIONAL: Nontoxic, answering questions and following commands appropriately SKIN: Was warm and dry. EYES: Sclerae white. EARS, NOSE, THROAT: Moist oral mucosa. RESPIRATORY: Clear to auscultation bilaterally, no wheezes, crackles, or stridor, no use of accessory muscles CARDIOVASCULAR: Normal rate and regular rhythm. There is no S3, S4, murmur, rub. GASTROINTESTINAL: There is tenderness to palpation in the epigastrium. No rebound tenderness or guarding. No right upper quadrant tenderness. No Renee sign. MUSCULOSKELETAL: No peripheral edema. NEUROLOGIC: Patient is awake and alert. Facies were symmetrical. Constitutional Vital Signs, click to edit/add: Last Vital Signs Temp 97.8 F 05/29/25 08:28 Pulse 63 05/29/25 08:28 Resp 16 05/29/25 08:28 BP 116/80 05/29/25 08:28 Pulse Ox 97 05/29/25 08:28 O2 Del Method Room Air 05/29/25 08:28 Course Vital Signs Vital signs: Vital Signs Temperature 97.8 F 05/29/25 08:28 Pulse Rate 63 05/29/25 08:28 Respiratory Rate 16 05/29/25 08:28 Blood Pressure 116/80 05/29/25 08:28 Pulse Oximetry 97 05/29/25 08:28 Oxygen Delivery Method Room Air 05/29/25 08:28 Temperature 97.8 F 05/29/25 08:28 Pulse Rate 63 05/29/25 08:28 Respiratory Rate 16 05/29/25 08:28 Blood Pressure 116/80 05/29/25 08:28 Pulse Oximetry 97 05/29/25 08:28 Oxygen Delivery Method Room Air 05/29/25 08:28 Medical Decision Making MDM Narrative Medical decision making narrative: Patient is a 34-year-old male, history significant for bowel obstruction diagnosed 2 years ago, presented to the emergency department with epigastric pain, nausea, and vomiting that began last night. His vital signs on arrival are within normal limits. He is afebrile and hemodynamically stable. Examination was notable for epigastric tenderness without peritoneal signs. Differential diagnosis includes partial SBO, gastritis, pancreatitis, PUD, cholelithiasis, or other intra-abdominal pathologies. IV was established and laboratory studies were obtained. CT abdomen/pelvis was ordered. He was treated symptomatically with IV Dilaudid, IV Zofran, IV famotidine, 1 L bolus normal saline. Laboratory studies were significant for mild leukocytosis. No anemia or thrombocytopenia. No significant electrolyte or metabolic derangements. Euglycemic. No transaminitis or hyperbilirubinemia. Lipase not elevated. No evidence of acute renal injury. CT abdomen/pelvis independently reviewed and interpreted by myself and radiology demonstrated no acute intra-abdominal pathologies. On reevaluation, patient states his symptoms have almost completely resolved. His presentation is likely related to gastritis. He is instructed follow-up with his PCP for further care. Return precautions were given including any new or concerning symptoms. Patient understands and agrees to the plan. FINAL IMPRESSION: #Acute epigastric pain, resolved DISPOSITION: Discharged home CONDITION: Good Medical Records Medical records reviewed: Yes I reviewed the patient's medical records Lab Data Lab results reviewed: Yes I reviewed the patient's lab results Labs: Lab Results 05/29/25 Range/Units 08:40 WBC 13.6 H (4.0-11.0) 10^3/uL RBC 5.11 (4.70-6.10) 10^6/uL Hgb 16.0 (14.0-18.0) g/dL Hct 45.9 (42.0-54.0) % MCV 89.8 (80.0-94.0) fL MCH 31.3 (25.9-34.0) pg MCHC 34.9 (29.9-35.2) g/dL RDW 11.8 (11.0-15.0) % Plt Count 254 (150-450) 10^3/uL MPV 10.6 (9.5-13.5) fL Neut % (Auto) 78.3 H (43.0-75.0) % Lymph % (Auto) 13.5 L (20.5-60.0) % Hamlin % (Auto) 6.7 (1.7-12.0) % Eos % (Auto) 0.7 L (0.9-7.0) % Baso % (Auto) 0.4 (0.2-2.0) % Neut # (Auto) 10.7 H (1.4-6.5) 10^3/uL Lymph # (Auto) 1.8 (1.2-3.8) 10^3/uL Hamlin # (Auto) 0.9 H (0.3-0.8) 10^3/uL Eos # (Auto) 0.1 (0.0-0.7) 10^3/uL Baso # (Auto) 0.1 (0.0-0.1) 10^3/uL Abs Immat Gran (auto) 0.05 H (0.00-0.03) 10^3/uL Imm/Tot Granulo (auto) 0.4 (0.0-0.5) % Sodium 138 (136-145) mmol/L Potassium 4.4 (3.5-5.1) mmol/L Chloride 103 (98-107) mmol/L Carbon Dioxide 26.2 (21.0-32.0) mmol/L Anion Gap 13.2 BUN 14.0 (7.0-18.0) mg/dL Creatinine 0.98 (0.70-1.30) mg/dL Est GFR ( Amer) >60 (>=60 mL/min/1.73m^2) Est GFR (Non-Af Amer) >60 (>=60 mL/min/1.73m^2) BUN/Creatinine Ratio 14.3 Glucose 95 (74-106) mg/dL Calcium 9.0 (8.5-10.1) mg/dL Total Bilirubin 0.6 (0.2-1.0) mg/dL AST 16 (15-37) U/L ALT 26 (16-63) U/L Alkaline Phosphatase 103 (46-116) U/L Total Protein 7.6 (6.4-8.2) g/dL Albumin 4.0 (3.4-5.0) g/dL Globulin 3.6 g/dL Albumin/Globulin Ratio 1.1 Lipase 13.0 L (16.0-77.0) U/L Imaging Data CT scan - abdomen: Attestation: I personally reviewed and interpreted this imaging study as follows: Radiologist's impression: ITS Impressions Abdomen/Pelvis CT 05/29/25 08:51 IMPRESSION: SLIGHT COMMON DUCT PROMINENCE, WITHOUT OBVIOUS CHOLEDOCHOLITHIASIS. NO BOWEL OR URINARY TRACT OBSTRUCTION. APPARENT URINARY BLADDER WALL THICKENING THAT MAY RELATE TO UNDERDISTENTION THOUGH CORRELATION IS RECOMMENDED TO EXCLUDE ANY POSSIBILITY OF CYSTITIS. NO OTHER ACUTE FINDINGS. Impression dictated by: Marisol Liu M.D. 05/29/2025 9:39 AM Dictation Location: [place] [address] Electronically authenticated by: [id number] Y Date: 05/29/2025 09:39 Discharge Plan Discharge Chief Complaint: Abdominal Pain Clinical Impression: Abdominal pain Patient Disposition: Home, Self-Care Time of Disposition Decision: 09:47 Condition: Good Mode of Transportation: Private Vehicle Prescriptions / Home Meds: No Action dextroamphetamine-amphetamine 30 mg capsule,extended release 24hr 30 mg PO QAM Print Language: Luxembourgish Instructions: Abdominal Pain (ED) Referrals: Jen Taylor NP [Primary Care Provider, Family Practice] - 1 week Discharge Date/Time: 05/29/25 10:32
--- OUTSIDE RECORDS SUMMARY | 2025-05-29 09:26 | XMS_ITS | CCD ---
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 - 14.4 %[facility] Health Hematocrit (Bld) [Volume fraction]47 %40.7 - 50.3 %[facility] Hemoglobin (Bld) [Mass/Vol]16 g/dL13.0 - 17.0 g/dLBon Secours Mercy Health Immature granulocytes (Bld) [#/Vol][facility] HospitalImmature granulocytes/100 WBC (Bld)0 %0[facility] HealthInterpretation and review of laboratory resultsAbnormalBon Secours Mercy HealthLymphocytes/100 WBC (Bld)30 %24 - 43 %[facility] HealthLymphocytes/100 WBC (Bld)2.44 %[facility]y [facility] HospitalMCH (RBC) [Entitic mass]30.5 pg25.2 - 33.5 pgBon [facility] ClinicHC (RBC) [Mass/Vol]34 g/dL28.4 - 34.8 g/dLBon Cleveland ClinicV (RBC) [Entitic vol]89.5 fL82.6 - 102.9 fLBon Secours Memorial Regional Medical CenterMonocytes/100 WBC (Bld)7 %3 - 12 %Bon [facility] CenterMonocytes/100 WBC (Bld)0.59 %[facility] CenterNeutrophils/100 WBC (Bld)61 %36 - 65 %[facility] Medical CenterNucleated RBC/100 WBC (Bld) [Ratio]0 %0.0 per 100 WBCBon Secours Memorial Regional Medical CenterPlatelet mean volume (Bld) [Entitic vol]10.1 fL8.1 - 13.5 fLBon Secours Memorial Regional Medical CenterPlatelets (Bld) [#/Vol]263 10*3/uLBon [facility] Medical CenterRBC (Bld) [#/Vol]5.25 10*6/uL4.21 - 5.77 m/uLBon Secours Memorial Regional Medical CenterSegmented neutrophils/100 WBC (Bld)4.92 %[facility] Medical CenterWBC other (Bld) [#/Vol] 8.1Bon [facility] CenterCBC with Diffon 11-02-2024 Abs. Basophil0.07 k/uLNormal0.00-0.20Mercy [facility]wich HospitalComment on above: Performed By: #### ABDELRAHMAN MOSQUEDA, BMP #### [address] [place] [address] Leather Softener: Annel Manzo.Imm.Granulocyte<0.50Xdlclb1.00-0.30MerTrumbull Regional Medical Center HospitalComment on above:Performed By: #### ABDELRAHMAN MOSQUEDA, BMP #### [address] [place], [place] [address] Leather Softener: Annel Manzo.Neutrophil (Seg)4.92 k/uLNormal1.50-8.10MerOhio State Health Systemfin HospitalComment on above:Performed By: #### TROPChanelle CDP, BMP #### [address] [place] [address] Leather Softener: Hardeep Garvin MDBasophils/100 WBC (Bld)1 %Normal0-2Mer[facility] Greenwich HospitalComment on above:Performed By: #### PANDA CDP, BMP #### [address] [place] [address] Leather Softener: Hardeep Garvin MDEosinophils (Bld) [#/Vol]0.09 10*3/uLNormal 0.00-0.44Wilson Memorial HospitalComment on above:Performed By: #### PANDA CDP, BMP #### [address] [place] [address] Leather Softener: GUTIERREZ Manzoosinophils/100 WBC (Bld)1 %Normal1-4[facility] HospitalComment on above:Performed By: #### ABDELRAHMAN MOSQUEDA, BMP #### [address] [place] [address] Leather Softener: Hardeep Garvin MDErythrocyte distribution width (RBC) [Ratio]11.6 % Low11.8-14.4Wilson Memorial HospitalComment on above:Performed By: #### PANDA CDP, BMP #### [address] [place] [address] Leather Softener: Hardeep Garvin MDHematocrit (Bld) [Volume fraction]47.0 %Normal 40.7-50.3[facility] Greenwich HospitalComment on above:Performed By: #### TROPI CDP, BMP #### [address] [place] [id number] Leather Softener: Hardeep Garvin MDHemoglobin (Bld) [Mass/Vol]16.0 g/dLNormal 13.0-17.0[facility] HospitalComment on above:Performed By: #### ABDELRAHMAN MOSQUEDA, BMP #### [address] [place] [id number] Leather Softener: Hardeep Garvin MDImmature granulocytes/100 WBC (Bld)0 %Rxvzqp6Szirq [facility]iffin HospitalComment on above:Performed By: #### ABDELRAHMAN MOSQUEDA, BMP #### [address] [place] [address] Leather Softener: Hardeep Garvin MDLymphocytes (Bld) [#/Vol]2.44 10*3/uLNormal 1.10-3.70Wilson [facility] HospitalComment on above:Performed By: #### ABDELRAHMAN MOSQUEDA, BMP #### [address] [place] [address] Leather Softener: Sharon Manzomphocytes/100 WBC (Bld)30 %Kexenb39-52Rddzp [facility]iffin HospitalComment on above:Performed By: #### ABDELRAHMAN MOSQUEDA, BMP #### [address] [place] [address] Leather Softener: WILLIAN Manzo (RBC) [Entitic mass]30.5 mrDzndse94.2-33.5 [facility] HospitalComment on above:Performed By: #### ABDELRAHMAN MOSQUEDA, BMP #### [address] [place], [facility]83 Leather Softener: WILLIAN ManzoC (RBC) [Mass/Vol]34.0 g/xKUdrhya03.4-34.8[facility] HospitalComment on above:Performed By: #### ABDELRAHMAN MOSQUEDA, BMP #### [address] [place], [facility]83 Leather Softener: Hardeep Sturtz, MDMCV (RBC) [Entitic vol]89.5 aZSfompc20.6-102.9 [facility] HospitalComment on above:Performed By: #### ABDELRAHMAN MOSQUEDA, BMP #### [address] [place] [address] Leather Softener: TORIE Manzoonocytes (Bld) [#/Vol]0.59 10*3/uLNormal0.10-1.20 [facility] HospitalComment on above:Performed By: #### ABDELRAHMAN MOSQUEDA, BMP #### [address] [place] [address] Leather Softener: TORIE Manzoonocytes/100 WBC (Bld)7 %Normal3-12[facility] HospitalComment on above:Performed By: #### ABDELRAHMAN MOSQUEDA, BMP #### [address] [place] [address] Leather Softener: Hardeep Garvin MDNeutrophil (Seg)61 %Rogkje87-27Nrmtc [facility] HospitalComment on above:Performed By: #### ABDELRAHMAN MOSQUEDA, BMP #### [address] [place] [address] Leather Softener: Hardeep Garvin MDNRBC Automated0.0 per 100 WBCNormal0.0Wilson [facility] HospitalComment on above:Performed By: #### ABDELRAHMAN MOSQUEDA, BMP #### [address] [place] [address] Leather Softener: NICHOLE Manzolatelet mean volume (Bld) [Entitic vol]10.1 fL Normal8.1-13.5Wilson [facility] HospitalComment on above:Performed By: #### ABDELRAHMAN MOSQEUDA, BMP #### [address] [place], [place] [address] Leather Softener: NICHOLE Manzolatelets (Bld) [#/Vol]263 10*3/kANzrzyx399-722 [facility] HospitalComment on above:Performed By: #### ABDELRAHMAN MOSQUEDA, BMP #### [address] [place], [place] [address] Leather Softener: LEOPOLDO Manzo ([facility]) [#/Vol]5.25 10*6/uLNormal4.21-5.77Wilson [facility] HospitalComment on above:Performed By: #### ABDELRAHMAN MOSQUEDA, BMP #### [address] [place], [place] [address] Leather Softener: KRISTINA Manzo ([facility]) [#/Vol]8.1 10*3/uLNormal3.5-11.3MOhio State Health SystemComment on above:Performed By: #### ABDELRAHMAN MOSQUEDA, BMP #### [address] [place], [place] [address] Leather Softener: TYSHAWN Manzo-Dimer Teston 59-89-8798S-Dimer Test0.28 ug/mL FEUNormal0.00-0.59Wilson Memorial HospitalComment on above:Result Comment: When combined with a low clinical [...] be more prevalent in patients with distal DVT.Performed By: #### MARCIE #### [facility] [address] [place] [address] Leather Softener: Hardeep Garvin, MDD-Dimer, Quantitativeon 07-50-2984Qqirkr D-dimer FEU (PPP) [Mass/Vol]0.28Bon [facility] on above: When combined with a low [...] more prevalent in patients with distal DVT. Bon [facility] CenterNo Panel Informationon [id number] [facility] Medical CenterPortable XR Chest AP single viewon 84-66-2239Qd acute cardiopulmonary abnormality is identified. MHPN RIS CONSOLIDATEDEXAMINATION: ONE XRAY VIEW OF THE CHEST 11/02/2024 3:36 pm COMPARISON: 04/05/2023 HISTORY: ORDERING SYSTEM PROVIDED HISTORY: cp TECHNOLOGIST PROVIDED HISTORY: cp FINDINGS: The heart is normal in size. There is no focal pulmonary consolidation. There is no pleural effusion or pneumothorax. No acute osseous abnormality is identified. Jonas Valero MD - 11/02/2024 EXAMINATION: ONE XRAY VIEW OF THE CHEST 11/02/2024 3:36 pm COMPARISON: 04/05/2023 HISTORY: ORDERING SYSTEM PROVIDED HISTORY: cp TECHNOLOGIST PROVIDED HISTORY: cp FINDINGS: The heart is normal in size. There is no focal pulmonary consolidation. There is no pleural effusion or pneumothorax. No acute osseous abnormality is identified. IMPRESSION: No acute cardiopulmonary abnormality is identified. [facility] Medical CenterRadiology Study observation (narrative)[facility] Core InformaticsSouth Florida Baptist Hospitalable XR Chest AP single viewOrdered By: Jonas De Leon on 02-43-2090FevSentara Northern [facility] Medical Center [employer] Work Phone: Troponinon [id number] I.cardiac High sensitivity method [Mass/Vol]6 ng/L0 - 22 ng/LBon [facility] CenterComment on above:High Sensitivity Troponin values cannot be compared with other Troponin methodologies.[facility] Medical CenterTroponin, High Sens6 ng/LNormal0-22MerMt. Sinai HospitalComment on above:Result Comment: High Sensitivity Troponin values cannot be compared with other Troponin methodologies.Performed By: #### TROPI #### [facility] [address] [place] [address] Leather Softener: Paige Manzo I.cardiac High sensitivity method [Mass/Vol]7 ng/L0 - 22 ng/LBon [facility] CenterComment on above:High Sensitivity Troponin values cannot be compared with other Troponin methodologies.Troponin, High Sens7 ng/LNormal0-22[facility] HospitalComharper university hospital on above:Result Comment: High Sensitivity Troponin values cannot be compared with other Troponin methodologies.Performed By: #### TROPI, CDP, BMP #### [facility] [address] [place] [address] Leather Softener: HARPREET Manzo CHEST PORTABLEon [id number] CHEST PORTABLE EXAMINATION: ONE XRAY VIEW OF [...] by: Jonas De Leon MD 11/02/24 Final resultNormalMerDunlap Memorial Hospital [id number] Authentication Interface Message Text Attestation signed by Tavon Pang MD at 11/19/2023 12:08 PM Teaching Physician Note: I reviewed the resident's documentation and discussed the patient with the resident. I agree with the resident's medical decision making as documented in the resident's note Tavon Pang MD Division of Trauma, Critical Care, [place], and Emergency General Surgery Department of Surgery [facility] DIVISION OF BURN SURGERY BURN SURGERY [...] SAVAGE, PND, wheezing) Cardiovascular: negative symptoms (No CP/Pressure/Tightness, palpitations, orthopnea, [...] Metabolic Panel None Arterial Blood Gases None ASSESSMENT/RECOMMENDATIONS: Osman Mckee is a 33 year old [...] Pang. Tavon Allen DO, PGY2 General Surgery ResidentBath VA Medical Center SystemED Provider Noteson [id number] Authentication Interface Message TextEMERGENCY DEPARTMENT - VISIT NOTE HISTORY OF PRESENT ILLNESS Osman Mckee is a 33 year old [...] ED to see burn surgery PHYSICAL EXAM Patient Vitals for the past 24 hrs: [...] ED COURSE Evaluated by EM attending Anthony Mgaana Nursing triage and assessment notes reviewed and incorporated. Chart Review: See HPI Course: ED Course as of 11/19/23 1650 Sun Nov 18, 20238 Last tetanus 2014 [MS] ED Course User Index [MS] Ehtan Garrido MD Medical Decision Making: Please see [...] follow up tomorrow in clinic. Patient discharged IMPRESSION AND DISPOSITION Clinical Impression Diagnosis Comment Blisters, with epidermal [...] documented in the resident's note. Koko Magana MDBath VA Medical Center SystemProgress Noteson 11-19-2023 [place]aser Authentication Interface Message TextPt identified by name and date of Nallely [...] prescriptions provided to patient. Photos obtained, see media supervisor. Patient instructed to follow up as scheduled. [facility] SystemAmbulatory Visit Summaryon [id number] Visit Summary OSMAN MCKEE :1990 Visit Date:07/19/2023 Ambulatory Visit Instructions Your Diagnosis Attention deficit hyperactivity disorder Tetrahydrocannabinol (THC) use disorder, moderate, dependence BMI 27.0-27.9,adult Smoker Your Care Team Attending Physician - David Martines MD Primary Care Physician - Daivd Martines MD This Is Your Medications List amphetamine-dextroamphetamine (amphetamine-dextroamphetamine 30 mg ER Cap) Contact prescribing physician [...] PM EST With: David Martines MD [facility] Medicine Office/Clinic Noteon [id number] Medicine Office/Clinic NoteHPI Staff Osman is a 32 year old [...] is in agreement Ordered: Drug Screen POC 16692 2. Tetrahydrocannabinol (THC) use disorder, moderate, dependence (F12.20: Cannabis dependence, uncomplicated) - As above - Encouraged cessation. Orders: amphetamine-dextroamphetamine, 30 mg = 1 cap(s), Oral, qAM, # 30 cap(s), Refills(s) 0, Pharmacy: [facility]/pharmacy #[id number], 173, cm, 07/19/23 10:31:00 EST, [...] HFA) 90 mcg/inh inhalation aerosol, Self Directed amphetamine-dextroamphetamine 30 mg ER Cap, 30 mg= 1 [...] Negative (07/19/23 10:35:00) Benzodiazepines Quant: Negative (07/19/23 10:35:00)[facility] TrumbullComment on above:Result Comment: Electronically Signed By: Conrad INGRAM, David Pakr.br\Date and Time Signed: 07/19/23 10:49 ESTPatient Educationon 07-19-2023 Patient EducationMental and Behavioral Health Attention Deficit Hyperactivity Disorder, Adult Attention deficit hyperactivity disorder (ADHD) is a mental health disorder that starts during childhood. For many people with ADHD, the disorder continues into the adult years. Treatment can help you manage your symptoms. There are three main types of ADHD: ? Inattentive. With this type, adults have difficulty paying attention. This may affect cognitive abilities. ? Hyperactive-impulsive. With this type, adults have a lot [...] primary care provider or a mental health manager urgent care. Your health care provider may use a symptom checklist or a behavior rating scale to evaluate your symptoms. Your health care provider may also want to talk with people who have observed your behaviors throughout your life. How is this treated? This condition can be treated with medicines and behavior therapy. Medicines may be the best optionto reduce impulsive behaviors and improve attention. Your health care provider may recommend: ? Stimulant medicines. These are the most common medicines used for adult ADHD. They affect certainchemicals in the brain (neurotransmitters) and improve your ability to control your symptoms. ? A non-stimulant medicine. These medicines can also improve focus, attention, and impulsive behavior. It may take weeks to months to see the effects of this medicine. Counseling and behavioral management are also important for treating ADHD. Counseling is often usedalong with medicine. Your health care provider may suggest: ? Cognitive behavioral therapy (CBT). This type of therapy teaches you to replace negative thoughtsand actions with positive thoughts and actions. When used as part of ADHD treatment, this therapy may also include: ? Coping strategies for organization, time management, impulse control, and stress reduction. ? Mindfulness and meditation training. ? Behavioral management. You may work with a coach operator who is specially trained to help people with ADHD manage and organize activities and function more effectively. Follow these instructions at home: Medicines ? Take xoeh-pau-psaxnxl and prescription medicines only as told by [...] you. ? Follow th (more content not included)...[facility] Physician Referralon [id number] Referral [id number]#1.00TIFFNormalMc University Of Maryland Medical CenterAmbulatory Visit Summaryon [id number] Visit Summary OSMAN MCKEE :1990 Visit Date:06/21/2023 Ambulatory Visit Instructions Your Diagnosis Attention deficit hyperactivity disorder Asthma Smoker BMI 27.0-27.9,adult Encounter for surveillance of abnormal nevi Your Care Team Attending Physician - David Martines MD Primary Care Physician - David Martines MD This Is Your Medications List amphetamine-dextroamphetamine (amphetamine-dextroamphetamine 30 mg ER Cap) Contact prescribing physician if questions or concerns albuterol (Albuterol (Eqv-ProAir HFA) 90 mcg/inh inhalation aerosol) Discharge Vitals Heart Rate (Peripheral) 89 Respiratory Rate 16 Blood Pressure 142/86 Height 68 in Height 173 cm Weight 179.74 lb Weight 81.7 kg BMI 27.3 What to do next Scheduled Follow-Up Appointments 2022 4:00 PM EST With: David Martines MD Where: [facility] Aniyaid Interpretation CodeAsthMorrow County HospitalAmbulatory Visit Summary OSMAN MCKEE :1990 Visit Date:06/21/2023 Ambulatory Visit Instructions Your Diagnosis Attention deficit hyperactivity disorder Asthma Smoker BMI 27.0-27.9,adult Encounter for surveillance of abnormal nevi Your Care Team Attending Physician - David Martines MD Primary Care Physician - David Martines MD This Is Your Medications List Contact prescribing physician if questions or concerns albuterol (Albuterol (Eqv-ProAir HFA) 90 mcg/inh inhalation aerosol) amphetamine-dextroamphetamine (amphetamine-dextroamphetamine 30 mg ER Cap) Discharge Vitals Heart Rate (Peripheral) 89 Respiratory Rate 16 Blood Pressure 142/86 Height 68 in Height 173 cm Weight 179.74 lb Weight 81.7 kg BMI 27.3 What to do next Scheduled Follow-Up Appointments 2022 4:00 PM EST With: David Martines MD Where: [facility] Aniyaid Interpretation CodeSouthern Ohio Medical CenterAmbulatory Visit Summary OSMAN MCKEE :1990 Visit Date:06/21/2023 Ambulatory Visit Instructions Your Diagnosis Smoker BMI 27.0-27.9,adult Your Care Team Attending Physician - David Martines MD Primary Care Physician - David Martines MD This Is Your Medications List Contact prescribing physician if questions or concerns albuterol (Albuterol (Eqv-ProAir HFA) 90 mcg/inh inhalation aerosol) amphetamine-dextroamphetamine (amphetamine-dextroamphetamine 30 mg ER Cap) Discharge Vitals Heart Rate (Peripheral) 89 Respiratory Rate 16 Blood Pressure 142/86 Height 68 in Height 173 cm Weight 179.74 lb Weight 81.7 kg BMI 27.3 Medications What When Instructions Unchanged albuterol (Albuterol (Eqv-ProAir HFA) 90 mcg/ inh inhalation aerosol) Contact prescribingphysician if questions or concerns Unchanged amphetamine-dextroamphetamine (amphetamine-dextroamphetamine 30 mg ER Cap) Oral, 0 Refill(s) [...] you for choosing us for your care. [facility] Medicine Office/Clinic Noteon [id number] Medicine Office/Clinic NoteHPI Staff Osman is a 32 year old male presenting to establish care Has ADHD Establish Care: History:ADHD Last provider: MY [place], [facility] Any recent labs: Been a while Health Maintenance UTD: Colonoscopy: No PSA: No flu: Due Acute: Current issues/complaints: needs refills on meds, has 2 spots, one under chin, one on back of head.Said they both cause pain, burning at times. [...] at next month Ordered: Drug Screen POC 43110 [facility] External Ambulatory Referral 2. Asthma (J45.909: Unspecified asthma, uncomplicated) - NO issues at this time. - On Albuterol PRN Ordered: [facility] External Ambulatory Referral 3. Smoker (F17.200: Nicotine dependence, unspecified, uncomplicated) - Please stop smoking Ordered: Drug Screen POC 75728 [facility] External Ambulatory Referral 4. BMI 27.0-27.9,adult (Z68.27: Body mass index [BMI] 27.0-27.9, adult) - BMI education given Ordered: Drug Screen POC 88844 [facility] External Ambulatory Referral 5. Encounter for surveillance of abnormal nevi (Z13.89: Encounter for screening for other disorder) - Will send to derm. Ordered: [facility] External Ambulatory Referral Orders: amphetamine-dextroamphetamine, 30 mg = 1 cap(s), Oral, qAM, # 90 cap(s), Refills(s) 0, Pharmacy: [facility]/pharmacy #[id number], 173, cm, 06/21/23 14:42:00 EST, Height/Length Dosing, 81.7, kg, 06/21/23 14:42:00 EST, Weight Dosing Follow-up No qualifying data available Problem List/Past Medical History Ongoing Asthma Attention deficit hyperactivity disorder Encounter for surveillance of abnormal nevi Smoker Historical No qualifying data Medications Albuterol (Eqv-ProAir HFA) 90 mcg/inh inhalation aerosol amphetamine-dextroamphetamine 30 mg ER Cap, 30 mg= 1 [...] Negative (06/21/23 14:53:00) Benzodiazepines Quant: Negative (06/21/23 14:53:00)[facility] TrumbullComment on above:Result Comment: Electronically Signed By: David Martines MDbr\Date and Time Signed: 06/21/23 15:07 ESTFormson [id number] [id number]#1.00[facility] [id number]#1.00[facility] HospitalMedication Consenton [id number] Consent [id number]#1.00[facility] HospitalPAIN MGT DRUG PANEL W/ INTERPon 39712-Clyfmjajbjctfcmvbi (6-SARA) Ql (U)Not detectedADENA HEALTH7-Aminoclonazepam Ql (U)Not detectedADENA HEALTHAlpha hydroxyalprazolam Ql (U)Not detectedADENA JGTPSKAynfl-ZH-Ietbigkop (cutoff 20 ng/mL)Not detectedADENA HEALTHALPRAZolam Ql (U)Not detectedADENA HEALTH Amphetamines Ql (U)PresentADENA HEALTHAnnotation comment [Interpretation] NarrativeSee InterpADENA HEALTHAnnotation comment [Interpretation] NarrativeSee NoteADENA HEALTHComment on above: DRUGS EXPECTED: ADDERALL (AMPHETAMINE) CONSISTENT with medications provided: ADDERALL (AMPHETAMINE): based on amphetamine INCONSISTENT with medications provided: THC: based on immunoassay detection INTERPRETIVE INFORMATION: Targeted drug profile Interp Interpretation depends on accuracy and completeness of patient medication information submitted by client. Barbiturates Ql (U)Not detectedADENA HEALTHBenzoylecgonine Ql (U)Not detected [facility] HEALTHBuprenorphine Ql (U)Not detectedADENA HEALTHCarboxy tetrahydrocannabinol Ql (U)PresentADENA HEALTHComment on above:INTERPRETIVE INFORMATION: Marijuana Metabolite The cutoff for Marijuana Metabolite (immunoassay) was changed from 20 ng/mL to 50 ng/mL, effective December 18, 2022. Carisoprodol Ql (U)Not detectedADENA HEALTHComment on above: The carisoprodol immunoassay has cross-reactivity to carisoprodol and meprobamate. clonazePAM Ql (U)Not detectedADENA HEALTHCodeine Ql (U)Not detectedADENA HEALTH Creatinine (U) [Mass/Vol]348.2 mg/dL20.0 - 400.0 mg/dLADENA HEALTHdiazePAM Ql (U)Not detectedADENA HEALTHEthyl glucuronide Ql (U)Not detectedADENA HEALTH fentaNYL Ql (U)Not detectedADENA HEALTHGabapentin (cutoff 3,000 ng/mL)Not detectedADENA HEALTHHYDROcodone Ql (U)Not detectedADENA HEALTHHYDROmorphone Ql (U)Not detectedADENA HEALTHLORazepam Ql (U)Not detectedADENA HEALTHMethadone Ql (U)Not detectedADENA HEALTHMethamphetamine Ql (U)Not detectedADENA HEALTH Methylenedioxyamphetamine Ql (U)Not detectedADENA HEALTH Methylenedioxyethylamphetamine Ql (U)Not detectedADENA HEALTH Methylenedioxymethamphetamine Ql (U)Not detectedADENA HEALTHMethylphenidate Ql (U)Not detectedADENA HEALTHMidazolam Screen Ql (U)Not detectedADENA HEALTH Morphine Ql (U)Not detectedADENA HEALTHNaloxone (cutoff 100 ng/mL)Not detected TERESA HEALTHNorbuprenorphine Confirm Ql (U)Not detectedADENA HEALTHNordiazepam Ql (U)Not detectedADENA HEALTHNorfentanyl Ql (U)Not detectedADENA HEALTH Norhydrocodone Confirm Ql (U)Not detectedADENA HEALTHNormeperidine Confirm Ql (U)Not detectedADENA HEALTHNoroxycodone Confirm Ql (U)Not detectedADENA HEALTH Noroxymorphone (cutoff 100 ng/mL)Not detectedADENA HEALTHOxazepam Ql (U)Not detectedADENA HEALTHoxyCODONE Ql (U)Not detectedADENA HEALTHoxyMORphone Ql (U) Not detectedADENA HEALTHPathology studySee NoteADENA HEALTHComment on above: Authorized individuals can access the Cytheris Enhanced Report using the following link: [email or web address] Performed By: [facility] [address] [place] [id number] Human Resources Administrator: Koko South MD, PhD CLIA Number: [id number] Phencyclidine Ql (U)Not detectedADENA HEALTHPhentermine Ql (U)Not detectedADENA HEALTHPregabalin (cutoff 3,000 ng/mL)Not detectedADENA HEALTHService comment (Unsp spec) [Interp]See BelowADENA HEALTHComment on above:Methodology: Qualitative Enzyme Immunoassay and Qualitative Liquid Chromatography-Tandem [...] developed and its performance characteristics determined by [facility]. It has not been cleared or approved by the US Food and Drug Administration. This test was performed in a CLIA certified laboratory and is intended for clinical purposes. Tapentadol Screen Ql (U)Not detectedADENA QBRPNTRoytrgkvvj-p-Feho (cutoff 200 ng/mL)Not detectedADENA HEALTHTemazepam Ql (U)Not detectedADENA HEALTHtraMADol Ql (U)Not detectedADENA HEALTHZolpidem Metabolite (cutoff 100 ng/mL)Not detected TERESA HEALTHZolpidem Ql (U)Not detectedADENA HEALTHADENA HEALTHPAIN MGT DRUG PANEL W/ INTERPon 17533-ovawfaliixlohe (cutoff 20 ng/mL)Not detectedNormal [facility] in [place]7-Aminoclonazepam (cutoff 40 ng/mL)Not detectedNormalRegional Medical Center in LnhujhtlvtkTvjku-PL-Uyyvzjqzgi (cutoff 20 ng/mL)Not detectedNormalRegional Medical Center in [place] Acfbi-TP-Vcuabohpf (cutoff 20 ng/mL)Not detectedNormalRegional Medical Center in MarengoAlprazolam (cutoff 40 ng/mL)Not detectedNormalRegional Medical Center in [facility] HospitaltheAmphetamine (cutoff 50 ng/mL)PresentNormalRegional Medical Center in MarengoBarbiturates (cutoff 200 ng/mL)Not detectedNormalRegional Medical Center in [place]arengoBenzoylecgonine Ql (U)Not detectedNormalRegional Medical Center in MarengoBuprenorphine (cutoff 5 ng/mL)Not detectedNormal [facility] in [place]arengoCarisoprodol (cut-off 100 ng/mL)Not detectedNormalRegional Medical Center in MarengoComment on above:Result Comment: The carisoprodol immunoassay has cross-reactivity to carisoprodol and meprobamate.Clonazepam (cutoff 20 ng/mL)Not detectedNormalRegional Medical Center in MarengoCodeine (cutoff 40 ng/mL)Not detectedNormalRegional Medical Center in MarengoCreatinine, Ripgp067.2 mg/nBJwkods47.0-400.0[facility] in MarengoDiazepam (cutoff 50 ng/mL)Not detectedNormal [facility] in [facility] HospitaltheDRUGS EXPECTEDSee InterpNormalRegional Medical Center in [facility] Tgt drug prof, MS/EMIT, MICee NoteNormal [facility] in [facility] on above:Result Comment: Authorized individuals can access the Cytheris Enhanced Report using the following link: [email or web address] Performed By: [facility] [address] [place] [id number] Human Resources Administrator: Koko South MD, PhD CLIA Number: [id number] Glucuronide (cutoff 500 ng/mL)Not detectedNormal [facility] in [facility] HospitaltheFentanyl (cutoff 2 ng/mL)Not detected NormalRegional Medical Center in MarengoGabapentin (cutoff 3,000 ng/mL)Not detectedNormalRegional Medical Center in [place]arengoHydrocodone (cutoff 40 ng/mL)Not detectedNormalRegional Medical Center in [place]arengoHydromorphone (cutoff 20 ng/mL)Not detectedNormalRegional Medical Center in [place] Lorazepam (cutoff 60 ng/mL)Not detectedNormalRegional Medical Center in [place]arengoMarijuana Metabolite (cutoff 20 ng/mL)PresentNormalRegional Medical Center in [facility] on above:Result Comment: INTERPRETIVE INFORMATION: Marijuana Metabolite The cutoff for Marijuana Metabolite (immunoassay) was changed from 20 ng/mL to 50 ng/mL, effective December 18, 2022.MDA (cutoff 200 ng/mL)Not detected NormalRegional Medical Center in MarengoMDEA- Jewels (cutoff 200 ng/mL)Not detectedNormalRegional Medical Center in MarengoMDMA- Ecstasy (cutoff 200 ng/mL)Not detectedNormalRegional Medical Center in [place]arengoMeperidine metabolite (cutoff 50 ng/mL)Not detectedNormalRegional Medical Center in [place]arengoMethadone Ql (U)Not detectedNormalRegional Medical Center in [facility] HospitaltheMethamphetamine (cutoff 200 ng/mL)Not detectedNormalRegional Medical Center in [facility] HospitaltheMethylphenidate (cutoff 100 ng/mL)Not detectedNormal [facility] in [facility] CampusicotheMidazolam (cutoff 20 ng/mL)Not detected NormalRegional Medical Center in [place]otheMorphine (cutoff 20 ng/mL)Not detectedNormalRegional Medical Center in [place]otheNaloxone (cutoff 100 ng/mL) Not detectedNormalRegional Medical Center in [facility] HospitaltheNorbuprenorphine (cutoff 20 ng/mL)Not detectedNormalRegional Medical Center in [facility] HospitaltheNordiazepam (cutoff 50 ng/mL)Not detectedNormalRegional Medical Center in [place] Norfentanyl (cutoff 2 ng/mL)Not detectedNormalRegional Medical Center in St[facility] HospitaltheNorhydrocodone (cutoff 100 ng/mL)Not detectedNormalRegional Medical Center in [facility] CampusicotheNoroxycodone (cutoff 100 ng/mL)Not detectedNormalRegional Medical Center in [facility] HospitaltheNoroxymorphone (cutoff 100 ng/mL)Not detectedNormal [facility] in [facility] CampusicotheOxazepam (cutoff 50 ng/mL)Not detected NormalRegional Medical Center in [facility] CampusicotheOxycodone (cutoff 40 ng/mL)Not detectedNormalRegional Medical Center in St[facility] HospitaltheOxymorphone (cutoff 40 ng/mL)Not detectedNormalRegional Medical Center in [facility] CampusicothePCP (cutoff 25 ng/mL)Not detectedNormalRegional Medical Center in St[facility] HospitalthePhentermine (cutoff 100 ng/mL)Not detectedNormalRegional Medical Center in [place] Pregabalin (cutoff 3,000 ng/mL)Not detectedNormalRegional Medical Center in St. [facility] HospitaltheTapentadol (cutoff 100 ng/mL)Not detectedNormalRegional Medical Center in RvftpkbliswVcflecezlw-i-Nlcd (cutoff 200 ng/mL)Not detectedNormal [facility] in [facility] Hospitaled Drug Profile InterpSee NoteNormal [facility] in [facility] Campusment on above:Result Comment: DRUGS EXPECTED: ADDERALL (AMPHETAMINE) CONSISTENT with medications provided: ADDERALL (AMPHETAMINE): based on amphetamine INCONSISTENT with medications provided: THC: based on immunoassay detection INTERPRETIVE INFORMATION: Targeted drug profile Interp Interpretation depends on accuracy and completeness of patient medication information submitted by client.Targeted drug profile panelSee [facility] on above:Result Comment: Methodology: Qualitative Enzyme Immunoassay and Qualitative Liquid [...] developed and its performance characteristics determined by [facility]. It has not been cleared or approved by the US Food and Drug Administration. This test was performed in a CLIA certified laboratory and is intended for clinical purposes.Temazepam (cutoff 50 ng/mL)Not detectedNoAvita Health System in MarengoTramadol (cutoff 100 ng/mL)Not detectedKaiser Martinez Medical Center in MarengoZolpidem (cutoff 20 ng/mL)Not detectedChristian Hospitalal [facility] in MarengoZolpidem Metabolite (cutoff 100 ng/mL)Not detectedKaiser [facility] in [facility] 04-10-2023 ElectrocardiogramBarBird Test Date: 2023-04-05 Pat Name: OSMAN MCKEE Department: EXAM17 Room: E17 Gender: M Incident Response Lead: : 1990 Requested By: CORONA Guallpa Order Number: [id number] Reading MD: Jhony Roberts Measurements Intervals [place] Rate: 90 P: 61 MT: 175 QRS: 61 QRSD: 116 T: 58 QT: 350 QTc: 429 Interpretive Statements Sinus rhythm Incomplete right bundle branch block Electronically Signed On 04-10-2023 11:56:33 EDT by Jhony BrunnerBet[facility] AND ELECTRONIC DIFFon 20-27-2778Fdsprwcjz (Bld) [#/Vol]0.1 10*3/uLNormal0.0-0.2RCleveland [facility] in [place] Basophils/100 WBC (Bld)0.7 %[facility] [place] Eosinophils (Bld) [#/Vol]0.1 10*3/uLNormal0.0-0.6RCleveland Clinic South Pointe [facility] in [place]goEosinophils/100 WBC (Bld)0.9 %[facility] in [place]arengoHematocrit (Bld) [Volume fraction]43.5 %Elxxeh02.5-50.1RCleveland Clinic [facility] Po[facility] Hospital in [place]goHemoglobin (Bld) [Mass/Vol]14.7 g/gWBjtyas29.9-16.9 [facility] in [place]arengoImmature Grans %0.5 %[facility] in [place]arengoLymphocytes (Bld) [#/Vol]0.4 10*3/uLLow0.6-4.6 [facility] HospitaltheLymphocytes/100 WBC (Bld)4.2 %Normal [facility] in [facility] HospitaltheMCV (RBC) [Entitic vol]88.4 fLNormal 83.0-100.0[facility] [place] [facility] HospitaltheMean Cell Hgb29.9 pgNormal 28.0-33.0[facility] HospitaltheMean Cell Hgb Conc33.8 g/dLNormal 31.6-35.5RegOhioHealth Pickerington [facility] in [facility] HospitaltheMonocytes (Bld) [#/Vol]1.0 10*3/uLNormal0.0-1.3RegOhioHealth Pickerington [facility] in [facility] HospitaltheMonocytes/100 WBC (Bld)11.1 %NormalWilson Memorial Hospital in [facility] HospitaltheNucleated RBC0 /100 WBC NormalWilson Memorial Hospital in MarengoPlatelet mean volume (Bld) [Entitic vol]10.6 fLNormal9.4-12.4RegOhioHealth Pickerington [facility] Hospital in [place]arengoPlatelets (Bld) [#/Vol]224 10*3/lLQqafnx001-374Vilhvtoc [facility] [place] in [facility] HospitaltheR (Bld) [#/Vol]4.92 10*6/uLNormal4.19-5.50[facility] [place] [facility] HospitaltheRBC Hwsorzwzmdmp42.9 %Jcuflw74.5-14.5[facility] in [facility] HospitaltheSegs + Bands Auto82.6 %NormalWilson Memorial Hospital in MarengoSegs + Bands,Absolute Auto7.6 K/uLNormal1.6-8.9[facility] [place] [facility] [place] WBC (Bld) [#/Vol]9.1 10*3/uLNormal4.3-11.1RegOhioHealth Pickerington [facility] in [place] COMPREHENSIVE METABOLIC PANELon 30-78-7747Qplrmwv [Mass/Vol]4.7 g/dLNormal 3.5-5.7[facility] in [place]arengoAlbumin/Globulin [Mass ratio]1.7 {ratio}Normal1.1-2.2RegOhioHealth Pickerington Methodist Hospital in MarengoALP [Catalytic activity/Vol]81 U/GTiisrm56-420YcaoilacWilson Memorial Hospital in MarengoALT [Catalytic activity/Vol]26 U/LNormal7-52[facility] [place] AST [Catalytic activity/Vol]20 U/QOgfcrh21-55XnyddfydWilson Memorial Hospital in [place]goBilirubin [Mass/Vol]0.6 mg/dLNormal0.3-1.0[facility] in [place]goCalcium [Mass/Vol]9.4 mg/dLNormal8.6-10.3RegOhioHealth Pickerington Methodist Hospital in [place]arengoChloride [Moles/Vol]105 mmol/GLtaphj53-624BztfygybWilson Memorial Hospital in [place]arengoCO2 [Moles/Vol]22 mmol/GAjh31-63DtfeotazWilson Memorial Hospital in [place]arengoCreatinine [Mass/Vol]1.10 mg/dLNormal0.70-1.30[facility] in MarengoGFR/1.73 sq M.predicted among non-blacks MDRD (S/P/Bld) [Vol rate/Area]90 mL/min/{1.73_m2}Normal>=60RegOhioHealth Pickerington [facility] in [place] Comment on above:Result Comment: Reported eGFR is based on the CKD-EPI 2020 equation using creatinine, age, and sex.Globulin (S) [Mass/Vol]2.7 g/dLNormal 2.4-3.5[facility] in [place]goGlucose [Mass/Vol]104 mg/dLNormal 70-105[facility] in [place]arengoOsmolality [Osmolality]280 mosm/kg Pdcnnf743-906LftfblvuWilson Memorial Hospital in [place]goPotassium [Moles/Vol]3.9 mmol/LNormal3.5-5.1RC[facility] in [facility] HospitaltheProtein [Mass/Vol]7.4 g/dLNormal6.4-8.9[facility] in [place]goSodium [Moles/Vol]135 mmol/MLhg843-732KaalqskjWilson Memorial Hospital in MarengoUrea nitrogen [Mass/Vol]13 mg/dLNormal6-20[facility] in [place]arengoUrea nitrogen/Creatinine [Mass ratio]12 mg/mgNormal6-26[facility] in [facility] HospitaltheLIPASEon 73-91-7051Texmkk [Catalytic activity/Vol]3 U/CTgs87-09OeevqvzmWilson Memorial Hospital in [facility]. [facility] HospitaltheTROPONINon 66-65-4222Nggmwtic I.cardiac [Mass/Vol]ng/mLNormal<0.04 [facility] HospitaltheXR CHEST PORTABLEon 71-52-1241LF CHEST PORTABLEEXAMINATION: ONE XRAY VIEW OF THE CHEST 04/05/2023 [...] Reddy MD Interpreting Provider: Deborah Camargo MD [facility] in MarengoLaboratory - Chemistry and Chemistry - challengeon 28-48-0296Nvyntew [Mass/Vol]98 mg/dL70 - 99 mg/dLADENA HEALTHGlucose [Mass/Vol] 98 mg/dL70 - 99 mg/dLADENA HEALTHNo Panel Informationon 14-92-1873Eomadcwzfttcyf and review of laboratory resultsNormalADENA HEALTHADENA HEALTHInterpretation and review of laboratory resultsNormRiverside Regional Medical CenterA LUTHERAN HOSPITALADENA HEALTHRF Small bowel Views W contrast Raisa 58-01-8462ZGLGAWXRSM: Persistently mildly distended small bowel loops within the left mid abdomen in findings related to minimal partial small bowel obstruction. D/ / Rocael Mayorga Interpreting Provider: Rocael Mayorga RADIOLOGYEXAMINATION: SMALL BOWEL FOLLOW THROUGH SERIES 01/20/2023 TECHNIQUE: Small bowel follow through series was performed with overhead images and spot images. FLUOROSCOPY DOSE AND TYPE: Radiation Exposure Index: None, COMPARISON: January 19, 2023 HISTORY: ORDERING SYSTEM PROVIDED HISTORY: TECHNOLOGIST PROVIDED HISTORY: Reason for Exam: 0; FINDINGS: Enteric tube extends into the stomach. [employer] image of the abdomen demonstrates a nonspecific, nonobstructed bowel gas pattern. Distended small bowel loops are seen in the left mid abdomen. Contrast passes readily from the stomach to the colon. Osman Kruger MD - 01/21/2023 EXAMINATION: SMALL BOWEL FOLLOW THROUGH SERIES 01/20/2023 TECHNIQUE: Small bowel follow through series was performed with overhead images and spot images. FLUOROSCOPY DOSE AND TYPE: Radiation Exposure Index: None, COMPARISON: January 19, 2023 HISTORY: ORDERING SYSTEM PROVIDED HISTORY: TECHNOLOGIST PROVIDED HISTORY: Reason for Exam: 0; FINDINGS: Enteric tube extends into the stomach. [employer] image of the abdomen demonstrates a nonspecific, nonobstructed bowel gas pattern. Distended small bowel loops are seen in the left mid abdomen. Contrast passes readily from the stomach to the colon. IMPRESSION IMPRESSION: Persistently mildly distended small bowel loops within the left mid abdomen in findings related to minimal partial small bowel obstruction. D/ / Rocael Mayorga Interpreting Provider: Rocael Mayorga [facility] HEALTHLaboratory - Chemistry and Chemistry - challengeon 79-50-1919Veyhwve [Mass/Vol]68 mg/dLLow70 - 99 mg/dLADENA LUTHERAN HOSPITALComment on above:RN NotifiedGlucose [Mass/Vol]74 mg/dL70 - 99 mg/dLADENA HEALTHGlucose [Mass/Vol]103 mg/sHBmfg87 - 99 mg/dLADENA HEALTHComment on above:RN Notified Calcium [Mass/Vol]8.6 mg/dL8.6 - 10.3 mg/dLADENA HEALTHChloride [Moles/Vol]111 mmol/LHigh98 - 107 mmol/LADENA HEALTHCO2 [Moles/Vol]24 mmol/L23 - 29 mmol/LADENA HEALTHCreatinine [Mass/Vol]0.91 mg/dL0.70 - 1.30 mg/dLADENA HEALTHGFR/1.73 sq M.predicted CKD-EPI (S/P/Bld) [Vol rate/Area]- PINFAFIRSTHEALTH MOORE [facility] - HOKE HEALTHComment on above: Reported eGFR is based on the CKD-EPI 2020 equation using creatinine, age, and sex.Glucose [Mass/Vol]88 mg/dL70 - 105 mg/dLADENA HEALTHOsmolality Calc [Osmolality]400901 - 300ADENA HEALTHPotassium [Moles/Vol]4.0 mmol/L3.5 - 5.1 mmol/LADENA HEALTHSodium [Moles/Vol]141 mmol/L136 - 145 mmol/LADENA HEALTHUrea nitrogen [Mass/Vol]11 mg/dL6 - 20 mg/dLADENA HEALTHUrea nitrogen/Creatinine [Mass ratio]12 mg/mg6 - 26ADENA HEALTHAlbumin [Mass/Vol]3.7 g/dL3.5 - 5.7 g/dL [facility] HEALTHAlbumin/Globulin [Mass ratio]1.5 {ratio}1.1 - 2.2ADENA HEALTHALP [Catalytic activity/Vol]61 U/L34 - 104 U/LADENA HEALTHALT [Catalytic activity/Vol]10 U/L7 - 52 U/LADENA HEALTHAST [Catalytic activity/Vol]11 U/LLow13 - 39 U/LADENA HEALTHBilirubin [Mass/Vol]0.7 mg/dL0.3 - 1.0 mg/dLADENA HEALTH Bilirubin.direct [Mass/Vol]0.1 mg/dLNINF - 0.2 mg/dLADENA HEALTHGlobulin (S) [Mass/Vol]2.4 g/dL2.4 - 3.5 g/dLADENA HEALTHMagnesium [Mass/Vol]1.9 mg/dL1.6 - 2.6 mg/dLADENA HEALTHProtein [Mass/Vol]6.1 g/dLLow6.4 - 8.9 g/dLADENA HEALTH Glucose [Mass/Vol]91 mg/dL70 - 99 mg/dLADEN HEALTHComment on above:RN Notified Laboratory - Hematology and Cell countson 65-51-9713Ueupffhwyfb distribution width (RBC) [Ratio]12.0 %11.5 - 14.5 %[facility] HOSPITALHematocrit (Bld) [Volume fraction]43.0 %37.5 - 50.1 %[facility] HOSPITALHemoglobin (Bld) [Mass/Vol]14.7 g/dL12.9 - 16.9 g/dLSCCI HOSPITAL LIMAH (RBC) [Entitic mass]31.1 pg28.0 - 33.0 pgASOUTHSIDE REGIONAL MEDICAL CENTERHC (RBC) [Mass/Vol]34.2 g/dL31.6 - 35.5 g/dLSCCI HOSPITAL LIMAV (RBC) [Entitic vol]90.9 fL83.0 - 100.0 fLCAPE FEAR VALLEY BLADEN COUNTY HOSPITALPlatelet mean volume (Bld) [Entitic vol]10.5 fL9.4 - 12.4 fLWISNER HEALTHPlatelets (Bld) [#/Vol]232 10*3/uL 140 - 400 K/[facility] HospitalRBC (Bld) [#/Vol]4.73 10*6/uLCAPE FEAR VALLEY BLADEN COUNTY HOSPITALWBC (Bld) [#/Vol]8.3 10*3/uL4.3 - 11.1 K/uLCAPE FEAR VALLEY BLADEN COUNTY HOSPITALNo Panel Informationon 01-20-2023 Interpretation and review of laboratory resultsAbUNC Health Interpretation and review of laboratory resultsNoUNC Health [facility] [place] Interpretation and review of laboratory resultsAbUNC Health Interpretation and review of laboratory resultsAbUNC Health Bilirubin, Indirect0.6 mg/dL0.0 - 1.0 mg/dLCAPE FEAR VALLEY BLADEN COUNTY HOSPITALInterpretation and review of laboratory resultsNoSouthern Virginia Regional Medical CenterInterpretation and review of laboratory resultsAbnoUNC Health Blue Ridge - MorgantonInterpretation and review of laboratory resultsNoUNC Health [facility] Ridge - MorgantonInterpretation and review of laboratory resultsNoUNC Health Blue Ridge - MorgantonRF Small bowel Views W contrast Raisa 22-67-4930Nfsydpyry Study observation (narrative)[facility] Abdomen and Pelvis W contrast Paola 81-50-6991MZMGKRSAAW: Obstructed ileal bowel loops. This may be related to an internal hernia or closed loop obstruction as there is decompression of the more proximal jejunum and distal ileum. Mural thickening involving multiple of the distended ileal bowel loops related to regional enteritis. Small volume free fluid in the abdomen. Additional findings noted above. D/ / Rocael Mayorga Interpreting Provider: Rocael Mayorga RADIOLOGYEXAMINATION: CT OF THE ABDOMEN AND PELVIS WITH [...] inguinal hernia. No inguinal adenopathy or mass. Peritoneum/Retroperitoneum: No retroperitoneal adenopathy or mass. Bones/Soft Tissues: No acute osseous abnormality identified. RADIOLOGYGoOsman bolaños MD - 01/19/2023 EXAMINATION: CT OF THE [...] inguinal hernia. No inguinal adenopathy or mass. Peritoneum/Retroperitoneum: No retroperitoneal adenopathy or mass. Bones/Soft Tissues: [...] / Rocael Mayorga Interpreting Provider: Rocael Mayorga ER HEALTHRadiology Study observation (narrative)[facility]OSPITALCT Abdomen and Pelvis W contrast IVOrdered By: Osman Gonsalez on [id number] eZelleron Work Phone: Laboratory - Chemistry and Chemistry - challengeon [id number] [Mass/Vol]4.3 g/dL3.5 - 5.7 g/dLWISNER HEALTHAlbumin/Globulin [Mass ratio]1.8 {ratio}1.1 - 2.2ADENA HEALTHALP [Catalytic activity/Vol]69 U/L34 - 104 U/LADENA HEALTHALT [Catalytic activity/Vol]12 U/L7 - 52 U/LADENA HEALTHAST [Catalytic activity/Vol]13 U/L13 - 39 U/LADENA HEALTHBilirubin [Mass/Vol]0.5 mg/dL0.3 - 1.0 mg/dLADENA HEALTHBilirubin.direct [Mass/Vol]0.1 mg/dLNINF - 0.2 mg/dLADENA HEALTHCalcium [Mass/Vol]9.0 mg/dL8.6 - 10.3 mg/dLADENA HEALTHChloride [Moles/Vol]105 mmol/L98 - 107 mmol/LADENA HEALTHCO2 [Moles/Vol]27 mmol/L23 - 29 mmol/LADENA HEALTHCreatinine [Mass/Vol]1.06 mg/dL0.70 - 1.30 mg/dLADENA HEALTH GFR/1.73 sq M.predicted CKD-EPI (S/P/Bld) [Vol rate/Area]- [facility] Comment on above:Reported eGFR is based on the CKD-EPI 2020 equation using creatinine, age, and sex.Globulin (S) [Mass/Vol]2.4 g/dL2.4 - 3.5 g/dLADENA HEALTHGlucose [Mass/Vol]94 mg/dL70 - 105 mg/dLADENA HEALTHLipase [Catalytic activity/Vol]5 U/LLow11 - 82 U/LADENA HEALTHOsmolality Calc [Osmolality]333238 - 300ADENA HEALTHPotassium [Moles/Vol]3.9 mmol/L3.5 - 5.1 mmol/[facility] Protein [Mass/Vol]6.7 g/dL6.4 - 8.9 g/dLADENA HEALTHSodium [Moles/Vol]137 mmol/L 136 - 145 mmol/LADENA HEALTHUrea nitrogen [Mass/Vol]12 mg/dL6 - 20 mg/dLADENA HEALTHUrea nitrogen/Creatinine [Mass ratio]11 mg/mg6 - 26ADENA HEALTHLaboratory - Hematology and Cell countson 95-39-5077Mycgzqstq (Bld) [#/Vol]0.0 10*3/uL0.0 - 0.2 K/uLADENA HEALTHBasophils/100 WBC (Bld)0.6 %[facility]A HEALTHEosinophils (Bld) [#/Vol]0.1 10*3/uL0.0 - 0.6 K/uLADENA HEALTHEosinophils/100 WBC (Bld)0.8 %[facility]A HEALTHErythrocyte distribution width (RBC) [Ratio]12.0 %11.5 - 14.5 %[facility] HEALTHHematocrit (Bld) [Volume fraction]45.7 %37.5 - 50.1 %[facility] Hemoglobin (Bld) [Mass/Vol]15.6 g/dL12.9 - 16.9 g/dLADENA HEALTHImmature granulocytes/100 WBC (Bld)0.3 %[facility] HEALTHLymphocytes (Bld) [#/Vol]1.8 10*3/uL 0.6 - 4.6 K/uLADENA HEALTHLymphocytes/100 WBC (Bld)24.4 %[facility] HOSPITALMCH (RBC) [Entitic mass]31.2 pg28.0 - 33.0 pgADENA KET[facility]ALTH DAYTONHC (RBC) [Mass/Vol]34.1 g/dL 31.6 - 35.5 g/dLCAPE FEAR VALLEY BLADEN COUNTY HOSPITALMCV (RBC) [Entitic vol]91.4 fL83.0 - 100.0 fLQUORUM HEALTHA HEALTHMonocytes (Bld) [#/Vol]0.6 10*3/uL0.0 - 1.3 K/uLADENA HEALTHMonocytes/100 WBC (Bld)8.0 %[facility] HEALTHNeutrophils (Bld) [#/Vol]4.8 10*3/uL1.6 - 8.9 K/uL [facility] HEALTHNucleated RBC/100 WBC (Bld) [Ratio]0 %/100 WBCADENA HEALTHPlatelet mean volume (Bld) [Entitic vol]10.4 fL9.4 - 12.4 fLADENA HEALTHPlatelets (Bld) [#/Vol]234 10*3/uL140 - 400 K/uLADENA HEALTHRBC (Bld) [#/Vol]5.00 10*6/uLADENA HEALTHSegmented neutrophils/100 WBC (Bld)65.9 %[facility] HEALTHWBC (Bld) [#/Vol]7.2 10*3/uL4.3 - 11.1 K/uLADENA HEALTHNo Panel Informationon [id number], Indirect0.4 mg/dL0.0 - 1.0 mg/dLADENA HEALTHInterpretation and review of laboratory resultsNormalADENA HEALTHInterpretation and review of laboratory resultsAbnormalADENA HEALTHADENA HEALTHWISNER HEALTHPOCT URINE DIPSTICK AUTOMATED on 62-55-7124Yvwvishnj sediment LM Ql (Urine sed)[facility] HEALTHAppearance (U)clear [facility]ALTHBacteria LM Ql (Urine sed)[facility] HEALTHBilirubin Ql (U)smallADENA HEALTHCasts LM.LPF (Urine sed) [#/Area][facility] HEALTHColor (U)drk yellowADENA HEALTHCrystals LM Nom (Urine sed)[facility]ESA HEALTHEpithelial cells.squamous LM.HPF (Urine sed) [#/Area][facility] HEALTHFlow cytometry specialist review Saad (Unsp spec) [Interp][facility] HEALTHGlucose Auto test strip (U) [Mass/Vol]Negativemg/dLADENA HEALTHKetones [Mass/Vol]tracemg/dLADENA HEALTHLeukocyte esterase Qn (U)[facility] HEALTHLeukocyte esterase Test strip Ql (U)NegativeADENA HEALTHMicroscopic observation Gram stain Nom (Bronch spec)[facility]A HEALTHNitrite Ql (U)NegativeADENA HEALTHpH (U)5.5 [pH]5 - 7ADENA HEALTHProtein Ql (U)30 mg/dLADENA LUTHERAN HOSPITALRB LM.HPF (Urine sed) [#/Area][facility]A HEALTHRBC Ql (U)NegativeADENA HEALTHSpecific gravity (U) [Rel density]1.001 - 1.035ADENA HEALTHTransitional cells LM Ql (Urine sed)TERESA HEALTHUrobilinogen Qn (U)0.2ADENA HEALTHWBC LM.HPF (Urine sed) [#/Area][facility]ESA HEALTHADENA HEALTHXR Abdomen 2 Viewson [id number]: Ileus versus partial small bowel obstruction. D/ / Jaskaran Le Interpreting Provider: Jaskaran Le RADIOLOGYEXAMINATION: TWO XRAY VIEWS OF THE ABDOMEN 01/19/2023 11:08 am COMPARISON: None. HISTORY: ORDERING SYSTEM PROVIDED HISTORY: TECHNOLOGIST PROVIDED HISTORY: Reason for Exam: bloating, abd pain worse to left quadrants; FINDINGS: Diffuse gaseous distention of the small and large bowel. No free air or pneumatosis. No radiodense renal calculi. No gross bony abnormality. Jaskaran Bolanos MD - 01/19/2023 EXAMINATION: TWO XRAY VIEWS [...] / Jaskaran Le Interpreting Provider: Jaskaran Le [facility]OSPITALRadiology Study observation (narrative)WISNER eZelleronXR Abdomen 2 ViewsOrdered By: Jaskaran Le on 33-98-3080HJPEQ eZelleron Work Phone: HIV-1 2 Antibody p24 Agon 93-58-0648DNJ-1 2 Antibody p24 AgNon-ReactiveNoUSC Kenneth Norris Jr. Cancer HospitalComment on above:Result Comment: This assay detects human immunodeficiency virus (HIV) p24 antigen and antibodies to HIV type 1 (HIV-1 group O) and/or type 2 (HIV-2). Reactive results will have follow up confirmatory testing.Performed By: #### HIV, HPA, TPAL #### [facility] [address] [place] [address] Hepatitis Prof.(Routine A,B,C)on 06-85-8297Ktthlojhq A Antibody IgM Non-ReactiveNoUSC Kenneth Norris Jr. Cancer HospitalComment on above:Result Comment: Biotin greater than 500 ng/mL may lead to falsely depressed results. Hepatitis A Virus (HAV) IgM antibodies not detected. Does not exclude the possibility of exposure to or infection of HAV. Levels of HAV IgM antibodies may be below measurement range due to early infection.Performed By: #### HIV, HPA, TPAL #### [facility] [address] [place] [address] Hepatitis B Core IgMNon-ReactiveUNC Health AppalachianComment on above:Result Comment: Assay performance characteristics have not been established for immunocompromised or immunosuppressed patients, cord blood, or patients less than 2 years of age. IgM antibodies to Hepatitis B Core Antigen not detected. Does not exclude the possibility of exposure or infection with Hepatitis B Core Virus.Performed By: #### HIV, HPA, TPAL #### [facility] [address] [place] [address] Hepatitis C Virus AntibodyNon-ReactiveUNC Health AppalachianComment on above:Result Comment: Hepatitis C Virus (HCV) IgG antibodies not detected; does not exclude the possibility of exposure of HCV.Performed By: #### HIV, HPA, TPAL #### [facility] [address] [place] [address] [facility]atisouth [facility] B Surface AntigenNon-ReactiveUNC Health AppalachianComment on above:Result Comment: Specimen considered negative for HBsAg.Performed By: #### HIV, HPA, TPAL #### [facility] [address] [place] [address] Treponema Pallidum Abon 42-58-3573Objbkdgtz Pallidum AbNegative NormalNEGATIVEBaptist Health Medical CenterComment on above:Performed By: #### HIV, HPA, TPAL #### [facility] [address] [place] [address] Drug Screen, Urineon 42-88-5829Wdtojgbbiyy Screen,UrinePositive RylqfyhqSqramc=4100Qitcb Medical CenterComment on above:Result Comment: Unconfirmed presumptive positive. Refer to Urine Drug Screen Interpretation result for interpretative guidelines.Performed By: #### UDS #### [facility] [address] [place] [address] Barbiturate Screen,GrszgGxcmkqcoFdftbqSxkaeg=196Crtbs Medical CenterComment on above:Performed By: #### UDS #### [facility] [address] [place] [address] Benzodiazepines Screen,DylvxFcewvxldMxarzzSkiuju=943Ydivb Medical CenterComment on above:Performed By: #### UDS #### [facility] [address] [place] [address] Buprenorphine Screen,UrineNegativeNormalCutoff=5ASurgical Hospital of JonesboroComment on above:Performed By: #### UDS #### [facility] [address] [place] [address] Cannabinoid Screen,UrineNegativeNormalCutoff = 50Baptist Health Medical CenterComment on above:Performed By: #### UDS #### [facility] [address] [place] [address] Cocaine Screen,UrineNegativeNormalCutoff= 300[facility] Comment on above:Performed By: #### UDS #### [facility] [address] [place] [address] Opiate Screen,BmhwfSpnpxebgQzjceyGkgzsw=917Btlgl Medical Center Comment on above:Performed By: #### UDS #### [facility] [address] [place] [address] Phencyclidine Screen,UrineNegativeNormalCutoff=25Baptist Health Medical CenterComment on above:Performed By: #### UDS #### [facility] [address] [place] [address] Ur. Drug Screen InterpretationSee [facility] Comment on above:Result Comment: This is a screening test only. Unconfirmed positives may be useful for medical purposes, but do not meet forensic standards (legal). Interfering substances may produce false positive or false negative results. Clinical consideration and correlation should be applied to any drug screen test result. Confirmatory testing is not automatically performed, but is available by the laboratory upon request.Performed By: #### UDS #### [facility] [address] [place] [address] 0169201 ABDLMon 13-44-7056LRFPFR[address] [address] Ultrasound Report Signed PRELIMINARY DRAFT REPORT UNTIL ELECTRONICALLY SIGNED PATIENT: Osman Mckee MR#: [id number] : 1990 AGE/SEX: 31 / M ADMITTED: 11/24/21 OUTSIDE LOCN: LOCATION: [facility] ATTENDING: Ismael Winston DO ORDER PHYSICIAN: Ismael Winston BIRAD: NA Not Applicable DATE OF SERVICE: 11/24/21 ACCESSION NUMBERS(S): [id number] PROCEDURE(S): US abdomen limited REASON FOR EXAM: [...] Dickens MD Interpreting Provider: Jaqui Dickens MD NoNorth Arkansas Regional Medical CenterEmergency Documentationon 09-12-9724Jpynhekci Documentation[address] [address] Emergency Department Note Signed PRELIMINARY DRAFT REPORT UNTIL ELECTRONICALLY SIGNED PATIENT: Osman Mckee MR#: [id number] : 1990 AGE/SEX: 31 / M ADMITTED: 09/04/21 OUTSIDE LOCN: LOCATION: [facility] ATTENDING: cc: Ismael Winston; Disposition Clinical [...] ED Upper Respiratory Infection Stated complaint: Sore throat/cough/fever/headache Time Seen by Provider: 09/04/21 18:05 Source: [...] PER PKG DI #6 tab 04/29/17 Pack] Guaifenesin/Dm/Pseudoephedrine 1 each PO BID #20 tablet 04/29/17 [...] auditory hallucinations, visual hallucinations Endocrine: Denies: fatigue Hematological/Lymphatic: Denies: easy bleeding, easy bruising Allergic/Immunologic: Denies: facial swelling, urticaria Past Medical History - Past Medical History Medical history: Reports: asthma Surgical history: Reports: no surgical history Psychiatric history: Reports: no psych history - Social History Smoking Status: Current every day smoker Smokeless Tobacco Status: No Alcohol use: Reports: occasionally Drug use: Reports: marijuana Physical Exam Gen.: Well-developed well-nourished no obvious distress Head/neck: Normocephalic/atraumatic, normal range of motion, neck is supple ENT: No nasal congestion, uvula is midline no oropharyngeal swelling or edema no (more content not included)...[facility]west Medical CenterHAND3VLTon 07-27-[address] [address] XRay Report Signed PRELIMINARY DRAFT REPORT UNTIL ELECTRONICALLY SIGNED PATIENT: Osman Mckee MR#: [id number] : 1990 AGE/SEX: 30 / M ADMITTED: 07/27/21 OUTSIDE LOCN: LOCATION: [facility] ATTENDING: Ismael Winston DO ORDER PHYSICIAN: Ismael Winston BIRAD: DATE OF SERVICE: 07/27/21 FOLLOW UP: ACCESSION NUMBERS(S): [id number] PROCEDURE(S): XR hand 3V LT REASON FOR [...] / Charles Bryan Interpreting Provider: Charles Bryan Northwest Medical CenterBasic Metabolic Panelon 29-42-9675Sbhjrvt [Mass/Vol]8.5 mg/dLLow8.6-10.3 [facility] Medical CenterComment on above:Performed By: #### BMP, TROP ####[facility] [address] [place] [address] Chloride [Moles/Vol]106 mmol/AXywlzc16-424FklwuBaptist Health Medical Center Comment on above:Performed By: #### BMP, TROP ####[facility] [address] [place] [address] CO2 [Moles/Vol]24 mmol/RRjbsbn02-81HssooBaptist Health Medical CenterComment on above:Performed By: #### BMP, TROP ####[facility] [address] [place] [address] Creatinine [Mass/Vol]0.89 mg/dLNormal0.70-1.30B[facility]ist Health Medical CenterComment on above:Performed By: #### BMP, TROP ####[address] [address] eGFR For Americans> 60Normal> 60Baptist Health Medical CenterComment on above:Result Comment: eGFR= Estimated Glomerular Filtration Rate reported as mL/min/1.73 square meters Chronic Kidney Disease: < 60; Kidney failure: < 15Performed By: #### BMP, TROP ####[address] [address] eGFR For Non- Americans> 60Normal> 60Baptist Health Medical CenterComment on above:Performed By: #### BMP, TROP ####[facility] [address] [place] [address] Glucose [Mass/Vol]101 mg/xJXyorod16-668QoeeyBaptist Health Medical CenterComment on above:Performed By: #### BMP, TROP ####[facility] [address] [place] [address] Osmolality,Kfwgvgmuee488Njznky234-041Guqng Medical CenterComment on above:Performed By: #### BMP, TROP ####[facility] [address] [place] [address] Potassium [Moles/Vol]4.3 mmol/LNormal3.5-5.1ASurgical Hospital of JonesboroComment on above:Performed By: #### BMP, TROP ####[facility] [address] [place] [address] Sodium [Moles/Vol] 136 mmol/UWlsaih802-356UnhyhBaptist Health Medical CenterComment on above:Performed By: #### BMP, TROP ####[facility] [address] [place], [place] [address] Urea nitrogen [Mass/Vol]14 mg/dLNormal6-20 [facility] Medical CenterComment on above:Performed By: #### BMP, TROP ####[facility] [address] [place], [place] [address] Urea nitrogen/Creatinine [Mass ratio]16 mg/mgNormal6-26Baptist Health Medical CenterComment on above:Performed By: #### BMP, TROP ####[facility] [address] [place] [address] OZC9IHhq 42-70-8777GIY7MOPnat[address] [address] XRay Report Signed PRELIMINARY DRAFT REPORT UNTIL ELECTRONICALLY SIGNED PATIENT: Osman Mckee MR#: [id number] : 1990 AGE/SEX: 30 / M ADMITTED: 06/26/21 OUTSIDE [facility]N: [facility] ATTENDING: ORDER PHYSICIAN: Tucker Bell BIRAD: DATE OF SERVICE: 06/26/21 FOLLOW UP: ACCESSION NUMBERS(S): [id number] PROCEDURE(S): XR chest 1V portable REASON FOR [...] Cornejo MD Interpreting Provider: Markus Cornejo MD NormPenn State Health Rehabilitation HospitalComplete Blood Count with Diffon 24-92-8730Ylzebvbwo (Bld) [#/Vol] 0.1 10*3/uLNormal0.0-0.2ASurgical Hospital of JonesboroComment on above:Performed By: #### CBC #### [facility] [address] [place] [address] Basophils/100 WBC (Bld)1.1 %[facility]west Medical CenterComment on above:Performed By: #### CBC #### [facility] [address] [place] [address] Eosinophils (Bld) [#/Vol]0.2 10*3/uLNormal0.0-0.6ASurgical Hospital of JonesboroComment on above:Performed By: #### CBC #### [facility] [address] [place] [address] Eosinophils/100 WBC (Bld)3.6 %[facility] Medical CenterComment on above:Performed By: #### CBC #### [facility] [address] [place] [address] Erythrocyte distribution width (RBC) [Ratio]12.1 %Mulcjl32.5-14.5 [facility] Medical CenterComment on above:Performed By: #### CBC #### [facility] [address] [place] [address] Hematocrit (Bld) [Volume fraction]44.0 %Avevdb64.5-50.1ASurgical Hospital of JonesboroComment on above:Performed By: #### CBC #### [facility] [address] [place] [address] Hemoglobin (Bld) [Mass/Vol]14.8 g/gYOmymie43.9-16.9ASurgical Hospital of JonesboroComment on above:Performed By: #### CBC #### [facility] [address] [place], [place] [address] Immature granulocytes/100 WBC (Bld)0.3 %Normal0-4ASurgical Hospital of JonesboroComment on above:Performed By: #### CBC #### [facility] [address] [place] [address] Lymphocytes (Bld) [#/Vol]2.4 10*3/uLNormal0.6-4.6ASurgical Hospital of JonesboroComment on above:Performed By: #### CBC #### [facility] [address] [place] [address] Lymphocytes/100 WBC (Bld)37.0 %NormalBaptist Health Medical CenterComment on above:Performed By: #### CBC #### [facility] [address] [place] [address] MCH (RBC) [Entitic mass]30.4 bdXnknlx44.0-33.3ASurgical Hospital of Jonesboro Comment on above:Performed By: #### CBC #### [facility] [address] [place] [address] MCV (RBC) [Entitic vol]90.3 nBFapqcd24.0-100.0[facility] Comment on above:Performed By: #### CBC #### [facility] [address] [place], [place] [address] Mean Corpuscular HGB Conc33.6 g/dWBrkwgo18.6-35.5ASurgical Hospital of JonesboroComment on above:Performed By: #### CBC #### [facility] [address] [place] [address] Monocytes (Bld) [#/Vol]0.6 10*3/uLNormal0.0-1.3ASurgical Hospital of Jones[facility] Comment on above:Performed By: #### CBC #### [facility] [address] [place] [address] Monocytes/100 WBC (Bld)8.9 %[facility] Medical CenterComment on above:Performed By: #### CBC #### [facility] [address] [place] [address] Neutrophils (Bld) [#/Vol]3.2 10*3/uLNormal1.6-8.9ASurgical Hospital of JonesboroComment on above:Performed By: #### CBC #### [facility] [address] [place] [address] Platelet mean volume (Bld) [Entitic vol]10.5 fLNormal9.4-12.4ASurgical Hospital of JonesboroComment on above:Performed By: #### CBC #### [facility] [address] [place] [address] Platelets (Bld) [#/Vol]261 10*3/oOYxozbf930-979[facility] Comment on above:Performed By: #### CBC #### [facility] [address] [place] [address] RBC (Bld) [#/Vol]4.87 10*6/uLNormal4.19-5.50[facility] Comment on above:Performed By: #### CBC #### [facility] [address] [place] [address] Segmented neutrophils/100 WBC (Bld)49.1 %[facility] Comment on above:Performed By: #### CBC #### [facility] [address] [place] [address] WBC (Bld) [#/Vol]6.4 10*3/uLNormal4.3-11.1ASurgical Hospital of Jonesboro Comment on above:Performed By: #### CBC #### [facility] [address] [place] [address] Electrocardiograph Reporton 73-11-4018Euguwlcrevicxmeszu Report [address] [address] Electrocardiograph Report Signed PRELIMINARY DRAFT REPORT UNTIL ELECTRONICALLY SIGNED PATIENT: Osman Mckee MR#: [id number] : 1990 AGE/SEX: 30 / M ADMITTED: 06/26/21 OUTSIDE LOCN: LOCATION: [facility] ATTENDING: ZORA PHYSICIAN: Erick Martinez TECHNOLOGIST: ZI PHYSICIAN: Tucker Bell PRIMARY PHYSICIAN: Ismael Winston DATE OF SERVICE: 06/26/21 ACCESSION NUMBERS(S): [id number] HT: 172.72 WT: 180 PROCEDURE(S): ECG 12 lead ECG cc: ; [employer] Test Date: 2021-06-26 Pat Name: Osman Mckee Department: EXAM21 Room: Gender: M Incident Response Lead: : 1990 Requested By: Tucker Bell Order Number: [id number] Zroa MD: Erick Martinez Measurements Intervals [place] Rate: 63 P: 43 MT: 185 QRS: 81 QRSD: 118 T: 69 QT: 398 QTc: 408 Interpretive Statements Sinus rhythm Incomplete right bundle branch block Electronically Signed On 06-28-2021 6:20:40 EST by Erick [facility] SouthwestEmergency Documentationon 60-65-0404Tnwulergs Documentation[address] [address] Emergency Department Note Signed PRELIMINARY DRAFT REPORT UNTIL ELECTRONICALLY SIGNED PATIENT: Osman Mckee MR#: [id number] : 1990 AGE/SEX: 30 / M ADMITTED: [...] PRN Reason: Pain Transmission Status: Received by [facility] Referrals: Ismael Winston DO [...] PER PKG DI #6 tab 04/29/17 Pack] Guaifenesin/Dm/Pseudoephedrine 1 each PO BID #20 tablet 04/29/17 [...] with musculoskeletal type discomfort. (more content not included)...NormalBaptist Health Medical CenterTroponin Ion 98-84-2727Vviokeay I.cardiac [Mass/Vol]ng/mLNormal< 0.04B[facility]ist Health Medical CenterComment on above: Performed By: #### BMP, TROP ####[facility] [address] [place] [address] C.trach N.gonorrhoea DNA Fajardo Uon 30-93-5049Zccerjpit Trachomatis DNA UrNot detectedGuadalupe Regional Medical CenterComment on above:Result Comment: Chlamydia trachomatis DNA not detected by real-time PCR. Specimen source- [place] UrinePerformed By: #### CTNGPANU #### [facility] [address] [place] [address] Neisseria Gonorrhoeae DNA, UrNot detectedNormMetropolitan Hospital CenterComment on above:Result Comment: Neisseria gonorrhoeae DNA not detected by real-time PCR. Specimen source- [place] UrinePerformed By: #### CTNGPANU #### [facility] [address] [place] [address] Pain Mgt Ur Drug Scrn w Interpon 87-50-8245Jdph Mgt Ur Drg Scr Rslt w IntSEE [facility] Access HospitalComment on above:Result Comment: Test name Result Flag Units RefIntvl [...] Detected Tapentadol (cutoff 100 ng/mL) Not Detected Ajfgnmrgyf-i-Pids (cutoff 200 ng/mL) Not Detected Methadone (cutoff [...] Detected Alprazolam (cutoff 40 ng/mL) Not Detected Vzvfx-TK-Qdbkwjhsub (cutoff 20 ng/mL) Not Detected Clonazepam (cutoff [...] Detected Midazolam (cutoff 20 ng/mL) Not Detected Jvssq-CV-Wcxwszbdb (cutoff 20 ng/mL) Not Detected Zolpidem (cutoff [...] developed and its performance characteristics determined by [facility]. It has not been cleared or approved by the [place] Food and Drug Administration. This test was performed in a CLIA certified laboratory and is intended for clinical purposes. EER Tgt drug prof, MS/EMIT, UR, Interp See Note Access WYPrintToPeer Enhanced Report using the link below: -Direct access: [email or web address] Performed by [facility], [address] [place] [id number] Human Resources Administrator: NICHOLE Christiansonerformed By: #### PMUDSI ####[facility] [address] [place] [address] Specimen Rejecton 04-96-9715Fzzpxgew RejectMiscellaneousNormal [facility] Medical CenterComment on above:Result Comment: CALLED [facility]...SPOKE WITH JULI...NOTIFIED OF REJECTION Specimen: [id number] UR DRG SCR W I Problem:WRONG DATE OF [birth year]. CORRECT IS [birth year] Called to on 05/13/21 at 2026.Performed By: #### QA #### [facility] [address] [place] [address] Vital Signs Date TimeVital SignValuePerforming SmdqpdhbsKqisodqs68-57-4255 10:56-0400Body yjzsjy424.26 cmJessica Yeni DO Work Phone: [facility]10-09-2025 10:56-0400 Body mass index (BMI) [Ratio]27.4 kg/u6Urcbxxi Yeni DO Work Phone: [facility]10-09-2025 10:56-0400 Body okyrex85.36 kgJessica Yeni DO Work Phone: [phone] [place], [place] 5593610-09-2025 10:56-0400 Diastolic blood koamptcw74 mm[Hg]Junie Yeni DO Work Phone: [phone] [place], [place] 5593610-09-2025 10:56-0400 Heart rate80 /minJessica Yeni DO Work Phone: [phone] [place], [place] 1408510-09-2025 10:56-0400 Respiratory rate16 /minJessica Yeni DO Work Phone: [phone] [place], [place] 1408510-09-2025 10:56-0400 SaO2% (BldA) [Mass fraction]99 %Junie Yeni DO Work Phone: [phone] [place], [place] 1408510-09-2025 10:56-0400 Systolic blood eajxeqaj268 mm[Hg]Junie Yeni DO Work Phone: [phone] [place], [place] 1408507-14-2025 13:40-0400 Body mass index (BMI) [Ratio]28.56 kg/m2Lisa Myriamhholz GRANULATOR Work Phone: [facility] CareThgzikdrgm16-02-7689 13:40-0400Body temperature 97.5 [degF]Jen Nashz GRANULATOR Work Phone: [facility] CareLccvrpewzn34-90-3084 13:40-0400Body jxihfx46.73 kgLisa Myriamhholz GRANULATOR Work Phone: [facility] CareGbvsgqxsje04-89-1118 13:40-0400Diastolic blood dqcewxen55 mm[Hg]Jen Myriamhholz GRANULATOR Work Phone: [facility] CareCdkxkstuul33-94-9097 13:40-0400Heart rate70 /min Jen Aichholz GRANULATOR Work Phone: [facility] CareDroexcxtbp25-55-7356 13:40-0400Respiratory rate18 /minLisa Aichholz GRANULATOR Work Phone: [facility] CareCcbghjcwkl52-94-9866 13:40-6382YrR9% (BldA) [Mass fraction]96 %Jen Aichholz GRANULATOR Work Phone: [facility] CareWrxinhtkgc96-22-5964 13:40-0400Systolic blood pgovvfvs530 mm[Hg]Jen Taylor GRANULATOR Work Phone: [facility]OSaint [facility] SystemPsoxfkeiqt80-41-6929 17:31-0400Diastolic blood jdfvqsex59 mm[Hg][facility]03-30-2025 17:31-0400Heart rate82 /min [facility]03-30-2025 17:31-0400Respiratory rate11 /minBon Secours Memorial Regional Medical Center03-30-2025 17:31-9397UdE4% (BldA) [Mass fraction]99 %[facility]03-30-2025 17:31-0400Systolic blood bytkqqav842 mm[Hg][facility]03-30-2025 15:09-0400Body cnnrlnwosdc93.49 [degF][facility]03-30-2025 15:09-0400Body peyxjb38.11 kgBon Secours Memorial Regional Medical Center04-14-2024 22:42-0400Body gneykxjfcpe48.2 [degF]Koko Magana MD Work Phone: [phone]hYvzvhc08-62-1474 22:42-0400Diastolic blood nnqnwbja95 mm[Hg]Koko Magana MD Work Phone: [phone]iJhniqg66-57-1894 22:42-0400Heart rate88 /min Koko Magana MD Work Phone: [phone]LivelNjijws50-94-3971 22:42-0400Respiratory rate20 /minKoko Magana MD Work Phone: [phone]wGufmmx17-60-3482 22:42-9001KgZ4% (BldA) [Mass fraction]98 %Koko Magana MD Work Phone: [phone]hPvmvgc17-82-8734 22:42-0400Systolic blood mm[Hg]Koko Magana MD Work Phone: [phone]aDfcgvk71-28-3354 12:54-0400Body mitnye358.7 cm Mitesh Agee MD Work Phone: [place] [address]RPHCZC35-92-5108 12:54-0400Body mass index (BMI) [Ratio]27.31 kg/v7NlcwilMitesh Agee MD Work Phone: [place] [address]UZFAXQ67-12-6153 12:54-0400Body loiegsbcaoo41.81 [degF]Mitesh Agee MD Work Phone: [place] [address]WZGZRB81-65-5762 12:54-0400Body fhajwn26.47 kg Mitesh Agee MD Work Phone: [place] [phone] 12:54-0400Diastolic blood ywiadcyf00 mm[Hg]Mitesh Agee MD Work Phone: [place] [address]TFTQBU35-39-3173 12:54-0400Heart rate88 /min Mitesh Agee MD Work Phone: [phone] [address]LFWZBY58-09-6657 12:54-0903AtG0% (BldA) [Mass fraction]97 %Mitesh Agee MD Work Phone: [place] [address]XPLLEA97-31-5239 12:54-0400Systolic blood fouhznll174 mm[Hg]Mitesh Agee MD Work Phone: [place] [address]TYKVOB06-83-9465 15:03-0400Body nguqsvopiyp183 [degF]Rajesh Farris MD Work Phone: [place] [address]DKOPWP19-99-9847 15:03-0400Diastolic blood ubdskzhg49 mm[Hg]Rajesh Farris MD Work Phone: [place] [address]MEITJE01-09-8335 15:03-0400Heart rate85 /min Rajesh Farris MD Work Phone: [place] [address]PAJYFL65-08-3867 15:03-2790SnW6% (BldA) [Mass fraction]97 %Rajesh Farris MD Work Phone: [phone] [place], [place] [address] 15:03-0400Systolic blood mxtybuqv362 mm[Hg]Rajesh Farris MD Work Phone: aWE[facility] SYSTEMNQFEJH97-39-1606 11:34-0400Body rseeospeqix92.2 [degF]Yuni Brennan MD Work Phone: [phone]ITALXFWGPA70-67-7702 11:34-0400Diastolic blood mm[Hg]Yuni Brennan MD Work Phone: [phone] [address]YQSGMA38-57-3715 11:34-0400Heart rate80 /Kelly Brennan MD Work Phone: [phone] [place], [place] [address]8070-18-2023 11:34-0400Respiratory rate18 /Kelly Brennan MD Work Phone: [phone] HOSPITALTYXKUG67-66-0332 11:34-2688LoK2% (BldA) [Mass fraction]99 %Yuni Brennan MD Work Phone: [phone] [address]ADQQBU37-39-3938 11:34-0400Systolic blood zpkyivrx396 mm[Hg]Yuni Brennan MD Work Phone: [phone]OSPITALDWKLWZ78-09-1989 19:36-0400Body .7 cm Yuni Brennan MD Work Phone: [phone] HOSPITALUBIOQI67-25-1480 19:36-0400Body mass index (BMI) [Ratio]28.43 kg/m2Yuni Brennan MD Work Phone: [phone] [address]PUOYMM10-56-6450 19:36-0400Body ogzfji19.82 kg Yuni Brennan MD Work Phone: [phone] [address]-16-2023 10:08-0400Body .7 cm Stefania Pitts APRN-CHARLEEN Work Phone: [place] [address]QJXQIS00-19-2438 10:08-0400Body mass index (BMI) [Ratio]28.52 kg/o8Ohrakg Hong [employer]CALATOR CONSTRUCTOR Work Phone: [facility]OSPITALNPHQPD29-60-6111 10:08-0400Body cixcaxlhyji94.01 [degF]Stefania Pitts [employer]-ESCALATOR CONSTRUCTOR Work Phone: [place] [address]IPMJGF91-61-0018 10:08-0400Body hszsqe12.09 kg Stefania Pitts [employer]CALATOR CONSTRUCTOR Work Phone: [facility]OSPITALUULPXC16-86-3817 10:08-0400Diastolic blood wpxatvnb66 mm[Hg]Stefania Pitts [employer]-ESCALATOR CONSTRUCTOR Work Phone: [place] [address]NIRCTD41-96-1369 10:08-0400Heart rate73 /min Stefania Pitts [employer]CALATOR CONSTRUCTOR Work Phone: [phone] [place] [address]-16-2023 10:08-0400Respiratory rate18 /minStefania Pitts [employer]-ESCALATOR CONSTRUCTOR Work Phone: [phone] [place], [place] 65[address]-16-2023 10:08-4245OsE1% (BldA) [Mass fraction]98 %Stefania Pitts [employer]-ESCALATOR CONSTRUCTOR Work Phone: [place] [address]ZFKDUA35-86-7493 10:08-0400Systolic blood mm[Hg]Stefania Pitts [employer]-ESCALATOR CONSTRUCTOR Work Phone: [phone] [address]YVAODP44-47-7965 12:40-0400Body mass index (BMI) [Ratio]28.56 kg/m2Jade Funck DO Work Phone: [phone] [place], [place] 6501306-08-2023 12:40-0400Body hkyidslpsgi75.39 [degF]Julee Funck DO Work Phone: [place] [address]INHGFO22-22-1736 12:40-0400Body qukefq88.73 kg Julee Funck DO Work Phone: [place] [address]DYABBX87-69-8128 12:40-0400Diastolic blood bmauhbqp55 mm[Hg]Julee Funck DO Work Phone: [facility]OSPITALOLIKLY94-09-4583 12:40-0400Heart rate75 /minJade Funck DO Work Phone: [phone] [place], [place] 1154806-08-2023 12:40-0400Respiratory rate18 /minJade Funck DO Work Phone: [phone] [place], [place] [address]4806-08-2023 12:40-2152VdA3% (BldA) [Mass fraction]97 %Julee Funck DO Work Phone: [phone] [place], [place] [address]4806-08-2023 12:40-0400Systolic blood duspbbtg741 mm[Hg]Jluee Funck DO Work Phone: [phone] [place], [place] [address]4802-09-2023 14:30-0500Body mass index (BMI) [Ratio]28.77 kg/m2Jade Funck DO Work Phone: [phone] [place], [place] 1154802-09-2023 14:30-0500Body juhhbjnxiyw50.9 [degF]Julee Funck DO Work Phone: [phone] [place], [place] 1154802-09-2023 14:30-0500Body gsktea91.36 kg Julee Funck DO Work Phone: [phone] [place], [place] 1154802-09-2023 14:30-0500Diastolic blood aikkeakr80 mm[Hg]Julee Funck DO Work Phone: [phone] [place], [place] 1154802-09-2023 14:30-0500Heart rwfw968 /min Julee Funck DO Work Phone: [phone] [place], [place] 1154802-09-2023 14:30-0500Respiratory rate18 /minMarkde Funck DO Work Phone: [phone] [place], [place] 1154802-09-2023 14:30-7007TmP4% (BldA) [Mass fraction]94 %Julee Funck DO Work Phone: [phone] [place], [place] 1154802-09-2023 14:30-0500Systolic blood mm[Hg]Julee Funck DO Work Phone: [phone] [place], [place] 1154811-11-2022 10:28-0500Body henqfn868.3 cm Jessica Davis MD Work Phone: [place] [address]TDUCBU26-54-7976 10:28-0500Body mass index (BMI) [Ratio]28.06 kg/f0ApykrpJessica Davis MD Work Phone: [phone] [place] [address]-11-2022 10:28-0500Body diotiynkjbo99.81 [degF]Jessica Davis MD Work Phone: [phone] [place] [address]-11-2022 10:28-0500Body wtixid30.18 kg Jessica Davis MD Work Phone: [phone] [address]-11-2022 10:28-0500Diastolic blood mm[Hg]Jessica Davis MD Work Phone: [phone] [address]-11-2022 10:28-0500Heart rate78 /min Jessica Davis MD Work Phone: [phone] [place] [address]-11-2022 10:28-0500Respiratory rate18 /minJessica Davis MD Work Phone: [phone] [place] [address]-11-2022 10:28-4416KaB8% (BldA) [Mass fraction]95 %Jessica Davis MD Work Phone: [phone] [place] [address]-11-2022 10:28-0500Systolic blood mm[Hg]Jessica Davis MD Work Phone: [facility] Encounters Encounter DateEncounter TypeCare ProviderFacilityStart: 05-14-2025 End: 41-99-8873kgljbphcswEcvovcc Yeni DO Work Phone: [facility] Work Phone: Start: 05-14-2025 End: 81-87-7690Upnhpjr encounter procedureJessica Yeni DO-[facility] Work Phone: Start: 03-13-2025 End: 33-82-8699Qbbnlhjgi Result EncounterLisa Brandon NUNES Work Phone: [facility] External Department UnsolicitedStart: 03-13-2025 End: 23-45-4470Kybkrstqk Result EncounterLisa Aichholz GRANULATOR Work Phone: [facility] External Department UnsolicitedStart: 02-26-2025 End: 86-34-6691Rbxyyqdyt Result EncounterLisa Aichholz GRANULATOR Work Phone: [facility] External Department UnsolicitedStart: 02-26-2025 End: 73-86-6788Wlgpdzmsk Result EncounterLisa Aichholz GRANULATOR Work Phone: [facility] External Department UnsolicitedStart: 02-16-2025 End: 75-25-4393Mjthem flowsheetLisa Aichholz GRANULATOR Work Phone: [facility] CWM FMStart: 02-16-2025 End: 03-39-9540Wbvfbr flowsheetLisa Aichholz GRANULATOR Work Phone: [facility] CWM FMStart: 02-16-2025 End: 84-99-0754Vvavhy outpatient visit 25 minutesLisa Aichholz GRANULATOR Work Phone: [facility] CWM FMComment on above:Attention deficit hyperactivity disorder (ADHD), predominantly hyperactive type (Primary Dx); Tetrahydrocannabinol (THC) use disorder, moderate, dependence (HCC); Mild intermittent asthma without complication (HCC); Chronic pain of both knees; Chronic bilateral low back pain without sciatica; Gastroesophageal reflux disease without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 04/05/2023 2:40 PM EDT This is a resident progress note generated at [facility]. I, Dr. Farris, am [...] 0.4 (L) 0.6 - 4.6 K/uL Abs [place] [employer] 1.0 0.0 - 1.3 K/uL Abs [...] F/up prn Staff: Dr. Dale Farris MD Account Support Manager, PGY-2 [facility] [phone] Associated attestation - Vic Hunter DO - 04/16/2023 6:24 AM EDT 04/05/2023 I, Vic Hunter, was immediately available in the clinic throughout the course of this patient's treatment encounter. I discussed the patient's case with the resident, and I agree with the SOAP note including history, exam, decision making, diagnosis, and care plan. See resident documentation for details. [facility] [id number] History and physical note* Rajesh Farris MD - 04/05/2023 2:40 PM EDT This is a resident progress note generated at [facility]. I, Dr. Farris, [...] 0.4 (L) 0.6 - 4.6 K/uL Abs [place] [employer] 1.0 0.0 - 1.3 K/uL Abs [...] F/up prn Staff: Dr. Dale Farris MD Account Support Manager, PGY-2 [facility] [phone] Associated attestation - Vic Hunter DO - 04/16/2023 6:24 AM EDT 04/05/2023 I, Vic Hunter, was immediately available in the clinic throughout the course of this patient's treatment encounter. I discussed the patient's case with the resident, and I agree with the SOAP note including history, exam, decision making, diagnosis, and care plan. See resident documentation for details. documented in this encounterCAPE FEAR VALLEY BLADEN COUNTY [id number] Hospital course Narrative* Yuni Brennan MD - 01/21/2023 1:04 PM EDT Images from the original note [...] Sunday. Patient has never had any surgeries inthe past nor does he have any history [...] Department Dept Phone 04/16/2023 11:00 AM Charles Nixon [facility] [phone] documented in this encounterCAPE FEAR VALLEY BLADEN COUNTY [id number] Nurse Note* Nursing Notes - Cait Matthew RN - 01/21/2023 12:58 PM EDT Nursing Discharge Time Out Name: Osman Mckee [...] coordinated or referred to primary care, specialty care,etc: Yes The patient has been provided specific discharge instructions and education related to hollingsworth conditions and new prescriptions: Yes Discharge Time Out completed with: Name of RN/Director Of Advertising Sales/Sports Betting Manager who verifies discharge items complete:Alysia London RN [facility] [id number] Plan of care note* Plan of Care - Cait Matthew RN - 01/21/2023 12:58 PM EDT Problem: Patient Care Overview Goal: Plan of Care Review Outcome: Completed Goal: Individualization & Mutuality Outcome: Completed Goal: Discharge Needs Assessment Outcome: Completed Goal: Interdisciplinary Rounds/Family Conf Outcome: Completed [facility] [id number] Miscellaneous Notes* Nursing Notes - Cait Matthew RN - 01/21/2023 12:58 PM EDT Nursing Discharge Time Out Name: Osman Mckee [...] coordinated or referred to primary care, specialty care,etc: Yes The patient has been provided specific discharge instructions and education related to hollingsworth conditions and new prescriptions: Yes Discharge Time Out completed with: Name of RN/Director Of Advertising Sales/Sports Betting Manager who verifies discharge items complete:Alysia London RN * Plan of Care - Cait Matthew RN - 01/21/2023 12:58 PM EDT Problem: Patient Care Overview Goal: Plan of Care Review Outcome: Completed Goal: Individualization & Mutuality Outcome: Completed Goal: Discharge Needs Assessment Outcome: Completed Goal: Interdisciplinary Rounds/Family Conf Outcome: Completed * Nursing Notes - Cait Matthew RN - 01/20/2023 6:30 PM EDT Pt's NG taken out and clear liquid diet ordered.Pt refusingIV fluids at this time. * Nursing Notes - Cait Matthew RN - 01/20/2023 3:12 PM EDT No changes from morning assessment. * Plan of Care - Cait Matthew RN - 01/20/2023 3:12 PM EDT Problem: Patient Care Overview Goal: Plan of Care Review Outcome: Ongoing Goal: Individualization & Mutuality Outcome: Ongoing Goal: Discharge Needs Assessment Outcome: Ongoing Goal: Interdisciplinary Rounds/Family Conf Outcome: Ongoing * Nursing Notes - Cait Matthew RN - 01/20/2023 12:57 PM EDT Pt returned from x-ray. documented in this encounterCAPE FEAR VALLEY BLADEN COUNTY [id number] Miscellaneous Notes* Nursing Notes - Cait Matthew RN - 01/21/2023 12:58 PM EDT Nursing Discharge Time Out Name: Osman Mckee [...] coordinated or referred to primary care, specialty care,etc: Yes The patient has been provided specific discharge instructions and education related to hollingsworth conditions and new prescriptions: Yes Discharge Time Out completed with: Name of RN/Director Of Advertising Sales/Sports Betting Manager who verifies discharge items complete:Alysia London RN * Plan of Care - Cait Matthew RN - 01/21/2023 12:58 PM EDT Problem: Patient Care Overview Goal: Plan of Care Review Outcome: Completed Goal: Individualization & Mutuality Outcome: Completed Goal: Discharge Needs Assessment Outcome: Completed Goal: Interdisciplinary Rounds/Family Conf Outcome: Completed * Nursing Notes - Cait Matthew RN - 01/20/2023 6:30 PM EDT Pt's NG taken out and clear liquid diet ordered.Pt refusingIV fluids at this time. * Nursing Notes - Cait Matthew RN - 01/20/2023 3:12 PM EDT No changes from morning assessment. * Plan of Care - Cait Matthew RN - 01/20/2023 3:12 PM EDT Problem: Patient Care Overview Goal: Plan of Care Review Outcome: Ongoing Goal: Individualization & Mutuality Outcome: Ongoing Goal: Discharge Needs Assessment Outcome: Ongoing Goal: Interdisciplinary Rounds/Family Conf Outcome: Ongoing * Nursing Notes - Cait Matthew RN - 01/20/2023 12:57 PM EDT Pt returned from x-ray. documented in this encounterCAPE FEAR VALLEY BLADEN COUNTY [id number] Nurse Note* Nursing Notes - Cait Matthew RN - 01/20/2023 6:30 PM EDT Pt's NG taken out and clear liquid diet ordered.Pt refusingIV fluids at this time. [facility] [id number] History of Present illness Narrative* Yuni Brennan MD - 01/20/2023 3:17 PM EDT [facility] Medicine Daily Progress Note Patient: Osman Mckee, 1990, [id number] Physician: Yuni Brennan MD Length of Stay: [...] WBC/Hgb/Hct/Plts: 8.3/14.7/43.0/232 (01/20 122) Bun/Creat/Cl/CO2/Glucose: 11/0.91/111/24/74 (01/20 0122-01/20 1339) Na/K+/Phos/Mg/Ca: 141/4.0/--/1.9/8.6 (01/20 122) Additional Labs/Cultures/Micro: New Imaging/Radiological Studies: Assessment/Plan: Osman Mckee is a 32 y.o. male patient with a past medical history of AdHD. He presents with complaints of nausea, vomiting and abdominal pain since Sunday. Patient has never had any surgeries inthe past nor does he have any history of bowel disease. Plan Small Bowel Obstruction. Pt comes in with abdominal pain, nausea and vomiting. CT showed obstructedileal bowel loops. NG tube placed. Pain control. IV fluids. Antiemetics PRN. Surgery consulted and recs appreciated. Small bowel follow through ordered today DVT prophylaxis. SCDs Yuni Brennan MD * Phil Swanson, - 01/20/2023 8:57 AM EDTSummary: ACS progress note [address] [address] ACUTE CARE SURGERY PROGRESS NOTE [...] DO 01/20/23 8:57 AM documented in this encounterCAPE FEAR VALLEY BLADEN COUNTY [id number] History of Present illness Narrative* Yuni Brennan MD - 01/20/2023 3:17 PM EDT [facility] Medicine Daily Progress Note Patient: Osman Mckee, 1990, [id number] Physician: Yuni Brennan MD Length of Stay: [...] Sunday. Patient has never had any surgeries inthe past nor does he have any history of bowel disease. Plan Small Bowel Obstruction. Pt comes in with abdominal pain, nausea and vomiting. CT showed obstructedileal bowel loops. NG tube placed. Pain control. IV fluids. Antiemetics PRN. Surgery consulted and recs appreciated. Small bowel follow through ordered today DVT prophylaxis. SCDs Yuni Brennan MD * Phil EscobarEdgar, DO - 01/20/2023 8:57 AM EDTSummary: ACS progress note [address] [address] ACUTE CARE SURGERY PROGRESS NOTE [...] Heladio Brennan MD 100 mL/hr at 01/19/23 193 New Bag at 01/19/23 193 RESULTS: Reviewed Electronically signed by: Phil Swanson DO 01/20/23 8:57 AM documented in this encounterCAPE FEAR VALLEY BLADEN COUNTY [id number] Nurse Note* Nursing Notes - Cait Matthew RN - 01/20/2023 3:12 PM EDT No changes from morning assessment. [id number] Plan of care note* Plan of Care - Cait Matthew RN - 01/20/2023 3:12 PM EDT Problem: Patient Care Overview Goal: Plan of Care Review Outcome: Ongoing Goal: Individualization & Mutuality Outcome: Ongoing Goal: Discharge Needs Assessment Outcome: Ongoing Goal: Interdisciplinary Rounds/Family Conf Outcome: Ongoing [id number] Nurse Note* Nursing Notes - Cait Matthew RN - 01/20/2023 12:57 PM EDT Pt returned from x-ray. [id number] Consult note* Phil Swanson, - 01/19/2023 7:29 PM EDTAssociated Order(s): IP CONSULT TO SURGERY - GENERAL (EMERGENT) Summary: ACS Consult Note [address] [address] ACUTE CARE SURGERY CONSULT NOTE [...] This 32 y/o male pt presents to [facility] ED c/o severe abdominal pain. Pt reports pain is predominantlyin midabdomen. Pain doesn't radiate. Pt reports pain [...] sister; Cancer in his paternal grandfather; Heart Disease- Other in his paternal grandfather; No known [...] and discussed with the patient and/or appropriate entry level sales representative. Electronically signed by: Phil Swanson DO 01/19/23 7:30 PM [facility] [id number] Consult note* Phil Swanson DO - 01/19/2023 7:29 PM EDTAssociated Order(s): IP CONSULT TO SURGERY - GENERAL (EMERGENT) Summary: ACS Consult Note [address] [address] ACUTE CARE SURGERY CONSULT NOTE DATE & [...] This 32 y/o male pt presents to [facility] ED c/o severe abdominal pain. Pt reports pain is predominantlyin midabdomen. Pain doesn't radiate. Pt reports pain [...] sister; Cancer in his paternal grandfather; Heart Disease- Other in his paternal grandfather; No known [...] and discussed with the patient and/or appropriate entry level sales representative. Electronically signed by: Phil Swanson DO 01/19/23 7:30 PM documented in this encounterCAPE FEAR VALLEY BLADEN COUNTY [id number] Consult note* Phil Shah DO - 01/19/2023 7:29 PM EDTAssociated Order(s): IP CONSULT TO SURGERY - GENERAL (EMERGENT) Summary: ACS Consult Note [address] [address] ACUTE CARE SURGERY CONSULT NOTE DATE & [...] This 32 y/o male pt presents to [facility] ED c/o severe abdominal pain. Pt reports pain is predominantlyin midabdomen. Pain doesn't radiate. Pt reports pain [...] solution Intravenous Continuous Supo Heladio Brennan MD Medications Prior to Admission Medication [...] sister; Cancer in his paternal grandfather; Heart Disease- Other in his paternal grandfather; No known [...] and discussed with the patient and/or appropriate entry level sales representative. Electronically signed by: Phil Swanson DO 01/19/23 7:30 PM documented in this encounterCAPE FEAR VALLEY BLADEN COUNTY [id number] History and physical note* Supo A Folaranmi, MD - 01/19/2023 6:51 PM EDT [facility] Medicine History & Physical Patient: Osman Mckee, 1990, [id number] Physician: Yuni Brennan MD Admit Date: 01/19/2023 [...] abdominal pain, nausea and vomiting. CT showed obstructedileal bowel loops. NG tube placed. Pain control. [...] NG tube was placed and he is beingadmitted for further management. Past Medical, Surgical, Family, [...] Chest rise symmetric, normal work of breathing. Normalbreath sounds b/l, no wheezing or crackles Cardio: [...] / Rocael Mayorga Interpreting Provider: Rocael Mayorga [id number] History and physical note* Yuni Brennan MD - 01/19/2023 6:51 PM EDT [facility] Medicine History & Physical Patient: Osman Mckee, 1990, [id number] Physician: Yuni Brennan MD Admit Date: 01/19/2023 [...] abdominal pain, nausea and vomiting. CT showed obstructedileal bowel loops. NG tube placed. Pain control. [...] NG tube was placed and he is beingadmitted for further management. Past Medical, Surgical, Family, [...] Chest rise symmetric, normal work of breathing. Normalbreath sounds b/l, no wheezing or crackles Cardio: [...] Interpreting Provider: Rocael Mayorga documented in this encounterCAPE FEAR VALLEY BLADEN COUNTY [id number] History and physical note* Yuni Brennan MD - 01/19/2023 6:51 PM EDT Hospital Medicine History & Physical Patient: Osman Mckee, 1990, [id number] Physician: Yuni Brennan MD Admit Date: 01/19/2023 [...] abdominal pain, nausea and vomiting. CT showed obstructedileal bowel loops. NG tube placed. Pain control. [...] NG tube was placed and he is beingadmitted for further management. Past Medical, Surgical, Family, [...] Chest rise symmetric, normal work of breathing. Normalbreath sounds b/l, no wheezing or crackles Cardio: [...] and Imaging WBC/Hgb/Hct/Plts: 7.2/15.6/45.7/234 (01/19 135) Bun/Creat/Cl/CO2/Glucose: 12/1.06/105/27/94 (01/19 135) Na/K+/Phos/Mg/Ca: 137/3.9/--/--/9.0 (01/19 [...] Interpreting Provider: Rocael Mayorga documented in this encounterCAPE FEAR VALLEY BLADEN COUNTY [id number] Emergency department Note* Sharita Mcfadden RN - 01/19/2023 6:35 PM EDT Report given to 3A. [facility] [id number] Emergency department Note* Sharita Mcfadden RN - 01/19/2023 6:35 PM EDT Report given to 3A. * Sharita Mcfadden RN - 01/19/2023 5:44 PM EDT Attempted to call report to 3A * Sharita Mcfadden RN - 01/19/2023 1:53 PM EDT Patient presents to the ED from for a possible bowel blockage. The patient reports diarrhea and vomiting for the past 2 days. Patient reports that he has been unable to eat or he vomits. * Jaskaran Sotelo MD - 01/19/2023 1:38 PM EDT TRIAGE CHIEF COMPLAINT: Chief Complaint Patient presents with Abdominal Pain Patient ambulatory to ER for epigastric pain x2 days. [facility] sent him to ER for potential blockage. Alert, orientedx4 History of Present Illness: Osman Mckee is a 32 y.o. male who presents to emergency department at [facility] with nausea, vomiting, diarrhea, and concerns for small- bowel obstruction. Patient reports thathis symptoms began about 3 days ago with pain in the left upper quadrant. This was closely followedby the vomiting and diarrhea. He continues to have frequent, watery stools including just prior to a rrival. At symptom onset, he also noticed increasing [...] quadrant on the left. He denies any abdominalsurgical history. He denies any urinary symptoms. There is no groin pain. He went to an area urgentcare, and x-rays were concerning for small-bowel obstruction, [...] tenderness, guarding, rebound, or rigidity. No mass orpulsatile mass. Bowel sounds absent currently in all quadrants. No CVA tenderness. GENITOURINARY: No inguinal tenderness. NEUROLOGICAL: GCS 15. Cranial nerves II-XII are grossly intact as tested without facial droop or dermatomal paresthesias. Forehead wrinkles are symmetric. Conjugate gaze. No gross motor or cerebellardeficits. MUSCULOSKELETAL: No asymmetric edema, Homans sign, or cords. SKIN: Normal turgor. Normal capillary refill. No petechiae, purpura, vesicles, or other lesions. Noicterus. PSYCHIATRIC: Normal mood. Normal affect. EMERGENCY DEPARTMENT [...] CT scan is consistent with small-bowel obstruction, possiblyhigh grade or closed loop. Radiologist cannot pinpoint a source but questions perhaps an internal hernia. We have discussed initial management including NG tube placement. Patient is agreeable. We discussed surgical consultation admission to the hospital. Acute Care Surgery is paged for consultation at [phone]. We have discussed all available results. Patient is satisfied with evaluation and agreeable to recommendations. The hospitalist is requested at 1341. Any addenda will be made as appropriate. [...] Auto 1.8 0.6 - 4.6 K/uL Abs Pecos Auto 0.6 0.0 - 1.3 K/uL Abs Eos Auto 0.1 0.0 - 0.6 K/uL Abs Baso Auto 0.0 0.0 - 0.2 K/uL Nucleated RBC 0 /100 WBC LIPASE Result Value Ref Range Lipase 5 (L) 11 - 82 U/L Based upon the initial history, clinical exam, and testing the patient has findings consistent withsmall-bowel obstruction. CT imaging is suspicious for either closed loop or high-grade obstruction.There is no clear indication of ischemia, perforation, pneumatosis, acute or gangrenous cholecystitis, or detectable hernia. Radiologist questions possible internal hernia. Laboratory testing is morereassuring. Patient does not appear septic or inappropriately acidotic. DISPOSITION: Hospitalization. This documentation was completed with voice recognition and k 12 principal software. Attempts are made to proof read contemporaneously and at disposition, but some k 12 principal errors may persist. Jaskaran Sotelo MD 01/19/23 1761 Addendum: Care is discussed with Acute Care [...] patient in consultation. Jaskaran Sotelo MD 01/19/23 4784 documented in this encounterCAPE FEAR VALLEY BLADEN COUNTY [id number] Emergency department Note* Sharita Mcfadden RN - 01/19/2023 6:35 PM EDT Report given to 3A. * Sharita Mcfadden RN - 01/19/2023 5:44 PM EDT Attempted to call report to 3A * Sharita Mcfadden RN - 01/19/2023 1:53 PM EDT Patient presents to the ED from for a possible bowel blockage. The patient reports diarrhea and vomiting for the past 2 days. Patient reports that he has been unable to eat or he vomits. * Jaskaran Sotelo MD - 01/19/2023 1:38 PM EDT TRIAGE CHIEF COMPLAINT: Chief Complaint Patient presents with Abdominal Pain Patient ambulatory to ER for epigastric pain x2 days. [facility] sent him to ER for potential blockage. Alert, orientedx4 History of Present Illness: Osman Mckee is a 32 y.o. male who presents to emergency department at [facility] with nausea, vomiting, diarrhea, and concerns for small- bowel obstruction. Patient reports thathis symptoms began about 3 days ago with pain in the left upper quadrant. This was closely followedby the vomiting and diarrhea. He continues to have frequent, watery stools including just prior to a rrival. At symptom onset, he also noticed increasing [...] quadrant on the left. He denies any abdominalsurgical history. He denies any urinary symptoms. There is no groin pain. He went to an area urgentcare, and x-rays were concerning for small-bowel obstruction, [...] tenderness, guarding, rebound, or rigidity. No mass orpulsatile mass. Bowel sounds absent currently in all quadrants. No CVA tenderness. GENITOURINARY: No inguinal tenderness. NEUROLOGICAL: GCS 15. Cranial nerves II-XII are grossly intact as tested without facial droop or dermatomal paresthesias. Forehead wrinkles are symmetric. Conjugate gaze. No gross motor or cerebellardeficits. MUSCULOSKELETAL: No asymmetric edema, Homans sign, or cords. SKIN: Normal turgor. Normal capillary refill. No petechiae, purpura, vesicles, or other lesions. Noicterus. PSYCHIATRIC: Normal mood. Normal affect. EMERGENCY DEPARTMENT [...] CT scan is consistent with small-bowel obstruction, possiblyhigh grade or closed loop. Radiologist cannot pinpoint a source but questions perhaps an internal hernia. We have discussed initial management including NG tube placement. Patient is agreeable. We discussed surgical consultation admission to the hospital. Acute Care Surgery is paged for consultation at [phone]. We have discussed all available results. Patient is satisfied with evaluation and agreeable to recommendations. The hospitalist is requested at [phone]. Any addenda will be made as appropriate. [...] Auto 1.8 0.6 - 4.6 K/uL Abs Pecos Auto 0.6 0.0 - 1.3 K/uL Abs Eos Auto 0.1 0.0 - 0.6 K/uL Abs Baso Auto 0.0 0.0 - 0.2 K/uL Nucleated RBC 0 /100 WBC LIPASE Result Value Ref Range Lipase 5 (L) 11 - 82 U/L Based upon the initial history, clinical exam, and testing the patient has findings consistent withsmall-bowel obstruction. CT imaging is suspicious for either closed loop or high-grade obstruction.There is no clear indication of ischemia, perforation, pneumatosis, acute or gangrenous cholecystitis, or detectable hernia. Radiologist questions possible internal hernia. Laboratory testing is morereassuring. Patient does not appear septic or inappropriately acidotic. DISPOSITION: Hospitalization. This documentation was completed with voice recognition and k 12 principal software. Attempts are made to proof read contemporaneously and at disposition, but some k 12 principal errors may persist. Jaskaran Sotelo MD 01/19/23 9600 Addendum: Care is discussed with Acute Care [...] patient in consultation. Jaskaran Sotelo MD 01/19/23 9319 documented in this encounterCAPE FEAR VALLEY BLADEN COUNTY [id number] Emergency department Note* Sharita Mcfadden RN - 01/19/2023 5:44 PM EDT Attempted to call report to 3A [id number] Emergency department Note* Sharita Mcfadden RN - 01/19/2023 1:53 PM EDT Patient presents to the ED from for a possible bowel blockage. The patient reports diarrhea and vomiting for the past 2 days. Patient reports that he has been unable to eat or he vomits. [id number] Physician Emergency department Note* Jaskaran Sotelo MD - 01/19/2023 1:38 PM EDT TRIAGE CHIEF COMPLAINT: Chief Complaint Patient presents with Abdominal Pain Patient ambulatory to ER for epigastric pain x2 days. [facility] sent him to ER for potential blockage. Alert, orientedx4 History of Present Illness: Osman Mckee is a 32 y.o. male who presents to emergency department at [facility] with nausea, vomiting, diarrhea, and concerns for small- bowel obstruction. Patient reports thathis symptoms began about 3 days ago with pain in the left upper quadrant. This was closely followedby the vomiting and diarrhea. He continues to have frequent, watery stools including just prior to a rrival. At symptom onset, he also noticed increasing [...] quadrant on the left. He denies any abdominalsurgical history. He denies any urinary symptoms. There is no groin pain. He went to an area urgentcare, and x-rays were concerning for small-bowel obstruction, [...] tenderness, guarding, rebound, or rigidity. No mass orpulsatile mass. Bowel sounds absent currently in all quadrants. No CVA tenderness. GENITOURINARY: No inguinal tenderness. NEUROLOGICAL: GCS 15. Cranial nerves II-XII are grossly intact as tested without facial droop or dermatomal paresthesias. Forehead wrinkles are symmetric. Conjugate gaze. No gross motor or cerebellardeficits. MUSCULOSKELETAL: No asymmetric edema, Homans sign, or cords. SKIN: Normal turgor. Normal capillary refill. No petechiae, purpura, vesicles, or other lesions. Noicterus. PSYCHIATRIC: Normal mood. Normal affect. EMERGENCY DEPARTMENT [...] CT scan is consistent with small-bowel obstruction, possiblyhigh grade or closed loop. Radiologist cannot pinpoint a source but questions perhaps an internal hernia. We have discussed initial management including NG tube placement. Patient is agreeable. We discussed surgical consultation admission to the hospital. Acute Care Surgery is paged for consultation at [phone]. We have discussed all available results. Patient is satisfied with evaluation and agreeable to recommendations. The hospitalist is requested at 0513. Any addenda will be made as appropriate. [...] Auto 1.8 0.6 - 4.6 K/uL Abs Pecos Auto 0.6 0.0 - 1.3 K/uL Abs Eos Auto 0.1 0.0 - 0.6 K/uL Abs Baso Auto 0.0 0.0 - 0.2 K/uL Nucleated RBC 0 /100 WBC LIPASE Result Value Ref Range Lipase 5 (L) 11 - 82 U/L Based upon the initial history, clinical exam, and testing the patient has findings consistent withsmall-bowel obstruction. CT imaging is suspicious for either closed loop or high-grade obstruction.There is no clear indication of ischemia, perforation, pneumatosis, acute or gangrenous cholecystitis, or detectable hernia. Radiologist questions possible internal hernia. Laboratory testing is morereassuring. Patient does not appear septic or inappropriately acidotic. DISPOSITION: Hospitalization. This documentation was completed with voice recognition and k 12 principal software. Attempts are made to proof read contemporaneously and at disposition, but some k 12 principal errors may persist. Jaskaran Sotelo MD 01/19/23 6878 Addendum: Care is discussed with Acute Care [...] patient in consultation. Jaskaran Sotelo MD 01/19/23 8892 [facility] [id number] History of Present illness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
== END 2025-05-29 10:32 | disposition home or self-care (01) ==
PROVIDERS: Emergency Provider Student in an Organized Health Care Education/Training Program; PCP Nurse Practitioner
DX: R10.10 Upper abdominal pain, unspecified (principal); F17.200 Nicotine dependence, unspecified, uncomplicated
CPT/HCPCS: 36415; 74177; 80053; 83690; 85025; 96361; 96374; 96375; 99285; J1171; J2405; J3490; Q9967